=== PATIENT | female | born 1940 | race Caucasian/White ===

== ENCOUNTER → 2017-10-13 14:59 | Outpatient (CLI) | payer MEDICARE, SELFPAY ==
[2017-10-13 17:48] LABS: AST(SGOT) 53 U/L (15-37); Alanine Aminotransfer ALT/SGPT 82 U/L (13-56); Albumin, Serum 3.7 g/dL (3.2-5.0); Alkaline Phosphatase 59 U/L (45-117); Bilirubin, Direct 0.09 mg/dL (0.00-0.30); Globulin 3.7 g/dL (2.2-4.2); Protein, Total 7.4 g/dL (6.4-8.2)
== END ==
PROVIDERS: Family Provider Family Medicine; PCP Family Medicine; Visit Provider Internal Medicine Rheumatology
DX: R74.8 Abnormal levels of other serum enzymes (principal)
CPT/HCPCS: 36415; 80076

== ENCOUNTER → 2018-01-21 14:35 | Outpatient (CLI) | payer MEDICARE, SELFPAY ==
--- NOTE | 2018-01-21 14:37 | BI_ITS ---
MAMMOGRAPHY - BILATERAL SCREENING REASON FOR EXAM: Female, 77 years old. Routine annual screening examination. PERTINENT HISTORY: Non-contributory. TECHNIQUE: Digital bilateral breast kathrin (3D mammographic acquisition) in the CC and MLO projections. 2-D mediolateral oblique (MLO) and craniocaudad (CC) views of both breasts were obtained. CAD: Full Field Digital Mammography with Computer Added Detection was performed. COMPARISON: Comparison is made with prior study dated May 14, 2016 as well as May 23, 2016 and October 23, 2016. FINDINGS: Breast Composition: There are scattered areas of fibroglandular density. There are no dominant masses or suspicious calcifications. Stable appearance of the 2 mm well-defined nodular density in the upper outer aspect of the right breast. Stable appearance of the bilateral axillary lymph nodes. No other significant abnormalities are identified. There has been no significant change since the prior study. BI/SCREENING MAMM (CAD), BILAT IMPRESSION: Stable bilateral screening mammogram. Yearly follow-up mammogram recommended. (A) ASSESSMENT CATEGORY: BIRADS Category 2: Benign. A letter regarding these results will be sent to the patient by the facility within 30 days. Approximately 10% of breast cancers are not detected by mammography. A normal mammogram should not delay biopsy of a clinically suspicious abnormality. [id number] Electronically Signed: Gianfranco Chávez MD at 15:54 EDT Tel [phone], Service support ,
== END ==
PROVIDERS: Family Provider Family Medicine; PCP Family Medicine; Visit Provider Family Medicine
DX: Z12.31 Encounter for screening mammogram for malignant neoplasm of breast (principal)
CPT/HCPCS: 77063; 77067

== ENCOUNTER 2018-04-24 12:00 | Outpatient (RCR) | payer MEDICARE, SELFPAY ==
--- NOTE | 2018-04-01 11:39 | HP.PTEVAL_ITS ---
Patient's Visit Information CLARISA SANCHEZ is a 77 year old F referred to Physical Therapy by Anastasia Garcia D.C. with a diagnosis of SPONDYLOLTHESIS,INTERVERTBRAL DISC DEGENERATION, SEGMENTAL DYSFUNCTIONPELVIS. Date of Evaluation: 04/01/18 Physical Therapist: Hema Warner, PT, - Visit Plan Frequency: 2x /Week Duration: 4 Weeks Plan: heel lift ,DLS ,POSTURAL EX'S , LE STRENGTHENING,MODALITIES PRN - Subjective Subjective: This 77 y/o female presents to physical therapy low back pain. Patient has had lumbar pain several years . Patient had THR left side Miya pain became worse may have altered gait. But,patient did have alot pain prior to surgey in lumbar.Patient had MRI 2016 showed foraminal stenosis,DDD ,disc involvement. Patient left lumbar L-S/SI greater to right. Symptoms worse standing,walking,lifting,elevation from chair. Symptoms better rest laying supine. patient arthritis DR at [facility]. Seen [facility] recommended PT . Coughing/sneezing -. Bowel/bladder -. Pain affects QOL and daily function. Sleepung good at night. Denies parathesia/tingling. VOCATION: retired. SOCIAL : - Pain Bilateral Back Pain Intensity (Out of 10): 2 Pain Intensity Range: 7 - Objective POSTURE: mild foward posture. SYMMTRIES: pelvis assymitrcal,leg length assymtry right shorter 1. NEURO: intact reflexes 1/3 L3-4,L4-5L5-S1,denies parathesia/tingling. GAIT: ambulates with mild foward posture antalgic gait. MMT: quads/hams 4-/5,hip flexion 4-/5,abd 3+/5 ,ankle 4/5. LUMBAR ROM: flexion min loss decrease curve reversal,side glides decrease segmental motion, extensionmod loss. FLEXABLITY: hams min/mod tight - Special Tests L/S Slump test left side: Negative L/S Slump test right side: Negative L/S Left Straight Leg Raise: Negative L/S Right Straight Leg Raise: Negative Lumbar Standing: Flexion - Mechanical Response: No effect Lumbar Standing: Flexion - Symptoms During Testing: Increases Lumbar Standing: Flexion - Symptoms After Testing: No worse Lumbar Standing: Extension - Mechanical Response: No effect Lumbar Standing: Extension - Symptoms During Testing: Increases Lumbar Standing: Extension - Symptoms After Testing: Worse - Goals Goal 1:: Patient to be Independant with HEP Goal Time Frame: 4-6 Weeks Goal 2:: Patient to improve quality of gait with less antalgic pattern Goal Time Frame: 4-6 Weeks Goal 3:: Patient to decrease back pain by 50% vor greater to improve function with ADL'S Goal Time Frame: 4-6 Weeks Goal 4:: Patient to increase strength BLE 4/5 quads/hams hip 4/5 to improve function with bwalking and standing . Goal Time Frame: 4-6 Weeks Goal 5:: Patient to improve ADL'S and housework tasks standing walking greater than 15 min . - Rehabilitation Potential Physical Therapy Diagnosis: This patient has low back pain weakness impaits gait and ablity to stand and walk along with. leg length descrepency right short with h/o of left THR ermasu benifit from skilled PT Rehabilitation Potential: Good - Anticipated Interventions Patient/Client Instruction: Educate patient on: Condition For the Purpose of:: To decrease pain, To increase ROM, To improve muscle performance and motor function, To improve ability to perform ADL's, To increase tolerance to activity/condition/position, To improve ability of physical actions for home/community/work/leisure, To decrease soft tissue restriction, To increase flexibility/ROM, To reduce risk of recurrence, To improve ability to perform tasks related to life management Therapeutic Exercise to Include: Strength training, Body mechanics, Postural training, Flexibilty training, Dynamic Lumbar Stabilization For the Purpose of:: To decrease pain, To increase ROM, To improve muscle performance and motor function, To increase tolerance to activity/condition/ position, To improve ability of physical actions for home/community/work/leisure , To decrease soft tissue restriction, To increase flexibility/ROM, To improve ability to perform tasks related to life management TENS: Yes IF ES: Yes Cryotherapy (ice pack, ice massage): Yes Thermo therapy (hot pack): Yes Ultrasound (thermal/non thermal): Yes For the Purpose of:: To decrease pain, To increase ROM, To improve muscle performance and motor function, To increase tolerance to activity/condition/ position, To improve ability of physical actions for home/community/work/leisure , To decrease soft tissue restriction, To increase flexibility/ROM, To improve ability to perform tasks related to life management Thank you for the opportunity to evaluate your patient. For Medicare and Medicare HMO plans, please review the plan of care and approve it. It will need to be FAXED BACK to us at [phone] for Medicare purposes. Please let me know if there are questions or concerns regarding this plan of care. Physician Signature: Date:
--- NOTE | 2018-04-24 12:38 | HP.PTDCSUM ---
HP - PT D/C Summary It has been my pleasure to treat CLARISA ASNCHEZ under orders from Anastasia Garcia D.C., for the diagnosis of SPONDYLOLTHESIS,INTERVERTBRAL DISC DEGENERATION,SEGMENTAL DYSFUNCTIONPELVIS for a total of 8 visit(s). Discharge Date: 04/24/18 Please see the following information for a summary of their discharge status. - Subjective Subjective: Patient reports alot better with walking and ADL''S but conts to ache left side ..lateral hip. Patient doesn't ayse - Pain Bilateral Back Pain Intensity (Out of 10): 1 - Overall Improvement % Improvement: 60 - Objective Objective/Function: POSTURE: mild foward posture. GAIT: mild foward posture no device. NEURO: intact. MMT: quad/hams 4/5,hip flexion 4-/5,ankle 4/5. LUMBAR ROM: flexion min loss,extension mod loss,side glides min loss - Goals Goal 1:: Patient to be Independant with HEP Goal Progress: Goal Met Goal 2:: Patient to improve quality of gait with less antalgic pattern Goal Progress: Goal Met Goal 3:: Patient to decrease back pain by 50% vor greater to improve function with ADL'S Goal Progress: Goal Met Goal 4:: Patient to increase strength BLE 4/5 quads/hams hip 4/5 to improve function with bwalking and standing . Goal Progress: Goal Met Goal 5:: Patient to improve ADL'S and housework tasks standing walking greater than 15 min . Goal Progress: Goal Met - Plan Plan: D/C HEP - D/C Information Discharge Comments: HEP If there are questions or concerns regarding this patient's physical therapy, please feel free to call me at [phone]. Thank you for the referral of this patient. Sincerely, Hema Warner, PT,
== END 2018-04-24 19:00 | disposition home or self-care (01) ==
LOC: PT 12:00
PROVIDERS: Family Provider Family Medicine; PCP Family Medicine; Visit Provider Chiropractor
DX: M43.10 Spondylolisthesis, site unspecified (principal); M51.36 Other intervertebral disc degeneration, lumbar region; M99.05 Segmental and somatic dysfunction of pelvic region
CPT/HCPCS: 97110; 97162; 97530

== ENCOUNTER → 2018-07-28 16:23 | Outpatient (CLI) | payer MEDICARE, SELFPAY ==
[2018-03-26 14:29] VITALS: BMI 25.4
[2018-07-28 18:33] LABS: AST(SGOT) 34 U/L (15-37); Alanine Aminotransfer ALT/SGPT 45 U/L (13-56); Albumin, Serum 4.2 g/dL (3.2-5.0); Alkaline Phosphatase 65 U/L (45-117); Bilirubin, Direct 0.18 mg/dL (0.00-0.30); Cholesterol 228 mg/dL (200); Globulin 3.1 g/dL (2.2-4.2); High Density Lipoprotein 86 mg/dL; Protein, Total 7.3 g/dL (6.4-8.2); Triglycerides 188 mg/dL; Very Low Density Lipoprotein 38 mg/dL (5-40)
== END ==
PROVIDERS: Family Provider Family Medicine; PCP Family Medicine; Visit Provider Family Medicine
DX: E78.5 Hyperlipidemia, unspecified (principal)
CPT/HCPCS: 36415; 80061; 80076

== ENCOUNTER 2018-09-14 08:44 | Day surgery (SDC) | payer MEDICARE, SELFPAY ==
[2018-09-14] VITALS (7 sets, daily range): BP systolic 129–157; BP diastolic 65–75; PULSE 73–81; RESP 14–18; TEMP 36.6–37; O2SAT 98–100; BMI 26.9
[2018-09-14] MEDS: MethylPREDNISolone Acetate 80 MG/ML Vial (09:34)
[2018-09-14] MEDS: Bupivacaine 0.25% 30 ML Vial (09:35)
--- NOTE | 2018-09-14 09:45 | RAD_ITS ---
PROCEDURE: Caudal block. DATE OF EXAMINATION: September 14, 2018. INDICATION: Female, 78 years old. Chronic low back pain. FLUOROSCOPY TIME (if supplied): (0:09) minutes/seconds. 2 lateral coned down views of the sacrum were obtained. Intraoperative imaging provided for caudal block. The spinal needle is seen overlying the posterior midportion of the sacrum. RAD/Fluoro Guided Needle Placement IMPRESSION: Intraoperative imaging provided for caudal block. Electronically Signed: Gianfranco Chávez, at 12:37 EST , Service support ,
--- NOTE | 2018-09-14 09:49 | OP.PCM_ITS ---
Problem List (1) Radiculopathy of lumbosacral region Status: Chronic (2) DDD (degenerative disc disease), lumbar Status: Chronic Report of Operation Date of Procedure: 09/14/18 Pre-Operative Diagnosis: Lumbosacral radiculopathy, lumbosacral degenerative disc disease, lumbosacral spinal stenosis Post-Operative Diagnosis: Lumbosacral radiculopathy, lumbosacral degenerative disc disease, lumbosacral spinal stenosis Surgery/Procedure Performed:: Diagnostic/therapeutic caudal epidural steroid injection Description of Surgical Findings:: PROCEDURE: Diagnostic/therapeutic caudal epidural steroid injection PREOPERATIVE DIAGNOSIS: Lumbosacral radiculopathy, lumbosacral degenerative disc disease, lumbosacral spinal stenosis POSTOPERATIVE DIAGNOSIS: Lumbosacral radiculopathy, lumbosacral degenerative disc disease, lumbosacral spinal stenosis ANESTHESIA: MAC COMPLICATIONS: None BLOOD LOSS: Minimal PROCEDURE IN DETAIL: History and physical today was reviewed. Risks and benefits of the procedure were explained. The patient understood, agreed to our procedure, and informed consent was obtained. IV inserted per routine protocol. The patient was taken to the operating room, placed in a prone position with a pillow positioned underneath the abdomen. The lower back and tailbone area was prepped and draped in a sterile fashion using iodine ?3 under fluoroscopy guidance on the lateral view the caudal space was identified the skin and subcutaneous tissue and size approximately 3 cc of 1% lidocaine using a 25-gauge regular needle under direct visualization fluoroscopy using the lateral approach using a 22-gauge 3-1/2 inch spinal needle the needle was advanced via the skin through the sacral hiatus, tip of the needle passed through the sacrococcygeal ligament advanced approximately S4 area after negative aspiration for blood or CSF a total of 3 cc of contrast were injected to confirm correct placement of the needle as well as cephalad spread the spread was followed to approximately L5 area after confirmation on AP as well as lateral view and repeated negative aspiration, a total of 15 cc of preservative- free 0.125% Marcaine with 80 mg of Depo-Medrol was injected easily. The needles were then removed intact. The patient experienced no signs or symptoms intrathecal, intravascular injection. The patient experienced no paraesthesia. The procedure was completed without any apparent difficult, any complication. The patient appeared to tolerate well. ASSESSMENT AND PLAN: This is a 78-year-old female with lumbosacral radiculopathy, lumbosacral degenerative disc disease, lumbosacral spinal stenosis status post diagnostic/therapeutic caudal epidural steroid injection. The patient will continue her current medications. The patient will follow in approximately 2 weeks for reevaluation.
== END 2018-09-14 10:25 | disposition home or self-care (01) ==
LOC: SDC 08:45 → AC 08:47
PROVIDERS: Family Provider Family Medicine; PCP Family Medicine; Referring Provider Anesthesiology Pain Medicine; Visit Provider Anesthesiology Pain Medicine
PROC: 3E0S3BZ Introduction of Anesthetic Agent into Epidural Space, Percutaneous Approach (ICD-10-PCS; CPT 62282; principal; 2018-09-14 09:45)
DX: M51.16 Intervertebral disc disorders with radiculopathy, lumbar region (principal); M47.27 Other spondylosis with radiculopathy, lumbosacral region; M16.0 Bilateral primary osteoarthritis of hip; M70.60 Trochanteric bursitis, unspecified hip; M10.9 Gout, unspecified; Z87.891 Personal history of nicotine dependence; Z79.891 Long term (current) use of opiate analgesic; Z79.899 Other long term (current) drug therapy
CPT/HCPCS: 62323; 64520; 64490; 77002; J7120; J3490

== ENCOUNTER 2018-10-26 06:23 | Day surgery (SDC) | payer MEDICARE, SELFPAY ==
[2018-09-14 08:59] VITALS: BMI 26.9
[2018-10-26 06:50] VITALS: BP 130/67; PULSE 85; RESP 18; TEMP 36.4; O2SAT 100; BMI 26.4
[2018-10-26] MEDS: Bupivacaine 0.25% 30 ML Vial (07:34)
--- NOTE | 2018-10-26 07:35 | RAD_ITS ---
PROCEDURE: Left L3-S1 facet joint block. DATE OF EXAMINATION: October 26, 2018. INDICATION: Female, 78 years old. Chronic low back pain. FLUOROSCOPY TIME (if supplied): (0:18) minutes/seconds. 4 intraoperative images were obtained. Intraoperative imaging provided for left L3-S1 facet joint. RAD/L/S Spine Min 4 Views IMPRESSION: Intraoperative imaging provided for left L3-S1 facet joint block. Electronically Signed: Gianfranco Chávez, at 15:55 EDT , Service support ,
[2018-10-26] MEDS: MethylPREDNISolone Acetate 80 MG/ML Vial (07:43)
[2018-10-26 07:49] VITALS: BP 112/64; BP 130/67; PULSE 80; RESP 16; TEMP 36.3; O2SAT 100
--- NOTE | 2018-10-26 07:52 | PCM.OPRPT ---
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: Chronic (2) DDD (degenerative disc disease), lumbar Status: Chronic Report of Operation Date of Procedure: 10/26/18 Pre-Operative Diagnosis: Lumbosacral spondylosis, lumbosacral degenerative disc disease, lumbar facet arthropathy Post-Operative Diagnosis: Lumbosacral spondylosis, lumbosacral degenerative disc disease, lumbar facet arthropathy Surgery/Procedure Performed:: Left-sided lumbar facet steroid injection L3, L4, L5, S1 Description of Surgical Findings:: PROCEDURE: Left-sided lumbar facet steroid injection L3, L4, L5, S1 PREOPERATIVE DIAGNOSIS: Lumbosacral spondylosis, lumbosacral degenerative disc disease, and lumbar facet arthropathy POSTOPERATIVE DIAGNOSIS: Lumbosacral spondylosis, lumbosacral degenerative disc disease, and lumbar facet arthropathy ANESTHESIA: MAC COMPLICATIONS: None BLOOD LOSS: Minimal PROCEDURE IN DETAIL: History and physical today was reviewed. Risks and benefits of the procedure were explained. The patient understood, agreed to our procedure, and informed consent was obtained. IV inserted per routine protocol. The patient was taken to the operating room, placed in a prone position with a pillow positioned underneath the abdomen. The left side of his lower back was prepped and draped in a sterile fashion using iodine x3. Under fluoroscopy guidance, on AP view, L3 through S1 vertebral bodies were visualized. Skin and subcutaneous tissues were anesthetized with approximately 5 mL of 1% lidocaine using a 25-gauge regular needle. Under direct visualization with fluoroscopy at approximately 25-degree angle, starting on the left L3, ending on the left S1, passing through the L4-L5 using a 22-gauge 3 1/2-inch spinal needle, the needle was advanced via the skin. The tip of the needle was maneuvered and directed towards the superior and medial gutter of the transverse process at the vicinity of the medial branch. Once the tip of the needle was in contact with the bone, the needle pulled approximately 2 mm off the bone. After negative aspiration of blood with CSF and confirmation of AP as well as oblique view, a total of 8 mL of preservative-free 0.25% Marcaine with 80 mg of Depo-Medrol was injection in divided doses between those 4 levels. The needles were then removed intact. The patient experienced no signs or symptoms intrathecal, intravascular injection. The patient experienced no paraesthesia. The procedure was completed without any apparent difficult, any complication. The patient appeared to tolerate well. ASSESSMENT AND PLAN: This is a 78-year-old female with lumbosacral spondylosis, lumbosacral degenerative disc disease, and lumbar facet arthropathy, status post left-sided lumbar facet steroid injection L3 through S1. The patient will continue her current medications. The patient will follow in approximately 2 weeks for reevaluation.
[2018-10-26 07:54] VITALS: BP 126/64; BP 130/67; PULSE 73; RESP 16; O2SAT 99
--- NOTE | 2018-10-26 07:56 | OP.PCM_ITS ---
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: Chronic (2) DDD (degenerative disc disease), lumbar Status: Chronic Report of Operation Date of Procedure: 10/26/18 Pre-Operative Diagnosis: Lumbosacral spondylosis, lumbosacral degenerative disc disease, lumbar facet arthropathy Post-Operative Diagnosis: Lumbosacral spondylosis, lumbosacral degenerative disc disease, lumbar facet arthropathy Surgery/Procedure Performed:: Left-sided lumbar facet steroid injection L3, L4, L5, S1 Description of Surgical Findings:: PROCEDURE: Left-sided lumbar facet steroid injection L3, L4, L5, S1 PREOPERATIVE DIAGNOSIS: Lumbosacral spondylosis, lumbosacral degenerative disc disease, and lumbar facet arthropathy POSTOPERATIVE DIAGNOSIS: Lumbosacral spondylosis, lumbosacral degenerative disc disease, and lumbar facet arthropathy ANESTHESIA: MAC COMPLICATIONS: None BLOOD LOSS: Minimal PROCEDURE IN DETAIL: History and physical today was reviewed. Risks and benefits of the procedure were explained. The patient understood, agreed to our procedure, and informed consent was obtained. IV inserted per routine protocol. The patient was taken to the operating room, placed in a prone position with a pillow positioned underneath the abdomen. The left side of his lower back was prepped and draped in a sterile fashion using iodine x3. Under fluoroscopy guidance, on AP view, L3 through S1 vertebral bodies were visualized. Skin and subcutaneous tissues were anesthetized with approximately 5 mL of 1% lidoca ine using a 25-gauge regular needle. Under direct visualization with fluoroscopy at approximately 25-degree angle, starting on the left L3, ending on the left S1, passing through the L4-L5 using a 22-gauge 3 1/2-inch spinal needle, the needle was advanced via the skin. The tip of the needle was maneuvered and directed towards the superior and medial gutter of the transverse process at the vicinity of the medial branch. Once the tip of the needle was in contact with the bone, the needle pulled approximately 2 mm off the bone. After negative aspiration of blood with CSF and confirmation of AP as well as oblique view, a total of 8 mL of preservative-free 0.25% Marcaine with 80 mg of Depo- Medrol was injection in divided doses between those 4 levels. The needles were then removed intact. The patient experienced no signs or symptoms intrathecal, intravascular injection. The patient experienced no paraesthesia. The procedure was completed without any apparent difficult, any complication. The patient appeared to tolerate well. ASSESSMENT AND PLAN: This is a 78-year-old female with lumbosacral spondylosis, lumbosacral degenerative disc disease, and lumbar facet arthropathy, status post left-sided lumbar facet steroid injection L3 through S1. The patient will continue her current medications. The patient will follow in approximately 2 weeks for reevaluation.
[2018-10-26 07:59] VITALS: BP 130/67; BP 136/70; PULSE 72; RESP 16; O2SAT 99
[2018-10-26 08:05] VITALS: BP 130/67; BP 148/73; PULSE 71; RESP 16; TEMP 36.4; O2SAT 100
[2018-10-26 08:15] VITALS: BP 130/67
== END 2018-10-26 08:27 | disposition home or self-care (01) ==
LOC: SDC 06:24 → AC 06:24
PROVIDERS: Family Provider Family Medicine; PCP Family Medicine; Referring Provider Anesthesiology Pain Medicine; Visit Provider Anesthesiology Pain Medicine
PROC: 3E0T3BZ Introduction of Anesthetic Agent into Peripheral Nerves and Plexi, Percutaneous Approach (ICD-10-PCS; CPT 64493; principal; 2018-10-26 07:25)
DX: M47.817 Spondylosis without myelopathy or radiculopathy, lumbosacral region (principal); M51.36 Other intervertebral disc degeneration, lumbar region; M51.37 Other intervertebral disc degeneration, lumbosacral region; M19.90 Unspecified osteoarthritis, unspecified site; M10.9 Gout, unspecified; Z87.891 Personal history of nicotine dependence; Z79.891 Long term (current) use of opiate analgesic
CPT/HCPCS: 64493; 64494; 64495; 64483; 72110; J7120

== ENCOUNTER → 2019-01-25 | Outpatient (CLI) | payer MEDICARE, SELFPAY ==
[2019-01-25 15:24] LABS: Absolute Lymphocyte Count 1.63 X10^3/ul (0.83-4.51); Absolute Neutrophil Count 4.3 X10^3/uL (2.0-7.7); Basophil# 0.02 X10^3/uL; Basophil% 0.3 % (0-1); Eosinophil# 0.12 X10^3/uL; Eosinophils% 1.8 % (0-5); Hematocrit 39.4 % (37-47); Hemoglobin 13.6 g/dl (12.0-15.0); Lymphocyte # 1.63 X10^3/ul (4.0); Lymphocyte % 23.9 % (19-41); Mean Corp Hgb Conc 34.5 g/gl (32-36); Mean Corpuscular Hgb 34.4 pg (27.0-32.0); Mean Corpuscular Volume 99.7 fL (81-99); Mean Platelet Vol. 9.5 fl (6.2-12.0); Monocyte# 0.72 X10^3/uL; Monocyte% 10.6 % (0-10); Neutrophil # 4.31 X10^3/uL (2.7-7.7); Neutrophil % 63.3 % (47-70); Platelet Count 265 K/mm3 (150-450); RBC Distribution Width CV 12.7 % (11.6-14.6); RBC Distribution Width SD 45.1 fl (35.1-43.9); Red Blood Count 3.95 M/mm3 (4.2-5.4); White Blood Count 6.8 K/mm3 (4.4-11.0)
[2019-01-25 15:41] LABS: AST(SGOT) 29 U/L (15-37); Alanine Aminotransfer ALT/SGPT 48 U/L (13-56); Albumin, Serum 3.5 g/dL (3.2-5.0); Alkaline Phosphatase 59 U/L (45-117); Anion Gap 7 (5-15); BUN 16 mg/dL (7-18); BUN/Creat Ratio 18.5 RATIO (10-20); Calcium,Total 8.9 mg/dL (8.5-10.1); Chloride 106 mmol/L (98-107); Creatinine, Serum 0.87 mg/dL (0.55-1.02); EST Glomerular Filtration Rate 68 mL/min (>60); Est Glom Filt Rate - Afr Amer 82 mL/min (>60); Globulin 3.6 g/dL (2.2-4.2); Glucose 84 mg/dL (74-106); Protein, Total 7.1 g/dL (6.4-8.2); Sodium Level 141 mmol/L (136-145); Thyroid Stim Hormone (TSH) 1.03 uIU/mL (0.358-3.74)
[2019-01-25 15:46] LABS: POSITIVE COUNT NO; POSITIVE DIFFERENTIAL NO; POSITIVE MORPHOLOGY NO
== END | disposition home or self-care (01) ==
LOC: MFPLAB 14:10
PROVIDERS: Family Provider Family Medicine; PCP Family Medicine; Visit Provider Family Medicine
DX: R53.83 Other fatigue (principal); R53.81 Other malaise
CPT/HCPCS: 36415; 80053; 84443; 85025

== ENCOUNTER 2019-03-01 09:43 | Day surgery (SDC) | payer MEDICARE, SELFPAY ==
[2019-03-01 10:04] VITALS: BP 163/76; PULSE 82; RESP 16; TEMP 36.6; O2SAT 100; BMI 25.7
--- NOTE | 2019-03-01 10:52 | RAD_ITS ---
STUDY: BILATERAL LUMBAR FACET BLOCK L4-S1 REASON FOR EXAM: Female, 78 years old. Back pain RADIATION DOSAGE (If Supplied By Facility): CTDIvol = ( ) mGy, DLP = ( ) mGycm. Individualized dose optimization techniques were used for this CT.? FLUOROSCOPY TIME (if supplied): (0:19) minutes/seconds TECHNIQUE: Intraoperative fluoroscopy COMPARISON: None. FINDINGS: Intraoperative fluoroscopy provided for bilateral facet block in the lumbar spine from L4 to S1. Please refer to the procedure report regarding details of the procedure. RAD/L/S Spine Min 4 Views IMPRESSION: As above Electronically Signed: Florentin Morrison MD at 14:45 EDT Tel [phone], Service support ,
[2019-03-01] MEDS: Bupivacaine 0.25% 30 ML Vial (10:53)
[2019-03-01] MEDS: MethylPREDNISolone Acetate 80 MG/ML Vial (10:53)
[2019-03-01 11:05] VITALS: BP 152/91; BP 163/76; PULSE 74; RESP 16; TEMP 36.1; O2SAT 100
[2019-03-01 11:09] VITALS: BP 135/75; BP 163/76; PULSE 69; RESP 16; O2SAT 100
[2019-03-01 11:14] VITALS: BP 112/97; BP 163/76; PULSE 69; RESP 16; O2SAT 99
[2019-03-01 11:17] VITALS: BP 152/78; BP 163/76; PULSE 73; RESP 16; TEMP 36.1; O2SAT 99
[2019-03-01 11:35] VITALS: BP 163/76
--- NOTE | 2019-03-01 17:42 | OP.PCM_ITS ---
Problem List (1) DDD (degenerative disc disease), lumbar Status: Chronic (2) Spondylosis of lumbosacral region without myelopathy or radiculopathy Status: Chronic Report of Operation Date of Procedure: 03/01/19 Description of Surgical Findings:: PROCEDURE: Bilateral lumbar facet steroid injection L4, L5, S1 PREOPERATIVE DIAGNOSIS: Lumbosacral spondylosis, lumbar sacral degenerative disc disease, and lumbar facet arthropathy POSTOPERATIVE DIAGNOSIS: Lumbosacral spondylosis, lumbosacral degenerative disc disease, and lumbar facet arthropathy ANESTHESIA: MAC COMPLICATIONS: None BLOOD LOSS: Minimal PROCEDURE IN DETAIL: History and physical today was reviewed. Risks and benefits of the procedure were explained. The patient understood, agreed to our procedure, and informed consent was obtained. IV inserted per routine protocol. The patient was taken to the operating room, placed in a prone position with a pillow positioned underneath the abdomen. The lower back was prepped and draped in a sterile fashion using iodine x3. Under fluoroscopy guidance, on AP view, L4 through S1 vertebral bodies were visualized. Skin and subcutaneous tissues were anesthetized with approximately 5 mL of 1% lidocaine using a 25-gauge regular needle. Under direct visualization with fluoroscopy at approximately 25-degree angle, starting on the left L4 ending on the right L4 passing through the L5-S1 bilaterally using a 22-gauge 3 1/2-inch spinal needle, the needle was advanced via the skin. The tip of the needle was maneuvered and directed towards the superior and medial gutter of the transverse process at the vicinity of the medial branch. Once the tip of the needle was in contact with the bone, the needle pulled approximately 2 mm off the bone. After negative aspiration of blood with CSF and confirmation of AP as well as oblique view, a total of 12 mL of preservative-free 0.25% Marcaine with 80 mg of Depo- Medrol was injection in divided doses between those 6 levels. The needles were then removed intact. The patient experienced no signs or symptoms intrathecal, intravascular injection. The patient experienced no paraesthesia. The procedure was completed without any apparent difficult, any complication. The patient appeared to tolerate well. ASSESSMENT AND PLAN: This is a 78-year-old female with lumbosacral spondylosis, lumbosacral degenerative disc disease and lumbar facet arthropathy, status post bilateral lumbar facet steroid injection L4 through S1. The patient will continue her current medications. The patient will follow in approximately 2 weeks for possible reevaluation.
== END 2019-03-01 11:45 | disposition home or self-care (01) ==
LOC: SDC 09:44 → AC 09:45
PROVIDERS: Family Provider Family Medicine; PCP Family Medicine; Referring Provider Anesthesiology Pain Medicine; Visit Provider Anesthesiology Pain Medicine
PROC: 3E0T3BZ Introduction of Anesthetic Agent into Peripheral Nerves and Plexi, Percutaneous Approach (ICD-10-PCS; CPT 64493; principal; 2019-03-01 10:55)
DX: M51.36 Other intervertebral disc degeneration, lumbar region (principal); M47.817 Spondylosis without myelopathy or radiculopathy, lumbosacral region; M51.37 Other intervertebral disc degeneration, lumbosacral region; M46.96 Unspecified inflammatory spondylopathy, lumbar region; M10.9 Gout, unspecified; M16.0 Bilateral primary osteoarthritis of hip; M70.60 Trochanteric bursitis, unspecified hip; M79.10 Myalgia, unspecified site; Z87.891 Personal history of nicotine dependence; Z79.891 Long term (current) use of opiate analgesic; Z79.899 Other long term (current) drug therapy
CPT/HCPCS: 64493; 64494; 64483; 72110; J7120

== ENCOUNTER → 2019-07-20 17:32 | Outpatient (CLI) | payer MEDICARE, SELFPAY ==
[2019-07-20 17:40] LABS: Absolute Lymphocyte Count 1.66 X10^3/uL (0.83-4.51); Absolute Neutrophil Count 5.9 X10^3/uL (2.0-7.7); Basophil# 0.04 X10^3/uL; Basophil% 0.4 % (0-1); Eosinophil# 0.16 X10^3/uL; Eosinophils% 1.8 % (0-5); Hematocrit 35.8 % (37-47); Hemoglobin 11.9 g/dL (12.0-15.0); Lymphocyte # 1.66 X10^3/ul (4.0); Lymphocyte % 18.6 % (19-41); Mean Corp Hgb Conc 33.2 g/dL (32-36); Mean Corpuscular Hgb 33.8 pg (27.0-32.0); Mean Corpuscular Volume 101.7 fL (81-99); Mean Platelet Vol. 9.1 fl (6.2-12.0); Monocyte# 1.11 X10^3/uL; Monocyte% 12.4 % (0-10); NRBC Flagged by Analyzer 0 % (0-5); Neutrophil # 5.93 X10^3/uL (2.7-7.7); Neutrophil % 66.4 % (47-70); Platelet Count 468 K/mm3 (150-450); RBC Distribution Width CV 12.3 % (11.6-14.6); RBC Distribution Width SD 44.7 fl (35.1-43.9); Red Blood Count 3.52 M/mm3 (4.2-5.4); White Blood Count 8.9 K/mm3 (4.4-11.0)
[2019-07-20 17:53] LABS: Erythrocyte Sedimentation Rate 39 mm/hr (0-30)
== END ==
PROVIDERS: Family Provider Family Medicine; PCP Family Medicine; Referring Provider Family Medicine; Visit Provider Family Medicine
DX: T81.40XA Infection following a procedure, unspecified, initial encounter (principal)
CPT/HCPCS: 36415; 85025; 85652

== ENCOUNTER 2019-09-16 13:30 | Outpatient (RCR) | payer MEDICARE, SELFPAY ==
--- NOTE | 2019-08-18 15:58 | HP.PTEVAL ---
Patient's Visit Information CLARISA SANCHEZ is a 79 year old F referred to Physical Therapy by Christian Brown MD with a diagnosis of Right TKR. Date of Evaluation: 08/18/19 Physical Therapist: Jazmin Bourgeois DPT - Visit Plan Frequency: 2x /Week Duration: 4 Weeks Plan: Focus on LE strength and functional mobility- BALANCE - Subjective Findings: Patient reports right TKR on Jun 30, 2019- 3 weeks in [facility]-[place] with a walkout basement. has been doing the laundry. Left TKR was in 2011. Is using the cane and when she doesn't feels stable she is using the walker. She had home therapy for a few weeks- had a fall last week but did not hurt herself. Worst:110 Best: 0/10 Agg: doing her exercises. Eases: rest and ice. Pain is located on the knee cap and aches down the tristan. Sleep: not disturbed. Has help at home from her . For about 2 months prior to surgery she drove but very short distances. But plans to get back to fully I including driving. She likes to garden but hasn't been able to due to pain- Silver Sneakers at the [facility], chair yoga. She does have some balance deficit. PMHx: none Meds: see list pt will bring next visit. - Objective Posture: Fh, RS, increased kyphosis- can correct but does not maintain. Gait: shuffling steps- given VC's pt takes 2 strides with good length then returns to a shuffling pattern. HR/TR: able. SLS: WS but unable to SLS. Balance: poor- unable to tandem stance. Stairs: asc/desc 8 non recip with 2 HR. ROM: 0-115 degrees. Strength: Ankle: 5/5, Knee: 4/5, Hip: 4/5. Flex: HS: moderate, Gastroc: moderate. Sit to Stand: requires UE A - Goals Goal 1:: Patient will be I with HEP and progression Goal Time Frame: 4-6 Weeks Goal 2:: Patient will ambulate >300 feet with a normalized gait pattern with LRD Goal Time Frame: 4-6 Weeks Goal 3:: Patient will asc/desc 8 recip with 1 Hr and good technique. - Rehabilitation Potential Physical Therapy Diagnosis: Patient presents with hypomobility s/p right TKR- she has decreased ROM, strength, flex and muscular endurance leading to abnormal gait and dereased ability to perform ADL's. Rehabilitation Potential: Good - Anticipated Interventions Patient/Client Instruction: Educate patient on: Benefits of Fitness Program Therapeutic Exercise to Include: Strength training, Endurance training, Balance training, Body mechanics, Postural training, Flexibilty training, Gait and locomotor training, Neuromotor development, Passive ROM, Active ROM, Dynamic Lumbar Stabilization For the Purpose of:: To improve muscle performance and motor function Other electric stimulation: Yes Cryotherapy (ice pack, ice massage): Yes Thermo therapy (hot pack): No Thank you for the opportunity to evaluate your patient. For Medicare and Medicare HMO plans, please review the plan of care and approve it. It will need to be FAXED BACK to us at [phone] for Medicare purposes. For Medicare only, by signing this I certify the plan of care. Please let me know if there are questions or concerns regarding this plan of care. Physician Signature: Date:
--- NOTE | 2019-09-16 14:09 | HP.PTDCSUM ---
HP - PT D/C Summary It has been my pleasure to treat CLARISA SANCHEZ under orders from Christian Brown MD, for the diagnosis of Right TKR for a total of 7 visit(s). Discharge Date: Please see the following information for a summary of their discharge status. - Subjective Subjective: Patient reports that the knee is doing great- she has been held back by dizziness the last few weeks- went to the see the ENT- which was negative- and she has not had it for awhile. No pain in the knee. She would like to be able to get down to the laundry- she is cautious and her has been doing it. Is able to do the stairs here without difficulty. - Overall Improvement % Improvement: 50 - Objective Objective/Function: Posture: FH, RS, increased kyphosis- can correct but does not maintain. Gait: bigger step length- continues to demonstrate decreased alexei HR/TR: able. SLS: WS but unable to SLS. Balance: fair- unable to tandem stance without UE A. Stairs: asc/desc 8 recip with 2 HR. ROM: 0-115 degrees. Strength: Ankle: 5/5, Knee: 4+/5, Hip: 4/5. Flex: HS: moderate, Gastroc: moderate. Sit to Stand: requires UE A - Goals Goal 1:: Patient will be I with HEP and progression Goal Progress: Goal Met Goal 2:: Patient will ambulate >300 feet with a normalized gait pattern with LRD Goal Progress: Progressing Goal 3:: Patient will asc/desc 8 recip with 1 Hr and good technique. Goal Progress: Progressing - Plan Plan: Discharge to I HEP - D/C Information If there are questions or concerns regarding this patient's physical therapy, please feel free to call me at [phone]. Thank you for the referral of this patient. Sincerely, DINESH RosasT
== END 2019-09-16 18:24 | disposition home or self-care (01) ==
LOC: PT 13:30
PROVIDERS: PCP Family Medicine; Referring Provider Specialist; Visit Provider Specialist
DX: Z96.651 Presence of right artificial knee joint (principal)
CPT/HCPCS: 97110; 97162; 97164

== ENCOUNTER → 2020-02-17 15:09 | Outpatient (CLI) | payer MEDICARE, SELFPAY ==
[2020-02-17 18:24] LABS: Absolute Lymphocyte Count 1.36 X10^3/uL (0.83-4.51); Absolute Neutrophil Count 3.3 X10^3/uL (2.0-7.7); Basophil# 0.05 X10^3/uL; Basophil% 0.9 % (0-1); Eosinophil# 0.11 X10^3/uL; Hematocrit 38.8 % (37-47); Hemoglobin 13.3 g/dL (12.0-15.0); Lymphocyte # 1.36 X10^3/ul (4.0); Lymphocyte % 25.1 % (19-41); Mean Corp Hgb Conc 34.3 g/dL (32-36); Mean Corpuscular Hgb 33.7 pg (27.0-32.0); Mean Corpuscular Volume 98.2 fL (81-99); Mean Platelet Vol. 9.7 fl (6.2-12.0); Monocyte# 0.59 X10^3/uL; Monocyte% 10.9 % (0-10); NRBC Flagged by Analyzer 0 % (0-5); Neutrophil # 3.29 X10^3/uL (2.7-7.7); Neutrophil % 60.7 % (47-70); Platelet Count 302 K/mm3 (150-450); RBC Distribution Width CV 13.5 % (11.6-14.6); Red Blood Count 3.95 M/mm3 (4.2-5.4); White Blood Count 5.4 K/mm3 (4.4-11.0)
[2020-02-17 18:39] LABS: AST(SGOT) 22 U/L (15-37); Alanine Aminotransfer ALT/SGPT 26 U/L (13-56); Albumin, Serum 3.9 g/dL (3.2-5.0); Alkaline Phosphatase 68 U/L (45-117); Bilirubin, Direct 0.16 mg/dL (0.00-0.30); Creatinine, Serum 0.66 mg/dL (0.55-1.02); EST Glomerular Filtration Rate 92 mL/min (>60); Est Glom Filt Rate - Afr Amer 112 mL/min (>60); Globulin 3.5 g/dL (2.2-4.2); Protein, Total 7.4 g/dL (6.4-8.2); Uric Acid 3.6 mg/dL (2.6-6.0)
== END ==
PROVIDERS: PCP Family Medicine; Referring Provider Family Medicine; Visit Provider Internal Medicine Rheumatology
DX: M1A.00X0 Idiopathic chronic gout, unspecified site, without tophus (tophi) (principal); Z79.899 Other long term (current) drug therapy
CPT/HCPCS: 36415; 80076; 82565; 84550; 85025

== ENCOUNTER 2020-04-01 00:03 | Emergency (ER) | payer MEDICARE, SELFPAY ==
[2020-04-01 00:04] VITALS: BP 154/73; PULSE 79; RESP 18; TEMP 37; O2SAT 98; BMI 26.3
--- NOTE | 2020-04-01 00:15 | ED.DCSUM_ITS ---
History of Present Illness Chief Complaint: Fall Informant: Patient Onset: Today Current Severity: Mild Maximum Severity: Moderate Narrative: Patient presents with fall and left elbow injury. She states she lost her levi nce while she was putting her pajamas on and fell onto her left side. She complaining of pain to her left elbow. She is right-hand dominant. She denies striking her head or loss of consciousness. She is not on any anticoagulants. - Past Medical History (1) High cholesterol Status: Chronic (2) DDD (degenerative disc disease), lumbar Status: Chronic (3) Radiculopathy of lumbosacral region Status: Chronic Past Medical History - Allergies and Home Meds Allergies/Adverse Reactions: Allergies meperidine HCl [From Demerol] Allergy (Verified 04/01/20 00:08) HALLUCINATIONS Sulfa (Sulfonamide Antibiotics) Allergy (Verified 04/01/20 00:08) Hives adhesive tape Adverse Reaction (Verified 04/01/20 00:08) Rash hydrocodone bitartrate [From [place]] Adverse Reaction (Verified 04/01/20 00:08) Vomiting propoxyphene HCl [From Darvon] Adverse Reaction (Verified 04/01/20 00:08) Vomiting Primary Care Physician: Gunner Armstrong DO [STAFF PHYSICIAN] - As soon as possible Prior records reviewed: Yes Smoking Status: Former smoker Review of Systems General: Denies: Chills, Fever Eyes: Denies: Visual changes - bilaterally ENT: Denies: Bilateral ear pain Cardiovascular: Denies: Chest pain Respiratory: Denies: Dyspnea, Cough Gastrointestinal: Denies: Abdominal pain, Nausea, Vomiting Musculoskeletal: Reports: Extremity Pain Skin: Reports: Abrasions Neurological: Denies: Headache, Parasthesia Hematologic: Denies: Easy bruising Allergy: Denies: Uticaria Physical Exam Vital Signs/Narrative: Vital Signs Temp Pulse Resp BP Pulse Ox 04/01/20 00:04 98.6 F 79 18 154/73 H 98 Inital Vital Signs reviewed: Yes General: Well nourished, Well developed Head: Normocephalic ENT: Moist mucous membranes Neck: Supple Cardiovascular: Regular rate, Regular rhythm Respiratory: No distress, CTA bilaterally Abdomen: Soft, Nontender Extremities: - - Mild tenderness location diffusely around the left elbow. Slight decreased range of motion secondary to pain. Abrasions noted to the extensor surface of the elbow as well as to the forearm. Strong distal pulses noted. Patient is able to wiggle her fingers and has good sensation distally. Skin: - - Abrasions as noted above Neurological: Alert, Oriented x3 Psychological: Normal affect Diagnostic/Tx/Re-eval Left elbow x-rays per my review reveal a mildly displaced supracondylar fracture. - Medical Decision Making Patient has declined pain medications on multiple occasions. X-rays reviewed with her I did advise her that this type of fracture is at higher risk for vascular or nerve injury. At this time patient has strong distal pulses and can wiggle fingers. She has moderate range of motion of the elbow. Patient was splinted in flexion with a posterior plus sugar tong splint. Following splint application she has good cap refill distally and can wiggle fingers. She is known to Dr. Armstrong and will call him Friday morning for help appointment. I advised her she needs to be seen as soon as possible and may require surgery for this fracture. She is declining any prescriptions for pain medication at home. Procedures - Upper Extremity Splints Upper Extremity Splint: Orthoglass, - - Long-arm plus sugar tong Splint Fabrication: Fabricated Location: Left ED Disposition - Plan for ED Patient: Disposition: Home or Assisted Living Diagnosis: Left elbow fracture Instructions: ED FRACTURE Elbow Referrals: Gunner Armstrong DO [STAFF PHYSICIAN] - As soon as possible
--- NOTE | 2020-04-01 00:45 | RAD_ITS ---
HISTORY: PATIENT FELL ONTO TILE FLOOR AND LANDED ON LEFT ARM. PATIENT LIMITED MOTION IN LEFT ARM. Comparison:None. Findings: 4 images of left elbow. A transverse fracture is present within the supracondylar region. The distal fracture fragments including the elbow articular surfaces are subluxed medially by about 1-1/2 cm. An elbow effusion is present. Elbow arthritis is present. The radius and olecranon appear to be without acute fractures. RAD/Elbow min 3 Views IMPRESSION: Supracondylar fracture with right lateral subluxation of the distal fracture fragment by 1.5 cm. at 0125 Reported and signed by: Hosea Rodarte MD Electronically Signed: Hosea Rodarte MD at 1:24 EDT Tel , Service support ,
[2020-04-01 02:05] VITALS: BP 145/72; PULSE 70; RESP 16; O2SAT 97
== END 2020-04-01 02:00 | disposition home or self-care (01) ==
LOC: ED 01:27
PROVIDERS: Emergency Provider Emergency Medicine; PCP Family Medicine
DX: S42.402A Unspecified fracture of lower end of left humerus, initial encounter for closed fracture (principal); W19.XXXA Unspecified fall, initial encounter; Z87.891 Personal history of nicotine dependence
CPT/HCPCS: 29105; 73080; 99284

== ENCOUNTER 2020-07-03 11:00 | Outpatient (RCR) | payer MEDICARE, SELFPAY ==
--- NOTE | 2020-05-04 11:28 | HP.PTEVAL ---
Patient's Visit Information CLARISA SANCHEZ is a 79 year old F referred to Physical Therapy by Dr. Hiram Lopes MD with a diagnosis of Closed displace fracture of distal end of humerus. Date of Evaluation: 05/04/20 Physical Therapist: Jazmin Bourgeois DPT - Visit Plan Frequency: 2x /Week Duration: 4 Weeks Plan: Per Aggressive Elbow ROM- NWB Left UE - Subjective Patient reports that she was reaching for something on the hook and fell Apr 01- ER department which took x-rays which showed a fracture in the left elbow. Then saw Dr. Armstrong and they sent her to see Hiram Lopes who performed surgery pt is unsure of the date and placed two plates in the elbow. Outpatient surgery and then she went home- she lives with her who was able to help her as needed. Went back on April 25 and they took the cast off and sent her home with no restrictions. She is now using a FWW. Sleep: disturbed- hard to get comfortable. Best: 0/10 Worst: 5/10 when she is getting into bed. The pain is located in the lateral aspect of the elbow- and her shoulder is really bothering her due to the cast. No radiating pain into the hand. No N/T in the fingers. 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 She does have some ROM issues but its getting better- she has more problems getting in full flexed and fully extended. Right hand dominate. When she is finished with PT for her elbow they want her to come back for her balance. PMHx/Meds: see scanned in chart. - Objective Posture: FH, RS, increased kyphosis- guarding of the left UE- no sling. Gait: shuffling with FWW- slow alexei. Palpation: tender along bicpital groove. Observation: incision healing well no s/s of infection. 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 Elbow: extn: 30 degrees from neutral prior to manual stretghing 20 degrees from neutral post manual. Flexion: 100 degrees, Shoulder: flexion: 130 degrees with compensation, Abd: 120 degrees, IR: to greater troch, ER: 30 degrees. Strength: not tested due to restrictions on WB- will assess as allowed by . - Goals Goal 1:: Patient will be I with HEP and progression Goal Time Frame: 4-6 Weeks Goal 2:: Patient will demo full AROM of the left elbow Goal Time Frame: 4-6 Weeks Goal 3:: Patient will maintain proper posture t/o tx session to demo increased scap s/s. Goal Time Frame: 2-4 Weeks - Rehabilitation Potential Physical Therapy Diagnosis: Patient presents with hypomobility- she has decreased ROM,strength and muscular endurance s/p fall with surgical repair. Rehabilitation Potential: Fair - Anticipated Interventions Patient/Client Instruction: Educate patient on: Benefits of Fitness Program Therapeutic Exercise to Include: Strength training, Endurance training, Body mechanics, Postural training, Flexibilty training, Passive ROM, Active ROM, Dynamic Lumbar Stabilization, Scapular Strength/Stabilization For the Purpose of:: To improve muscle performance and motor function Cryotherapy (ice pack, ice massage): Yes Thermo therapy (hot pack): Yes Ultrasound (thermal/non thermal): No Thank you for the opportunity to evaluate your patient. For Medicare and Medicare HMO plans, please review the plan of care and approve it. It will need to be FAXED BACK to us at [phone] for Medicare purposes. For Medicare only, by signing this I certify the plan of care. Please let me know if there are questions or concerns regarding this plan of care. Physician Signature: Date:
--- NOTE | 2020-06-01 14:40 | HP.PTREVAL_ITS ---
Dr. Hiram Lopes MD, It has been my pleasure to treat CLARISA SANCHEZ over the last 9 visits for Closed displace fracture of distal end of humerus. Please see the progress note below for an update on the physical therapy plan of care! Subjective: Patient reports that she saw on Friday and he was very happy with her progress. He told her that he was impressed with her ROM and not everyone gets that much back. She feels that she is 75% back to normal activities- she wants to be able to use it to stabilize things more. Objective/Function: Posture: FH, RS, increased kyphosis- no guarding of the left UE- no sling. Gait: shuffling with straight cane in the right UE- slow alexei. Palpation: not tender to touch Observation: incision healing well no s/s of infection. 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 Elbow: extn: 15 degrees from neutral prior to manual stretghing 10 degrees from neutral post manual. Flexion: 130 degrees, Shoulder: flexion: 160 degrees with compensation, Abd: 150 degrees, IR: to greater troch, ER: 30 degrees. Strength: shoulder Isometrics: 4+/5 Elbow:4+/5 in available range. Plan Plan: New Script 06/01/20: Continue AAROM/PROM of the elbow- addition of strength and WB as tolerated Goals Goal 1:: Patient will be I with HEP and progression Goal Time Frame: 4-6 Weeks Goal 2:: Patient will demo full AROM of the left elbow Goal Time Frame: 4-6 Weeks Goal 3:: Patient will maintain proper posture t/o tx session to demo increased scap s/s. Goal Time Frame: 2-4 Weeks Anticipated Interventions Patient/Client Instruction: Educate patient on: Benefits of Fitness Program Therapeutic Exercise to Include: Strength training, Endurance training, Body mechanics, Postural training, Flexibilty training, Passive ROM, Active ROM, Dynamic Lumbar Stabilization, Scapular Strength/Stabilization For the Purpose of:: To improve muscle performance and motor function Cryotherapy (ice pack, ice massage): Yes Thermo therapy (hot pack): Yes Ultrasound (thermal/non thermal): No Please do not hesitate to contact me at [phone] by phone or if you have questions or concerns regarding this new plan of care! Sincerely, Jazmin Bourgeois, DINESHT
--- NOTE | 2020-07-03 11:37 | HP.PTDCSUM ---
It has been my pleasure to treat CLARISA SANCHEZ referred by Dr. Hiram Lopes MD, with the diagnosis of Closed displace fracture of distal end of humerus for a total of 16 visit(s). Discharge Date: Please see the following information for a summary of their discharge status. Subjective: Patient reports that she feels that is doing great- she is still sore in the elbow with flexion/extension. She wants to be able to push/pull more with that arm but its not her domiante hand. Worst: 08/23 achy. Sleep: not disturbed. She is back to all normal ADL's except driving- her wants to drive. % Improvement: 75 Objective/Function: Posture: FH, RS, increased kyphosis- no guarding of the left UE- no sling. Gait: shuffling with straight cane in the right UE- slow alexei. Palpation: not tender to touch Observation: incision healing well no s/s of infection. 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 Elbow: extn: 10 degrees from neutral Flexion: 140 degrees, Shoulder: WNL in all planes. Strength: shoulder Isometrics: 4+/5 Elbow:4+/5 in available range. Goal 1:: Patient will be I with HEP and progression Goal Progress: Goal Met Goal 2:: Patient will demo full AROM of the left elbow Goal Progress: Progressing Goal 3:: Patient will maintain proper posture t/o tx session to demo increased scap s/s. Goal Progress: Progressing Plan: Discharge to home exercise program If there are questions or concerns regarding this patient's physical therapy, please feel free to call me at [phone]. Thank you for the referral of this patient. Sincerely, Jazmin Bourgeois DPT
== END 2020-07-03 12:37 | disposition home or self-care (01) ==
LOC: PT 11:00
PROVIDERS: PCP Family Medicine; Referring Provider Orthopaedic Surgery; Visit Provider Orthopaedic Surgery
DX: S42.492D Other displaced fracture of lower end of left humerus, subsequent encounter for fracture with routine healing (principal)
CPT/HCPCS: 97110; 97140; 97162; 97164

== ENCOUNTER 2020-08-28 12:00 | Outpatient (RCR) | payer MEDICARE, SELFPAY ==
--- NOTE | 2020-07-24 14:46 | HP.PTEVAL_ITS ---
Patient's Visit Information CLARISA SANCHEZ is a 79 year old F referred to Physical Therapy by Dr. Loren Dee MD with a diagnosis of Gait instability. Date of Evaluation: 07/24/20 Physical Therapist: Hiram Mccann DPT, OCS, CSCS - Visit Plan Frequency: 2 Duration: 4-6 Plan: Neurocom balance test then 2x/week x 4 weeks for balance, weight shifts especially FW, adn strengthening of LE/posture if desired by patient to HEP. Gait training for larger steps. Pt to use wh walker at home and have it with her next session. - Subjective Fell and broke arm last fall. Has a number of falls and that is why she is here. Has seen neurologist and told she does nto have Parkinsons. Also seen ear doctor who did not have answers. Needs to see eye doctor. Has many falls. Uses cane to get around away from home. Uses wh walker at home whcih she uses sometimes. Last fallw as a week ago and she just tumbles over. Walker is difficult to manage away from home. No pain except L elbow from fracture last fall. No numbness in arms or legs. No recent dizzyness or spinning. She notices that she takes short steps maybe due to fear. Sleeping is alot. No regular exercises. Spends day sitting and reading and watching Tv. Livs with and he does the heavy work. She dressses self and takes care of basics on her own. - Objective Walks with cane with short steps adn avoids eight shift into PT. Trasnfers with UE I from chair. Wh walker gu not give her automatic long steps but is safer, not faster. Walking without AD is slow and hesitant. Trasnfer with UE assist I. Steps reciprocal with two rails. LE aROM WFL and plenty of flexibility. Strength 3+/5 throughout LE. Sensation LE WNL to gross light touch. Coordination to reciprocal toe tap moderate deficits. - Balance Scores Functional Gait Assessment Score: 21 % Disability: 30.0000 - Goals Goal 1:: FGa to improve balance Goal Time Frame: 4-6 Weeks Goal 2:: Neurocom to define balance problems Goal Time Frame: 4-6 Weeks Goal 3:: I appropr to minimize future probems Goal Time Frame: 4-6 Weeks Goal 4:: Walk into and out of PT with normal step length and confidence Goal Time Frame: 4-6 Weeks - Rehabilitation Potential Physical Therapy Diagnosis: Gait instability, short choppy steps, poor confidence Rehabilitation Potential: Fair - Anticipated Interventions Patient/Client Instruction: Educate patient on: Condition, Plan of Care For the Purpose of:: To improve safety with gait Therapeutic Exercise to Include: Strength training, Balance training, Gait and locomotor training For the Purpose of:: To increase tolerance to activity/condition/position, To improve balance, To improve safety with gait Thank you for the opportunity to evaluate your patient. For Medicare and Medicare HMO plans, please review the plan of care and approve it. It will need to be FAXED BACK to us at [phone] for Medicare purposes. For Medicare only, by signing this I certify the plan of care. Please let me know if there are questions or concerns regarding this plan of care. Physician Signature: Date:____
--- NOTE | 2020-07-31 13:32 | HP.PTCOM ---
PT Communication Note 07/31/[address] Loren Dee MD , Thank you for the referral of Kelli to [facility] for Balance Assessment. I have enclosed o copy of the results for your review. In summation, her main deficit was poor forward weight shift ability excursion and control. With this result in mind, I plan to see her 2x/week for 4 weeks to work on forward weight shift balance exercise, strengthening and progression to home program. If you have questions about her plan of care, please feel free to call me. Sincerely, DINESH WrightT, OCS, CSCS Contact Information
--- NOTE | 2020-08-28 12:48 | HP.PT.NRP ---
CLARISA SANCHEZ was seen in my office for initial evaluation on 07/24/20. The following Plan of Care was established for this patient: Initial Frequency: 2 Initial Duration: 4-6 Patient/Client Instruction: Educate patient on: Condition, Plan of Care For the Purpose of:: To improve safety with gait Therapeutic Exercise to Include: Strength training, Balance training, Gait and locomotor training For the Purpose of:: To increase tolerance to activity/condition/position, To improve balance, To improve safety with gait This patient was last seen in our office . Pertinent comments regarding their Physical therapy will appear below: At this point I will be discontinuing this patient from physical therapy. I would be happy to see this patient again in the future if found appropriate by the physician. Thank you! Hiram Mccann, DPT, OCS, CSCS
== END 2020-08-28 19:00 | disposition home or self-care (01) ==
LOC: PT 12:00
PROVIDERS: PCP Family Medicine; Referring Provider Family Medicine; Visit Provider Family Medicine
DX: R26.81 Unsteadiness on feet (principal)
CPT/HCPCS: 97110; 97162; 97164; 97750

== ENCOUNTER 2020-09-11 08:48 | Outpatient (RCR) | payer MEDICARE, SELFPAY | END 2020-09-11 23:59 | LOC: IMMUN 08:48 | PROVIDERS: PCP Family Medicine; Visit Provider Family Medicine | DX: Z23 Encounter for immunization (principal) | CPT/HCPCS: 0011A; 0012A ==

== ENCOUNTER 2021-06-02 01:03 | Inpatient (IN) | payer MEDICARE, SELFPAY ==
[2021-06-02] VITALS (8 sets, daily range): BP systolic 128–156; BP diastolic 65–76; PULSE 67–85; RESP 14–18; TEMP 36.2–36.8; O2SAT 95–100; BMI 25.8
--- NOTE | 2021-06-02 01:35 | RAD_ITS ---
EXAM: XR Pelvis, 1 or 2 Views CLINICAL INDICATION: 80 years old, Female; fall TECHNIQUE: Frontal view of the pelvis. This report was created using [employer] report generation technology. COMPARISON: None. FINDINGS: Bones/joints: Left total hip arthroplasty. Components appear well seated. No displaced fracture. No destructive or sclerotic lesions. Note that overlapping bowel shadows may however obscure fine detail. Sacroiliac joints are unremarkable. No widening of the pubic symphysis. Soft tissues: Unremarkable. No soft tissue swelling or gas. Vasculature: Atherosclerotic disease. RAD/Pelvis 1 or 2 Views IMPRESSION: No acute findings in the pelvis. Electronically Signed: Gurpreet Prieto MD at 2:49 EST Tel , Service support ,
--- NOTE | 2021-06-02 01:35 | CT_ITS ---
EXAM: CT Head Without Intravenous Contrast CLINICAL INDICATION: 80 years old, Female; head injury TECHNIQUE: Multiple axial images were obtained of the head without intravenous contrast. This CT exam was performed using one or more of the following dose reduction techniques: automated exposure control, adjustment of the mA and/or kV according to patient size, and/or use of iterative reconstruction technique. This report was created using [employer] report generation technology. COMPARISON: None. FINDINGS: Brain and extra-axial spaces: Small vessel ischemic/degenerative changes. Cerebral and cerebellar atrophy. No intra- or extra-axial hemorrhage. No intracranial mass or mass effect. No hydrocephalus. Basal cisterns are patent. Bones/joints: Unremarkable. No discrete lytic or blastic abnormalities. Vasculature: Atherosclerotic disease. Sinuses: Unremarkable as visualized. Clear. Mastoid air cells: Unremarkable. Clear. Orbits: Visualized globes, extraocular muscles, optic nerves and retrobulbar fat appear unremarkable. CT/Brain/Head without Contrast IMPRESSION: 1. Small vessel ischemic/degenerative changes. 2. Cerebral and cerebellar atrophy. Electronically Signed: Gurpreet Prieto MD at 2:19 EST Tel , Service support ,
[2021-06-02 01:52] LABS: Absolute Lymphocyte Count 1.41 X10^3/uL (0.83-4.51); Absolute Neutrophil Count 2.7 X10^3/uL (2.0-7.7); Basophil# 0.04 X10^3/uL; Basophil% 0.8 % (0-1); Eosinophil# 0.21 X10^3/uL; Eosinophils% 4.3 % (0-5); Hematocrit 35.3 % (37-47); Hemoglobin 12.2 g/dL (12.0-15.0); Lymphocyte # 1.41 X10^3/ul (0.83-4.51); Lymphocyte % 28.7 % (19-41); Mean Corp Hgb Conc 34.6 g/dL (32-36); Mean Corpuscular Hgb 33.5 pg (27.0-32.0); Mean Platelet Vol. 9.1 fl (6.2-12.0); Monocyte# 0.57 X10^3/uL; Monocyte% 11.6 % (0-10); NRBC Flagged by Analyzer 0 % (0-5); Neutrophil # 2.68 X10^3/uL (2.7-7.7); Neutrophil % 54.4 % (47-70); Platelet Count 279 K/mm3 (150-450); RBC Distribution Width CV 12.4 % (11.6-14.6); RBC Distribution Width SD 44.3 fl (35.1-43.9); Red Blood Count 3.64 M/mm3 (4.2-5.4); White Blood Count 4.9 K/mm3 (4.4-11.0)
--- NOTE | 2021-06-02 01:59 | EDS_ITS ---
HPI History of Present Illness Chief Complaint: Fall Narrative Narrative: Patient is a 80-year-old female who lives at home with her who has short-term memory issues. Reportedly she has been falling often and had another fall tonight. Patient states that she does not remember the fall but does admit to injuring her left knee. She denies any chest pain shortness of breath headache change in vision nausea or vomiting. She also denies laying on the ground for prolonged period of time. However with the recurrent falls EMS was called and brought the patient in for evaluation [facility] Medical History (Updated 06/02/21 @ 03:[address] Carlton Busch, DO) Anterolisthesis Carpal tunnel syndrome DDD (degenerative disc disease), lumbar Environmental allergies Heart murmur High cholesterol High triglycerides Osteoarthritis Home Medications allopurinol 200 mg PO DAILY 12/15/15 [History Last Taken Unknown] fluticasone propionate [Flonase Allergy Relief] 9.9 ml NS PRN PRN 12/15/15 [History Last Taken Unknown] magnesium 500 mg PO DAILY 12/15/15 [History Last Taken Unknown] multivitamin with folic acid [Thera] 1 tab PO DAILY 12/15/15 [History Last Taken Unknown] Cetirizine Hcl [Zyrtec] 10 mg PO DAILY 01/01/16 [History Last Taken Unknown] biotin 1,000 mcg PO DAILY 09/09/18 [History Last Taken Unknown] cholecalciferol (vitamin D3) [Vitamin D] 1,000 unit PO DAILY 09/09/18 [History Last Taken Unknown] ibuprofen 200 mg PO PRN PRN 09/09/18 [History Last Taken Unknown] mirabegron [Myrbetriq] 50 mg PO DAILY 09/09/18 [History Last Taken Unknown] turmeric root extract 500 mg PO DAILY 09/09/18 [History Last Taken Unknown] duloxetine 30 mg PO DAILY 04/01/20 [History Last Taken Unknown] Allergy/AdvReac Type Severity Reaction Status Date / Time meperidine HCl [From Demerol] Allergy HALLUCINATI Verified 04/01/20 00:08 ONS Sulfa (Sulfonamide Allergy Hives Verified 04/01/20 00:08 Antibiotics) adhesive tape AdvReac Rash Verified 04/01/20 00:08 hydrocodone bitartrate AdvReac Vomiting Verified 04/01/20 00:08 [From [place]] propoxyphene HCl AdvReac Vomiting Verified 04/01/20 00:08 [From [place]] Family History (Updated 06/02/21 @ 03:[address] Sallie Wills MD) Father Diabetes Parkinsons disease Mother CVA (cerebral vascular accident) Parkinsons disease Sister Cancer Hx ovarian CA. Other Bleeding disorder Surgical History (Updated 06/02/21 @ 03:[address] 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 Sallie Wills MD) household members: family Smoking Status: Former smoker quit date: 10/02/15 alcohol intake: current alcohol intake frequency: a few times a month substance use type: does not use what type of physical activity do you participate in: swimming and aerobics frequency: 3-4 times per week ROS ROS ED Constitutional Constitutional ED: Denies chills or fever(s) Eyes Eyes: Denies change in vision ENT ENT ED: Denies sore throat Cardiovascular Cardiovascular: Denies chest pain, palpitations or racing heartbeat Respiratory/Chest Respiratory/Chest: Denies cough or dyspnea Gastrointestinal Gastrointestinal: Denies abdominal pain, diarrhea, nausea or vomiting Genitourinary Genitourinary ED: Denies dysuria Musculoskeletal Musculoskeletal: Reports other Details: Positive left knee pain ; Denies back pain, myalgias or neck pain Integumentary Reports Abrasions; Denies rash Neurologic Neurologic: Denies headache(s) EXAM Physical Exam Const Vital Signs: 06/02/21 01:04 06/02/21 02:35 Temperature 97.4 F L Temperature Source Temporal Pulse Rate 77 Respiratory Rate 16 Respiratory Effort Normal Respiratory Depth Normal Respiratory Pattern Normal Blood Pressure 156/76 H Blood Pressure Mean 102 Pulse Ox 100 Oxygen Delivery Method Room Air Room Air Positive well nourished and well developed General Appearance ED: well developed HEENT Reports moist mucous membranes Eyes PERRL and EOMs intact bilaterally Neck supple Neck Narrative: No bony deformity or step-off of the cervical spine no midline pain with palpation Chest Wall palpation of chest normal Resp normal respiratory effort and clear to auscultation bilaterally Resp Narrative: No bony deformity or crepitance Cardio regular rate and regular rhythm GI normal to inspection, nondistended, normoactive bowel sounds, non-tender, non- distended and no masses Auscultation: normoactive bowel sounds Palpation: soft Back/Spine Back/Spine Narrative: No bony deformity or step-off of the thoracic or lumbar spine no midline pain on palpation Extremity Extremity Narrative: Patient is a superficial abrasion to the left knee consistent with report of fall without bony deformity or joint effusion. Pelvis is stable there is no shortening or external rotation of either lower extremity. Patient is able to move all extremities without pain Neuro oriented x3 and CN's II-XII intact bilaterally Sensorium / Orientation: alert Motor Exam: strength 5/5 throughout Psych mental status grossly normal Skin Skin Narrative: Superficial abrasion to the left anterior knee as documented above MDM MDM MDM Narrative Medical decision making narrative: Patient presented to the ER awake and alert to person place and time. However EMS stated they had been called out to her house multiple times tonight secondary to falls and patient reports no recollection of the falls. Therefore at this time I elected to perform a basic work-up. Head CT revealed no acute traumatic findings as well as x-rays of her pelvis or left knee. Urine did show changes consistent with infection which could account for the recurrent falls and change in mental status. The urine was sent for culture and she was started on Rocephin. Patient does not have p hysical exam or laboratory changes to suggest urosepsis or acute kidney injury. However when she was stood next to the bed she was unstable and it took 2 people to keep her from falling. Therefore at this time I do not feel it is safe for her to be discharged. Patient will be admitted to the hospital secondary to the UTI and states that she will be agreeable to rehab placement if necessary. Lab Data Attestation: I reviewed the patient's lab results. Labs: Laboratory Results - last 24 hr 06/02/21 06/02/21 06/02/21 01:45 01:45 02:04 WBC 4.9 RBC 3.64 L Hgb 12.2 Hct 35.3 L MCV 97.0 MCH 33.5 H MCHC 34.6 RDW Std Deviation 44.3 H RDW Coeff of Rajesh 12.4 Plt Count 279 MPV 9.1 Immature Gran % (Auto) 0.200 Neut % (Auto) 54.4 Lymph % (Auto) 28.7 Sharp % (Auto) 11.6 H Eos % (Auto) 4.3 Baso % (Auto) 0.8 Absolute Neuts (auto) 2.7 Absolute Lymphs (auto) 1.41 Nucleated RBC % 0 Sodium 139 Potassium 4.0 Chloride 106 Carbon Dioxide 24.0 Anion Gap 9 BUN 15 Creatinine 0.60 Estim Creat Clear Calc 34.99 Est GFR (MDRD) Af Amer 124 Est GFR (MDRD) Non-Af 102 BUN/Creatinine Ratio 25.0 H Glucose 133 H Calcium 8.7 Magnesium 2.3 Urine Color Yellow Urine Clarity Turbid Urine pH 6.0 Ur Specific [place] 1.015 Urine Protein 30 H Urine Glucose (UA) Normal Urine Ketones 5 H Urine Occult Blood 150 H Urine Nitrite Negative Urine Bilirubin Negative Urine Urobilinogen Normal Ur Leukocyte Esterase 500 H Urine RBC 25-50 SEEN Urine WBC >100 SEEN Ur Squamous Epith Cells 0 SEEN Ur Transition Epith Cell 0-5 SEEN Ur Renal Epithelial Cell 10-25 SEEN Amorphous Sediment 1+ Urine Bacteria 3+ Urine Mucus 0 SEEN Radiography Diagnostic Testing: Clinical Impression(s) from Imaging Studies Brain CT 06/02/21 01:35 IMPRESSION: 1. Small vessel ischemic/degenerative changes. 2. Cerebral and cerebellar atrophy. Electronically Signed: Gurpreet Prieto MD at 2:19 EST Tel , Service support , Pelvis X-Ray 06/02/21 01:35 IMPRESSION: No acute findings in the pelvis. Electronically Signed: Gurpreet Prieto MD at 2:49 EST Tel , Service support , Knee X-Ray 06/02/21 02:20 IMPRESSION: No acute findings in the left knee. Electronically Signed: Gurpreet Prieto MD at 2:50 EST Tel , Service support , Discharge Plan Triage Chief Complaint: Fall ED Provider: Carlton Busch Dx/Rx/DC Orders Clinical Impression: Urinary tract infection, Failure to thrive in adult, Acute encephalopathy Prescriptions: No Action allopurinol 300 MG tablet 200 mg PO DAILY RF: 0 magnesium 250 MG tablet 500 mg PO DAILY RF: 0 fluticasone propionate [Flonase Allergy Relief] 9.9 ML [place].Susp 9.9 ml NS PRN PRN (Reason: Allergies) RF: 0 multivitamin with folic acid [Thera] 1 TABLET tablet 1 tab PO DAILY RF: 0 Cetirizine Hcl [Zyrtec] 10 MG tablet 10 mg PO DAILY RF: 0 biotin 800 MCG tablet 1,000 mcg PO DAILY RF: 0 ibuprofen 200 MG tablet 200 mg PO PRN PRN (Reason: Pain) RF: 0 cholecalciferol (vitamin D3) [Vitamin D3] 1,000 UNIT tablet 1,000 unit PO DAILY RF: 0 turmeric root extract 500 MG capsule 500 mg PO DAILY RF: 0 mirabegron [Myrbetriq] 50 MG Tab.Er.24h 50 mg PO DAILY RF: 0 duloxetine 30 MG capsule 30 mg PO DAILY RF: 0 Primary Care Provider: Loren Dee Referrals: Loren Dee MD [Primary Care Provider] - Disposition Disposition: Acute Care Hospital [facility]
[2021-06-02 02:06] LABS: Anion Gap 9 (5-15); BUN 15 mg/dL (7-18); Calcium,Total 8.7 mg/dL (8.5-10.1); Chloride 106 mmol/L (98-107); EST Glomerular Filtration Rate 102 mL/min (>60); Est Glom Filt Rate - Afr Amer 124 mL/min (>60); Estimated Creatinine Clearance 34.99 ml/min; Glucose 133 mg/dL (74-106); Magnesium 2.3 mg/dL (1.6-2.6); Sodium Level 139 mmol/L (136-145)
[2021-06-02 02:08] LABS: Mucous, Urine 0 SEEN /hpf (<or=2+); Squamous Epithelial Cells - UA 0 SEEN /hpf (5-10)
[2021-06-02 02:10] LABS: Color, Urine Yellow (Yellow); Glucose, Dipstick Normal (Normal); Ketone-Dipstick 5 mg/dl (Negative); Leukocyte Esterase-Dipstick 500 /ul (Negative); Nitrite-Dipstick Negative (Negative); Occult Blood-Urine 150 /ul (Negative); Protein-Dipstick 30 mg/dl (Negative); Specific Gravity, Urine 1.015 (1.002-1.030); Urine Bilirubin Dipstick Negative (Negative); Urine Clarity Turbid (Clear); Urine Urobilinogen Normal (Normal)
--- NOTE | 2021-06-02 02:20 | RAD_ITS ---
EXAM: XR Left Knee, 3 Views CLINICAL INDICATION: 80 years old, Female; pain TECHNIQUE: Three views of the left knee. This report was created using [employer] report generation technology. COMPARISON: None. FINDINGS: Bones/joints: Left total knee arthroplasty. Components appear well seated. No acute fracture. No subluxation. Normal alignment. No sclerotic or destructive changes observed. Soft tissues: Unremarkable. No soft tissue swelling or gas. No radiopaque foreign body. Vasculature: Atherosclerotic disease. RAD/Knee 3 Views IMPRESSION: No acute findings in the left knee. Electronically Signed: Gurpreet Prieto MD at 2:50 EST Tel , Service support ,
[2021-06-02 02:30] LABS: Bacteria 3+ /hpf (None Seen); White Blood Cells >100 SEEN /hpf (0-5)
[2021-06-02 02:31] LABS: Amorphous Sediment 1+; Red Blood Cells-Urine 25-50 SEEN /hpf (0-5); Renal Epithelial Cells 10-25 SEEN /hpf (0-5)
[2021-06-02 02:32] LABS: Transitional Epithelial - Ur 0-5 SEEN /hpf (0-5)
[2021-06-02] MEDS: Ceftriaxone 1 GM/50 ML BAG IV ×2 (02:57→21:35)
--- NOTE | 2021-06-02 03:30 | HP.PCM.HOS_ITS ---
HPI - General General Date of Admission: 06/02/21 Date of Service: 06/02/21 Chief Complaint: Falls, Increased confusion. HPI Narrative The patient is a 80 y/o F w/ PMHx: Anxiety and Depression, Allergic Rhinitis, Gout, OA, HLD, Cognitive impairment who presents to the [facility] ED on 06/02/21 with history of more frequent falls than her baseline over the last 24-48 hrs with discomfort to the left knee and pelvis with worsening debility and difficulty caring for her at home secondary to more increased fall frequency prompting ED evaluation. She does report 1 to 2-day history recently of dysuria with mild nausea with no emesis. She does report being constipated recently as well. Work-up in the ED included T 97.4, heart rate 77, BP 156/76, respiratory rate 16, 100% on room air, CBC with WC 4.9, hemoglobin 12.2, platelet 279 without mar ked shift, BMP unremarkable aside glucose 133, magnesium 2.3, urinalysis turbid appearing with specific gravity 1.015, protein 30, ketone 5, occult blood 150, negative nitrite, leukocyte esterase 500, urine RBC 25-50, urine WBCs greater than 100, 3+ urine bacteria, urine culture pending per ED, CT of the brain with small vessel ischemic/degenerative changes as well as cerebral and cerebellar atrophy otherwise no acute intracranial findings, plain film of the pelvis no acute findings, plain film of the left knee with no acute findings. [facility] Medical History (Updated 06/02/21 @ 03:[address] Carlton Busch, DO) Anterolisthesis Carpal tunnel syndrome DDD (degenerative disc disease), lumbar Environmental allergies Heart murmur High cholesterol High triglycerides Osteoarthritis Home Medications allopurinol 200 mg PO DAILY 12/15/15 [History Last Taken Unknown] fluticasone propionate [Flonase Allergy Relief] 9.9 ml NS PRN PRN 12/15/15 [History Last Taken Unknown] magnesium 500 mg PO DAILY 12/15/15 [History Last Taken Unknown] multivitamin with folic acid [Thera] 1 tab PO DAILY 12/15/15 [History Last Taken Unknown] Cetirizine Hcl [Zyrtec] 10 mg PO DAILY 01/01/16 [History Last Taken Unknown] biotin 1,000 mcg PO DAILY 09/09/18 [History Last Taken Unknown] cholecalciferol (vitamin D3) [Vitamin D] 1,000 unit PO DAILY 09/09/18 [History Last Taken Unknown] ibuprofen 200 mg PO PRN PRN 09/09/18 [History Last Taken Unknown] mirabegron [Myrbetriq] 50 mg PO DAILY 09/09/18 [History Last Taken Unknown] turmeric root extract 500 mg PO DAILY 09/09/18 [History Last Taken Unknown] duloxetine 30 mg PO DAILY 04/01/20 [History Last Taken Unknown] Allergy/AdvReac Type Severity Reaction Status Date / Time meperidine HCl [From Demerol] Allergy HALLUCINATI Verified 04/01/20 00:08 ONS Sulfa (Sulfonamide Allergy Hives Verified 04/01/20 00:08 Antibiotics) adhesive tape AdvReac Rash Verified 04/01/20 00:08 hydrocodone bitartrate AdvReac Vomiting Verified 04/01/20 00:08 [From [place]] propoxyphene HCl AdvReac Vomiting Verified 04/01/20 00:08 [From [place]] Family History (Updated 06/02/21 @ 03:[address] Sallie Wills MD) Father Diabetes Parkinsons disease Mother CVA (cerebral vascular accident) Parkinsons disease Sister Cancer Hx ovarian CA. Other Bleeding disorder Surgical History (Updated 06/02/21 @ 03:[address] 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 Sallie Wills MD) household members: family Smoking Status: Former smoker quit date: 10/02/15 alcohol intake: current alcohol intake frequency: a few times a month substance use type: does not use what type of physical activity do you participate in: swimming and aerobics frequency: 3-4 times per week ROS ROS Narrative Admission Review of Systems: CONSTITUTIONAL: No weight loss, fever, chills, + weakness or fatigue. HEENT: Eyes: No visual loss, blurred vision, double vision or yellow sclerae. Ears, Nose, Throat: No hearing loss, sneezing, congestion, runny nose or sore throat. SKIN: + recent fall with abrasions. CARDIOVASCULAR: No chest pain, chest pressure or chest discomfort, palpitations, edema, orthopnea, syncopal events. RESPIRATORY: No shortness of breath, cough or sputum, wheezing, hemoptysis. GASTROINTESTINAL: + Nausea, constipation. No anorexia, vomiting, diarrhea, abdominal pain, melena, BRBPR. GENITOURINARY: + dysuria, frequency, No urgency or retention. NEUROLOGICAL: + Increasing frequency of falls, no headache, dizziness, syncope, paralysis, ataxia, numbness or tingling in the extremities, focal weakness, change in bowel or bladder control, seizure. MUSCULOSKELETAL: + muscle, back pain, joint pain or stiffness. HEMATOLOGIC: No anemia, bleeding or bruising. LYMPHATICS: No enlarged nodes. No history of splenectomy. PSYCHIATRIC: + history of depression or anxiety. ENDOCRINOLOGIC: No reports of sweating, cold or heat intolerance. No polyuria or polydipsia. ALLERGIES: + history of asthma, hives, eczema or rhinitis. Vital Signs Vital Signs Vital Signs: 06/02/21 01:04 06/02/21 02:35 Temperature 97.4 F L Temperature Source Temporal Pulse Rate 77 Respiratory Rate 16 Respiratory Effort Normal Respiratory Depth Normal Respiratory Pattern Normal Blood Pressure 156/76 H Blood Pressure Mean 102 Pulse Ox 100 Oxygen Delivery Method Room Air Room Air Weight Weight: 136 lb 10.986 oz Body Mass Index (BMI) 25.8 Physical Exam Narrative Physical Examination: General: Awake, alert, oriented to self, some recent events but does not even recall her fall recent history, remains cooperative, seated upright in the ED bed, no acute distress. Skin: Normal color, normal turgor, no icterus, no cyanosis except occasional staged ecchymoses and abrasion to the L knee. HEENT: AT/NC, EOMI, PERRLA, MMM, no carotid bruits or JVD noted. Lungs: Mildly diminished, greater bases, appropriate effort, no rales, ronchi or wheezing. Heart: Regular rate and rhythm; no gallop, rub audible. Abdomen: Soft, mild generalized discomfort, mildly distended, hypoactive BS, no HSM. Extremities: No cyanosis, no clubbing, reported discomfort with patient to primarily the left knee, no apparent obvious injury, peripheral pulses intact. Neurological: Patient awake, alert, oriented as noted, cognitive function decreased baseline with underlying cognitive decline, suspect not baseline intact, pupils equally reactive to light and accommodation, cranial nerves II- XII grossly normal, moving all 4 extremities although limited given recent fall and discomfort, strength accordingly moderately to severely globally decreased. Psychiatric: Affect appears fatigued, no acute evidence of depressive or anxiety feelings. Results Lab / Micro Data Result Diagrams: 06/02/21 01:45 06/02/21 01:45 Labs: Laboratory Results - last 24 hr 06/02/21 01:45: WBC 4.9, RBC 3.64 L, Hgb 12.2, Hct 35.3 L, MCV 97.0, MCH 33.5 H, MCHC 34.6, RDW Std Deviation 44.3 H, RDW Coeff of Rajesh 12.4, Plt Count 279, MPV 9.1, Immature Gran % (Auto) 0.200, Neut % (Auto) 54.4, Lymph % (Auto) 28.7, [place] % (Auto) 11.6 H, Eos % (Auto) 4.3, Baso % (Auto) 0.8, Absolute Neuts (auto) 2.7, Absolute Lymphs (auto) 1.41, Nucleated RBC % 0 06/02/21 01:45: Sodium 139, Potassium 4.0, Chloride 106, Carbon Dioxide 24.0, Anion Gap 9, BUN 15, Creatinine 0.60, Estim Creat Clear Calc 34.99, Est GFR (MDRD) Af Amer 124, Est GFR (MDRD) Non-Af 102, BUN/Creatinine Ratio 25.0 H, Glucose 133 H, Calcium 8.7, Magnesium 2.3 06/02/21 02:04: Urine Color Yellow, Urine Clarity Turbid, Urine pH 6.0, Ur Specific [place] 1.015, Urine Protein 30 H, Urine Glucose (UA) Normal, Urine Ketones 5 H, Urine Occult Blood 150 H, Urine Nitrite Negative, Urine Bilirubin Negative, Urine Urobilinogen Normal, Ur Leukocyte Esterase 500 H, Urine RBC 25- 50 SEEN, Urine WBC >100 SEEN, Ur Squamous Epith Cells 0 SEEN, Ur Transition Epith Cell 0-5 SEEN, Ur Renal Epithelial Cell 10-25 SEEN, Amorphous Sediment 1+, Urine Bacteria 3+, Urine Mucus 0 SEEN Radiology Impression Brain CT 06/02/21 01:35 IMPRESSION: 1. Small vessel ischemic/degenerative changes. 2. Cerebral and cerebellar atrophy. Electronically Signed: Gurpreet Prieto MD at 2:19 EST Tel , Service support , Pelvis X-Ray 06/02/21 01:35 IMPRESSION: No acute findings in the pelvis. Electronically Signed: Gurpreet Prieto MD at 2:49 EST Tel , Service support , Knee X-Ray 06/02/21 02:20 IMPRESSION: No acute findings in the left knee. Electronically Signed: Gurpreet Prieto MD at 2:50 EST Tel , Service support , Assessment & Plan Assessment/Plan (1) UTI (urinary tract infection): QUALIFIERS: Hematuria presence: without hematuria Urinary tract infection type: acute cystitis Qualified Code(s): N30.00 - Acute cystitis without hematuria (2) Falls: QUALIFIERS: Encounter type: initial encounter Qualified Code(s): W19.XXXA - Unspecified fall, initial encounter (3) Failure to thrive in adult: (4) Acute encephalopathy: PLAN: The patient is a 80 y/o F w/ PMHx: Anxiety and Depression, Allergic Rhinitis, Gout, OA, HLD, Cognitive impairment who presents to the [facility] ED on 06/02/21 with history of more frequent falls than her baseline over the last 24- 48 hrs with discomfort to the left knee and pelvis with worsening debility and difficulty caring for her at home secondary to more increased fall frequency prompting ED evaluation. 1. Acute Encephalopathy (On Chronic given memory impairment) secondary to Acute Complicated Urinary Tract Infection: Will admit to medical surgical floor, UA upon ED evaluation remarkable, will initiate judicious IVFs, monitor I/Os, continue IV Rocephin w/ transition as able pending sensitivities and speciation. As noted PT, OT, case management consultation for discharge planning and given history of frequent falls prior as well as cognitive impairment may need to consider assisted versus skilled placement. 2. Failure to thrive, adult: Complicated by patient's underlying cognitive impairment, more significant frequent falls likely associated with #1, will maintain on fall precautions, therapies consulted as well as case management for discharge planning and patient may benefit from consideration of assisted living versus skilled. 3. Elevated BP without hypertensive diagnosis: Upon presentation to the ED, BP above goal, possibly pain related given acute presentation with recent fall, will continue to monitor and if appropriate add oral regimen, as needed IV hydralazine in interim. 4. Hyperglycemia: Likely stress response, admission glucose 133, if continued elevation may consider hemoglobin A1c to be thorough. 5. Chronic cognitive impairment: Per family report patient has chronic short-term memory issues with history of previous falls however on day of presentation more significant, complicates presentation, maintain on fall precautions, therapies consulted as noted as well as case management for discharge planning. 6. Anxiety and depression: We will continue patient home duloxetine regimen. 7. Allergic rhinitis: We will continue patient home fluticasone and Zyrtec regimen. 8. DVT prophylaxis: SCDs, Lovenox. 9. CODE status: Patient WILFRID is her spouse and her backup's are her 2 sons but they live out of town and living will is currently in place. Discussed CODE status at length including difference between FULL code, DNR-CCA and DNR-CC status. Following discussions about the differences in these status, requested Full Code status. Advanced Care Planning Face to Face Time: 16 minutes. Charges/Coding Visit Charges Inpatient E&M: 58840 Init Hosp L3 Procedures Hospitalists Procedures: 66766 Advncd Care Plan 30 Min
--- NOTE | 2021-06-02 04:19 | ED.RN ---
Attempted to updated . Called number that is listed, answering machine picked up, unable to leave message d/t privacy laws.
[2021-06-02] MEDS: 0.9% Normal Saline 1,000 ML 100 ML IV (05:56)
[2021-06-02] MEDS: 0.9% Saline Lock 10 ML Syringe IV ×2 (05:56→21:36)
[2021-06-02 08:18] LABS: Absolute Neutrophil Count 2.4 X10^3/uL (2.0-7.7); Basophil# 0.04 X10^3/uL; Basophil% 0.7 % (0-1); Eosinophil# 0.25 X10^3/uL; Eosinophils% 4.4 % (0-5); Hematocrit 34.4 % (37-47); Hemoglobin 12.1 g/dL (12.0-15.0); Lymphocyte % 37.3 % (19-41); Mean Corp Hgb Conc 35.2 g/dL (32-36); Mean Corpuscular Volume 96.6 fL (81-99); Mean Platelet Vol. 9.2 fl (6.2-12.0); Monocyte# 0.82 X10^3/uL; Monocyte% 14.6 % (0-10); NRBC Flagged by Analyzer 0 % (0-5); Neutrophil # 2.41 X10^3/uL (2.7-7.7); Neutrophil % 42.8 % (47-70); Platelet Count 265 K/mm3 (150-450); RBC Distribution Width CV 12.5 % (11.6-14.6); RBC Distribution Width SD 43.9 fl (35.1-43.9); Red Blood Count 3.56 M/mm3 (4.2-5.4); White Blood Count 5.6 K/mm3 (4.4-11.0)
[2021-06-02 08:46] LABS: ALB/GLOB Ratio 0.9 RATIO (0.9-2.4); AST(SGOT) 23 U/L (15-37); Alanine Aminotransfer ALT/SGPT 26 U/L (13-56); Albumin, Serum 3.3 g/dL (3.2-5.0); Alkaline Phosphatase 67 U/L (45-117); Anion Gap 5 (5-15); BUN 11 mg/dL (7-18); BUN/Creat Ratio 21.4 RATIO (10-20); Calcium,Total 8.5 mg/dL (8.5-10.1); Chloride 109 mmol/L (98-107); Creatinine, Serum 0.51 mg/dL (0.55-1.02); EST Glomerular Filtration Rate 123 mL/min (>60); Est Glom Filt Rate - Afr Amer 149 mL/min (>60); Estimated Creatinine Clearance 34.99 ml/min; Globulin 3.5 g/dL (2.2-4.2); Glucose 101 mg/dL (74-106); Potassium 3.6 mmol/L (3.5-5.1); Protein, Total 6.8 g/dL (6.4-8.2); Sodium Level 140 mmol/L (136-145)
[2021-06-02] MEDS: Mirabegron 50 MG TAB.ER.24H PO (09:23)
[2021-06-02] MEDS: Loratadine 10 MG Tablet PO (09:23)
[2021-06-02] MEDS: Allopurinol 100 MG Tablet 200 MG PO (09:23)
[2021-06-02] MEDS: DULoxetine Hcl 30 MG Capsule PO (09:23)
[2021-06-02] MEDS: Enoxaparin 40 MG/0.4 ML Syringe SC (09:23)
--- NOTE | 2021-06-02 14:15 | CM.ED ---
SW Note Referral Source: FLACO MCGRAW Referral Reason: Discharge planning Sw met with patient. Patient reports that she just spoke to her as I have no memory of what occurred the previous night. Patient said that her is not well and that her brother in law 2 weeks ago. Patient talked about losing so many friends this year. Patient talked about the stress of seeing a friend with Alzheimers. SW provided emotional support. Patient said that they had a family meeting to discuss the current situation with her and self with their sons. Patient said that her was unable to help last night due to his medical state and thus he called EMS. Patient reports that she and her reside in a ranch house with walkout basement. She reports laundry in the basement and her administrative services assistant does the laundry. Patient reports 3 steps into the house from the front and 1 from the garage. Patient reports she has a walker in shower, shower chair, BSC, raised toilet seatsx2, cane, walker, rollator, grab bars and rails, hand held shower. No medic alert and no home oxygen. Patient said that she was previously at [facility] and felt she was well cared for. Patient confirmed she has been falling alot. Patient said that previously she had gone to her MD [facility] and was ordered PT and the PT worked for [facility]. SW asked patient about her discharge plans. Patient said that she liked [facility] but it did not have alot of walking area. Patient said that she would like to stay in town. Patient said that her choices would be [facility] or [facility]. SW asked what she envisioned her discharge plan and then asked if she is thinking SNF and then AL or AL with assistance and patient said I don't know. Patient was provided with SNF list in [facility] with Highlighted insurance providers and list. Patient then asked about information about [facility] and [facility]. SW provided information on [facility] and [facility] from their web site and the assigned social problems specialist's phone number. Plan: Discharge Plan to be determined. Patient reports interest in [facility] and [facility]. Given resources on [facility] and [facility]. Lita WARREN
--- NOTE | 2021-06-02 15:10 | PCM.HOSP.N ---
Hospitalist Note Patient was seen and examined today briefly, she was admitted early this morning for metabolic encephalopathy and urinary tract infection. Patient is alert at the time of my examination, she does answer simple questions appropriately. PT and OT will see the patient today, I will keep her on her present antibiotics. Patient may need short-term inpatient rehab services at a retirement facility on discharge from the hospital.
[2021-06-03 02:00] VITALS: O2SAT 98
[2021-06-03 02:14] VITALS: BP 154/80; PULSE 83; RESP 16; TEMP 36.6; O2SAT 98
[2021-06-03 09:17] VITALS: BP 142/76; PULSE 73; RESP 16; TEMP 36.2; O2SAT 95
[2021-06-03] MEDS: Acetaminophen 325 MG Tablet 650 MG PO (12:03)
[2021-06-03] MEDS: DULoxetine Hcl 30 MG Capsule PO (12:04)
[2021-06-03] MEDS: Enoxaparin 40 MG/0.4 ML Syringe SC (12:04)
[2021-06-03] MEDS: Loratadine 10 MG Tablet PO (12:04)
[2021-06-03] MEDS: Allopurinol 100 MG Tablet 200 MG PO (12:05)
[2021-06-03 16:27] VITALS: BP 153/79; PULSE 79; RESP 18; TEMP 36; O2SAT 99
--- NOTE | 2021-06-03 18:37 | PN.HOSP_ITS ---
Subjective Subjective Patient was seen and examined today, her urine culture grew out mixed gram- positive organisms, I have decided today to take her off IV Rocephin and place her on oral Keflex. Patient answers most questions that I posed to her appropriately, she had to think to get the month and year correct. Objective Data Objective Data Vital Signs: Vital Signs Temp Pulse Resp BP Pulse Ox 96.8 F L 79 18 153/79 H 99 06/03/21 16:27 06/03/21 16:27 06/03/21 16:27 06/03/21 16:27 06/03/21 16:27 Oxygen Delivery Method Room Air Weight: 61.3 kg Body Mass Index (BMI) 25.8 Intake & Output: Intake and Output for Last 24 Hours 06/01/21 06/02/21 06/03/21 23:59 23:59 23:59 Intake Total 1578.33 / 1578.33 Output Total 1500 / 1500 1600 / 1600 Balance 78.33 / 78.33 -1600 / -1600 Lab / Micro Data Result Diagrams: 06/02/21 07:52 06/02/21 07:52 Micro: Microbiology 06/02/21 02:04 Urine, Clean Catch Urine Culture - Final Mixed Gram Positive Organisms 06/02/21 03:05 Nasal Secretion SARS-CoV-2 Antigen (Rapid) - Final Physical Exam Const alert, oriented x3 and no apparent distress Constitutional Narrative: Patient exhibits mild cognitive impairment General Appearance: cooperative, well kempt and well developed Orientation / Consciousness: awake, oriented to person, oriented to place and oriented to time HEENT normocephalic and moist oral mucous membranes Eyes PERRL, EOMs intact bilaterally and conjunctivae normal Neck nuchal rigidity, supple, no JVD, thyroid normal and no carotid bruits General: trachea midline Resp normal respiratory effort and clear to auscultation bilaterally Auscultation: Negative for rales, rhonchi or wheezes Cardio regular rate, regular rhythm, no murmurs, no rub and no gallops GI normal to inspection, nondistended, normoactive bowel sounds, soft to palpation, non-tender and non-distended Extremity normal to inspection and no clubbing, cyanosis or edema Skin no rashes or lesions noted General Skin Exam: no breakdown Neuro oriented x3, CN's II-XII intact bilaterally, no focal motor deficits and no sensory deficits noted Sensorium / Orientation: awake and alert Speech: speech normal Psych thought process normal and affect normal Psych Narrative: Patient exhibits mild cognitive impairment Assessment & Plan Assessment/Plan (1) UTI (urinary tract infection): QUALIFIERS: Urinary tract infection type: acute cystitis Hematuria presence: without hematuria Qualified Code(s): N30.00 - Acute cystitis without hematuria PLAN: 1. Mild metabolic encephalopathy on a backdrop of chronic cognitive impairment secondary to acute cystitis-patient will be changed to Keflex, PT and OT will continue to see the patient, she will need at least temporary placement in a senior care facility per family request. #2 acute cystitis-organism unknown #3 chronic cognitive impairment-this appears to be mild #4 chronic anxiety/depression #5 acute debility-PT and OT are working with the patient Charges/Coding Visit Charges Inpatient E&M: 87797 Subs Hosp L2
[2021-06-03] MEDS: Cephalexin 500 MG Capsule PO (20:14)
[2021-06-03 20:17] VITALS: BP 133/62; PULSE 83; RESP 20; TEMP 36.4; O2SAT 97
[2021-06-04 03:06] VITALS: BP 139/58; PULSE 72; RESP 18; TEMP 36.6; O2SAT 94
[2021-06-04 07:15] VITALS: O2SAT 97
[2021-06-04 08:04] VITALS: BP 135/72; PULSE 68; RESP 16; TEMP 36.5; O2SAT 96
[2021-06-04] MEDS: DULoxetine Hcl 30 MG Capsule PO (09:02)
[2021-06-04] MEDS: Allopurinol 100 MG Tablet 200 MG PO (09:03)
[2021-06-04] MEDS: Mirabegron 50 MG TAB.ER.24H PO (09:03)
[2021-06-04] MEDS: Loratadine 10 MG Tablet PO (09:03)
[2021-06-04] MEDS: Cephalexin 500 MG Capsule PO ×2 (09:03→21:35)
[2021-06-04] MEDS: Enoxaparin 40 MG/0.4 ML Syringe SC (09:03)
--- NOTE | 2021-06-04 10:36 | CASEMGMT ---
Addendum entered by Halley Ray 06/04/21 12:01: Pt did let therapy know she is agreeable to a referral sent to [facility]. SW called Xiomara at [facility] and faxed referral. SW will continue to follow. SELAM Alcazar Original Note: SW spoke w/pt in the room in regard to discharge plan. SW reviewed options with her, pt asked about going home w/home health, said to SW, you've been to my house, right? SW explained that no, this SW has not been to her house. SW explained that we could arrange home health however pt is needing the assist of 2 people at present. Pt states she would want aides at home but states she knows insurance would not pay for it. SW confirmed this, that home health would provide therapy, but not ongoing aide services. Pt states she knows too that it's very time limited. SW spoke w/pt about going somewhere for rehab. Pt states that she just got here and has only been here a couple of days, states she is not going to make a decision until she is forced to do so. SW explained to pt that pt will likely be medically ready before she is moving how she used to move. After SW explained this multiple times, pt does state understanding however still is not ready to make a decision. SW asked about her , how he is managing. She states he is not doing well either. SW asked about family, and asked about family meeting that she had mentioned to other SW. She confirmed this and states that her sons think they both need to go to a home. She does say her helps her make decisions and he will be in later. SW explained will come back and speak with the both of them once pt's is here. SW will continue to follow, will follow up w/ later today if he does not come in for a visit. SELAM Alcazar
[2021-06-04 11:26] VITALS: O2SAT 98
[2021-06-04 14:02] VITALS: BP 109/65; PULSE 90; RESP 16; TEMP 36.2; O2SAT 98
--- NOTE | 2021-06-04 14:15 | PCM.PN.HOSP ---
Subjective Subjective Patient denies burning micturition or urgency or retention of urine. She has increased frequency although does not remember well. She was admitted with frequent fall, encephalopathy, confusion. Her last UTI was about 2 to 3 years ago. Objective Data Objective Data Vital Signs: Vital Signs Temp Pulse Resp BP Pulse Ox 97.1 F L 90 16 109/65 98 06/04/21 14:02 06/04/21 14:02 06/04/21 14:02 06/04/21 14:02 06/04/21 14:02 Oxygen Delivery Method Room Air Weight: 133 lb 9.602 oz Body Mass Index (BMI) 25.8 Intake & Output: Intake and Output for Last 24 Hours 06/02/21 06/03/21 06/04/21 23:59 23:59 23:59 Intake Total 1578.33 / 1578.33 650 / 900 500 / 500 Output Total 1500 / 1500 1600 / 1900 300 / 300 Balance 78.33 / 78.33 -950 / -1000 200 / 200 Lab / Micro Data Result Diagrams: 06/02/21 07:52 06/02/21 07:52 Micro: Microbiology 06/02/21 02:04 Urine, Clean Catch Urine Culture - Final Mixed Gram Positive Organisms 06/02/21 03:05 Nasal Secretion SARS-CoV-2 Antigen (Rapid) - Final Physical Exam Narrative Denies burning micturition General: Alert, Oriented x3, Cooperative HEENT: Atraumatic, PERRLA, EOMI, Normocephalic Oral: No Gingival or Mucosal Lesions/ Ulcerations Neck: Supple, No JVD, Negative Carotid Bruits Lungs: Air entry diminished in bilateral lung bases. No crepitation/rhonchi Cardiovascular: Regular rate, Regular Rhythm, Normal S1, Normal S2, No murmurs Abdomen: Bowel Sounds Present, Soft, Non Tender, Non-Distended : No renal angle tenderness. No suprapubic tenderness. Extremities: No edema, Capillary Refill Less than 3 Seconds Skin: Mild bruise on knee because of fall. Musculoskeletal: Bilateral TKR. No Tenderness to Palpation of Joints or Extremities Neurological: Cranial nerves II-XII grossly intact, DTR 2+/4 and Symmetrical, Psych/Mental Status: Flat affect. Assessment & Plan Assessment/Plan (1) UTI (urinary tract infection): QUALIFIERS: Urinary tract infection type: acute cystitis Hematuria presence: without hematuria Qualified Code(s): N30.00 - Acute cystitis without hematuria PLAN: 1. Mild metabolic encephalopathy with history of mild chronic cognitive impairment: UA is positive for WBC more than 100 cells, LE positive but nitrite negative. Her history of low interactive symptoms is confusing?she told me she did not had burning micturition but same as mentioned in H&P. Urine culture is showing mixed contamination. With positive UA, it is prudent to continue 5 days of total antibiotic. #2 acute cystitis-organism unknown #3 chronic cognitive impairment-this appears to be mild #4 chronic anxiety/depression #5 acute debility-PT and OT are working with the patient. Patient wants to go home. As per manager case required 2 people assist. The case management to call whether he can take care of her. Charges/Coding Visit Charges Inpatient E&M: 86331 Subs Hosp L2
--- NOTE | 2021-06-04 14:22 | CASEMGMT ---
Addendum entered by Halley Ray 06/04/21 15:56: SW did also complete the form for precert and faxed it along with clinical information to insurance in the event that the insurance does come back and state the hospital needs to submit the precert. AISHA Alcazar Addendum entered by Halley Ray 06/04/21 15:00: SW checked in with [facility] in regard to the precert, as per Katie she was able to submit for precert, she will let SW know if pt's insurance says the hospital needs to submit it instead--with this insurance they have asked for the hospital to submit for precert rather than the [place] [facility]. SW will submit for precert if the [place] [facility] is told they cannot do it. SELAM Alcazar Original Note: SW spoke w/Xiomara at [facility], she states they can take pt and will start precert. SW spoke w/pt, let her know [facility] can take her and they are starting precert. Pt in agreement with going to [facility] at discharge. SW will continue to follow. SELAM Alcazar
[2021-06-04 20:03] VITALS: BP 112/60; PULSE 77; RESP 18; TEMP 36.7; O2SAT 95
[2021-06-05] MEDS: Ondansetron 4 MG/2 ML Vial IV ×2 (02:32→10:34)
[2021-06-05] MEDS: 0.9% Saline Lock 10 ML Syringe IV ×5 (02:32→16:21)
[2021-06-05 02:37] VITALS: BP 156/110; PULSE 94; RESP 18; TEMP 36.5; O2SAT 95
--- NOTE | 2021-06-05 07:34 | PCS.PANDOC ---
PANDEMIC DOCUMENTATION INITIATED: Date: 02/26/2021 Time: 190
[2021-06-05] MEDS: proCHLORPERazine 10 MG/2 ML Vial 5 MG IV (08:24)
[2021-06-05 08:39] VITALS: BP 144/80; PULSE 72; RESP 16; TEMP 36.4; O2SAT 95
--- NOTE | 2021-06-05 09:37 | CASEMGMT ---
Addendum entered by Halley Ray 06/05/21 10:22: SW called [facility], in regard to where the precert process is for pt. As per [facility], pt's clinical information is yet to be reviewed; they are not able to tell SW how long it will take for pt's case to be reviewed. SW will continue to follow. SELAM Alcazar Addendum entered by Halley Ray 06/05/21 09:48: SW called [facility] again, spoke dafne/Xiomara, she states insurance informed [facility] they will contact the hospital in regard to precert. SW will call insurance shortly. SELAM Alcazar Original Note: HAILEY called Xiomara Coles in admissions on the phone, SW to try back again shortly. SELAM Alcazar
--- NOTE | 2021-06-05 10:12 | NURSING ---
patient nauseated and expelling emesis several times this morning. At this time patient is refusing medication due to nausea and vomiting. Will wait to attempt to administer medications once patient is no longer nauseated or expelling emesis.
[2021-06-05] MEDS: Enoxaparin 40 MG/0.4 ML Syringe SC (10:27)
--- NOTE | 2021-06-05 10:51 | RAD_ITS ---
STUDY: X-RAY - ABDOMEN/PELVIS REASON FOR EXAM: Female, 80 years old. PERSISTENT VOMITING/Nausea -- including pelvis TECHNIQUE: 3 frontal images of the abdomen were obtained including a left lateral decubitus. COMPARISON: None. FINDINGS: Normal visualized lung bases. There is an unremarkable bowel gas pattern. There is no demonstrated free abdominal air. Normal soft tissue structures. There are diffuse degenerative changes of the visualized lumbar spine. There is a left hip arthroplasty in place. RAD/Abd Inc Decub and/or Erect IMPRESSION: Nonspecific bowel gas pattern. Electronically Signed: Fay Schaefer MD at 14:29 EST Tel , Service support ,
[2021-06-05 11:51] LABS: Absolute Lymphocyte Count 1.11 X10^3/uL (0.83-4.51); Absolute Neutrophil Count 13.7 X10^3/uL (2.0-7.7); Basophil# 0.03 X10^3/uL; Basophil% 0.2 % (0-1); Eosinophil# 0.01 X10^3/uL; Eosinophils% 0.1 % (0-5); Hematocrit 40.7 % (37-47); Hemoglobin 14.3 g/dL (12.0-15.0); Lymphocyte # 1.11 X10^3/ul (0.83-4.51); Mean Corp Hgb Conc 35.1 g/dL (32-36); Mean Corpuscular Hgb 33.7 pg (27.0-32.0); Mean Platelet Vol. 9.6 fl (6.2-12.0); Monocyte# 0.91 X10^3/uL; Monocyte% 5.8 % (0-10); NRBC Flagged by Analyzer 0 % (0-5); Neutrophil # 13.69 X10^3/uL (2.7-7.7); Neutrophil % 86.5 % (47-70); Platelet Count 353 K/mm3 (150-450); RBC Distribution Width CV 12.2 % (11.6-14.6); RBC Distribution Width SD 42.2 fl (35.1-43.9); Red Blood Count 4.24 M/mm3 (4.2-5.4); White Blood Count 15.8 K/mm3 (4.4-11.0)
[2021-06-05 12:48] LABS: Anion Gap 14 (5-15); BUN 16 mg/dL (7-18); BUN/Creat Ratio 22.5 RATIO (10-20); Calcium,Total 9.7 mg/dL (8.5-10.1); Chloride 100 mmol/L (98-107); Creatinine, Serum 0.71 mg/dL (0.55-1.02); EST Glomerular Filtration Rate 84 mL/min (>60); Est Glom Filt Rate - Afr Amer 102 mL/min (>60); Estimated Creatinine Clearance 34.99 ml/min; Glucose 131 mg/dL (74-106); Magnesium 2.1 mg/dL (1.6-2.6); Potassium 3.7 mmol/L (3.5-5.1); Sodium Level 135 mmol/L (136-145)
--- NOTE | 2021-06-05 14:07 | PCM.PN.HOSP ---
Subjective Subjective Discussed with nursing staff. Patient had frequent emesis and constant nausea. On Zofran and Compazine. Patient in mild upper abdominal discomfort/ache as she described. No fever. Objective Data Objective Data Vital Signs: Vital Signs Temp Pulse Resp BP Pulse Ox 97.6 F L 72 16 144/80 H 95 06/05/21 08:39 06/05/21 08:39 06/05/21 08:39 06/05/21 08:39 06/05/21 08:39 Oxygen Delivery Method Room Air Weight: 134 lb 7.712 oz Body Mass Index (BMI) 25.8 Intake & Output: Intake and Output for Last 24 Hours 06/03/21 06/04/21 06/05/21 23:59 23:59 23:59 Intake Total 650 / 900 800 / 800 Output Total 1600 / 1900 300 / 300 800 / 800 Balance -950 / -1000 500 / 500 -800 / -800 Lab / Micro Data Result Diagrams: 06/05/21 11:38 06/05/21 11:38 Labs: Laboratory Results - last 24 hr 06/05/21 11:38: WBC 15.8 H, RBC 4.24, Hgb 14.3, Hct 40.7, MCV 96.0, MCH 33.7 H, MCHC 35.1, RDW Std Deviation 42.2, RDW Coeff of Rajesh 12.2, Plt Count 353, MPV 9.6, Immature Gran % (Auto) 0.400, Neut % (Auto) 86.5 H, Lymph % (Auto) 7.0 L, [place] % (Auto) 5.8, Eos % (Auto) 0.1, Baso % (Auto) 0.2, Absolute Neuts (auto) 13.7 H, Absolute Lymphs (auto) 1.11, Nucleated RBC % 0 06/05/21 11:38: Sodium 135 L, Potassium 3.7, Chloride 100, Carbon Dioxide 21.0, Anion Gap 14, BUN 16, Creatinine 0.71, Estim Creat Clear Calc 34.99, Est GFR (MDRD) Af Amer 102, Est GFR (MDRD) Non-Af 84, BUN/Creatinine Ratio 22.5 H, Glucose 131 H, Calcium 9.7, Magnesium 2.1 Micro: Microbiology 06/02/21 02:04 Urine, Clean Catch Urine Culture - Final Mixed Gram Positive Organisms 06/02/21 03:05 Nasal Secretion SARS-CoV-2 Antigen (Rapid) - Final Physical Exam Narrative Denies burning micturition General: Alert, Oriented x3, Cooperative HEENT: Atraumatic, PERRLA, EOMI, Normocephalic Oral: No Gingival or Mucosal Lesions/ Ulcerations Neck: Supple, No JVD, Negative Carotid Bruits Lungs: Air entry diminished in bilateral lung bases. No crepitation/rhonchi Cardiovascular: Regular rate, Regular Rhythm, Normal S1, Normal S2, No murmurs Abdomen: Bowel Sounds Present, Soft, Non Tender, Non-Distended : No renal angle tenderness. No suprapubic tenderness. Extremities: No edema, Capillary Refill Less than 3 Seconds Skin: Mild bruise on knee because of fall. Musculoskeletal: Bilateral TKR. No Tenderness to Palpation of Joints or Extremities Neurological: Cranial nerves II-XII grossly intact, DTR 2+/4 and Symmetrical, Psych/Mental Status: Flat affect. Assessment & Plan Assessment/Plan (1) UTI (urinary tract infection): QUALIFIERS: Urinary tract infection type: acute cystitis Hematuria presence: without hematuria Qualified Code(s): N30.00 - Acute cystitis without hematuria PLAN: 1. Mild metabolic encephalopathy with history of mild chronic cognitive impairment: UA is positive for WBC more than 100 cells, LE positive but nitrite negative. Patient denies burning micturition. Urine culture is showing mixed contamination. 06/05: Patient has bilateral upper quadrant abdominal pain, predominantly RUQ. Describes mild discomfort to constant aching with persistent nausea and vomiting. Abdominal x-ray shows bowel gas pattern nondiagnostic although official report pending. Right upper quadrant sonogram ordered to rule out acute cholecystitis. Patient has leukocytosis 15,000 with left shift. Antibiotic changed to IV ceftriaxone. #2 acute cystitis-ruled out with mixed gram-positive organism 80,000-100,000. #3 chronic cognitive impairment-this appears to be mild #4 chronic anxiety/depression #5 acute debility-PT and OT are working with the patient. Patient wants to go home. As per mental health case manager required 2 people assist. The case management to call whether he can take care of her.
--- NOTE | 2021-06-05 14:14 | US_ITS ---
We are attempting to reach an attending provider to discuss findings. An addendum with communication details will be sent when the communication is complete. HISTORY: RUQ pain, possible acute cholecystitis TECHNIQUE: Rowe scale and color doppler imaging was performed of the right upper quadrant structures. COMPARISON: None FINDINGS: LIVER: Normal in echogenicity. No focal lesion identified. Right lobe measures 14.4 cm length. Main portal vein patent with normal directional flow. PANCREAS: Unremarkable as visualized. GALLBLADDER AND BILIARY TREE: Distended gallbladder contains multiple small shadowing stones, some located within gallbladder neck. Gallbladder measures 9 cm in length. Gallbladder wall thickness upper limits normal, 2.9 mm. There is trace pericholecystic fluid. Sonographic Bernardo's sign is positive. No intrahepatic or extrahepatic biliary ductal dilation. Common bile duct measures 3 mm. KIDNEYS: The right kidney measures 9.1 cm in length. No hydronephrosis. No focal parenchymal lesion or shadowing stones. AORTA AND IVC: Not imaged. US/Abdomen Limited IMPRESSION: Constellation of findings suggesting acute cholecystitis. Correlate clinically and recommend surgical consultation. at 0443 Reported and signed by: Chuy Riley MD Electronically Signed: Chuy Riley MD at 4:42 EST Tel , Service support ,
--- NOTE | 2021-06-05 15:54 | NURSING ---
PT STATES ABD FEELING BETTER BUT STILL REFUSING TO TAKE AM MEDS BECAUSE SHE DOESN'T WANT TO GET NAUSEATED AGAIN.
[2021-06-05 16:08] VITALS: BP 178/83; PULSE 87; RESP 18; TEMP 36.7; O2SAT 99
--- NOTE | 2021-06-05 16:11 | NURSING ---
will be moved to [facility]
[2021-06-05 16:21] VITALS: BP 178/83; PULSE 87
[2021-06-05] MEDS: hydrALAZINE 20 MG/ML Vial 10 MG IV (16:21)
--- NOTE | 2021-06-05 16:26 | NURSING ---
MINIMAL VOID THIS SHIFT - DROPS, BLADDER SCAN FOR 281ML - DR URIOSTEGUI AWARE - ORDER TO STRAIGHT CATH
[2021-06-05] MEDS: Acetaminophen 325 MG Tablet 650 MG PO ×2 (16:44→21:47)
[2021-06-05 16:50] VITALS: BP 140/63
--- NOTE | 2021-06-05 17:12 | NURSING ---
CALLED PT'S , AMELIA WITH PT UPDATE & TO MAKE HIM AWARE PT WILL BE MOVING TO ROOM 102 DUE TO UNIT BEING CLOSED. REPORT CALLED TO FLACO CORDERO ON PCU.
[2021-06-05 22:03] VITALS: BP 120/53; PULSE 98; RESP 18; TEMP 36.7; O2SAT 94
[2021-06-06] VITALS (9 sets, daily range): BP systolic 105–155; BP diastolic 56–86; PULSE 84–105; RESP 16–18; TEMP 36.4–36.9; O2SAT 92–100; BMI 24.5
--- NOTE | 2021-06-06 | GALL_PTH ---
PATIENT: CLARISA SANCHEZ I LOC: [facility] U#:[id number] AGE/SX: 80/F ROOM: [facility] RE06/02/[address]: Dr. Sallie Wills MD : [id number] BED: 1 DIS: 06/07/2021 SPEC #: [id number] RECD: 06/06/21 13:22 STATUS: ANNEL BLISS #: [id number] CHAR: 06/06/21 00:[address]: Gunner Landis DEPT: SURGICAL PATHOLOGY RECD BY: Cherelle Maciel ENTERED: 06/08/21 09:05 SP TYPE: EVELINE SANCHEZ DR: MD Dr. Sallie Beugm MD Tissues: Gallbladder, NOS Procedures: Surgery Specimen Level III HEADER OPERATION: Laparoscopic, cholecystectomy with IOC PRE-OP DIAGNOSIS: Acute cholecystitis TISSUE SUBMITTED: Gallbladder MICROSCOPIC DIAGNOSIS Gallbladder, cholecystectomy: Acute and chronic ulcerated cholecystitis and cholelithiasis. 06/11/21 MICROSCOPIC DESCRIPTION Slides are reviewed. GROSS DESCRIPTION Received is one container labeled with the patient's name and designated gallbladder. The specimen consists of a gallbladder measuring 8.0 cm in length and up to 4.0 cm in diameter. The external surface is pink-flanagan, smooth and glistening for the most part. Focally it is granular, hemorrhagic and contains cautery artifact. The gallbladder contains small amount of green yellow mucoid bile and multiple mulberry yellow stones measuring in aggregate 5.0 x 5.0 x .05 cm and 0.2 to 0.5 cm in greatest dimension. The mucosa is bile-stained and without any mass lesions. The gallbladder wall measures up to 0.3 cm in thickness. Produce Laborer sections from the gallbladder and the cystic duct are submitted in one cassette. / DARIO:spike 06/08/21 TC:2 CPT: 15557
--- NOTE | 2021-06-06 04:48 | NURSING ---
received call from radiologist reporting findings of acute cholecystitis from [facility] US done 06/[address] De León made aware.
--- NOTE | 2021-06-06 04:59 | PCM.PN.BLA ---
Progress Note Nursing reports ultrasonographic findings of acute cholecystitis. Rounding attending MDs notes reviewed. Patient is on ceftriaxone. Will start patient on Zosyn. General surgery consult.
[2021-06-06] MEDS: 0.9% Saline Lock 10 ML Syringe IV (05:38)
--- NOTE | 2021-06-06 10:12 | CON.PCM.SX_ITS ---
Assessment & Plan Assessment/Plan (1) Acute cholecystitis: PLAN: This is a 80-year-old female with approximately 24-hour history of right upper quadrant pain and nausea. Additionally, she has a leukocytosis with labs and sonographic imaging showed a consultation concerning for cholecystitis. Her exam is also suggestive for this diagnosis. Given the improvement in her other presenting symptoms, and her presentation with this right upper quadrant pain, I do recommend proceeding with a laparoscopic cholecystectomy and possible cholangiogram. Procedure was described in detail including postoperative expectations. The patient is accepting of this recommendation would like to proceed as described. However, she wishes to contact her to provide him an update before proceeding. HPI Consult Data Date of Consult: 06/06/21 HPI Narrative HPI Narrative: CLARISA SANCHEZ, is a 80 F who presented [facility] earlier this week with complaints of falls and weakness. She has been to the care of the hospitalist service for work-up of these issues when yesterday, 06/05/2021 she developed localized right upper quadrant pain and nausea. A acute abdominal series was obtained immediately which was nonspecific so this was followed by a abdominal ultrasound which showed constellation of findings concerning for cholecystitis with a distended gallbladder, mild gallbladder wall thickness, and some trace pericholecystic fluid. The common bile duct was notably normal. Simultaneously, patient had a leukocytosis develop per CBC. Patient denies any previous experience of this type of pain, but states the pain persist today right under her ribs. She does add that she has not had an appetite for approximately 48 hours and has not eaten for this period of time. Patient states that she feels much more coherent/stronger than when she presented to the hospital. Patient's only other complaint is for some constipation and she states she is normally regular with her bowel habits once daily but has not had a bowel movement in approximately 48 hours. [facility] Medical History (Updated 06/06/21 @ 10:[address] Gunner Landis MD) Anterolisthesis Carpal tunnel syndrome DDD (degenerative disc disease), lumbar Environmental allergies Former smoker Heart murmur High cholesterol High triglycerides Irregular heart beat Osteoarthritis Home Medications Cetirizine Hcl [Zyrtec] 10 mg PO DAILY 01/01/16 [History Last Taken Unknown] cholecalciferol (vitamin D3) [Vitamin D] 1,000 unit PO DAILY 09/09/18 [History Last Taken Unknown] turmeric root extract 500 mg PO DAILY 09/09/18 [History Last Taken Unknown] allopurinol 200 mg PO DAILY 06/02/21 [History Last Taken Unknown] biotin 1,000 mcg PO DAILY 06/02/21 [History Last Taken Unknown] duloxetine 30 mg PO DAILY 06/02/21 [History Last Taken Unknown] fluticasone propionate [Flonase] 1 spray INTRANASAL DAILY PRN PRN 06/02/21 [History Last Taken Unknown] [id number]-kmf-swzx-FA-lutein [Multivitamin Women 50 Plus] 1 tab PO DAILY 06/02/21 [History Last Taken Unknown] Allergy/AdvReac Type Severity Reaction Status Date / Time meperidine HCl [From Demerol] Allergy HALLUCINATI Verified 04/01/20 00:08 ONS Sulfa (Sulfonamide Allergy Hives Verified 04/01/20 00:08 Antibiotics) adhesive tape AdvReac Rash Verified 04/01/20 00:08 hydrocodone bitartrate AdvReac Vomiting Verified 04/01/20 00:08 [From [place]] propoxyphene HCl AdvReac Vomiting Verified 04/01/20 00:08 [From Darvon] Family History (Updated 06/02/21 @ 03:[address] Sallie Wills MD) Father Diabetes Parkinsons disease Mother CVA (cerebral vascular accident) Parkinsons disease Sister Cancer Hx ovarian CA. Other Bleeding disorder Surgical History (Updated 06/02/21 @ 03:[address] 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 Sallie Wills MD) household members: family Smoking Status: Former smoker quit date: 10/02/15 alcohol intake: current alcohol intake frequency: a few times a month substance use type: does not use what type of physical activity do you participate in: swimming and aerobics frequency: 3-4 times per week Physical Exam Const alert, oriented x3 and no apparent distress General Appearance: cooperative Orientation / Consciousness: oriented to person, oriented to place and oriented to time Resp normal respiratory effort GI GI Narrative: Patient abdomen is mildly distended. She has scar in the lower midline from prior . She is tender in the epigastrium and in the right upper quadrant with palpation. There is a negative Bernardo's sign. Lab / Micro Data Result Diagrams: 06/05/21 11:38 06/05/21 11:38 Labs: Laboratory Results - last 24 hr 06/05/21 11:38: WBC 15.8 H, RBC 4.24, Hgb 14.3, Hct 40.7, MCV 96.0, MCH 33.7 H, MCHC 35.1, RDW Std Deviation 42.2, RDW Coeff of Rajesh 12.2, Plt Count 353, MPV 9.6, Immature Gran % (Auto) 0.400, Neut % (Auto) 86.5 H, Lymph % (Auto) 7.0 L, [place] % (Auto) 5.8, Eos % (Auto) 0.1, Baso % (Auto) 0.2, Absolute Neuts (auto) 13.7 H, Absolute Lymphs (auto) 1.11, Nucleated RBC % 0 06/05/21 11:38: Sodium 135 L, Potassium 3.7, Chloride 100, Carbon Dioxide 21.0, Anion Gap 14, BUN 16, Creatinine 0.71, Estim Creat Clear Calc 34.99, Est GFR (MDRD) Af Amer 102, Est GFR (MDRD) Non-Af 84, BUN/Creatinine Ratio 22.5 H, Glucose 131 H, Calcium 9.7, Magnesium 2.1 Radiology Impression Abdomen X-Ray 06/05/21 10:51 IMPRESSION: Nonspecific bowel gas pattern. Electronically Signed: Fay Schaefer MD at 14:29 EST Tel , Service support , Abdomen Ultrasound 06/05/21 14:14 IMPRESSION: Constellation of findings suggesting acute cholecystitis. Correlate clinically and recommend surgical consultation. at 6283 Reported and signed by: Chuy Riley MD Electronically Signed: Chuy Riley MD at 4:42 EST Tel , Service support , ADDENDUM: 06/06/21 0454 IMPRESSION: Constellation of findings suggesting acute cholecystitis. Correlate clinically and recommend surgical consultation. at 0443 Reported and signed by: Chuy Riley MD N.B. : The above Results were Read Back by Chuy Riley MD to Cheli Mae/ charge nurse, RN, and understanding confirmed on 06/06/2021 04:47:13 (ET). Electronically Signed: Chuy Riley MD at 4:42 EST Tel , Service support , Charges/Coding Visit Charges Inpatient E&M: 49826 Init Hosp L2
--- NOTE | 2021-06-06 10:16 | CASEMGMT ---
Patient is going to surgery today for a lap choley. HAILEY called Naa Woodard and was told that Xiomara is out of the office today and tomorrow. HAILEY asked if anyone was covering for Xiomara and she did not know. She will have Tabby call HAILEY when she is out of her meeting. Marce Lloyd MANAGER PLAY BRIANA
[2021-06-06 10:17] LABS: Absolute Lymphocyte Count 1.68 X10^3/uL (0.83-4.51); Absolute Neutrophil Count 8.1 X10^3/uL (2.0-7.7); Basophil# 0.06 X10^3/uL; Basophil% 0.5 % (0-1); Eosinophils% 0.9 % (0-5); Hematocrit 39.8 % (37-47); Hemoglobin 13.7 g/dL (12.0-15.0); Lymphocyte # 1.68 X10^3/ul (0.83-4.51); Lymphocyte % 14.5 % (19-41); Mean Corp Hgb Conc 34.4 g/dL (32-36); Mean Corpuscular Hgb 33.3 pg (27.0-32.0); Mean Corpuscular Volume 96.8 fL (81-99); Mean Platelet Vol. 9.4 fl (6.2-12.0); Monocyte# 1.54 X10^3/uL; Monocyte% 13.3 % (0-10); NRBC Flagged by Analyzer 0 % (0-5); Neutrophil # 8.13 X10^3/uL (2.7-7.7); Neutrophil % 70.4 % (47-70); POSITIVE DIFFERENTIAL YES; Platelet Count 334 K/mm3 (150-450); RBC Distribution Width CV 12.5 % (11.6-14.6); RBC Distribution Width SD 44.2 fl (35.1-43.9); Red Blood Count 4.11 M/mm3 (4.2-5.4); White Blood Count 11.6 K/mm3 (4.4-11.0)
[2021-06-06 10:18] LABS: Differential Indicated SCAN CRITERIA MET
--- NOTE | 2021-06-06 10:24 | RAD_ITS ---
STUDY: INTRAOPERATIVE CHOLANGIOGRAM REASON FOR EXAM: Female, 80 years old. Nausea and vomiting, cholecystectomy RADIATION DOSAGE (If Supplied By Facility): CTDIvol = ( ) mGy, DLP = ( ) mGycm. Individualized dose optimization techniques were used for this CT.? FLUOROSCOPY TIME (if supplied): ( 20.8 ) seconds TECHNIQUE: Procedure performed by Dr. Landis. 2 separate cine loops performed, one with 55 images, one with 56 COMPARISON: None. FINDINGS: The cystic duct remnant was cannulized, and contrast injected into the biliary tree in a retrograde manner. There is normal filling of the intra and extrahepatic ducts. No biliary dilatation or filling defect noted to suspect retained stone. There is free flow contrast into the duodenum. No extravasation of contrast is noted. RAD/Cholangiogram/ O R,Initial IMPRESSION: Normal intraoperative cholangiogram Electronically Signed: Daron Clarke MD at 13:10 EST , Service support ,
--- NOTE | 2021-06-06 10:25 | CASEMGMT ---
SW called , he was aware pt agreeable to [facility] at discharge. SW let him know that we are still waiting for precert, and if we get precert and she is medically ready, pt may be able to go to [place] in the next couple of days. Pt's states understanding and is in agreement. SW called [employer], that manages prior authorizations, after speaking with three people, was told that they have 48 hours to respond and that will be this afternoon. Case number is [id number]. SW Will continue to follow. SELAM Alcazar
--- NOTE | 2021-06-06 10:33 | PN.HOSP_ITS ---
Subjective Subjective Discussed with the night hospitalist in the morning today. Right upper quadrant sonogram suggestive of acute cholecystitis with multiple gallstones, GB wall 2.9 mm with a small pericholecystic fluid. Yesterday, she had right upper quadrant predominantly abdominal pain, nausea and vomiting and leukocytosis with left shift consistent with acute glossitis. Patient was started on IV Zosyn last night and surgery consult was called. Patient is taken to the OR for lap michelle with Intra-Op cholangiogram. Objective Data Objective Data Vital Signs: Vital Signs Temp Pulse Resp BP Pulse Ox 98.2 F 92 18 113/56 L 95 06/06/21 04:00 06/06/21 04:00 06/06/21 04:00 06/06/21 04:00 06/06/21 04:00 Oxygen Delivery Method Room Air Weight: 129 lb 6.581 oz Body Mass Index (BMI) 25.8 Intake & Output: Intake and Output for Last 24 Hours 06/04/21 06/05/21 06/06/21 23:59 23:59 23:59 Intake Total 800 / 800 170 / 170 50 / 50 Output Total 300 / 300 1425 / 1425 450 / 450 Balance 500 / 500 -1255 / -1255 -400 / -400 Lab / Micro Data Result Diagrams: 06/06/21 10:03 06/06/21 10:03 Labs: Laboratory Results - last 24 hr 06/05/21 11:38: WBC 15.8 H, RBC 4.24, Hgb 14.3, Hct 40.7, MCV 96.0, MCH 33.7 H, MCHC 35.1, RDW Std Deviation 42.2, RDW Coeff of Rajesh 12.2, Plt Count 353, MPV 9.6, Immature Gran % (Auto) 0.400, Neut % (Auto) 86.5 H, Lymph % (Auto) 7.0 L, [place] % (Auto) 5.8, Eos % (Auto) 0.1, Baso % (Auto) 0.2, Absolute Neuts (auto) 13.7 H, Absolute Lymphs (auto) 1.11, Nucleated RBC % 0 06/05/21 11:38: Sodium 135 L, Potassium 3.7, Chloride 100, Carbon Dioxide 21.0, Anion Gap 14, BUN 16, Creatinine 0.71, Estim Creat Clear Calc 34.99, Est GFR (MDRD) Af Amer 102, Est GFR (MDRD) Non-Af 84, BUN/Creatinine Ratio 22.5 H, Glucose 131 H, Calcium 9.7, Magnesium 2.1 06/06/21 10:03: WBC 11.6 H, RBC 4.11 L, Hgb 13.7, Hct 39.8, MCV 96.8, MCH 33.3 H , MCHC 34.4, RDW Std Deviation 44.2 H, RDW Coeff of Rajesh 12.5, Plt Count 334, MPV 9.4, Immature Gran % (Auto) 0.400, Neut % (Auto) 70.4 H, Lymph % (Auto) 14.5 L, [place] % (Auto) 13.3 H, Eos % (Auto) 0.9, Baso % (Auto) 0.5, Absolute Neuts (auto) 8.1 H, Absolute Lymphs (auto) 1.68, Nucleated RBC % 0 Micro: Microbiology 06/02/21 02:04 Urine, Clean Catch Urine Culture - Final Mixed Gram Positive Organisms 06/02/21 03:05 Nasal Secretion SARS-CoV-2 Antigen (Rapid) - Final Radiography Diagnostic Testing: Radiology Impression Abdomen X-Ray 06/05/21 10:51 IMPRESSION: Nonspecific bowel gas pattern. Electronically Signed: Fay Schaefer MD at 14:29 EST Tel , Service support , Abdomen Ultrasound 06/05/21 14:14 IMPRESSION: Constellation of findings suggesting acute cholecystitis. Correlate clinically and recommend surgical consultation. at 8230 Reported and signed by: Chuy Riley MD Electronically Signed: Chuy Riley MD at 4:42 EST Tel , Service support , ADDENDUM: 06/06/21 0454 IMPRESSION: Constellation of findings suggesting acute cholecystitis. Correlate clinically and recommend surgical consultation. at 0443 Reported and signed by: Chuy Riley MD N.B. : The above Results were Read Back by Chuy Riley MD to Cheli Mae/ charge nurse, RN, and understanding confirmed on 06/06/2021 04:47:13 (ET). Electronically Signed: Chuy Riley MD at 4:42 EST Tel , Service support , Physical Exam Narrative Seen and examined in PACU after surgery. General: Mild lethargy but awake, oriented x3, Cooperative HEENT: Atraumatic, PERRLA, EOMI, Normocephalic Oral: No Gingival or Mucosal Lesions/ Ulcerations Neck: Supple, No JVD, Negative Carotid Bruits Lungs: Air entry diminished in bilateral lung bases. No crepitation/rhonchi Cardiovascular: Regular rate, Regular Rhythm, Normal S1, Normal S2, No murmurs Abdomen: Laparoscopic cholecystectomy. Port dressing dry. Bowel sounds sluggish. Mild tenderness : No Dan catheter. No renal angle tenderness. No suprapubic tenderness. Extremities: No edema, Capillary Refill Less than 3 Seconds Skin: Mild bruise, healing on knee because of fall. Musculoskeletal: Bilateral TKR. No Tenderness to Palpation of Joints or Extremities Neurological: Cranial nerves II-XII grossly intact, DTR 2+/4 and Symmetrical, Psych/Mental Status: Flat affect. Assessment & Plan Assessment/Plan (1) UTI (urinary tract infection): QUALIFIERS: Hematuria presence: without hematuria Urinary tract infection type: acute cystitis Qualified Code(s): N30.00 - Acute cystitis without hematuria PLAN: 1. Mild metabolic encephalopathy with history of mild chronic cognitive impairment: UA is positive for WBC more than 100 cells, LE positive but nitrite negative. Patient denies burning micturition. Urine culture is showing mixed contamination. 06/05: Patient has bilateral upper quadrant abdominal pain, predominantly RUQ. Describes mild discomfort to constant aching with persistent nausea and vomiting. Abdominal x-ray shows bowel gas pattern nondiagnostic although official report pending. Right upper quadrant sonogram ordered to rule out acute cholecystitis. Patient has leukocytosis 15,000 with left shift. Antibiotic changed to IV ceftriaxone. 06/06: Right upper quadrant sonogram positive for acute cholecystitis due to cholelithiasis. Subsequently last night, general surgery, Dr. Landis was consulted. Patient taken for OR today with laparoscopic cholecystectomy with Intra-Op cholangiogram. Operative note reviewed and cholangiogram showed short cystic duct filling into CBD with unobstructed antegrade flow of contrast into duodenum and no retrograde flow to common hepatic duct into right and left hepatic duct. Patient is medically stable and can be transferred to the medical floor. Monitor bladder scan and straight cath as needed. Patient on IV Zosyn, may be changed to ceftriaxone tomorrow a.m. #2 acute cystitis-ruled out with mixed gram-positive organism 80,000-100,000. #3 chronic cognitive impairment-this appears to be mild #4 chronic anxiety/depression #5 acute debility-PT and OT are working with the patient. Patient wants to go home. As per correctional case records supervisor required 2 people assist. The case management to call whether he can take care of her. Discharge plan patient has pending pre-CERT discharge to [facility] ready for tomorrow depending upon her medical stability. Charges/Coding Visit Charges Inpatient E&M: 54204 Subs Hosp L2
--- NOTE | 2021-06-06 10:36 | EKG12_ITS ---
Test Reason : PRE-OP Blood Pressure : / mmHG Vent. Rate : 096 BPM Atrial Rate : 096 BPM P-R Int : 178 ms QRS Dur : 076 ms QT Int : 350 ms P-R-T Axes : 056 002 -72 degrees QTc Int : 442 ms Sinus rhythm with Premature atrial complexes Inferior infarct , age undetermined ST & T wave abnormality, consider lateral ischemia Abnormal ECG Confirmed by MAINOR VILLARREAL, SANDEEP ([id number]), commercial production editor CORA FAN ([id number]) on 06/13/2021 9:31:31 AM Referred By: JOHN Confirmed By:SANDEEP HAYWARD MD
[2021-06-06] MEDS: 0.9% Normal Saline 1,000 ML 15 ML IV (10:47)
[2021-06-06 10:48] LABS: Platelet Estimate ADEQUATE (ADEQ); Red Cell Morphology NORM C+C NORMAL (NORM C&C)
[2021-06-06 10:51] LABS: ALB/GLOB Ratio 0.8 RATIO (0.9-2.4); AST(SGOT) 31 U/L (15-37); Alanine Aminotransfer ALT/SGPT 34 U/L (13-56); Albumin, Serum 3.4 g/dL (3.2-5.0); Alkaline Phosphatase 68 U/L (45-117); Anion Gap 11 (5-15); BUN 14 mg/dL (7-18); BUN/Creat Ratio 16.9 RATIO (10-20); Calcium,Total 9.3 mg/dL (8.5-10.1); Chloride 101 mmol/L (98-107); Creatinine, Serum 0.83 mg/dL (0.55-1.02); EST Glomerular Filtration Rate 71 mL/min (>60); Est Glom Filt Rate - Afr Amer 86 mL/min (>60); Estimated Creatinine Clearance 42.15 ml/min; Globulin 4.1 g/dL (2.2-4.2); Glucose 111 mg/dL (74-106); Potassium 3.5 mmol/L (3.5-5.1); Protein, Total 7.5 g/dL (6.4-8.2); Sodium Level 138 mmol/L (136-145)
--- NOTE | 2021-06-06 11:12 | CASEMGMT ---
HAILEY received a return call from Lashawn at [facility]. HAILEY let her know about patient not being ready today, but possibly tomorrow. Lashawn said it is fine if patient comes tomorrow as long as insurance has approved. HAILEY Rowley checked with insurance this am and patient's case is still under review. Plan: [facility] pending pre-cert and patient being medically ready. Marce Lloyd INDUSTRIAL CUSTODIAN BRIANA
--- NOTE | 2021-06-06 11:43 | TREXTCAR_ITS ---
Diet 06/06/21 10:13 Diet: Nothing Per Oral Type of Dietary Supplement:: Magic Cup Dessert Is pt able to select menu?: Yes Diet Comments: magic cup BID w/ lunch and dinner Routine Orders/Code Status Suppository Type: Dulcolax 10mg Suppository Frequency: Daily PRN Routine Lab Work: CBC, BMP and - (WEEKLY) Code Status: Full Code Wound(s) left knee: Wound Type: Abrasion Therapies Weight Bearing: Weight bearing as tolerated Extremity Affected:: Bilateral Lower Physical Therapy: Eval and Treat Occupational Therapy: Eval and Treat Speech Therapy: Eval and Treat Problem/Diagnosis (1) UTI (urinary tract infection): Status: Acute Allergies/Procedures Done in Hospital Allergies meperidine HCl [From Demerol] Allergy (Verified 04/01/20 00:08) HALLUCINATIONS Sulfa (Sulfonamide Antibiotics) Allergy (Verified 04/01/20 00:08) Hives adhesive tape Adverse Reaction (Verified 04/01/20 00:08) Rash hydrocodone bitartrate [From Stacy] Adverse Reaction (Verified 04/01/20 00:08) Vomiting propoxyphene HCl [From Darvon] Adverse Reaction (Verified 04/01/20 00:08) Vomiting Type of Care/Length of Stay Estimated LOS: Convalescent Care Less Than 30 days Type of Care Needed: Skilled Rehab Potential: Good Prognosis: Good Additional Orders/Day of Discharge Day of Discharge: 06/06/21 Dietary and Speech Recommendations Dietitian Recommendations/Changes: Continue regular diet. Will d/c ensure compact with medpass, pt is refusing. Will try magic cup BID w/ lunch and dinner for tolerance. Discharge Plan Admission Admit Date/Time: 06/02/21 03:39 Primary Reason for Your Visit: ACUTE Cholecystitis Attending Provider: Chucho Sinha Primary Care Provider: Loren Dee Consulting Providers: Gunner Landis Discharge Orders/Prescriptions Prescriptions: Continued Cetirizine Hcl [Zyrtec] 10 MG tablet 10 mg PO DAILY RF: 0 cholecalciferol (vitamin D3) [Vitamin D3] 1,000 UNIT tablet 1,000 unit PO DAILY RF: 0 allopurinol 100 mg tablet 200 mg PO DAILY RF: 0 fluticasone propionate 50 mcg/actuation [place],Suspension 1 spray INTRANASAL DAILY PRN PRN (Reason: Nasal Congestion) RF: 0 duloxetine 30 mg capsule,delayed release(DR/EC) 30 mg PO DAILY RF: 0 Multivitamin Women 50 Plus 8 mg iron-400 mcg-300 mcg Tablet 1 tab PO DAILY RF: 0 biotin 1,000 mcg Tablet,Chewable 1,000 mcg PO DAILY RF: 0 Discontinued turmeric root extract 500 MG capsule 500 mg PO DAILY RF: 0 Referrals / Follow Up: Loren Dee MD [Primary Care Provider] - Disposition Disposition (needs filled in before D/C Order can be placed): [facility]
[2021-06-06] MEDS: Lidocaine 1% /Epi 1:100 (20ml) 20 ML Vial (12:49)
--- NOTE | 2021-06-06 12:59 | PCM.OPRPT ---
Problems Associated Problem List Diagnoses (1) Acute cholecystitis: Report of Operation Date of Procedure: 06/06/21 Pre-Operative Diagnosis: Acute cholecystitis Post-Operative Diagnosis: Same Surgery/Procedure Performed:: Laparoscopic cholecystectomy with intraoperative cholangiogram Surgeon: Gunner Landis client relation specialist: Yanet Cowan client relation specialist: Jie Arceo Type of Anesthesia: General Anesthesiologist: Jason Estrella Specimen's removed: Gallbladder Drains: None Estimated Blood Loss (mL): 100 Description of Procedure: After proper identification in the preoperative holding area the patient was brought to the operating room where they were positioned supine on the operating room table. Preoperative DVT prophylaxis had been administered on the floor and antibiotics were administered in the preoperative area. General endotracheal anesthesia was then induced and an orogastric tube was placed to decompress the stomach. Patient's abdomen was prepped and draped in usual sterile fashion. A formal timeout was conducted to confirm both patient and the procedure. Procedure was begun with a supraumbilical incision which was extended deeply down to the level of the fascia. The fascia was elevated and incised, as well as the peritoneum. A finger sweep was performed to ensure there were no underlying adhesions and a 12 mm balloon trocar was inserted. Pneumoperitoneum was established at 15 mmHg. 3 additional trocars were placed in the epigastrium (12 mm) and in the right upper quadrant (2 x 5 mm). Inspection of the peritoneum revealed no inadvertent injury to the viscera below. The gallbladder was visualized with severe inflammation and significant adhesions of the small bowel to the anterior surface of the body of the gallbladder. The gallbladder fundus was then grasped and elevated cephalad as these adhesions were carefully teased away to avoid inadvertent serosal injury to the bowel. During this traction an inadvertent rent was made in the gallbladder wall resulting in local bile spillage which was immediately suctioned free of the peritoneum. A grasper was placed over this hole and cephalad traction was reinstated. Then, using careful dissection the peritoneum was opened and the structures of the hepatocystic triangle were delineated. Unfortunately during this dissection, we realized there was some oozing into the field from a inadvertent tear in the liver from where it had been connected to the falciform ligament resulting from our cephalad traction. Electrocautery was applied to this area until we had hemostasis of the exposed liver edge. Once the cystic duct and cystic artery were visualized, the cystic duct was singly clipped distally and partially transected with a cystic ductotomy. A cholangiocatheter was fed into the proximal segment of the cystic duct and clipped into place. A cholangiogram was then obtained showing a very short cystic duct flowing into the common bile duct with unobstructed antegrade flow of contrast into the duodenum. There was also retrograde flow through the common hepatic duct into the right and left hepatic ducts. The cholangiocatheter was removed and the cystic duct was then triply clipped and sharply divided. The same process was used for the cystic artery. The gallbladder was then removed from the gallbladder fossa with the use of electrocautery. Selective electrocautery was used to obtain hemostasis in the gallbladder fossa. The gallbladder was placed in an Endo Catch bag and removed from the peritoneum. Morison's pouch was irrigated and the effluent was suctioned free of the peritoneum. Hemostasis was again confirmed. Pneumoperitoneum was evacuated and the fascia of the 12 mm port sites was closed with 0 Vicryl in a [id number] fashion. A total of 30 mL of anesthetic (1% lidocaine with epinephrine) was injected at the port sites for postoperative pain control. The skin of each port site was then closed in subcuticular fashion using 4-0 Monocryl. Steri-Strips and bandages were applied as dressings. Patient tolerated the procedure well without any apparent complications. On emergence from their anesthetic, the patient was taken to PACU for ongoing recovery. Complications Minor tear in the liver capsule with traction resulting in small amount of hemorrhage was immediately controlled Admit VTE Documentation VTE Present on Admission: Yes VTE Mechan Device Prophylaxis: SCD's VTE Pharm Prophylaxis ordered?: Yes Procedures Digestive [id number]: 19980 Laparo cholecystectomy/graph
--- NOTE | 2021-06-06 15:21 | CASEMGMT ---
Addendum entered by Marce Lloyd 06/06/21 15:32: The insurance authorization number is [id number]. Authorization is good from 06-06-21 to 06-15-21. HAILEY then received a phone call from Husam at [facility]. HAILEY gave her the authorization number and let her know patient will not be coming today, but tomorrow. She will notify staff. Marce WARREN Original Note: HAILEY called [facility] and patient's case is still not completed. HAILEY asked if HAILEY could do the pre-authorization over the phone with a nurse reviewer. HAILEY was then connected with Caridad one of the nurse reviewers. She reviewed patient's case while HAILEY waited on hold. Authorization number is: Patient is ready for discharge today. HAILEY called [place] [employer] and spoke with Tracey from the business office. HAILEY let her know SW is on phone now working on authorization. HAILEY let Tracey know that patient will likely be coming today. Tracey asked that HAILEY call and give the authorization number to Blair in the office. HAILEY let her know SW will do this. Plan:d/c to [facility] under skilled level of care on a convalescent stay. [facility] will transport patient. Marce WARREN
[2021-06-06] MEDS: Mirabegron 50 MG TAB.ER.24H PO (17:35)
[2021-06-06] MEDS: Ketorolac 30 MG/ML Syringe 15 MG IV ×2 (17:36→23:54)
[2021-06-06] MEDS: Loratadine 10 MG Tablet PO (17:36)
[2021-06-06] MEDS: DULoxetine Hcl 30 MG Capsule PO (17:36)
[2021-06-06] MEDS: Allopurinol 100 MG Tablet 200 MG PO (17:36)
[2021-06-07 00:30] VITALS: BP 113/61; PULSE 78; RESP 16; TEMP 36.8; O2SAT 94
[2021-06-07 02:18] VITALS: BMI 24.5
[2021-06-07 04:00] VITALS: BP 100/61; PULSE 76; RESP 16; TEMP 36.9; O2SAT 95
[2021-06-07] MEDS: Ketorolac 30 MG/ML Syringe 15 MG IV ×2 (05:56→12:55)
[2021-06-07 06:09] LABS: Absolute Lymphocyte Count 0.87 X10^3/uL (0.83-4.51); Absolute Neutrophil Count 8.6 X10^3/uL (2.0-7.7); Basophil# 0.01 X10^3/uL; Basophil% 0.1 % (0-1); Hemoglobin 10.9 g/dL (12.0-15.0); Lymphocyte # 0.87 X10^3/ul (0.83-4.51); Lymphocyte % 8.4 % (19-41); Mean Corp Hgb Conc 34.1 g/dL (32-36); Mean Corpuscular Hgb 34.2 pg (27.0-32.0); Mean Corpuscular Volume 100.3 fL (81-99); Mean Platelet Vol. 9.6 fl (6.2-12.0); Monocyte# 0.88 X10^3/uL; Monocyte% 8.5 % (0-10); NRBC Flagged by Analyzer 0 % (0-5); Neutrophil # 8.59 X10^3/uL (2.7-7.7); Neutrophil % 82.6 % (47-70); Platelet Count 277 K/mm3 (150-450); RBC Distribution Width CV 12.6 % (11.6-14.6); RBC Distribution Width SD 45.7 fl (35.1-43.9); Red Blood Count 3.19 M/mm3 (4.2-5.4); White Blood Count 10.4 K/mm3 (4.4-11.0)
[2021-06-07 06:18] VITALS: BMI 24.5
[2021-06-07 06:36] LABS: Anion Gap 9 (5-15); BUN 21 mg/dL (7-18); BUN/Creat Ratio 35.2 RATIO (10-20); Calcium,Total 8.4 mg/dL (8.5-10.1); Chloride 104 mmol/L (98-107); EST Glomerular Filtration Rate 103 mL/min (>60); Est Glom Filt Rate - Afr Amer 125 mL/min (>60); Estimated Creatinine Clearance 34.99 ml/min; Glucose 105 mg/dL (74-106); Potassium 3.6 mmol/L (3.5-5.1); Sodium Level 136 mmol/L (136-145)
--- NOTE | 2021-06-07 06:52 | PCM.PN.HOSP ---
Subjective Subjective Patient overnight with no acute events postoperatively. She is passing flatus, tolerating diet this morning and notes that pain is controlled with expected tenderness with palpation of the region or with coughing. Patient remains amenable to senior care facility transition. Awaiting general surgery evaluation and clearance for discharge to skilled facility. Patient denies fevers, chills, nausea, emesis, worsening abdominal pain, chest pain or dyspnea. Objective Data Objective Data Vital Signs: Vital Signs Temp Pulse Resp BP Pulse Ox 98.4 F 76 16 100/61 95 06/07/21 04:00 06/07/21 04:00 06/07/21 04:00 06/07/21 04:00 06/07/21 04:00 Oxygen Flow Rate (L/min) 2 Oxygen Delivery Method Room Air Weight: 134 lb 0.657 oz Body Mass Index (BMI) 25.8 Intake & Output: Intake and Output for Last 24 Hours 06/05/21 06/06/21 06/07/21 23:59 23:59 23:59 Intake Total 170 / 170 100 / 150 130 / 130 Output Total 1425 / 1425 450 / 500 80 / 80 Balance -1255 / -1255 -350 / -350 50 / 50 Lab / Micro Data Result Diagrams: 06/07/21 04:38 06/07/21 04:38 Labs: Laboratory Results - last 24 hr 06/06/21 10:03: WBC 11.6 H, RBC 4.11 L, Hgb 13.7, Hct 39.8, MCV 96.8, MCH 33.3 H, MCHC 34.4, RDW Std Deviation 44.2 H, RDW Coeff of Rajesh 12.5, Plt Count 334, MPV 9.4, Immature Gran % (Auto) 0.400, Neut % (Auto) 70.4 H, Lymph % (Auto) 14.5 L, [place] % (Auto) 13.3 H, Eos % (Auto) 0.9, Baso % (Auto) 0.5, Absolute Neuts (auto) 8.1 H, Absolute Lymphs (auto) 1.68, Nucleated RBC % 0, Diff Path Review May , Platelet Estimate ADEQUATE, RBC Morphology NORM C+C 06/06/21 10:03: Sodium 138, Potassium 3.5, Chloride 101, Carbon Dioxide 26.0, Anion Gap 11, BUN 14, Creatinine 0.83, Estim Creat Clear Calc 42.15, Est GFR (MDRD) Af Amer 86, Est GFR (MDRD) Non-Af 71, BUN/Creatinine Ratio 16.9, Glucose 111 H, Calcium 9.3, Total Bilirubin 0.80, AST 31, ALT 34, Alkaline Phosphatase 68, Total Protein 7.5, Albumin 3.4, Globulin 4.1, Albumin/Globulin Ratio 0.8 L 06/07/21 04:38: WBC 10.4, RBC 3.19 L, Hgb 10.9 L, Hct 32.0 L, MCV 100.3 H, MCH 34.2 H, MCHC 34.1, RDW Std Deviation 45.7 H, RDW Coeff of Rajesh 12.6, Plt Count 277, MPV 9.6, Immature Gran % (Auto) 0.400, Neut % (Auto) 82.6 H, Lymph % (Auto) 8.4 L, [place] % (Auto) 8.5, Eos % (Auto) 0.0, Baso % (Auto) 0.1, Absolute Neuts (auto) 8.6 H, Absolute Lymphs (auto) 0.87, Nucleated RBC % 0 06/07/21 04:38: Sodium 136, Potassium 3.6, Chloride 104, Carbon Dioxide 23.0, Anion Gap 9, BUN 21 H, Creatinine 0.60, Estim Creat Clear Calc 34.99, Est GFR (MDRD) Af Amer 125, Est GFR (MDRD) Non-Af 103, BUN/Creatinine Ratio 35.2 H, Glucose 105, Calcium 8.4 L Micro: Microbiology 06/02/21 02:04 Urine, Clean Catch Urine Culture - Final Mixed Gram Positive Organisms 06/02/21 03:05 Nasal Secretion SARS-CoV-2 Antigen (Rapid) - Final Radiography Diagnostic Testing: Radiology Impression Cholangiogram 06/06/21 10:24 IMPRESSION: Normal intraoperative cholangiogram Electronically Signed: Daron Clarke MD at 13:10 EST , Service support , Physical Exam Narrative Physical Examination: General: Awake, alert, oriented x 3 and cooperative, seated upright in PCU bed, no acute distress. Skin: Normal color, normal turgor, no icterus, no cyanosis except for abdominal incision status post laparoscopic cholecystectomy, dressings in place with no drainage. HEENT: AT/NC, EOMI, PERRLA, MMM. Lungs: Mildly diminished, greater bases, appropriate effort, no rales, ronchi or wheezing. Heart: Regular rate and rhythm; no gallop, rub audible. Abdomen: Soft, expected tenderness to palpation especially near abdominal incisions, dressings in place with no drainage, mildly distended, mildly hypoactive bowel sounds. Extremities: No cyanosis, clubbing, or edema. Neurological: Patient awake, alert, oriented as noted, cognitive function intact; pupils equally reactive to light and accommodation, cranial nerves II-XII grossly normal, moving all 4 extremities, no focal deficits, strength improving, moderately globally decreased. Psychiatric: Affect appears mildly fatigued otherwise normal, no acute evidence of depressive or anxiety feelings. Assessment & Plan Assessment/Plan (1) Acute cholecystitis: (2) UTI (urinary tract infection): QUALIFIERS: Hematuria presence: without hematuria Urinary tract infection type: acute cystitis Qualified Code(s): N30.00 - Acute cystitis without hematuria PLAN: The patient is a 80 y/o F w/ PMHx: Anxiety and Depression, Allergic Rhinitis, Gout, OA, HLD, Cognitive impairment who presents to the [facility] ED on 06/02/21 with history of more frequent falls than her baseline over the last 24-48 hrs with discomfort to the left knee and pelvis with worsening debility and difficulty caring for her at home secondary to more increased fall frequency prompting ED evaluation. 1. Acute Encephalopathy (On Chronic given memory impairment) secondary to initial concern Acute UTI; however, RULED OUT and Acute Cholecystitis: Initially mid to medical surgical floor, initial concern for urinary tract infection with placement on IV Rocephin however urine culture not remarkable and during hospitalization patient developed right upper quadrant pain with eventual diagnosis of acute cholecystitis with right upper quadrant ultrasound demonstrating multiple gallstones with thickening 2.9 mm and small pericholecystic fluid, initiated on IV Zosyn therapy with general surgery consulted, status post 06/06/2021 laparoscopic cholecystectomy with intraoperative cholangiogram. IV Zosyn will be discontinued today especially given likely discharge and operative intervention performed. PT/OT/case management consultation with plan senior care facility placement once cleared per general surgery, likely today given tolerating diet, pain controlled. 2. Failure to thrive, adult: Complicated by patient's underlying cognitive impairment, more significant frequent falls likely associated with #1, will maintain on fall precautions, therapies consulted as well as case management with as noted plan discharge to senior care facility once cleared per general surgery. 3. Elevated BP without hypertensive diagnosis: Upon presentation to the ED, BP above goal, likely pain related, improved especially since OR, as needed IV hydralazine. 4. Chronic cognitive impairment: Per family report patient has chronic short-term memory issues with history of previous falls however on day of presentation more significant, complicates presentation, maintain on fall precautions, therapies consulted as noted as well as case management for discharge planning. 5. Anxiety and depression: We will continue patient home duloxetine regimen. 6. Allergic rhinitis: We will continue patient home fluticasone and Zyrtec regimen. 7. DVT prophylaxis: SCDs, Lovenox. 8. CODE status: Patient WILFRID is her spouse and her backup's are her 2 sons but they live out of town and living will is currently in place. Full Code status. Charges/Coding Visit Charges Inpatient E&M: 28047 Subs Hosp L2
[2021-06-07 08:00] VITALS: BP 135/74; PULSE 86; RESP 18; TEMP 36.4; O2SAT 94
--- NOTE | 2021-06-07 09:16 | PN.SURG_ITS ---
Subjective Subjective Patient seen and examined during AM rounds. She was found sitting upright in her bed enjoying the last of her breakfast. She states that her pain is minimal aside from coughing. At this point she experiences pain localized to her incision sites. Objective Data Objective Data Vital Signs: Vital Signs Temp Pulse Resp BP Pulse Ox 98.4 F 76 16 100/61 95 06/07/21 04:00 06/07/21 04:00 06/07/21 04:00 06/07/21 04:00 06/07/21 04:00 Oxygen Flow Rate (L/min) 2 Oxygen Delivery Method Room Air Weight: 134 lb 0.657 oz Body Mass Index (BMI) 25.8 Intake & Output: Intake and Output for Last 24 Hours 06/05/21 06/06/21 06/07/21 23:59 23:59 23:59 Intake Total 170 / 170 100 / 150 1130 / 1130 Output Total 1425 / 1425 450 / 500 80 / 80 Balance -1255 / -1255 -350 / -350 1050 / 1050 Lab / Micro Data Result Diagrams: 06/07/21 04:38 06/07/21 04:38 Labs: Laboratory Results - last 24 hr 06/06/21 10:03: WBC 11.6 H, RBC 4.11 L, Hgb 13.7, Hct 39.8, MCV 96.8, MCH 33.3 H , MCHC 34.4, RDW Std Deviation 44.2 H, RDW Coeff of Rajesh 12.5, Plt Count 334, MPV 9.4, Immature Gran % (Auto) 0.400, Neut % (Auto) 70.4 H, Lymph % (Auto) 14.5 L, [place] % (Auto) 13.3 H, Eos % (Auto) 0.9, Baso % (Auto) 0.5, Absolute Neuts (auto) 8.1 H, Absolute Lymphs (auto) 1.68, Nucleated RBC % 0, Diff Path Review November, Platelet Estimate ADEQUATE, RBC Morphology NORM C+C 06/06/21 10:03: Sodium 138, Potassium 3.5, Chloride 101, Carbon Dioxide 26.0, Anion Gap 11, BUN 14, Creatinine 0.83, Estim Creat Clear Calc 42.15, Est GFR ( MDRD) Af Amer 86, Est GFR (MDRD) Non-Af 71, BUN/Creatinine Ratio 16.9, Glucose 111 H, Calcium 9.3, Total Bilirubin 0.80, AST 31, ALT 34, Alkaline Phosphatase 68, Total Protein 7.5, Albumin 3.4, Globulin 4.1, Albumin/Globulin Ratio 0.8 L 06/07/21 04:38: WBC 10.4, RBC 3.19 L, Hgb 10.9 L, Hct 32.0 L, MCV 100.3 H, MCH 34.2 H, MCHC 34.1, RDW Std Deviation 45.7 H, RDW Coeff of Rajesh 12.6, Plt Count 277, MPV 9.6, Immature Gran % (Auto) 0.400, Neut % (Auto) 82.6 H, Lymph % (Auto) 8.4 L, [place] % (Auto) 8.5, Eos % (Auto) 0.0, Baso % (Auto) 0.1, Absolute Neuts (auto) 8.6 H, Absolute Lymphs (auto) 0.87, Nucleated RBC % 0 06/07/21 04:38: Sodium 136, Potassium 3.6, Chloride 104, Carbon Dioxide 23.0, Anion Gap 9, BUN 21 H, Creatinine 0.60, Estim Creat Clear Calc 34.99, Est GFR (MDRD) Af Amer 125, Est GFR (MDRD) Non-Af 103, BUN/Creatinine Ratio 35.2 H, Glucose 105, Calcium 8.4 L Micro: Microbiology 06/02/21 02:04 Urine, Clean Catch Urine Culture - Final Mixed Gram Positive Organisms 06/02/21 03:05 Nasal Secretion SARS-CoV-2 Antigen (Rapid) - Final Radiography Diagnostic Testing: Radiology Impression Cholangiogram 06/06/21 10:24 IMPRESSION: Normal intraoperative cholangiogram Electronically Signed: Daron Clarke MD at 13:10 EST , Service support , Physical Exam Const no apparent distress Resp normal respiratory effort GI GI Narrative: Mildly distended, incision sites remain covered with operative dressings with little to no drainage. Appropriately tender to palpation about incisions. Assessment & Plan Assessment/Plan (1) Acute cholecystitis: PLAN: Postoperative day 1 from laparoscopic cholecystectomy. Patient a ppears to be recovering well. Tolerating regular diet without issue. She suggests that she may be leaving the hospital today for a senior living facility. Given, some local bile contamination during her surgery, I had asked the discontinue antibiotics for 24 hours post operatively. However, this would not have to be via an intravenous route. Therefore, from a surgical standpoint patient is fit for discharge from our facility. Upon discharge I would recommend the following: ?Removal of operative bandages (leaving Steri-Strips intact) tomorrow ?No dietary restrictions ?Lifting restriction of no more than 15 pounds for the next 2 weeks ?Follow-up with me in outpatient general surgery in 7 to 10 days for wound check and review of pathology Thank you for the opportunity participate in Mrs. Aceves's care. Charges/Coding Visit Charges Inpatient E&M: 54738 Subs Hosp L2
[2021-06-07] MEDS: Allopurinol 100 MG Tablet 200 MG PO (10:12)
[2021-06-07] MEDS: Mirabegron 50 MG TAB.ER.24H PO (10:12)
[2021-06-07] MEDS: DULoxetine Hcl 30 MG Capsule PO (10:12)
[2021-06-07] MEDS: Loratadine 10 MG Tablet PO (10:12)
[2021-06-07] MEDS: Enoxaparin 40 MG/0.4 ML Syringe SC (10:13)
[2021-06-07 10:18] VITALS: BMI 24.5
--- NOTE | 2021-06-07 12:21 | DS.PCM_ITS ---
Providers Date of Admission: 06/02/21 Primary Care Physician: Dr. Loren Dee MD Consultations 06/06/21 04:56 Consult: General Surgery Routine Consulting Provider: Gunner Landis Reason for Consult: Acute cholecystitis EMERGENT Consult: No MD Notified: Yes Date Notified: 06/06/21 Time Notified: 04:58 Method of Notification: Text Reason For Visit: ENCEPHALOPATHY, UTI, FALLS, FTT ADULT Diagnosis Discharge Diagnosis (1) Acute cholecystitis: Status: Acute Code(s): K81.0 - Acute cholecystitis (2) UTI (urinary tract infection): Status: Acute Code(s): N39.0 - Urinary tract infection, site not specified Qualifiers: Urinary tract infection type: acute cystitis Hematuria presence: without hematuria Qualified Code(s): N30.00 - Acute cystitis without hematuria Plan: Discharge Diagnoses: 1. Acute Encephalopathy (On Chronic given memory impairment) secondary to initial concern Acute UTI; however, RULED OUT and likely secondary to Acute Cholecystitis 2. Failure to thrive, adult 3. Elevated BP without hypertensive diagnosis, pain related 4. Chronic cognitive impairment 5. Anxiety and depression 6. Allergic rhinitis Medications at Discharge Home Medications Cetirizine Hcl [Zyrtec] 10 mg PO DAILY 01/01/16 cholecalciferol (vitamin D3) [Vitamin D3] 1,000 unit PO DAILY 09/09/18 Multivitamin Women 50 Plus 1 tab PO DAILY 06/02/21 allopurinol 200 mg PO DAILY 06/02/21 biotin 1,000 mcg PO DAILY 06/02/21 duloxetine 30 mg PO DAILY 06/02/21 fluticasone propionate 1 spray INTRANASAL DAILY PRN PRN 06/02/21 Hospital Course Operations cholecystecomy Procedures EKG Summary of Care Provided Minutes Spent on Discharge: 35 Hospital Course: The patient is a 80 y/o F w/ PMHx: Anxiety and Depression, Allergic Rhinitis, Gout, OA, HLD, Cognitive impairment who presented to the [facility] ED on 06/02/21 with history of more frequent falls than her baseline over the last 24-48 hrs with discomfort to the left knee and pelvis with worsening debility and difficulty caring for her at home secondary to more increased fall frequency prompting ED evaluation. Initially admitted to the medical surgical floor, initial concern for urinary tract infection with placement on IV Rocephin however urine culture not remarkable and during hospitalization patient developed right upper quadrant pain with eventual diagnosis of acute cholecystitis with right upper quadrant ultrasound demonstrating multiple gallstones with thickening 2.9 mm and small pericholecystic fluid, initiated on IV Zosyn therapy with general surgery consulted, status post 06/06/2021 laparoscopic cholecystectomy with intraoperative cholangiogram. PT/OT/case management consultation with SNF placement recommendation. Given patient improvement, pain controlled without any narcotic therapy, tolerating diet patient discharged to SNF per Surgery clearance with follow-up with PCP in 1 weeks and Surgery in 7-10 days with dressing changes directions as well as lifting parameters. Weight / BMI Weight Weight: 134 lb 0.657 oz Body Mass Index (BMI) 25.8 ABG / Lab / Microbiology Data Result Diagrams: 06/07/21 04:38 06/07/21 04:38 Laboratory: Laboratory Results - last 24 hr 06/06/21 10:03: Diff Path Review November06/07/21 04:38: WBC 10.4, RBC 3.19 L, Hgb 10.9 L, Hct 32.0 L, MCV 100.3 H, MCH 34.2 H, MCHC 34.1, RDW Std Deviation 45.7 H, RDW Coeff of Rajesh 12.6, Plt Count 277, MPV 9.6, Immature Gran % (Auto) 0.400, Neut % (Auto) 82.6 H, Lymph % (Auto) 8.4 L, [place] % (Auto) 8.5, Eos % (Auto) 0.0, Baso % (Auto) 0.1, Absolute Neuts (auto) 8.6 H, Absolute Lymphs (auto) 0.87, Nucleated RBC % 0 06/07/21 04:38: Sodium 136, Potassium 3.6, Chloride 104, Carbon Dioxide 23.0, Anion Gap 9, BUN 21 H, Creatinine 0.60, Estim Creat Clear Calc 34.99, Est GFR (MDRD) Af Amer 125, Est GFR (MDRD) Non-Af 103, BUN/Creatinine Ratio 35.2 H, Glucose 105, Calcium 8.4 L Microbiology: Microbiology 06/02/21 02:04 Urine, Clean Catch Urine Culture - Final Mixed Gram Positive Organisms 06/02/21 03:05 Nasal Secretion SARS-CoV-2 Antigen (Rapid) - Final Radiography Diagnostic Testing: Radiology Impression Cholangiogram 06/06/21 10:24 IMPRESSION: Normal intraoperative cholangiogram Electronically Signed: Daron Clarke MD at 13:10 EST , Service support , Meaningful Use Info Meaningful Use Diagnoses (Choose all that apply): None applicable Discharge Plan Admission Admit Date/Time: 06/02/21 03:39 Primary Reason for Your Visit: ACUTE Cholecystitis Attending Provider: Sallie Wills Primary Care Provider: Loren Dee Consulting Providers: Gunner Landis Instructions Patient Instructions: ED Cholecystitis, Presumed Discharge Orders/Prescriptions Prescriptions: Continued Cetirizine Hcl [Zyrtec] 10 MG tablet 10 mg PO DAILY RF: 0 cholecalciferol (vitamin D3) [Vitamin D3] 1,000 UNIT tablet 1,000 unit PO DAILY RF: 0 allopurinol 100 mg tablet 200 mg PO DAILY RF: 0 fluticasone propionate 50 mcg/actuation [place],Suspension 1 spray INTRANASAL DAILY PRN PRN (Reason: Nasal Congestion) RF: 0 duloxetine 30 mg capsule,delayed release(DR/EC) 30 mg PO DAILY RF: 0 Multivitamin Women 50 Plus 8 mg iron-400 mcg-300 mcg Tablet 1 tab PO DAILY RF: 0 biotin 1,000 mcg Tablet,Chewable 1,000 mcg PO DAILY RF: 0 Discontinued turmeric root extract 500 MG capsule 500 mg PO DAILY RF: 0 Referrals / Follow Up: Loren Dee MD [Primary Care Provider] - (Follow-up in 1 weeks to review recent admission and upon SNF discharge also.) Gunner Landis MD [STAFF PHYSICIAN] - (Follow-up 7 to 10 days for wound check and review of pathology.) Disposition Disposition (needs filled in before D/C Order can be placed): Care Home Facility Charges/Coding Visit Charges Inpatient E&M: 36690 Disch Hosp
[2021-06-07 14:00] VITALS: BP 125/70; PULSE 78; RESP 18; TEMP 36.6; O2SAT 96
[2021-06-07 14:18] VITALS: BMI 24.5
[2021-06-08 14:55] LABS: Pathologist Review Reviewed
--- NOTE | 2021-06-11 09:37 | CASEMGMT ---
HAILEY received a message from Loyda at [facility] asking about the precert. HAILEY called back, let her know that the precert information had been given rai Weiner by HAILEY Zheng last week. Loyda states she thinks she has the information on her desk, HAILEY gave her the precert number so ensure she has it. No further needs. SELAM Alcazar
== END 2021-06-07 15:15 | disposition skilled nursing facility (03) | DRG 417 ==
LOC: ED 03:39 → MS2 04:15 → PCU 06-05 17:37
PROVIDERS: Internal Medicine; Surgery; Admitting Provider Family Medicine; Emergency Provider Emergency Medicine; PCP Family Medicine; Visit Provider Family Medicine
PROC: 0FT44ZZ Resection of Gallbladder, Percutaneous Endoscopic Approach (ICD-10-PCS; CPT 47610; principal; 2021-06-06 15:30)
DX: K81.0 Acute cholecystitis (principal); G93.41 Metabolic encephalopathy; S36.114A Minor laceration of liver, initial encounter; E78.00 Pure hypercholesterolemia, unspecified; R62.7 Adult failure to thrive; K66.0 Peritoneal adhesions (postprocedural) (postinfection); F41.9 Anxiety disorder, unspecified; F32.A Depression, unspecified; R29.6 Repeated falls; J30.9 Allergic rhinitis, unspecified; R41.89 Other symptoms and signs involving cognitive functions and awareness; Z96.652 Presence of left artificial knee joint; Z96.642 Presence of left artificial hip joint; Z87.891 Personal history of nicotine dependence; Z88.2 Allergy status to sulfonamides; Z85.43 Personal history of malignant neoplasm of ovary; Z82.3 Family history of stroke; Z83.3 Family history of diabetes mellitus
CPT/HCPCS: 36415; 70450; 72170; 73562; 74019; 74300; 76000; 76705; 80048; 80053; 81001; 83735; 85025; 87086; 87088; 87426; 88304; 93005; 97110; 97116; 97162; 97166; 97530; 97535; 99251; 99285; J7030; A4216; G0463; J0696; J2405

== ENCOUNTER → 2021-09-21 14:55 | Outpatient (CLI) | payer MEDICARE, SELFPAY ==
[2021-09-21 17:50] LABS: Vitamin B12 1536 pg/mL (211-911); Vitamin D,25 Hydroxy 28.1 ng/mL
[2021-09-21 18:02] LABS: Thyroid Stim Hormone (TSH) 1.03 uIU/mL (0.358-3.74)
== END ==
PROVIDERS: PCP Family Medicine
DX: R41.3 Other amnesia (principal); E55.9 Vitamin D deficiency, unspecified
CPT/HCPCS: 36415; 82306; 82607; 84443

== ENCOUNTER → 2022-07-18 | Outpatient (CLI) | payer MEDICARE, SELFPAY ==
[2022-07-18 17:20] LABS: Hematocrit 38.2 % (37-47); Hemoglobin 13.2 g/dL (12.0-15.0); Mean Corp Hgb Conc 34.6 g/dL (32-36); Mean Corpuscular Hgb 33.3 pg (27.0-32.0); Mean Corpuscular Volume 96.5 fL (81-99); Mean Platelet Vol. 9.5 fl (6.2-12.0); Platelet Count 331 K/mm3 (150-450); RBC Distribution Width CV 13.2 % (11.6-14.6); RBC Distribution Width SD 46.5 fl (35.1-43.9); Red Blood Count 3.96 M/mm3 (4.2-5.4); White Blood Count 7.4 K/mm3 (4.4-11.0)
[2022-07-18 17:54] LABS: ALB/GLOB Ratio 1.1 RATIO (0.9-2.4); AST(SGOT) 18 U/L (15-37); Alanine Aminotransfer ALT/SGPT 23 U/L (13-56); Albumin, Serum 3.7 g/dL (3.2-5.0); Alkaline Phosphatase 55 U/L (45-117); Anion Gap 4 (5-15); BUN 14 mg/dL (7-18); BUN/Creat Ratio 20.6 RATIO (10-20); Calcium,Total 9.2 mg/dL (8.5-10.1); Chloride 105 mmol/L (98-107); Creatinine, Serum 0.68 mg/dL (0.55-1.02); EST Glomerular Filtration Rate 89 mL/min (>60); Est Glom Filt Rate - Afr Amer 108 mL/min (>60); Globulin 3.4 g/dL (2.2-4.2); Glucose 102 mg/dL (74-106); Potassium 3.8 mmol/L (3.5-5.1); Protein, Total 7.1 g/dL (6.4-8.2); Sodium Level 137 mmol/L (136-145); Thyroid Stim Hormone (TSH) 2.26 uIU/mL (0.358-3.74)
[2022-07-18 18:02] LABS: Vitamin B12 1110 pg/mL (211-911)
== END | disposition home or self-care (01) ==
LOC: LAB 15:46
PROVIDERS: PCP Family Medicine
DX: F03.A3 Unspecified dementia, mild, with mood disturbance (principal); E55.9 Vitamin D deficiency, unspecified; R53.81 Other malaise
CPT/HCPCS: 36415; 80053; 82607; 84443; 85027

== ENCOUNTER → 2022-12-24 | Outpatient (REF) | payer MEDICARE, SELFPAY ==
[2022-12-24 08:32] LABS: Absolute Lymphocyte Count 2.15 X10^3/uL (0.83-4.51); Absolute Neutrophil Count 4.2 X10^3/uL (2.0-7.7); Basophil# 0.06 X10^3/uL; Basophil% 0.8 % (0-1); Eosinophils% 2.6 % (0-5); Hematocrit 36.8 % (37-47); Hemoglobin 12.8 g/dL (12.0-15.0); Lymphocyte # 2.15 X10^3/ul (0.83-4.51); Lymphocyte % 28.4 % (19-41); Mean Corp Hgb Conc 34.8 g/dL (32-36); Mean Corpuscular Hgb 33.1 pg (27.0-32.0); Mean Corpuscular Volume 95.1 fL (81-99); Monocyte# 0.94 X10^3/uL; Monocyte% 12.4 % (0-10); NRBC Flagged by Analyzer 0 % (0-5); Neutrophil # 4.19 X10^3/uL (2.7-7.7); Neutrophil % 55.5 % (47-70); Platelet Count 330 K/mm3 (150-450); RBC Distribution Width CV 12.7 % (11.6-14.6); RBC Distribution Width SD 43.8 fl (35.1-43.9); Red Blood Count 3.87 M/mm3 (4.2-5.4); White Blood Count 7.6 K/mm3 (4.4-11.0)
[2022-12-24 08:57] LABS: Vitamin D,25 Hydroxy 80.2 ng/mL
[2022-12-24 09:06] LABS: ALB/GLOB Ratio 1.1 RATIO (0.9-2.4); AST(SGOT) 19 U/L (15-37); Alanine Aminotransfer ALT/SGPT 20 U/L (13-56); Albumin, Serum 3.6 g/dL (3.2-5.0); Alkaline Phosphatase 73 U/L (45-117); Anion Gap 6 (5-15); BUN 11 mg/dL (7-18); BUN/Creat Ratio 16.5 RATIO (10-20); Calcium,Total 9.2 mg/dL (8.5-10.1); Chloride 109 mmol/L (98-107); Creatinine, Serum 0.66 mg/dL (0.55-1.02); EST Glomerular Filtration Rate 91 mL/min (>60); Est Glom Filt Rate - Afr Amer 110 mL/min (>60); Globulin 3.4 g/dL (2.2-4.2); Glucose 87 mg/dL (74-106); Sodium Level 140 mmol/L (136-145); Thyroid Stim Hormone (TSH) 2.13 uIU/mL (0.358-3.74)
== END ==
LOC: OLS.WHLTSB 05:00
PROVIDERS: PCP Family Medicine; Visit Provider Internal Medicine
DX: R53.83 Other fatigue (principal); E55.9 Vitamin D deficiency, unspecified; F32.A Depression, unspecified; M19.90 Unspecified osteoarthritis, unspecified site
CPT/HCPCS: 36415; 80053; 82306; 84443; 85025

== ENCOUNTER → 2023-01-07 | Outpatient (REF) | payer MEDICARE, SELFPAY ==
[2023-01-07 09:44] LABS: Absolute Lymphocyte Count 1.69 X10^3/uL (0.83-4.51); Absolute Neutrophil Count 3.7 X10^3/uL (2.0-7.7); Basophil# 0.04 X10^3/uL; Basophil% 0.6 % (0-1); Eosinophil# 0.24 X10^3/uL; Eosinophils% 3.6 % (0-5); Hemoglobin 11.4 g/dL (12.0-15.0); Lymphocyte # 1.69 X10^3/ul (0.83-4.51); Lymphocyte % 25.2 % (19-41); Mean Corp Hgb Conc 34.5 g/dL (32-36); Mean Corpuscular Hgb 34.2 pg (27.0-32.0); Mean Corpuscular Volume 99.1 fL (81-99); Monocyte# 0.97 X10^3/uL; Monocyte% 14.5 % (0-10); NRBC Flagged by Analyzer 0 % (0-5); Neutrophil # 3.74 X10^3/uL (2.7-7.7); Neutrophil % 55.8 % (47-70); Platelet Count 261 K/mm3 (150-450); RBC Distribution Width SD 45.5 fl (35.1-43.9); Red Blood Count 3.33 M/mm3 (4.2-5.4); White Blood Count 6.7 K/mm3 (4.4-11.0)
[2023-01-07 10:00] LABS: Anion Gap 5 (5-15); BUN 15 mg/dL (7-18); BUN/Creat Ratio 22.9 RATIO (10-20); Calcium,Total 8.9 mg/dL (8.5-10.1); Chloride 109 mmol/L (98-107); Creatinine, Serum 0.66 mg/dL (0.55-1.02); EST Glomerular Filtration Rate 92 mL/min (>60); Est Glom Filt Rate - Afr Amer 112 mL/min (>60); Glucose 87 mg/dL (74-106); Potassium 3.7 mmol/L (3.5-5.1); Sodium Level 141 mmol/L (136-145)
== END ==
LOC: OLS.WHLTSB 05:00
PROVIDERS: PCP Family Medicine; Visit Provider Internal Medicine
DX: R53.83 Other fatigue (principal); E55.9 Vitamin D deficiency, unspecified; J30.9 Allergic rhinitis, unspecified; K59.00 Constipation, unspecified
CPT/HCPCS: 36415; 80048; 85025

== ENCOUNTER → 2023-01-21 | Outpatient (REF) | payer MEDICARE, SELFPAY ==
[2023-01-21 07:21] LABS: Anion Gap 5 (5-15); BUN 12 mg/dL (7-18); BUN/Creat Ratio 18.4 RATIO (10-20); Calcium,Total 8.8 mg/dL (8.5-10.1); Chloride 106 mmol/L (98-107); Creatinine, Serum 0.65 mg/dL (0.55-1.02); EST Glomerular Filtration Rate 93 mL/min (>60); Est Glom Filt Rate - Afr Amer 112 mL/min (>60); Glucose 89 mg/dL (74-106); Potassium 3.5 mmol/L (3.5-5.1); Sodium Level 139 mmol/L (136-145)
[2023-01-21 08:10] LABS: Absolute Neutrophil Count 3.1 X10^3/uL (2.0-7.7); Basophil# 0.06 X10^3/uL; Eosinophil# 0.24 X10^3/uL; Hematocrit 33.7 % (37-47); Hemoglobin 11.4 g/dL (12.0-15.0); Lymphocyte % 26.6 % (19-41); Mean Corp Hgb Conc 33.8 g/dL (32-36); Mean Corpuscular Hgb 32.3 pg (27.0-32.0); Mean Corpuscular Volume 95.5 fL (81-99); Mean Platelet Vol. 9.7 fl (6.2-12.0); Monocyte# 0.99 X10^3/uL; Monocyte% 16.5 % (0-10); NRBC Flagged by Analyzer 0 % (0-5); Neutrophil % 51.6 % (47-70); Platelet Count 311 K/mm3 (150-450); RBC Distribution Width CV 12.8 % (11.6-14.6); RBC Distribution Width SD 43.8 fl (35.1-43.9); Red Blood Count 3.53 M/mm3 (4.2-5.4)
== END ==
LOC: OLS.WHLTSB 05:00
PROVIDERS: PCP Family Medicine; Visit Provider Internal Medicine
DX: R53.83 Other fatigue (principal); E55.9 Vitamin D deficiency, unspecified; J30.9 Allergic rhinitis, unspecified
CPT/HCPCS: 36415; 80048; 85025

== ENCOUNTER → 2023-02-18 | Outpatient (REF) | payer MEDICARE, SELFPAY ==
[2023-02-18 10:26] LABS: Absolute Lymphocyte Count 1.56 X10^3/uL (0.83-4.51); Basophil# 0.04 X10^3/uL; Basophil% 0.7 % (0-1); Eosinophils% 5.2 % (0-5); Hematocrit 34.1 % (37-47); Hemoglobin 11.5 g/dL (12.0-15.0); Lymphocyte # 1.56 X10^3/ul (0.83-4.51); Lymphocyte % 26.8 % (19-41); Mean Corp Hgb Conc 33.7 g/dL (32-36); Mean Platelet Vol. 9.8 fl (6.2-12.0); Monocyte# 0.93 X10^3/uL; NRBC Flagged by Analyzer 0 % (0-5); Neutrophil # 2.97 X10^3/uL (2.7-7.7); Platelet Count 285 K/mm3 (150-450); RBC Distribution Width CV 13.2 % (11.6-14.6); RBC Distribution Width SD 46.1 fl (35.1-43.9); Red Blood Count 3.48 M/mm3 (4.2-5.4); White Blood Count 5.8 K/mm3 (4.4-11.0)
[2023-02-18 10:46] LABS: Anion Gap 6 (5-15); BUN 15 mg/dL (7-18); BUN/Creat Ratio 24.2 RATIO (10-20); Calcium,Total 8.8 mg/dL (8.5-10.1); Chloride 107 mmol/L (98-107); Creatinine, Serum 0.62 mg/dL (0.55-1.02); EST Glomerular Filtration Rate 99 mL/min (>60); Est Glom Filt Rate - Afr Amer 119 mL/min (>60); Glucose 85 mg/dL (74-106); Potassium 3.5 mmol/L (3.5-5.1); Sodium Level 139 mmol/L (136-145)
== END ==
LOC: OLS.WHLTSB 05:00
PROVIDERS: PCP Family Medicine; Visit Provider Internal Medicine
DX: R53.83 Other fatigue (principal); E55.9 Vitamin D deficiency, unspecified
CPT/HCPCS: 36415; 80048; 85025

== ENCOUNTER → 2023-03-25 | Outpatient (REF) | payer MEDICARE, SELFPAY ==
[2023-03-25 09:15] LABS: AST(SGOT) 26 U/L (15-37); Alanine Aminotransfer ALT/SGPT 31 U/L (13-56); Albumin, Serum 3.1 g/dL (3.2-5.0); Alkaline Phosphatase 76 U/L (45-117); Bilirubin, Direct < 0.05 mg/dL (0.00-0.30); Globulin 3.2 g/dL (2.2-4.2); Protein, Total 6.3 g/dL (6.4-8.2)
== END ==
LOC: OLS.WHLTSB 05:00
PROVIDERS: PCP Family Medicine; Visit Provider Internal Medicine
DX: R53.83 Other fatigue (principal)
CPT/HCPCS: 36415; 80076

== ENCOUNTER → 2023-05-06 | Outpatient (REF) | payer MEDICARE, SELFPAY ==
[2023-05-06 08:59] LABS: Vitamin D,25 Hydroxy 38.5 ng/mL
== END ==
LOC: OLS.WHLTSB 05:00
PROVIDERS: PCP Family Medicine; Visit Provider Internal Medicine
DX: E55.9 Vitamin D deficiency, unspecified (principal)
CPT/HCPCS: 36415; 82306

== ENCOUNTER 2023-05-19 19:52 | Emergency (ER) | payer MEDICARE, SELFPAY ==
[2023-05-19 19:54] VITALS: BP 130/67; PULSE 85; RESP 18; TEMP 35.9; O2SAT 100
[2023-05-19 21:08] VITALS: BMI 24.0
--- NOTE | 2023-05-19 21:24 | EDS_ITS ---
HPI <Dr. Hiram Martinez DO - Last Filed: 05/19/23 23:32> HPI - Fall History of Present Illness Chief Complaint: Fall Informant: patient Occured/Mechanism Occurred: Today Mechanism/Context: Yes same level fall and Yes trip Pain/Injury Pain Location: head Quality of Pain: Aching Worsened by: Palpation Relieved by: Nothing Associated Symptoms Associated Symptoms: Negative for Parasthesias, Weakness, Loss of function, Inability to ambulate, Loss of consciousness or Amnesia Narrative Narrative: Patient presents after a fall that occurred today. Patient states she was w alking backwards and tripped. Patient states she fell and hit her head. Patient denies any loss of consciousness. Patient states her pain is worse with palpation. Patient describes it as aching. Patient is unsure of her last tetanus. Patient states she did have bleeding from both sides of her head when she fell. Patient states this stopped after a few minutes of pressure. Tetanus Immunization: Unknown [facility] <Dr. Hiram Martinez DO - Last Filed: 05/19/23 23:32> [facility] Medical History Acute encephalopathy Anterolisthesis Carpal tunnel syndrome DDD (degenerative disc disease), lumbar Environmental allergies Failure to thrive in adult Falls Former smoker Heart murmur High cholesterol High triglycerides Irregular heart beat Osteoarthritis Home Medications Cetirizine Hcl [Zyrtec] 10 mg PO DAILY ALLERGIES 01/01/16 [History Last Taken Unknown] allopurinol 100 mg tablet 200 mg PO DAILY gout 06/02/21 [History Last Taken Unknown] biotin 1,000 mcg chewable tablet 1,000 mcg PO DAILY supplement 06/02/21 [History Last Taken Unknown] fluticasone propionate 50 mcg/actuation nasal spray,suspension 1 spray intranasal DAILY PRN PRN Nasal Congestion 06/02/21 [History Last Taken Unknown] [id number]-[id number] 8 mg-folic 400 mcg-K 50 mcg-lutein 300 mcg tablet (Multivitamin Women 50 Plus) 1 tab PO DAILY supplement 06/02/21 [History Last Taken Unknown] donepezil 5 mg tablet 5 mg PO DAILY 05/19/23 [History Last Taken Unknown] sertraline 100 mg tablet 100 mg PO Q24H 05/19/23 [History Last Taken Unknown] Allergy/AdvReac Type Severity Reaction Status Date / Time meperidine HCl [From Demerol] Allergy HALLUCINATI Verified 05/19/23 21:04 ONS Sulfa (Sulfonamide Allergy Hives Verified 05/19/23 21:04 Antibiotics) adhesive tape AdvReac Rash Verified 05/19/23 21:04 hydrocodone bitartrate AdvReac Vomiting Verified 05/19/23 21:04 [From Lavinia] propoxyphene HCl AdvReac Vomiting Verified 05/19/23 21:04 [From Darvon] Family History (Updated 06/02/21 @ 03:[address] Sallie Wills MD) Father Diabetes Parkinsons disease Mother CVA (cerebral vascular accident) Parkinsons disease Sister Cancer Hx ovarian CA. 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 Hiram Martinez, - Last Filed: 05/19/23 23:32> ROS ED Constitutional Constitutional ED: Denies chills or fever(s) Eyes Eyes: Denies blurry vision or change in vision ENT ENT ED: Denies rhinorrhea or sore throat Cardiovascular Cardiovascular: Denies chest pain or palpitations Respiratory/Chest Respiratory/Chest: Denies cough or dyspnea Gastrointestinal Gastrointestinal: Denies nausea or vomiting Genitourinary Genitourinary ED: Denies dysuria or hematuria Musculoskeletal Musculoskeletal: Reports neck pain; Denies back pain Integumentary Denies abscess or rash Neurologic Neurologic: Reports headache(s); Denies weakness Allergic/Immunologic Allergic/Immunologic ED: Denies mouth swelling or urticaria EXAM <Dr. Hiram Martinez DO - Last Filed: 05/19/23 23:32> Physical Exam Const Vital Signs: 05/19/23 19:54 Temperature 96.7 F L Temperature Source Temporal Pulse Rate 85 Respiratory Rate 18 Blood Pressure 130/67 H Blood Pressure Mean 88 Pulse Ox 100 Positive well nourished and well developed General Appearance ED: well developed and NAD HEENT HEENT Narrative: There is a 1.2 cm full-thickness curvilinear laceration over the right posterior parietal area of the scalp. There is a 2 cm full-thickness curvilinear laceration over the left posterior parietal area of the scalp. There is no bony crepitance or step-off. There is no obvious deformity noted. There is no active bleeding noted. There are no foreign bodies noted. Neck supple Resp normal respiratory effort and clear to auscultation bilaterally Cardio regular rate and regular rhythm GI non-tender and non-distended Palpation: soft Neuro oriented x3, CN's II-XII intact bilaterally, moves all extremities, no focal motor deficits and no sensory deficits noted Miguelina Coma Scale: document GCS findings Spontaneous Obeys Commands Oriented 15 Sensorium / Orientation: alert Motor Exam: strength 5/5 throughout Psych mental status grossly normal and thought process normal <Dr. Leif Jackson, DO - Last Filed: 05/20/23 00:51> Physical Exam Const Vital Signs: 05/19/23 19:54 Temperature 96.7 F L Temperature Source Temporal Pulse Rate 85 Respiratory Rate 18 Blood Pressure 130/67 H Blood Pressure Mean 88 Pulse Ox 100 Neuro Miguelina Coma Scale: document GCS findings 15 MDM <Dr. Hiram Martinez, DO - Last Filed: 05/19/23 23:32> [facility] Narrative Medical decision making narrative: Differential diagnosis includes intracranial bleeding, closed head injury, and scalp laceration. CT scan of the brain will be obtained to assess for intracranial bleeding. Radiography Diagnostic Testing: Clinical Impression(s) from Imaging Studies Brain CT 05/19/23 21:56 IMPRESSION: No CT evidence of acute intracranial hemorrhage or injury. Advanced senescent changes compatible with age, not significantly changed from June 02, 2021 Electronically Signed: Vito Wagner MD at 0:44 EST , CT scan of the brain was obtained. There is no acute intracranial abnormality. There are chronic changes noted. This was interpreted by the radiologist and was also independently reviewed by myself. Treatment and Re-Evaluation Narrative: The wounds were cleaned and irrigated with copious amounts normal saline. The wounds were anesthetized 1% lidocaine with epinephrine. The right posterior scalp laceration was closed with 3 robbi the left posterior parietal scalp laceration was closed with 4 robbi. Patient tolerated the procedure well. Patient was instructed to keep the wounds clean and dry. Patient was instructed to follow-up with her primary care physician in 5 days for wound recheck and staple removal. Patient understood and was agreeable with the plan. All questions were answered. <Dr. Leif Jackson, DO - Last Filed: 05/20/23 00:51> [facility] MDM Narrative Medical decision making narrative: Differential diagnosis includes intracranial bleeding, closed head injury, and scalp laceration. CT scan of the brain will be obtained to assess for intracranial bleeding. 0050: Le: Signed out to me pending final read of CT scan. Results were negative. Patient updated. Patient be discharged with outpatient follow-up for staple removal. Radiography Diagnostic Testing: Clinical Impression(s) from Imaging Studies Brain CT 05/19/23 21:56 IMPRESSION: No CT evidence of acute intracranial hemorrhage or injury. Advanced senescent changes compatible with age, not significantly changed from June 02, 2021 Electronically Signed: Vito Wagner MD at 0:44 EST , Procedures <Dr. Hiram Martinez, DO - Last Filed: 05/19/23 23:32> Lacerations Left parietal scalp: Length: 0.79 in Depth: Sub Q Shape: Linear Prep: Sterile Conditions and Chlorhexadine Laceration repair: Irrigated, Lidocaine with epi, Local and Wound explored Irrigated (ml): 100 Number of Sutures/Robbi: 4 Suture Information: - (Robbi) Right parietal scalp: Length: 0.47 in Depth: Sub Q Shape: Linear Prep: Sterile Conditions and Chlorhexadine Laceration repair: Irrigated, Lidocaine with epi, Local and Wound explored Irrigated (ml): 100 Number of Sutures/[place]: 3 Suture Information: - ([place]) Discharge Plan Triage Chief Complaint: Fall ED Provider: Hiram Martinez Dx/Rx/DC Orders Clinical Impression: Head injury, Fall, Laceration of scalp Instructions: ED Head Injury (Adult), ED Laceration Scalp Stitches or [place] Prescriptions: No Action Cetirizine Hcl [Zyrtec] 10 MG tablet 10 mg PO DAILY Patient Comments: ALLERGIES allopurinol 100 mg tablet 200 mg PO DAILY fluticasone propionate 50 mcg/actuation [place],Suspension 1 spray INTRANASAL DAILY PRN PRN (Reason: Nasal Congestion) Multivitamin Women 50 Plus 8 mg iron-400 mcg-300 mcg Tablet 1 tab PO DAILY biotin 1,000 mcg Tablet,Chewable 1,000 mcg PO DAILY sertraline 100 mg tablet 100 mg PO Q24H Patient Comments: TAKE 1 TABLET BY MOUTH DAILY donepezil 5 mg tablet 5 mg PO DAILY Primary Care Provider: Ovidio Ibanez Referrals: Loren Dee MD [Med Staff - Television Production Assistant] - 5 Days for suture removal Ovidio Ibanez MD [Primary Care Provider] - 5 Days for suture removal Disposition Disposition: Nursing Home Facility Discharge Location: [facility]
[2023-05-19] MEDS: Diphth,Pertuss(Acell),Tet Vac 0.5 ML Vial IM (21:37)
--- NOTE | 2023-05-19 21:56 | CT_ITS ---
INDICATION: Trauma EXAMINATION: CT BRAIN - CT Head or Brain W/O Contrast Injection TECHNIQUE: Multiple axial images were obtained of the head without intravenous contrast. A radiation dose optimization technique was used for this scan. IV Contrast dosage and agent: None. COMPARISON: June 02, 2021 FINDINGS: BRAIN PARENCHYMA: No intra- or extra-axial hemorrhage. Mild senescent basal ganglial mineralization. No evidence of acute infarct. No intracranial mass or mass effect. Moderate periventricular and subcortical white matter hypodense chronic small vessel white matter ischemic change. There is preservation of the parra/white matter interface. Posterior fossa structures are unremarkable. Carotid and vertebral atherosclerosis. CSF SPACES: Severe global cerebral volume loss compatible with age. No hydrocephalus. Basal cisterns are patent. CALVARIUM, SKULL BASE, PARANASAL SINUSES AND MASTOID AIR CELLS: No acute osseous finding. Minimal ethmoid sinus mucoperiosteal thickening. Right sathish bullosa. Mastoid air cells are clear. ORBITS: Both globes, extraocular muscles, optic nerves and retrobulbar fat appear unremarkable. ASPECTS Score for Acute Strokes: 10 CT/Brain/Head without Contrast IMPRESSION: No CT evidence of acute intracranial hemorrhage or injury. Advanced senescent changes compatible with age, not significantly changed from June 02, 2021 Electronically Signed: Vito Wagner MD at 0:44 EST ,
== END 2023-05-20 02:03 | disposition skilled nursing facility (03) ==
PROVIDERS: Emergency Provider Emergency Medicine; PCP Internal Medicine; Visit Provider Emergency Medicine
DX: S01.01XA Laceration without foreign body of scalp, initial encounter (principal); M51.36 Other intervertebral disc degeneration, lumbar region; Z79.899 Other long term (current) drug therapy; Z23 Encounter for immunization; W18.30XA Fall on same level, unspecified, initial encounter; Z87.891 Personal history of nicotine dependence
CPT/HCPCS: 12001; 70450; 90471; 90715; 99284

== ENCOUNTER → 2023-05-27 | Outpatient (REF) | payer MEDICARE, SELFPAY ==
[2023-05-27 09:56] LABS: Absolute Neutrophil Count 2.8 X10^3/uL (2.0-7.7); Basophil# 0.07 X10^3/uL; Basophil% 1.2 % (0-1); Eosinophil# 0.42 X10^3/uL; Eosinophils% 7.2 % (0-5); Hemoglobin 11.9 g/dL (12.0-15.0); Lymphocyte % 27.4 % (19-41); Mean Corp Hgb Conc 33.1 g/dL (32-36); Mean Corpuscular Volume 93.8 fL (81-99); Mean Platelet Vol. 9.8 fl (6.2-12.0); Monocyte# 0.96 X10^3/uL; Monocyte% 16.4 % (0-10); NRBC Flagged by Analyzer 0 % (0-5); Neutrophil # 2.79 X10^3/uL (2.7-7.7); Neutrophil % 47.6 % (47-70); Platelet Count 295 K/mm3 (150-450); RBC Distribution Width CV 13.8 % (11.6-14.6); RBC Distribution Width SD 46.5 fl (35.1-43.9); Red Blood Count 3.84 M/mm3 (4.2-5.4); White Blood Count 5.9 K/mm3 (4.4-11.0)
[2023-05-27 10:08] LABS: Anion Gap 6 (5-15); BUN 9 mg/dL (7-18); BUN/Creat Ratio 14.4 RATIO (10-20); Calcium,Total 8.9 mg/dL (8.5-10.1); Chloride 105 mmol/L (98-107); Creatinine, Serum 0.62 mg/dL (0.55-1.02); EST Glomerular Filtration Rate 98 mL/min (>60); Est Glom Filt Rate - Afr Amer 118 mL/min (>60); Glucose 91 mg/dL (74-106); Potassium 3.8 mmol/L (3.5-5.1); Sodium Level 139 mmol/L (136-145)
== END ==
LOC: OLS.WHLTSB 05:00
PROVIDERS: PCP Internal Medicine; Visit Provider Internal Medicine
DX: R53.83 Other fatigue (principal); E55.9 Vitamin D deficiency, unspecified
CPT/HCPCS: 36415; 80048; 85025

== ENCOUNTER → 2023-06-24 | Outpatient (REF) | payer MEDICARE, SELFPAY ==
[2023-06-24 09:45] LABS: AST(SGOT) 34 U/L (15-37); Alanine Aminotransfer ALT/SGPT 33 U/L (13-56); Albumin, Serum 3.1 g/dL (3.2-5.0); Alkaline Phosphatase 72 U/L (45-117); Bilirubin, Direct 0.07 mg/dL (0.00-0.30); Globulin 3.3 g/dL (2.2-4.2); Protein, Total 6.4 g/dL (6.4-8.2)
== END ==
LOC: OLS.WHLTSB 05:00
PROVIDERS: PCP Internal Medicine; Visit Provider Internal Medicine
DX: R53.83 Other fatigue (principal)
CPT/HCPCS: 36415; 80076

== ENCOUNTER → 2023-08-26 | Outpatient (REF) | payer MEDICARE, SELFPAY ==
--- OUTSIDE RECORDS SUMMARY | 2023-08-26 05:25 | XMS RPT_ITS | CCD ---
Author Name Unknown Address [address] [place] [address] Organization [facility] Care Team Providers Care Hospice Aide Name Role Phone MIHAI ABDALLA Unavailable Unavailable JOLLIFF, LOREN Unavailable Unavailable Jolliff, Loren S Primary Care Provider Jolliff, Loren S Primary Care Provider [phone] Jolliff, Loren S Primary Care Provider Jolliff, Loren S Primary Care Provider [phone] Jolliff, Loren S Primary Care Provider JOLLIFF, LOREN Primary Care Unavailable COLTONMERS, RICARDA Attending Unavailable ROBERT GAYTAN Attending Unavailable JOLLIFF, LOREN Primary Care Unavailable SIMMERS, RICARDA Referring Unavailable JOLLIFF, LOREN Primary Care Unavailable NORM SANDOVAL Attending Unavailable BAVIS, ROBERT Attending Unavailable JOLLIFF, LOREN Primary Care Unavailable ROBERT GAYTAN Referring Unavailable BAVROBERT QUINONES Referring Unavailable BAVROBERT QUINONES Attending Unavailable JOLLIFF, LOREN Primary Care Unavailable BAVSTACIE, ROBERT Attending Unavailable JOLLIFF, LOREN Primary Care Unavailable SIMMERS, RICARDA Attending Unavailable Allergies Allergy Classification Reported Allergen(s) Allergy Type Date of Onset Reaction(s) Facility (5 sources) Cranberry preparation Drug Allergy 0 [place] (20 sources) Meperidine Drug Allergy 0 [place] (5 sources) Sulfonamides (Antibiotic) Propensity to adverse reactions to drug 0 [place] (16 sources) Cranberry Propensity to adverse reactions 0 [facility] (16 sources) Sulfonamides (Antibiotic) Drug Intolerance 0 [facility] (9 sources) HYDROcodone Drug Allergy 1 [facility] (9 sources) meloxicam Drug Allergy 3 [facility] (9 sources) Propoxyphene Drug Allergy 1 [facility] Medications Current Medications Medication Drug Class(es) Dates Sig (Normalized) Sig (Original) acetaminophen 500 mg oral tablet (4 sources) Start: 04-06-2020 End: 04-20-2020 take 2 tablets by mouth three times daily as needed for pain acetaminophen (TYLENOL) 500 MG tablet Take 2 tablets by mouth 3 times daily as needed for Pain 84 tablet 0 04/06/2020 Active Completed/Discontinued Medications Medication Drug Class(es) Dates Sig (Normalized) Sig (Original) famotidine 20 mg oral tablet (1 source) Histamine-2 Receptor Antagonist Start: 04-06-2020 End: 04-06-2020 famotidine (PEPCID) tablet 20 mg Magnesium (8 sources) End: 12-16-2022 magnesium 500 MG tablet Take by mouth. 0 12/16/2022 Discontinued Problems Active Problems Problem Classification Problem Date Documented Date Episodic/Chronic Delirium, dementia, and amnestic and other cognitive disorders (20 sources) Dementia; Translations: [Mild dementia with mood disturbance, unspecified dementia type (HCC)] Onset: 07-18-2022 Chronic Disorders of lipid metabolism (16 sources) Hypercholesterolemia; Translations: [Pure hypercholesterolemia, unspecified] Onset: 10-10-2022 10-10-2022 Chronic Genitourinary symptoms and ill-defined conditions (19 sources) Urge incontinence of urine; Translations: [Urge incontinence] Onset: 09-17-2021 09-17-2021 Chronic Gout and other crystal arthropathies (16 sources) Chronic gouty arthritis; Translations: [Idiopathic chronic gout, unspecified site, without tophus (tophi)] Onset: 10-10-2022 10-10-2022 Chronic Menopausal disorders (16 sources) Menopausal and postmenopausal disorders; Translations: [Unspecified menopausal and perimenopausal disorder] Onset: 10-10-2022 10-10-2022 Chronic Mood disorders (2 sources) Depressive disorder; Translations: [Depression, unspecified depression type] Chronic Nutritional deficiencies (19 sources) Vitamin D deficiency; Translations: [Vitamin D deficiency, unspecified] Onset: 09-17-2021 09-17-2021 Chronic Osteoarthritis (16 sources) Localized, primary osteoarthritis of the hand; Translations: [Primary osteoarthritis, unspecified hand] Onset: 10-10-2022 10-10-2022 Chronic Other connective tissue disease (3 sources) Paraparesis; Translations: [Other symptoms and signs involving the musculoskeletal system] Episodic Other connective tissue disease (2 sources) Repeated falls; Translations: [Repeated falls] Onset: 04-26-2022 Episodic Other hereditary and degenerative nervous system conditions (18 sources) Mild cognitive impairment, so stated; Translations: [Mild cognitive impairment, so stated] Onset: 10-08-2021 10-08-2021 Chronic Other nervous system disorders (16 sources) Carpal tunnel syndrome of right wrist; Translations: [Carpal tunnel syndrome, right upper limb] Onset: 10-10-2022 10-10-2022 Chronic Other nervous system disorders (3 sources) Numbness of lower limb ; Translations: [Anesthesia of skin] Episodic Other nervous system disorders (6 sources) Ataxic gait; Translations: [Ataxic gait] Onset: 05-13-2023 02-28-2023 Episodic Other nervous system disorders (1 source) Ataxic gait; Translations: [Ataxic gait] Onset: 05-13-2023 Episodic Spondylosis; intervertebral disc disorders; other back problems (20 sources) Lumbar spondylosis; Translations: [Spondylosis without myelopathy or radiculopathy, lumbar region] Onset: 10-10-2022 10-10-2022 Chronic Unclassified (1 source) Dementia in other diseases classified elsewhere, mild, without behavioral disturbance, psychotic disturbance, mood disturbance, and anxiety (HCC); Translations: [Dementia in other diseases classified elsewhere, mild, without behavioral disturbance, psychotic disturbance, mood disturbance, and anxiety (HCC)] Onset: 12-16-2022 Unclassified (1 source) Unspecified dementia, mild, with mood disturbance (HCC); Translations: [Unspecified dementia, mild, with mood disturbance (HCC)] Onset: 10-10-2022 Unclassified (1 source) Unspecified dementia, mild, with mood disturbance; Translations: [Unspecified dementia, mild, with mood disturbance] Onset: 07-18-2022 Past or Other Problems Problem Classification Problem Date Documented Date Episodic/Chronic Administrative/social admission (2 sources) Other reduced mobility; Translations: [Other reduced mobility] Onset: 07-18-2022 Episodic Biliary tract disease (16 sources) Acute cholecystitis; Translations: [Acute cholecystitis] Onset: 10-10-2022 10-10-2022 Episodic Fracture of upper limb (18 sources) Closed fracture of lower end of humerus; Translations: [Unspecified fracture of lower end of unspecified humerus, initial encounter for closed fracture] Onset: 10-10-2022 10-10-2022 Episodic Malaise and fatigue (5 sources) Asthenia; Translations: [Other malaise] Onset: 12-16-2022 Episodic Mood disorders (16 sources) Mood disorders Onset: 10-10-2022 Resolved: 10-10-2022 10-10-2022 Other acquired deformities (16 sources) Acquired spondylolisthesis; Translations: [Spondylolisthesis, site unspecified] Onset: 10-10-2022 10-10-2022 Episodic Other bone disease and musculoskeletal deformities (16 sources) Segmental and somatic dysfunction; Translations: [Segmental and somatic dysfunction of abdomen and other regions] Onset: 10-10-2022 10-10-2022 Episodic Other circulatory disease (18 sources) Orthostatic hypotension; Translations: [Orthostatic hypotension] Onset: 10-08-2021 10-08-2021 Episodic Other connective tissue disease (20 sources) Recurrent falls ; Translations: [Repeated falls] Onset: 09-17-2021 09-17-2021 Episodic Other connective tissue disease (2 sources) Other symptoms and signs involving the musculoskeletal system; Translations: [Other symptoms and signs involving the musculoskeletal system] Onset: 12-16-2022 Episodic Other nervous system disorders (2 sources) Anesthesia of skin; Translations: [Anesthesia of skin] Onset: 12-16-2022 Episodic Spondylosis; intervertebral disc disorders; other back problems (16 sources) Cervical radiculopathy; Translations: [Radiculopathy, cervical region] Onset: 10-10-2022 10-10-2022 Episodic Unclassified (1 source) Dementia in other diseases classified elsewhere, mild, without behavioral disturbance, psychotic disturbance, mood disturbance, and anxiety (HCC); Translations: [Dementia in other diseases classified elsewhere, mild, without behavioral disturbance, psychotic disturbance, mood disturbance, and anxiety (HCC)] Onset: 12-16-2022 Unclassified (1 source) Unspecified dementia, mild, with mood disturbance (HCC); Translations: [Unspecified dementia, mild, with mood disturbance (HCC)] Onset: 10-10-2022 Unclassified (1 source) Unspecified dementia, mild, with mood disturbance; Translations: [Unspecified dementia, mild, with mood disturbance] Onset: 07-18-2022 Results Test Name Value Interpretation Reference Range Facil ity Vital Signs Date Time Vital Sign Value Performing Clinician Faci lity 05-13-2023 11:29-0400 Body height 152.4 cm Norm Annita GEARCASE ASSEMBLER - PROCUREMENT SERVICES MANAGER Work Phone: [facility] [employer] 05-13-2023 11:29-0400 Body mass index (BMI) [Ratio] 24.57 kg/m2 Norm Annita [employer]ARCASE ASSEMBLER - PROCUREMENT SERVICES MANAGER Work Phone: [facility] [employer] 05-13-2023 11:29-0400 Body weight 57.06 kg Norm Annita [employer]ARCASE ASSEMBLER - PROCUREMENT SERVICES MANAGER Work Phone: [facility] [employer] 05-13-2023 11:29-0400 Diastolic blood pressure 78 mm[Hg] Norm Annita GEARCASE ASSEMBLER - PROCUREMENT SERVICES MANAGER Work Phone: [facility] [employer] 05-13-2023 11:29-0400 Heart rate 81 /min Norm Annita GEARCASE ASSEMBLER - PROCUREMENT SERVICES MANAGER Work Phone: [facility] [employer] 05-13-2023 11:29-0400 Systolic blood pressure 126 mm[Hg] Norm Annita GEARCASE ASSEMBLER - PROCUREMENT SERVICES MANAGER Work Phone: [facility] [employer] 02-28-2023 13:14-0400 Diastolic blood pressure 61 mm[Hg] Robert Gaytan MD Work Phone: [facility] [employer] 02-28-2023 13:14-0400 Heart rate 83 /min Robert Gaytan MD Work Phone: [facility] [employer] 02-28-2023 13:14-0400 Systolic blood pressure 107 mm[Hg] Robert Gaytan MD Work Phone: [facility] [employer] 12-16-2022 13:51-0400 Body height 152.4 cm Robert Gaytan MD Work Phone: [facility] [employer] 12-16-2022 13:51-0400 Body mass index (BMI) [Ratio] 23.44 kg/m2 Robert Gaytan MD Work Phone: [facility] [employer] 12-16-2022 13:51-0400 Body weight 54.43 kg Robert Gaytan MD Work Phone: [facility] [employer] 12-16-2022 13:51-0400 Diastolic blood pressure 76 mm[Hg] Robert Gaytan MD Work Phone: [facility] [employer] 12-16-2022 13:51-0400 Heart rate 67 /min Robert Gaytan MD Work Phone: [facility] [employer] 12-16-2022 13:51-0400 Systolic blood pressure 130 mm[Hg] Robert Gaytan MD Work Phone: [facility] [employer] 10-10-2022 09:10-0400 Body mass index (BMI) [Ratio] 24.3 kg/m2 Ricarda Workman MD Work Phone: [facility] [employer] 10-10-2022 09:10-0400 Body temperature 96.49 [degF] Ricarda Workman MD Work Phone: [facility] [employer] 10-10-2022 09:10-0400 Body weight 56.43 kg Ricarda Workman MD Work Phone: [facility] [employer] 10-10-2022 09:10-0400 Diastolic blood pressure 83 mm[Hg] Ricarda Workman MD Work Phone: [facility] [employer] 10-10-2022 09:10-0400 Systolic blood pressure 129 mm[Hg] Ricarda Workman MD Work Phone: [facility] [employer] 04-06-2020 11:15-0400 BP Diastolic 71 mm[Hg] [facility] [place] [facility] [place] 04-06-2020 11:15-0400 BP Systolic 124 mm[Hg] [facility] [place] [facility] [place] 04-06-2020 11:15-0400 Pulse (Heart Rate) 80 /min Hiram Lopes [facility], [place] 04-06-2020 11:15-0400 Pulse Oximetry 99 % Hiram Lopes [facility] , [place] 04-06-2020 11:15-0400 Respiratory Rate 18 /min [facility] [place] 04-06-2020 11:00-0400 Body Temperature 97.59 [degF] [facility] [place] 04-06-2020 06:59-0400 BMI (Body Mass Index) 23.44 kg/m2 Hiram Burris [facility] [place], [place] 04-06-2020 06:59-0400 Body weight 54.43 kg Hiram Lopes [facility] , [place] 04-06-2020 06:59-0400 Height 152.4 cm Hiram [facility] , [place] Encounters Encounter Date Encounter Type Care Provider Facility Start: 06-02-2023 Telephone encounter Norm Garcia APRN - PROCUREMENT SERVICES MANAGER Work Phone: [facility] Procedures Date Procedure Procedure Detail Performing Clinician Start: 04-02-2023 Mri brain brain stem w/o contrast material Robert Gaytan MD Work Phone: Start: 04-06-2020 Blood count hemoglobin Jose De Jesus Kasandra Pollard Work Phone: Start: 04-05-2020 Ct upper extremity w /o contrast material Hiram Lopes Work Phone: Plan of Treatment Date Care Activity Detail Author Start: 09-11-2023 End: 09-11-2023 Patient encounter procedure 09/11/2023 11:00 AM EST Office Visit [facility] [address] [place] [id number] Norm Sandoval APRN - PROCUREMENT SERVICES MANAGER [address] [place] [address] [facility] Start: 04-21-2023 End: 04-21-2023 Patient encounter procedure 04/21/2023 11:30 AM EDT Office Visit [facility] [address] [place] [id number] Norm Sandoval APRN - CNP [address] [facility] [address] [place] [address] [facility] Start: 04-12-2023 Depresssion Monitoring Depresssion Monitoring [facility] Start: 04-02-2023 End: 04-02-2023 Patient encounter procedure 04/02/2023 6:30 AM EDT Appointment [facility] [address] [place] [address] Robert Gaytan MD [address] [facility] [address] [place] [address] [facility] Start: 03-14-2023 COVID-19 Vaccine ( season) COVID-19 Vaccine ( season) [facility] Start: 03-14-2023 Influenza vaccination [facility] Start: 02-28-2023 End: 02-29-2024 MR Brain WO contrast MR brain wo contrast Imaging Routine 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, unspecified whether behavioral, psychotic, or mood disturbance or anxiety (HCC) Ataxic gait Expected: 02/28/2023, Expires: 02/29/2024 [facility] Work Phone: Immunizations Immunization Date Immunization Notes Care Provider Fa [facility] 06-13-2021 influenza, seasonal, injectable Ricarda Workman MD Work Phone: [facility] 06-13-2021 influenza virus vacc ine, unspecified formulation Ricarda Workman MD Work Phone: [facility] 04-17-2020 influenza, injectabl e, quadrivalent, contains preservative Ricarda Workman MD Work Phone: [facility] 05-14-2019 influenza, injectabl e, quadrivalent, contains preservative Ricarda Workman MD Work Phone: [facility] 05-07-2018 influenza, injectabl e, quadrivalent, contains preservative Ricarda Workman MD Work Phone: [facility] 05-01-2017 influenza, seasonal, injectable Ricarda Simmers MD Work Phone: [facility] 05-10-2016 influenza, injectabl e, quadrivalent, contains preservative Ricarda Workman MD Work Phone: [facility] 05-31-2015 influenza, seasonal, injectable Ricarda Workman MD Work Phone: [facility] 09-02-2014 pneumococcal conjuga te vaccine, 13 valent Ricarda Workman MD Work Phone: [facility] 05-17-2014 influenza, seasonal, injectable Ricarda Workman MD Work Phone: [facility] 05-06-2013 influenza, seasonal, injectable Ricarda Workman MD Work Phone: [facility] 04-24-2012 influenza, seasonal, injectable Ricarda Workman MD Work Phone: [facility] 08-21-2009 novel influenza-H1N1 -09, preservative-free, injectable Ricarda Workman MD Work Phone: [facility] 09-02-2007 pneumococcal polysac charide vaccine, 23 valent Ricarda Workman MD Work Phone: [facility] [employer] 09-03-2006 zoster vaccine, live Ricarda Workman MD Work Phone: [facility] [employer] Payers Date Payer Category Payer Medicare [id number] 2015 Unknown [id number] Social History Date Type Detail Facility Start: 04-04-2020 End: 04-06-2020 Tobacco smoking status NHIS Former smoker [facility] [place] Start: 04-04-2020 End: 04-06-2020 Tobacco use and exposure Never [facility] [employer] [facility] Start: 1940 Sex Assigned At Not on file M [place] Start: 08-18-2021 End: 04-02-2023 Exposure to SARS-CoV-2 (event) Not sure [place] History of tobacco use Current smoker MARIE GARRIDO Work Phone: Start: 12-16-2022 End: 02-28-2023 Alcohol intake Lifetime non-drinker (finding) [facility] Start: 10-10-2022 End: 12-16-2022 History of Social function [facility] Start: 10-10-2022 End: 12-16-2022 Tobacco use panel [facility] Adolescent depressio n screening assessment 10 [facility] Clinical Notes 10-10-2022 to 06-02-2023 Telephone Encounter - Loren Hughes - 06/02/2023 3:05 PM ESTTelephone Encounter - Loren Hughes - 06/02/2023 3:05 PM ESTTelephone Encounter - Rebecca Tamayo MA - 06/02/2023 2:52 PM EST Note Date & Type Note Facility 06-02-2023 Telephone encounter Note Message released to patient as written. Patient's further questions if applicable: Were all questions from office addressed or relayed to the patient from encounter: Yes [facility] 06-02-2023 Miscellaneous Notes Message released to patient as written. Patient's further questions if applicable: Were all questions from office addressed or relayed to the patient from encounter: Yes Lm for Loren to call the office back, please relay providers message. Look at my Assessment and Plan from her 05/12 visit----- Continue Donepezil 5mg daily Will order physical therapy She was given printed report of EMG and MRI brain We did discuss results of testing Name of caller: Loren Contact phone number: [phone] Relationship to Patient: [facility] Provider: Norm WILKERSON Practice: Neuro Chief Complaint/Reason for Call: [phone] fax results, Loren states has sent requests for the MRI results since 04/15/23. Please advise Best time of day caller can be reached: Any Patient advised that office/PCP has 24-48 business hours to return their call: Yes documented in this encounter [facility] [employer] 06-02-2023 Telephone encounter Note Lm for Loren to call the office back, please relay providers message. [facility] 06-02-2023 Telephone encounter Note Look at my Assessment and Plan from her 05/12 visit----- Continue Donepezil 5mg daily Will order physical therapy She was given printed report of EMG and MRI brain We did discuss results of testing [facility] [employer] 06-02-2023 Telephone encounter Note Name of caller: Loren Contact phone number: [phone] Relationship to Patient: [facility] Provider: Norm WILKERSON Practice: Neuro Chief Complaint/Reason for Call: [phone] fax Loren kraft states has sent requests for the MRI results since 04/15/23. Please advise Best time of day caller can be reached: Any Patient advised that office/PCP has 24-48 business hours to return their call: Yes [facility] [employer] 05-13-2023 History of Present illness Narrative Visit type: Established Patient Reason for Visit: Follow-up Assessment and Plan 1. 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, unspecified whether behavioral, psychotic, or mood disturbance or anxiety (HCC) 2. Ataxic gait - External referral to Physical Therapy 3. Frequent falls - External referral to Physical Therapy Subjective HPI: EMG-likely normal MRI brain-Atrophy and chronic ischemic change. No acute process She says she wants an explanation for her testing Per pt-memory is the same as always Not too many issues Does not forget people or places She has little interaction in the facility And no stimulation Her med list shows she is taking Aricept 5mg daily Currently in no therapy She believes she has had 2 falls since moving to assisted living She says that if she was not in assisted living she would do a lot more She was living with her until December 2022 REVIEW OF SYSTEMS: Review of Systems Constitutional: Negative. HENT: Negative. Eyes: Negative. Respiratory: Negative. Cardiovascular: Negative. Gastrointestinal: Negative. Endocrine: Negative. Genitourinary: Negative. Musculoskeletal: Positive for gait problem. Skin: Negative. Allergic/Immunologic: Negative. Neurological: Positive for numbness. Hematological: Negative. Psychiatric/Behavioral: Negative. Allergies Allergen Reactions Cranberry Extract Hydrocodone Other reaction(s): Vomiting Meloxicam Other reaction(s): Unknown Meperidine Propoxyphene Other reaction(s): Unknown, Vomiting Sulfa Antibiotics Outpatient Medications Prior to Visit Medication Sig Dispense Refill allopurinol (Zyloprim) 100 MG tablet Take 200 mg by mouth daily. biotin 1000 MCG tablet Take by mouth. cetirizine (ZyrTEC) 10 MG tablet Take 10 mg by mouth daily. donepezil (Aricept) 5 MG tablet Take 1 tablet (5 mg) by mouth Nightly. 90 tablet 3 multivitamin with minerals (Cerovite) 18-400 mg-mcg tablet tablet Take by mouth. polyethylene glycol, PEG, 3350 (Glycolax) 17 GM/SCOOP powder Take 17 g by mouth Daily as needed (constipation). sennosides (Senokot) 8.6 MG tablet Take 1 tablet by mouth daily. sertraline (Zoloft) 100 MG tablet Take 1 tablet (100 mg) by mouth daily. Do not start before October 24, 2022. 30 tablet 5 Turmeric 500 MG tablet Take by mouth. cholecalciferol (Vitamin D-3) 25 MCG (1000 UT) tablet Take 1,000 Units by mouth daily. fluticasone (Flonase) 50 MCG/ACT nasal spray Administer into affected nostril(s). ibuprofen 200 MG tablet Take 200 mg by mouth every 6 hours as needed. No facility-administered medications prior to visit. 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 Carpal tunnel syndrome of right wrist 10/10/2022 Cervical radiculopathy 10/10/2022 Chronic gouty arthritis 10/10/2022 Closed fracture of distal end of humerus 10/10/2022 Hypercholesterolemia 10/10/2022 Localized, primary osteoarthritis of hand 10/10/2022 Lumbar spondylosis 10/10/2022 Menopausal and postmenopausal disorder 10/10/2022 Orthostatic hypotension 10/08/2021 Segmental and somatic dysfunction 10/10/2022 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athy 10/10/2022 Unspecified dementia, mild, with mood disturbance (HCC) 07/18/2022 Vitamin D deficiency 09/17/2021 Social History Tobacco Use Smoking status: Former Smokeless tobacco: Never Substance Use Topics Alcohol use: Never Past Surgical History: Procedure Laterality Date ARTHROSCOPY (HISTORICAL) Left 03/1987 knee BLD CARPEL TUNNEL RELEASE (HISTORICAL) Right hand SECTION (HISTORICAL) 01/1969 SECTION (HISTORICAL) 01/1971 CHOLECYSTECTOMY FNC41 (HISTORICAL) 05/05/2021 HUMERUS SURGERY Left 04/2020 KNEE ARTHROPLASTY Right TOE SURGERY Right 04/2005 big TONSILLECTOMY AND ADENOIDECTOMY (HISTORICAL) 1947 TOTAL HIP ARTHROPLASTY Left 01/01/2016 TOTAL KNEE ARTHROPLASTY Left 09/04/2011 No family history on file. Objective Vitals: BP 126/78 (BP Location: Right arm, Patient Position: Sitting, BP Cuff Size: Adult) Pulse 81 Ht 5' (1.524 m) Wt 125 lb 12.8 oz (57.1 kg) BMI 24.57 kg/m General Appearance: Patient is in no apparent distress. Head is normocephalic, atraumatic Cardiovascular: Regular rate and rhythm. No heart murmurs. No carotid bruit Neurologic: Mentation: Alert and oriented x 3 to person, place and time. Speech and Language: Speech and language normal Concentration and Attention: Concentration normal Memory: Memory normal Fund of Knowledge: Fund of knowledge normal Cranial Nerves: II, III, IV, V, , VII, VIII, IX, X, XI, XII examined and were intact. Motor: Strength: Strength 5 out of 5 with normal tone Alternating Movements: Normal Cogwheel Rigidity: None Tone: Tone is normal Tremor / Involuntary Movements: None Sensory: Normal sensation upper and lower extremities Coordination: Normal coordination upper and lower extremities Gait and Station: Could not be safely tested Data Reviewed and Summarized DIAGNOSTIC TESTING CBC: Lab Results Component Value Date HGB 12.4 04/06/2020 CMP: Lab Results Component Value Date PROT 7.2 12/16/2022 BMP: No results found for: NA , K , CL , CO2 , BUN , CREATININE , CALCIUM , LABGLOM , GLUCOSE , GLU PT/INR: No results found for: PROTIME , INR PTT: No results found for: APTT , PTT [APTT} FLP: No results found for: CHLPL , TRIG , HDL , LDLCALC , LDLDIRECT TSH: Lab Results Component Value Date TSH 2.11 12/16/2022 VITAMIN B12: VITAMIN B12 Date Value Ref Range Status 12/16/2022 577 200 - 1,100 pg/mL Final No results found for: PHENYTOIN , PHENOBARB , VALPROATE , CBMZ No components found for: TOPIRA @RESULTINGLABINFO@ No results found for: LEVETIRACETA , FERRITIN , CRP , NICOLE , ANCA IMMUNOGLOBULIN A Date Value Ref Range Status 12/16/2022 163 70 - 320 mg/dL Final IMMUNOGLOBULIN G Date Value Ref Range Status 12/16/2022 558 (L) 600 - 1,540 mg/dL Final IMMUNOGLOBULIN M Date Value Ref Range Status 12/16/2022 438 (H) 50 - 300 mg/dL Final No results found for: [id number] , HEPCAB No results found for: CRP , ANATITER , ANCA FERRITIN: No results found for: FERRITIN ---- MR brain wo contrast Narrative: Patient Name: KELLI SANCHEZ : 1940 Exam Date/Time: 04/02/2023 07:11 Procedure: MR BRAIN WO CONTRAST Ordering Provider: GAYTAN JAMES Reason For Exam: Dizziness, persistent/recurrent, cardiac or vascular cause suspected MRI BRAIN WITHOUT CONTRAST: INDICATION: Dementia, ataxia. COMPARISON: None MR imaging of the brain was performed with sagittal T1 weighted, axial T2 weighted and FLAIR scans, and axial diffusion scans. The ventricles and sulci are enlarged, consistent with atrophy. There is no evidence of mass lesion or cerebral edema. There is no suggestion of intracranial hemorrhage on the gradient echo T2 sequence. There is no hydrocephalus, midline shift, or herniation. No epidural or subdural collections are present. On the FLAIR sequence a mild degree of increased signal is seen to affected germinal matrix adjacent to the lateral ventricles. Focal areas of increased T2 signal are noted within the subcortical and periventricular white matter, consistent with chronic ischemia. Diffusion weighted images are negative. The sellar and parasellar anatomy demonstrates no gross abnormality. The brain stem is unremarkable. Within the posterior fossa of the anatomy of the cerebellar pontine cistern is unremarkable as are the internal auditory canals and labyrinthine structures. Flow void is seen within the vessels of the to[place]a de[place]' of [place]. The globes and orbital contents are grossly normal. There is mild mucosal thickening of the ethmoid air cells. Impression: Atrophy and chronic ischemic change. No acute process. 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 KEV Palomares CNP I spent 30 minutes caring for this patient today, reviewing labs, records, seeing the patient, documenting in the record and arranging for studies. Electronically signed by @RENO@ on @TDNR@ at @NOWNR@ documented in this encounter [facility] 05-12-2023 Telephone encounter Note Patient is scheduled for a sooner appointment, his son is needing to check with [employer] to make sure they can bring her and call us back. [facility] 05-12-2023 Miscellaneous Notes Patient is scheduled for a sooner appointment, his son is needing to check with [employer] to make sure they can bring her and call us back. Can we see if something sooner is available? Name of Caller: josey Contact Reason for Appointment: pt's appt was moved further out to go over MRI results and the pt's son is asking for the results sooner or for their appt to be moved back sooner Office Name: Neuro Medication Refills need, if any: NA Medication Name: NA documented in this encounter [facility] 05-12-2023 Telephone encounter Note Can we see if something sooner is available? [facility] [employer] Work Phone: 05-12-2023 Telephone encounter Note Name of Caller: josey Contact Reason for Appointment: pt's appt was moved further out to go over MRI results and the pt's son is asking for the results sooner or for their appt to be moved back sooner Office Name: Neuro Medication Refills need, if any: NA Medication Name: NA [facility] 04-11-2023 Telephone encounter Note Please advise. [facility] 04-11-2023 Miscellaneous Notes Please advise. Name of caller: Kelli Contact phone number: [phone] Relationship to Patient: patient Provider: Dr Gaytan Practice: [facility] [place] [facility] [place] Chief Complaint/Reason for Call: Pt states she would like to speak to the office regarding the results of her recent MR brain wo contrast. Please advise. Best time of day caller can be reached: any Patient advised that office/PCP has 24-48 business hours to return their call: No documented in this encounter [facility] 04-11-2023 Telephone encounter Note Name of caller: Kelli Contact phone number: [phone] Relationship to Patient: patient Provider: Dr Gaytan Practice: [facility] [place] [facility] [place] Chief Complaint/Reason for Call: Pt states she would like to speak to the office regarding the results of her recent MR brain wo contrast. Please advise. Best time of day caller can be reached: any Patient advised that office/PCP has 24-48 business hours to return their call: No [facility] 03-05-2023 Telephone encounter Note OK [facility] 03-05-2023 Miscellaneous Notes OK Forwarding to provider for review and advice. Name of caller: Loren Contact phone number: [phone] Relationship to Patient: residential Provider: Dr. Gaytan Practice: [facility] [place] [facility] [place] Chief Complaint/Reason for Call: Loren states that they received an order for a bed assist rail from the office, but they do not allow those at [facility]. Please advise. Best time of day caller can be reached: any Patient advised that office/PCP has 24-48 business hours to return their call: N/A documented in this encounter [facility] 03-05-2023 Telephone encounter Note Forwarding to provider for review and advice. [facility] 03-05-2023 Telephone encounter Note Name of caller: Loren Contact phone number: [phone] Relationship to Patient: residential Provider: Dr. Gaytan Practice: [facility] [place] [facility] [place] Chief Complaint/Reason for Call: Loren states that they received an order for a bed assist rail from the office, but they do not allow those at [facility]. Please advise. Best time of day caller can be reached: any Patient advised that office/PCP has 24-48 business hours to return their call: N/A [facility] 02-28-2023 History of Present illness Narrative Images from the original note were not included. [facility] [address] [place] [address] [facility] [address] Dept: [phone] Dept Loc: [phone] Robert Gaytan MD Thank you for your kind request for a neurological consultation on this patient. CHIEF COMPLAINT: Chief Complaint Patient presents with Follow-up Extremity Weakness HISTORY OF PRESENT ILLNESS: The patient is a 82 y.o. person who presents with trouble walking and memory loss. She reports that she is getting physical therapy. She reports that she is not taking donepezil. She does not know why. 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), Carpal tunnel syndrome of right wrist (10/10/2022), Cervical radiculopathy (10/10/2022), Chronic gouty arthritis (10/10/2022), Closed fracture of distal end of humerus (10/10/2022), Hypercholesterolemia (10/10/2022), Localized, primary osteoarthritis of hand (10/10/2022), Lumbar spondylosis (10/10/2022), Menopausal and postmenopausal disorder (10/10/2022), Orthostatic hypotension (10/08/2021), Segmental and somatic dysfunction (10/10/2022), 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athy (10/10/2022), Unspecified dementia, mild, with mood disturbance (HCC) (07/18/2022), and Vitamin D deficiency (09/17/2021). Past Surgical History: has a past surgical history that includes Tonsillectomy and adenoidectomy (1948); section (01/1969); section (01/1971); arthroscopy (historical) (Left, 03/1987); bld carpel tunnel release (historical) (Right); Toe Surgery (Right, 04/2005); Total knee arthroplasty (Left, 09/04/2011); Total hip arthroplasty (Left, 01/01/2016); Knee Arthroplasty (Right); Humerus surgery (Left, 04/2020); and cholecystectomy fnc41 (historical) (05/05/2021). Medications: Current Outpatient Medications: allopurinol (Zyloprim) 100 MG tablet, Take 200 mg by mouth daily., Disp: , Rfl: biotin 1000 MCG tablet, Take by mouth., Disp: , Rfl: cholecalciferol (Vitamin D-3) 25 MCG (1000 UT) tablet, Take 1,000 Units by mouth daily., Disp: , Rfl: ibuprofen 200 MG tablet, Take 200 mg by mouth every 6 hours as needed., Disp: , Rfl: multivitamin with minerals (Cerovite) 18-400 mg-mcg tablet tablet, Take by mouth., Disp: , Rfl: polyethylene glycol, PEG, 3350 (Glycolax) 17 GM/SCOOP powder, Take 17 g by mouth Daily as needed (constipation)., Disp: , Rfl: sertraline (Zoloft) 100 MG tablet, Take 1 tablet (100 mg) by mouth daily. Do not start before October 24, 2022., Disp: 30 tablet, Rfl: 5 Turmeric 500 MG tablet, Take by mouth., Disp: , Rfl: cetirizine (ZyrTEC) 10 MG tablet, Take 10 mg by mouth daily., Disp: , Rfl: donepezil (Aricept) 5 MG tablet, Take 1 tablet (5 mg) by mouth Nightly. (Patient not taking: Reported on 02/28/2023), Disp: 90 tablet, Rfl: 3 fluticasone (Flonase) 50 MCG/ACT nasal spray, Administer into affected nostril(s)., Disp: , Rfl: Allergies: Cranberry extract, Hydrocodone, Meloxicam, Meperidine, Propoxyphene, and Sulfa antibiotics Social History: Social History Socioeconomic History Marital status: Spouse name: Not on file Number of children: Not on file Years of education: Not on file Highest education level: Not on file Occupational History Not on file Tobacco Use Smoking status: Former Smokeless tobacco: Never Substance and Sexual Activity Alcohol use: Never Drug use: Never Sexual activity: Not on file Other Topics Concern Not on file Social History Narrative Not on file Social Determinants of Health Financial Resource Strain: Not on file Food Insecurity: Not on file Transportation Needs: Not on file Physical Activity: Not on file Stress: Not on file Social Connections: Not on file Intimate Partner Violence: Not on file Housing Stability: Not on file Family History: No family history on file. REVIEW OF SYSTEMS: Review of Systems Constitutional: Positive for fatigue. Negative for appetite change, chills, diaphoresis, fever and unexpected weight change. HENT: Negative for dental problem and mouth sores. Eyes: Negative for discharge and itching. Respiratory: Negative for chest tightness and shortness of breath. Cardiovascular: Negative for chest pain, palpitations and leg swelling. Gastrointestinal: Negative for abdominal pain, nausea, rectal pain and vomiting. Endocrine: Negative for polydipsia, polyphagia and polyuria. Genitourinary: Negative for decreased urine volume, flank pain and genital sores. Musculoskeletal: Positive for back pain. Negative for arthralgias and neck pain. Skin: Negative for color change. Allergic/Immunologic: Negative for food allergies and immunocompromised state. Neurological: Positive for dizziness. Negative for syncope, weakness, light-headedness and headaches. Hematological: Negative for adenopathy. Does not bruise/bleed easily. Psychiatric/Behavioral: Negative for agitation, behavioral problems, confusion, decreased concentration, sleep disturbance and suicidal ideas. Answers submitted by the patient for this visit: Neurological Problem Questionnaire (Submitted on 12/09/2022) Chief Complaint: Neurologic complaint altered mental status: No clumsiness: Yes focal sensory loss: No focal weakness: Yes loss of balance: Yes memory loss: No near-syncope: No slurred speech: No visual change: No Chronicity: chronic Onset: more than 1 year ago Onset quality: insidiously Progression since onset: gradually worsening Focality: left-sided, right-sided auditory change: Yes aura: No bladder incontinence: Yes bowel incontinence: No vertigo: No Treatments tried: bed rest, medication, sleep Improvement on treatment: mild PHYSICAL EXAM: Vitals: BP 107/61 (BP Location: Left arm) Pulse 83 General Appearance: Patient is in no apparent distress. Head is normocephalic, atraumatic Cardiovascular: Regular rate and rhythm. No heart murmurs. No carotid bruit Neurologic: Mentation: Alert and oriented x 3 to person, place and time. Speech and Language: Speech and language normal Concentration and Attention: Same as prior exam. Memory: Memory same as prior exam. Fund of Knowledge: Fund of knowledge normal Cranial Nerves: II, III, IV, V, , VII, VIII, IX, X, XI, XII tested and were intact including fundoscopic exam (optic discs) and visual field to confrontation. Motor: Strength: Strength 5 out of 5 with normal tone in the proximal arms. Her fingers and wrist are 5/5 today. She is 4/5 in the legs. Alternating Movements: Normal Cogwheel Rigidity: None Tone: Tone is normal Tremor / Involuntary Movements: None Deep Tendon Reflexes: nearly 0 out of 4 symmetrical in all four limbs. Coordination: Normal coordination upper and lower extremities Gait and Station: She requires max assist to stand and is very unsteady when she walks. DATA No results found for: PHENYTOIN, PHENOBARB, VALPROATE, CBMZ Lab Results Component Value Date HGB 12.4 04/06/2020 TSH 2.11 12/16/2022 @LASTAPPOINTMENTTHISPROV@ OUTSIDE IMAGING SCAN Ordered by an unspecified provider. No results found for: LEVETIRACETA, FERRITIN, CRP, NICOLE, ANCANo components found for: TOPIRA IMMUNOGLOBULIN A Date Value Ref Range Status 12/16/2022 163 70 - 320 mg/dL Final IMMUNOGLOBULIN G Date Value Ref Range Status 12/16/2022 558 (L) 600 - 1,540 mg/dL Final IMMUNOGLOBULIN M Date Value Ref Range Status 12/16/2022 438 (H) 50 - 300 mg/dL Final VITAMIN B12 Date Value Ref Range Status 12/16/2022 577 200 - 1,100 pg/mL Final No results found for: [id number], HEPCAB Name: Kelli Sanchez Date of : 1940 Attending physician: Robert Gaytan MD A report of nerve conduction studies and electromyography of both lower extremities Date of service: December 30, 2022 Findings: Sensory nerve conduction studies disclosed absent responses in the superficial peroneal nerves bilaterally. Response latencies and amplitudes were normal in the sural nerves bilaterally. Motor nerve conduction studies disclosed normal distal latencies, response amplitudes and conduction velocities in the peroneal/fibular and tibial nerves bilaterally. Tibial nerve H-reflexes were absent bilaterally. Needle EMG examination disclosed normal spontaneous activity in the vastus medialis and lateralis, tibialis anterior, lateral gastrocnemius, short head of the biceps femoris, semitendinosis, extensor hallucis longus, extensor digitorum brevis and abductor hallucis bilaterally. Assessment of motor unit potential recruitment was hampered by unsustained muscle contraction, as if the patient fatigued rapidly; this was particularly true of distal muscles. In the left abductor hallucis, so few motor unit potentials were activated that neither recruitment nor morphology could be evaluated. In the right abductor hallucis, there was sufficient muscle activation to determine that recruitment was slightly decreased with occasional enlarged motor unit potentials. Muscular contraction was unsustained in the extensor digitorum brevis bilaterally; on the right there appeared to be enlarged motor unit potentials, while no abnormal potentials were seen on the left. There was insufficient activation of motor unit potentials for assessment of recruitment in the right lateral gastrocnemius, but no abnormal motor unit potentials were seen. In the right vastus lateralis, there appeared to be occasional enlarged motor unit potentials without impairment of recruitment. Motor unit potential recruitment and morphology were normal in the vastus medialis, tibialis anterior, short head of the biceps femoris, semitendinosis and extensor hallucis longus bilaterally, as well as the left vastus lateralis and the left lateral gastrocnemius. Interpretation: Nerve conduction studies of both lower limbs were likely normal. Superficial peroneal sensory responses could not be obtained on either side, but the corresponding sural nerve responses were well within normal limits. There was no other evidence of peripheral polyneuropathy. Needle EMG examination was hampered by abbreviated muscle activation that made assessment of recruitment patterns impossible in many cases, especially distally. There did appear to be some evidence of mild chronic denervation in multiple right lower limb muscles, but the three involved muscles had different peripheral nerve innervation, and each was the sole parts representative of right motor nerve roots L4, L5 or S1. Thus these could represent remnants of multiple chronic motor radiculopathies, but corroboration was lacking from similarly innervated muscles. Once again, these results were obtained under conditions of suboptimal muscular activation. There was no evidence of ongoing denervation in any muscle. Clinical correlation is advised. 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 It was decided to take her off of the donepezil. I do not know why. I will follow for now. Since she has had progression and the EMG/NCS was normal for her age, it is medically necessary to get an MRI brain I spent 20 minutes caring for this patient today, reviewing labs and records, seeing the patient, documenting in the record and arranging for studies. documented in this encounter [facility] 02-28-2023 Miscellaneous Notes Addended by: ROBERT GAYTAN on: 02/28/2023 04:01 PM Modules accepted: Orders documented in this encounter [facility] 02-28-2023 Note Addended by: ROBERT GAYTAN on: 02/28/2023 04:01 PM Modules accepted: Orders [facility] [employer] 02-28-2023 Note Addended by: ROBERT GAYTAN on: 02/28/2023 04:01 PM Modules accepted: Orders [facility] [employer] 01-24-2023 Telephone encounter Note Lm for patient to call the office back, please relay providers message. [facility] [employer] 01-24-2023 Miscellaneous Notes Lm for patient to call the office back, please relay providers message. Lm for patient to call the office back, please relay providers message. Lm for patient to call the office back, please relay providers message. Dr. Pereira reported that the test was limited but that it appeared to be normal. Remind her that she is following up in Feb Name of caller: Kelli Contact phone number: [phone] Relationship to Patient: patient Provider: Dr. Gaytan Practice: [facility] [place] [facility] [place] Chief Complaint/Reason for Call: Pt states that she would like to receive a cb as soon as possible to go over her Nerve Conduction and EMG test that was completed on 12/30. Please advise. Best time of day caller can be reached: Any Patient advised that office/PCP has 24-48 business hours to return their call: No documented in this encounter [facility] 01-22-2023 Telephone encounter Note Lm for patient to call the office back, please relay providers message. [facility] 01-22-2023 Miscellaneous Notes Lm for patient to call the office back, please relay providers message. Lm for patient to call the office back, please relay providers message. Dr. Pereira reported that the test was limited but that it appeared to be normal. Remind her that she is following up in Feb Name of caller: Kelli Contact phone number: [phone] Relationship to Patient: patient Provider: Dr. Gaytan Practice: [facility] [place] [facility] [place] Chief Complaint/Reason for Call: Pt states that she would like to receive a cb as soon as possible to go over her Nerve Conduction and EMG test that was completed on 12/30. Please advise. Best time of day caller can be reached: Any Patient advised that office/PCP has 24-48 business hours to return their call: No documented in this encounter [facility] 01-21-2023 Telephone encounter Note Lm for patient to call the office back, please relay providers message. [facility] 01-21-[address] Pereira reported that the test was limited but that it appeared to be normal. Remind her that she is following up in Feb [employer] 01-20-2023 Telephone encounter Note Name of caller: Kelli Contact phone number: [phone] Relationship to Patient: patient Provider: Dr. Gaytan Practice: [facility] [place] [facility] [place] Chief Complaint/Reason for Call: Pt states that she would like to receive a cb as soon as possible to go over her Nerve Conduction and EMG test that was completed on 12/30. Please advise. Best time of day caller can be reached: Any Patient advised that office/PCP has 24-48 business hours to return their call: No [employer] 12-30-2022 Note Name: Kelli Sanchez Date of : 1940 Attending physician: Robert Gaytan MD A report of nerve conduction studies and electromyography of both lower extremities Date of service: December 30, 2022 Findings: Sensory nerve conduction studies disclosed absent responses in the superficial peroneal nerves bilaterally. Response latencies and amplitudes were normal in the sural nerves bilaterally. Motor nerve conduction studies disclosed normal distal latencies, response amplitudes and conduction velocities in the peroneal/fibular and tibial nerves bilaterally. Tibial nerve H-reflexes were absent bilaterally. Needle EMG examination disclosed normal spontaneous activity in the vastus medialis and lateralis, tibialis anterior, lateral gastrocnemius, short head of the biceps femoris, semitendinosis, extensor hallucis longus, extensor digitorum brevis and abductor hallucis bilaterally. Assessment of motor unit potential recruitment was hampered by unsustained muscle contraction, as if the patient fatigued rapidly; this was particularly true of distal muscles. In the left abductor hallucis, so few motor unit potentials were activated that neither recruitment nor morphology could be evaluated. In the right abductor hallucis, there was sufficient muscle activation to determine that recruitment was slightly decreased with occasional enlarged motor unit potentials. Muscular contraction was unsustained in the extensor digitorum brevis bilaterally; on the right there appeared to be enlarged motor unit potentials, while no abnormal potentials were seen on the left. There was insufficient activation of motor unit potentials for assessment of recruitment in the right lateral gastrocnemius, but no abnormal motor unit potentials were seen. In the right vastus lateralis, there appeared to be occasional enlarged motor unit potentials without impairment of recruitment. Motor unit potential recruitment and morphology were normal in the vastus medialis, tibialis anterior, short head of the biceps femoris, semitendinosis and extensor hallucis longus bilaterally, as well as the left vastus lateralis and the left lateral gastrocnemius. Interpretation: Nerve conduction studies of both lower limbs were likely normal. Superficial peroneal sensory responses could not be obtained on either side, but the corresponding sural nerve responses were well within normal limits. There was no other evidence of peripheral polyneuropathy. Needle EMG examination was hampered by abbreviated muscle activation that made assessment of recruitment patterns impossible in many cases, especially distally. There did appear to be some evidence of mild chronic denervation in multiple right lower limb muscles, but the three involved muscles had different peripheral nerve innervation, and each was the sole parts representative of right motor nerve roots L4, L5 or S1. Thus these could represent remnants of multiple chronic motor radiculopathies, but corroboration was lacking from similarly innervated muscles. Once again, these results were obtained under conditions of suboptimal muscular activation. There was no evidence of ongoing denervation in any muscle. Clinical correlation is advised. Mike Calderon MD Test numbers [id number] and [id number] Location: Testing was conducted at [facility] as an outpatient. [facility] 12-30-2022 Procedure note Name: Kelli Sanchez Date of : 1940 Attending physician: Robert Gaytan MD A report of nerve conduction studies and electromyography of both lower extremities Date of service: December 30, 2022 Findings: Sensory nerve conduction studies disclosed absent responses in the superficial peroneal nerves bilaterally. Response latencies and amplitudes were normal in the sural nerves bilaterally. Motor nerve conduction studies disclosed normal distal latencies, response amplitudes and conduction velocities in the peroneal/fibular and tibial nerves bilaterally. Tibial nerve H-reflexes were absent bilaterally. Needle EMG examination disclosed normal spontaneous activity in the vastus medialis and lateralis, tibialis anterior, lateral gastrocnemius, short head of the biceps femoris, semitendinosis, extensor hallucis longus, extensor digitorum brevis and abductor hallucis bilaterally. Assessment of motor unit potential recruitment was hampered by unsustained muscle contraction, as if the patient fatigued rapidly; this was particularly true of distal muscles. In the left abductor hallucis, so few motor unit potentials were activated that neither recruitment nor morphology could be evaluated. In the right abductor hallucis, there was sufficient muscle activation to determine that recruitment was slightly decreased with occasional enlarged motor unit potentials. Muscular contraction was unsustained in the extensor digitorum brevis bilaterally; on the right there appeared to be enlarged motor unit potentials, while no abnormal potentials were seen on the left. There was insufficient activation of motor unit potentials for assessment of recruitment in the right lateral gastrocnemius, but no abnormal motor unit potentials were seen. In the right vastus lateralis, there appeared to be occasional enlarged motor unit potentials without impairment of recruitment. Motor unit potential recruitment and morphology were normal in the vastus medialis, tibialis anterior, short head of the biceps femoris, semitendinosis and extensor hallucis longus bilaterally, as well as the left vastus lateralis and the left lateral gastrocnemius. Interpretation: Nerve conduction studies of both lower limbs were likely normal. Superficial peroneal sensory responses could not be obtained on either side, but the corresponding sural nerve responses were well within normal limits. There was no other evidence of peripheral polyneuropathy. Needle EMG examination was hampered by abbreviated muscle activation that made assessment of recruitment patterns impossible in many cases, especially distally. There did appear to be some evidence of mild chronic denervation in multiple right lower limb muscles, but the three involved muscles had different peripheral nerve innervation, and each was the sole parts representative of right motor nerve roots L4, L5 or S1. Thus these could represent remnants of multiple chronic motor radiculopathies, but corroboration was lacking from similarly innervated muscles. Once again, these results were obtained under conditions of suboptimal muscular activation. There was no evidence of ongoing denervation in any muscle. Clinical correlation is advised. Mike Calderon MD Test numbers [id number] and [id number] Location: Testing was conducted at [facility] as an outpatient. [facility] [employer] Phone: 12-30-2022 Procedure note Name: Kelli Sanchez Date of : 1940 Attending physician: Robert Gaytan MD A report of nerve conduction studies and electromyography of both lower extremities Date of service: December 30, 2022 Findings: Sensory nerve conduction studies disclosed absent responses in the superficial peroneal nerves bilaterally. Response latencies and amplitudes were normal in the sural nerves bilaterally. Motor nerve conduction studies disclosed normal distal latencies, response amplitudes and conduction velocities in the peroneal/fibular and tibial nerves bilaterally. Tibial nerve H-reflexes were absent bilaterally. Needle EMG examination disclosed normal spontaneous activity in the vastus medialis and lateralis, tibialis anterior, lateral gastrocnemius, short head of the biceps femoris, semitendinosis, extensor hallucis longus, extensor digitorum brevis and abductor hallucis bilaterally. Assessment of motor unit potential recruitment was hampered by unsustained muscle contraction, as if the patient fatigued rapidly; this was particularly true of distal muscles. In the left abductor hallucis, so few motor unit potentials were activated that neither recruitment nor morphology could be evaluated. In the right abductor hallucis, there was sufficient muscle activation to determine that recruitment was slightly decreased with occasional enlarged motor unit potentials. Muscular contraction was unsustained in the extensor digitorum brevis bilaterally; on the right there appeared to be enlarged motor unit potentials, while no abnormal potentials were seen on the left. There was insufficient activation of motor unit potentials for assessment of recruitment in the right lateral gastrocnemius, but no abnormal motor unit potentials were seen. In the right vastus lateralis, there appeared to be occasional enlarged motor unit potentials without impairment of recruitment. Motor unit potential recruitment and morphology were normal in the vastus medialis, tibialis anterior, short head of the biceps femoris, semitendinosis and extensor hallucis longus bilaterally, as well as the left vastus lateralis and the left lateral gastrocnemius. Interpretation: Nerve conduction studies of both lower limbs were likely normal. Superficial peroneal sensory responses could not be obtained on either side, but the corresponding sural nerve responses were well within normal limits. There was no other evidence of peripheral polyneuropathy. Needle EMG examination was hampered by abbreviated muscle activation that made assessment of recruitment patterns impossible in many cases, especially distally. There did appear to be some evidence of mild chronic denervation in multiple right lower limb muscles, but the three involved muscles had different peripheral nerve innervation, and each was the sole parts representative of right motor nerve roots L4, L5 or S1. Thus these could represent remnants of multiple chronic motor radiculopathies, but corroboration was lacking from similarly innervated muscles. Once again, these results were obtained under conditions of suboptimal muscular activation. There was no evidence of ongoing denervation in any muscle. Clinical correlation is advised. Mike Calderon MD Test numbers [id number] and [id number] Location: Testing was conducted at [facility] as an outpatient. documented in this encounter [facility] 12-16-2022 History of Present illness Narrative Images from the original note were not included. [facility] [address] [place] [address] [facility] [address] Dept: [phone] Dept Loc: [phone] Robert Gaytan MD Thank you for your kind request for a neurological consultation on this patient. CHIEF COMPLAINT: Chief Complaint Patient presents with New Patient Extremity Weakness Fall HISTORY OF PRESENT ILLNESS: The patient is a 82 y.o. person who presents with trouble walking and memory loss. She has had frequent falls. She started having falls in late summer of 2020. She had a fall in May that caused an admission to [facility]. She has amnesia for minutes around the time of the fall (mostly retrograde). She reports that she had a CT head that was read as normal. She is being followed by geriatrics for memory loss. She has had multiple MOCA's in recent years showing scores 24-25. Onset Sudden? No Associated with head trauma? Maybe Associated with TIA or Stroke symptoms? No Associated with infection? No Associated with auto-immune disease? No Associated with drug or medication? No Associated with tumor or treatment of tumor? No Associated with diet change or gastric bypass? No Associated with depression, anxiety, psychosis, or other psychiatric disease? No Associated with seizures? 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), Carpal tunnel syndrome of right wrist (10/10/2022), Cervical radiculopathy (10/10/2022), Chronic gouty arthritis (10/10/2022), Closed fracture of distal end of humerus (10/10/2022), Hypercholesterolemia (10/10/2022), Localized, primary osteoarthritis of hand (10/10/2022), Lumbar spondylosis (10/10/2022), Menopausal and postmenopausal disorder (10/10/2022), Orthostatic hypotension (10/08/2021), Segmental and somatic dysfunction (10/10/2022), 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athy (10/10/2022), Unspecified dementia, mild, with mood disturbance (HCC) (07/18/2022), and Vitamin D deficiency (09/17/2021). Past Surgical History: has a past surgical history that includes Tonsillectomy and adenoidectomy (1947); section (01/1969); section (01/1971); arthroscopy (historical) (Left, 03/1987); bld carpel tunnel release (historical) (Right); Toe Surgery (Right, 04/2005); Total knee arthroplasty (Left, 09/04/2011); Total hip arthroplasty (Left, 01/01/2016); Knee Arthroplasty (Right); Humerus surgery (Left, 04/2020); and cholecystectomy fnc41 (historical) (05/05/2021). Medications: Current Outpatient Medications: allopurinol (Zyloprim) 100 MG tablet, Take 200 mg by mouth daily., Disp: , Rfl: biotin 1000 MCG tablet, Take by mouth., Disp: , Rfl: cetirizine (ZyrTEC) 10 MG tablet, Take 10 mg by mouth daily., Disp: , Rfl: cholecalciferol (Vitamin D-3) 25 MCG (1000 UT) tablet, Take 1,000 Units by mouth daily., Disp: , Rfl: fluticasone (Flonase) 50 MCG/ACT nasal spray, Administer into affected nostril(s)., Disp: , Rfl: ibuprofen 200 MG tablet, Take 200 mg by mouth every 6 hours as needed., Disp: , Rfl: magnesium 500 MG tablet, Take by mouth., Disp: , Rfl: multivitamin with minerals (Cerovite) 18-400 mg-mcg tablet tablet, Take by mouth., Disp: , Rfl: polyethylene glycol, PEG, 3350 (Glycolax) 17 GM/SCOOP powder, Take 17 g by mouth Daily as needed (constipation)., Disp: , Rfl: sertraline (Zoloft) 100 MG tablet, Take 1 tablet (100 mg) by mouth daily. Do not start before October 24, 2022., Disp: 30 tablet, Rfl: 5 Turmeric 500 MG tablet, Take by mouth., Disp: , Rfl: Allergies: Cranberry extract, Meperidine, and Sulfa antibiotics Social History: Social History Socioeconomic History Marital status: Spouse name: Not on file Number of children: Not on file Years of education: Not on file Highest education level: Not on file Occupational History Not on file Tobacco Use Smoking status: Former Smokeless tobacco: Never Substance and Sexual Activity Alcohol use: Never Drug use: Never Sexual activity: Not on file Other Topics Concern Not on file Social History Narrative Not on file Social Determinants of Health Financial Resource Strain: Not on file Food Insecurity: Not on file Transportation Needs: Not on file Physical Activity: Not on file Stress: Not on file Social Connections: Not on file Intimate Partner Violence: Not on file Housing Stability: Not on file Family History: No family history on file. REVIEW OF SYSTEMS: Review of Systems Constitutional: Positive for fatigue. Negative for appetite change, chills, diaphoresis, fever and unexpected weight change. HENT: Negative for dental problem and mouth sores. Eyes: Negative for discharge and itching. Respiratory: Negative for chest tightness and shortness of breath. Cardiovascular: Negative for chest pain, palpitations and leg swelling. Gastrointestinal: Negative for abdominal pain, nausea, rectal pain and vomiting. Endocrine: Negative for polydipsia, polyphagia and polyuria. Genitourinary: Negative for decreased urine volume, flank pain and genital sores. Musculoskeletal: Positive for back pain. Negative for arthralgias and neck pain. Skin: Negative for color change. Allergic/Immunologic: Negative for food allergies and immunocompromised state. Neurological: Positive for dizziness. Negative for syncope, weakness, light-headedness and headaches. Hematological: Negative for adenopathy. Does not bruise/bleed easily. Psychiatric/Behavioral: Negative for agitation, behavioral problems, confusion, decreased concentration, sleep disturbance and suicidal ideas. Answers submitted by the patient for this visit: Neurological Problem Questionnaire (Submitted on 12/09/2022) Chief Complaint: Neurologic complaint altered mental status: No clumsiness: Yes focal sensory loss: No focal weakness: Yes loss of balance: Yes memory loss: No near-syncope: No slurred speech: No visual change: No Chronicity: chronic Onset: more than 1 year ago Onset quality: insidiously Progression since onset: gradually worsening Focality: left-sided, right-sided auditory change: Yes aura: No bladder incontinence: Yes bowel incontinence: No vertigo: No Treatments tried: bed rest, medication, sleep Improvement on treatment: mild PHYSICAL EXAM: Vitals: BP 130/76 (BP Location: Right arm, Patient Position: Sitting, BP Cuff Size: Adult) Pulse 67 Ht 5' (1.524 m) Wt 120 lb (54.4 kg) BMI 23.44 kg/m General Appearance: Patient is in no apparent distress. Head is normocephalic, atraumatic Cardiovascular: Regular rate and rhythm. No heart murmurs. No carotid bruit Neurologic: Mentation: Alert and oriented x 3 [address] person, place and time. Speech and Language: Speech and language normal Concentration and Attention: Aced serial 7's Memory: Memory 5/5 immediate, 2/5 delayed Fund of Knowledge: Fund of knowledge normal Cranial Nerves: II, III, IV, V, , VII, VIII, IX, X, XI, XII tested and were intact including fundoscopic exam (optic discs) and visual field to confrontation. Motor: Strength: Strength 5 out of 5 with normal tone in the proximal arms. Her fingers and wrist are 4/5. Her hip flexors are 3/5 knee extensor 4-to 3+/5. Ankles are 3/5. Alternating Movements: Normal Cogwheel Rigidity: None Tone: Tone is normal Tremor / Involuntary Movements: None Deep Tendon Reflexes: nearly 0 out of 4 symmetrical in all four limbs. Sensory:Decreased pinprick Coordination: Normal coordination upper and lower extremities Gait and Station: She requires max assist to stand and is very unsteady when she walks. DATA No results found for: PHENYTOIN, PHENOBARB, VALPROATE, CBMZ Lab Results Component Value Date HGB 12.4 04/06/2020 @LASTAPPOINTMENTTHISPROV@ OUTSIDE IMAGING SCAN Ordered by an unspecified provider. No results found for: LEVETIRACETA, FERRITIN, CRP, NICOLE, ANCANo components found for: TOPIRA No results found for: STONE, IMMUNOGLOBUL, OLIGOBANDS No results found for: STONE, SEDRATE, CRP, NICOLE, ANCA, HOMOCYSTEINE, [id number], GLUCCSF No results found for: [id number], HEPCAB ASSESSMENT AND PLAN Problem List Items Addressed This Visit None Visit Diagnoses Weakness of both legs - Primary Numbness in both legs 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, unspecified whether behavioral, psychotic, or mood disturbance or anxiety ([facility]) EMG/NCS for neuropathy causing her imbalance and falls. Donepezil 5 mg po QPM. I spent 45 minutes caring for this patient today, reviewing labs and records, seeing the patient, documenting in the record and arranging for studies. documented in this encounter [facility] 10-10-2022 History of Present illness Narrative Senior Services/Geriatrics Social History Present at visit: patient, spouse- Mihai, son Harman Marital status: Children: 2 sons (none local) Living arrangement: with patient, own home >>03/21/22 same Household safety problems: falls about twice per month >>03/21/22 has frequent falls but less often >>10/10/22 leaning more when setting things down, ongoing falls issues Wandering potential: No >>03/21/22 no >>10/10/22 no issues Pets: No Guns in the home: No Elder abuse: No/denied concerns. 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 Activities: very little social activity, sleeps most of the day, only awake about 7 hours per day >>03/21/22 same, refuses to go places >>10/10/22 sleeps more, watches TV, doesn't like leaving home Exercise: none Finances: not reviewed Healthcare Power of Head Of [employer] Strategic Partnerships: Yes, Vanesa Rainey Financial Power of Head Of [employer] Strategic Partnerships: Yes, Vanesa Rainey Living Will: Yes Guardian:No Code Status: Full Code Primary Caregiver: spouse, Mihai Current care plan/supervision: spouse with patient most of the time but spouse can leave her alone >>03/21/22 same >>10/10/22 same Community resources: Yes: Home Health Aide 3x/week to help with shower, cleaning service every other week >>03/21/22 home service demonstrator comes to help with shower 2 days/week, cleaning service every other week >>10/10/22 same Caregiver stressors: spouse feeling increased stress, biggest stressor is patient's arguing >>03/21/22 spouse continues to have stress, biggest stressor is patient mood >>10/10/22 continues to have high stress, wants to move to assisted living but patient is reluctant Goals for care: evaluate memory, plan is to keep patient at home as long as possible As a Caregiver, What Matters Most to You: Planning for future needs Spouse has seen patient's memory decline for past 2 years. Patient has 3 alcoholic drinks per day. Patient gets fixated on things and will get very argumentative with spouse, which is causing him much stress. Patient may be interested in DNR-CCA according to spouse. >>03/21/22 patient more argumentative, 2 mistakes with overpaying bills, refusing to take mood medicine >>07-18-22 HAILEY met with patient to complete a PHQ9. She is reporting high levels of depression which is negatively affecting her life and relationships. Patient gave a list of items to discuss with doctor that she and family have discussed as priorities, including addressing hearing loss and moving into assisted living. HAILEY met with spouse as well and offered to make a [facility] referral for a service that will help patient and spouse with the Assisted Living process. Spouse was agreeable to referral. HAILEY also encouraged them to have patient go back to her store gift wrap associate to see if her hearing aides are working properly and get check up on hearing. SW made [facility] referral. Resources given today: [facility] [employer] information, Assisted Living checklist >>10/10/22 Family reporting decreasing reasoning skills and more short-term memory issues. Has ruined her last friend - cancelled plans too frequently. Family has toured assisted living since prior visit, but patient is reluctant to leave home at this time. SW reviewed importance of family determining personal caregiving line in the sand and making plans for reviewing additional supports to shift goals due to increased caregiver stress from remain in community to facility placement. SW reviewed typical disease decline concerns to monitor, including caregiver burnout and lack of community supports. Chute Loader educated that based on patient's current function, family is providing assisted living level of care in the home. Chute Loader normalized stress involved in managing complex care needs and encouraged family seek out respite options. Chute Loader normalized that patient could still do well in community with adequate informal/formal care supports, but also advised that if current caregiving plan is disrupted, the same level of care should be replicated. SW suggested increasing medication management. SW suggested use of docudose and family overseeing filling pill box and supervising pt taking meds. Functional Status (I: Independent, A: Assisted, D: Dependent) ADLs I A D Notes Bathing [] [x] [] Aide helps her to bathe, needs physical help >>03/21/22 same >>10/10/22 same, patient is on schedule (Mon, Fri). Personal care is consistent. Dressing [] [x] [] No issues >>03/21/22 may wear the same thing for a few days >>10/10/22 stable Toileting [x] [] [] Has some urinary accidents, wears Depends, manages on her own >>03/21/22 same >>10/10/22 stable Transfers [x] [] [] Spouse has to help her up some of the time >>03/21/22 no issues >>10/10/22 same Feeding [x] [] [] No issues >>03/21/22 messier eater >>10/10/22 same Ambulation [] [] [] Assistive devices: Grab Bars, Hearing Aids, Rollator, Straight Cane, Walker and Wheelchair IADLs I A D Telephone [] [x] [] Can call and answer the phone, patient sets up own appointments, writes appointments on calendar, doesn't need reminders >>03/21/22 same >>10/10/22 no longer initiating calls to family (maybe 1-2x a year), makes appointments/details on it are correct. puts in his calendar based on her information - seems ok. Can't recall details if asked. Transportation [] [] [x] Driving safety concerns: Not driving hasn't driven for a year, hit things when driving, Primary Care Physician told her not to drive >>03/21/22 not driving Shopping [] [] [x] Patient makes list, will put things on there that are on sale- will never eat them, spouse shops >>03/21/22 spouse shops, patient makes list >>10/10/22 adds to list, don't always need. (Goes through store flyers). Often throws away Meal prep [] [x] [] Patient will reheat things occasionally, spouse mostly handles meals by getting takeout or heating things up, patient refuses to go to restaurants >>03/21/22 same >>10/10/22 same, patient gets breakfast/lunch. 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 Medications [x] [] [] Patient sets up own pill box, spouse thinks she is setting up correctly, don't think she is missing doses, not monitoring >>03/21/22 patient still using pill box, chose to stop taking mood medication >>10/10/22 no monitoring, thinks is ok. Finances [] [x] [] Patient always has paid bills, getting confused with it lately, taking a long time to do bills, making double entries into checkbook >>03/21/22 double paying things, overpaying >>10/10/22 refused to pay high phone bill, didn't tell . Line was disconnected, has to correct. monitoring. Takes a long time. Many are on autopay. Services provided to pt this visit: Correspondence/Telephone Call Made: Yes, MOA to get lab results from [facility] IRAIDA Devlin 10/10/22 10:02 AM Review of Systems Constitutional: Positive for fatigue. Negative for appetite change, fever and unexpected weight change. HENT: Negative for dental problem, hearing loss and trouble swallowing. Eyes: Negative for visual disturbance. Respiratory: Negative for cough and shortness of breath. Cardiovascular: Negative for leg swelling. Gastrointestinal: Negative for constipation and diarrhea. Genitourinary: Negative for difficulty urinating and dysuria. Musculoskeletal: Positive for arthralgias, back pain and gait problem. Neurological: Positive for weakness. Negative for tremors and speech difficulty. Psychiatric/Behavioral: Positive for confusion and dysphoric mood. Negative for agitation, hallucinations and sleep disturbance. The patient is not nervous/anxious. Images from the original note were not included. [facility] [address] [address] Dept: [phone] Dept Loc: [phone] Visit type: [facility] Follow Up Visit Reason for Visit: Dementia and Depression Visit Date: 10/10/2022 Assessment and Plan 1. Mild dementia with mood disturbance, unspecified dementia type (HCC) - sertraline (Zoloft) 100 MG tablet; Take 1 tablet (100 mg) by mouth daily. Do not start before October 24, 2022., Starting Alisa 10/24/2022, Until Fri10/24/2023, Normal 2. Debility 3. Depression, unspecified depression type Depression: -will increase zoloft at this time. Will have her take 75 mg daily for 2 weeks using existing home supply (one and a half tablets of the 50 mg) and then start 100 mg daily -will see back in 3 months for depression follow up Dementia -MOCA score largely stable (declined by one point). Having slow progressive decline noted subjectively. -do recommend that another family member is present at any of her doctor's visits in order to catch all the information the doctors are providing. Debility -did complete home Physical Therapy -has neurology appointment scheduled for December to rule out parkinsonism or other neurologic conditions as a cause of her frequent falls -do feel that her visual impairment is increasing her fall risk. Recommended seeing her eye doctor -recommended following audiology's recommendations concerning the hearing aides. -Ms Sanchez is currently requiring an assisted living level of care. This is currently being provided by her and a paid aide for showers. If the isn't able to provide the care, then an assisted living level of care would need replication. Follow up in about 3 months (around 01/10/2023). Subjective HPI: Kelli Sanchez is a 82 y.o. female with past medical history of mild dementia, arthritis, OAB, hyperlipidemia, depression, gout who presents to the [facility] for a follow-up visit. The patient is known to me. Chart Review -seen in 04/04: having more consistent IADL impairment with finances and shopping. Dianosed with early mild dementia. Did not start aricept due to history of orthostatic hypotension. -depression was not controlled. Admitted to excessive worrying and can get irritated easily. Was not consistently taking her cymbalta due to concern for dizziness. Officially stopped the cymbalta in March. Started her on zoloft. -Seen again in June 2022 for mood. Also having frequent falls. There was some concern for parkinsonism so a neurology referral was placed. Also referred for home Physical Therapy and Occupational Therapy. Continued on the zoloft for her mood. Blood work was ordered for her fatigue but it was not obtained. Patient was encouraged to follow up with PCP for evaluation of her fatigue. History obtained from caregiver(s): Feliz and Son Harman -Mobility is worsening. -Ability to reason is declining. For example, on the car ride here, she couldn't figure out how to adjust the sun visor in the car in order to block out the sun. -Struggles with short term memory. For example, will watch a news segment four times. Doesn't remember seeing it before -terminal gauger memory is good -No safety issues -Does fall quite often. Using a walker. -There was a physical therapist who came about four times. Unfortunately, the patient did not keep up with the exercises once the therapist left. -Usually falls when she gets close enough to the furniture and she tries to lean to place an object as opposed to walking to it even closer. -Went to an audiology a few weeks ago. They recommended near hearing aides. Patient is declining to get them -She often will not wear the old hearing aides. -She sees an eye doctor annually. She is due for an appointment Mood: Not good. Depression is present. She blames her whenever something goes wrong. The zoloft did seem to help a bit but did not fully resolve the depression. Sleep: sleeps a lot. Sleeps 18 hours a day . Appetite: She says it is bad but she has lost some weight. She is actually eating though. She won't prepare foods anymore. cooks. She eats what is put in front of her. She also snacks. History obtained from patient: -Memory: about the same. It is not really great . Having boredom. -She likes to do word searches. -She lost three friends and a brother in law in the last year. This has impacted her mood. Mood: - not really great . Some apathy. -no side effects to the zoloft. -Appetite: better. has been cooking. -Sleep: good. -Hallucinations: No hallucinations. -She has noticed more vision issues. She is having more trouble with reading. -Doesn't think Physical Therapy helped her gait/balance. Says she has only fallen a few times since June. Reviewed progress notes completed by RADHIKA (MAK) and social work. Allergies Allergen Reactions Cranberry Extract Meperidine Sulfa Antibiotics Current Outpatient Medications Medication Sig Dispense Refill allopurinol (Zyloprim) 100 MG tablet Take 200 mg by mouth daily. biotin 1000 MCG tablet Take by mouth. cetirizine (ZyrTEC) 10 MG tablet Take 10 mg by mouth daily. cholecalciferol (Vitamin D-3) 25 MCG (1000 UT) tablet Take 1,000 Units by mouth daily. fluticasone (Flonase) 50 MCG/ACT nasal spray Administer into affected nostril(s). ibuprofen 200 MG tablet Take 200 mg by mouth every 6 hours as needed. magnesium 500 MG tablet Take by mouth. multivitamin with minerals (Cerovite) 18-400 mg-mcg tablet tablet Take by mouth. polyethylene glycol, PEG, 3350 (Glycolax) 17 GM/SCOOP powder Take 17 g by mouth Daily as needed (constipation). Turmeric 500 MG tablet Take by mouth. [START ON 10/24/2022] sertraline (Zoloft) 100 MG tablet Take 1 tablet (100 mg) by mouth daily. Do not start before October 24, 2022. 30 tablet 5 No current facility-administered medications for this visit. 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 Carpal tunnel syndrome of right wrist 10/10/2022 Cervical radiculopathy 10/10/2022 Chronic gouty arthritis 10/10/2022 Closed fracture of distal end of humerus 10/10/2022 Hypercholesterolemia 10/10/2022 Localized, primary osteoarthritis of hand 10/10/2022 Lumbar spondylosis 10/10/2022 Menopausal and postmenopausal disorder 10/10/2022 Orthostatic hypotension 10/08/2021 Segmental and somatic dysfunction 10/10/2022 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athy 10/10/2022 Unspecified dementia, mild, with mood disturbance 07/18/2022 Vitamin D deficiency 09/17/2021 Social History Tobacco Use Smoking status: Former Smokeless tobacco: Never Substance Use Topics Alcohol use: Not on file History reviewed. No pertinent surgical history. No family history on file. No family status information on file. Objective Vitals: 10/10/22 0910 BP: 129/83 BP Location: Left arm Patient Position: Sitting Temp: 35.8 C (96.5 F) Weight: 124 lb 6.4 oz (56.4 kg) Wt Readings from Last 3 Encounters: 10/10/22 124 lb 6.4 oz (56.4 kg) 07/18/22 124 lb (56.2 kg) 03/21/22 127 lb 6.4 oz (57.8 kg) Physical Exam Constitutional: General: She is not in acute distress. Appearance: She is not ill-appearing. HENT: Head: Normocephalic and atraumatic. Comments: Wearing her hearing aides today Cardiovascular: Rate and Rhythm: Normal rate and regular rhythm. Heart sounds: No murmur heard. No friction rub. No gallop. Pulmonary: Effort: Pulmonary effort is normal. Breath sounds: Normal breath sounds. No decreased breath sounds, wheezing, rhonchi or rales. Musculoskeletal: Right lower leg: No edema. Left lower leg: No edema. Neurological: Mental Status: She is alert. Comments: Does seem to have some rigidity in her upper extremities on passive ROM Psychiatric: Attention and Perception: Attention normal. Mood and Affect: Affect normal. Mood is depressed. Speech: Speech normal. Behavior: Behavior normal. Cognition and Memory: Cognition is impaired (mild). Memory is impaired (mild). Data Reviewed and Summarized Testing: The following tests were performed at today's visit and scanned in to thechart: MoCA score: , MIS score: 10/15 Clock drawing score: 4/7 PHQ-9 score: 10 AQUILES: 7 I independently reviewed the [place] Cognitive Assessment from 10/10/2022. Test scanned in to the chart. She had a CT head in 06/03 at [facility] which showed small vessel ischemic/degenerative changes and cerebral and cerebellar atrophy. I spent total time of 70 minutes face to face with the patient and/or family discussing the diagnosis and importance of compliance with the treatment plan as well as documenting on the day of the visit. In addition, that total time includes the following: -Reviewing previous notes, -Reviewing previous cognitive tests, -Obtaining and/or reviewing separately obtained history, -Ordering prescription medications, tests and procedures, -Communicating results to the patient/family/caregiver, -Counseling/educating the patient/family/caregiver, -Documenting clinical information in the patients electronic record, -Coordination of care for the patient, and -Performing a medically appropriate exam and/or evaluation documented in this encounter [facility] 10-10-2022 Instructions Ricarda Workman MD - 10/10/2022 8:45 AM EDT -Recommend getting hearing aides (as recommended by your store gift wrap associate) and wearing them -Recommend seeing an eye doctor and getting your vision checked. Having vision issues could be increasing your risk of falling. -Recommend seeing a neurologist to evaluate your falls and gait issues -we will increase your zoloft (sertraline) to help with mood. Recommend taking 75 mg daily for two weeks (you can take a pill and a half of the 50 mg tablets that you have at home). Then, start zoloft 100 mg daily thereafter. It may take up to 6 weeks to see the full improvement in your mood. -Ms Sanchez is currently requiring an assisted living level of care. This is currently being provided by her and a paid aide for showers. If the isn't able to provide the care, then an assisted living level of care would need replication. documented in this encounter [facility] [employer] documented in this encounter [facility] [employer] note* Diagnosis Weakness of both legs- Primary Muscle weakness (generalized) Numbness in both legs Disturbance of skin sensation 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, unspecified whether behavioral, psychotic, or mood disturbance or anxiety (HCC) Other fatigue documented in this encounter [facility] [employer] note* Diagnosis Numbness in both legs Disturbance of skin sensation Weakness of both legs Muscle weakness (generalized) documented in this encounter [facility]* Diagnosis 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, unspecified whether behavioral, psychotic, or mood disturbance or anxiety (HCC)- Primary Ataxic gait Abnormality of gait documented in this encounter [facility] [employer] note* Diagnosis 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, unspecified whether behavioral, psychotic, or mood disturbance or anxiety (HCC) Ataxic gait Abnormality of gait documented in this encounter [facility] [employer] note* Diagnosis 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, unspecified whether behavioral, psychotic, or mood disturbance or anxiety (HCC)- Primary Ataxic gait Abnormality of gait Frequent falls documented in this encounter [facility] [employer] Summary Purpose Family History No Family History Records FoundNo Family History Records FoundNo Family History Records Found Advance Directives Documents on File Type Date Recorded 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 ACP-Advance Directive 09/17/2021 Latest Code Status on File Code Status Date Activated Date Inactivated Comments Full Code 04/06/2020 6:59 AM 04/06/2020 2:14 PM Latest Code Status on File Code Status Date Activated Date Inactivated Comments Full Code 04/06/2020 6:59 AM Documents on File Type Date Recorded 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 [address] [place] [id number] Specialty Diagnoses / Procedures Referred By Contac t Referred To Contact Diagnoses Numbness in both legs Weakness of both legs Procedures Nerve conduction test with EMG Robert Gaytan MD [address] [facility] [address] [place] [address] Referral ID Status Reason Start Date Expiration Date V isits Requested Visits Authorized [id number] Incomplete 12/16/2022 06/14/2023 1 1 Specialty Diagnoses / Procedures Referred By Contac t Referred To Contact Radiology Diagnoses Numbness in both legs Weakness of both legs Procedures Nerve conduction test with EMG Robert Gaytan MD [address] [facility] [address] [place] [address] Referral ID Status Reason Start Date Expiration Date Visits Re quested Visits Authorized [id number] Closed 12/16/2022 06/14/2023 1 1 Specialty Diagnoses / Procedures Referred By Contac t Referred To Contact Radiology Diagnoses 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, unspecified whether behavioral, psychotic, or mood disturbance or anxiety (HCC) Ataxic gait Procedures MR brain wo contrast Robert Gaytan MD [address] [facility] [address] [place] [id number] Referral ID Status Reason Start Date Expiration Date V isits Requested Visits Authorized [id number] Authorized 02/28/2023 08/27/2023 1 1 Referral ID Status Reason Start Date Expiration Date Visits Re quested Visits Authorized [id number] Closed 02/28/2023 08/27/2023 1 1 Specialty Diagnoses / Procedures Referred By Contac t Referred To Contact Physical Therapy Diagnoses Ataxic gait Frequent falls Procedures [place] OFFICE/OUTPATIENT NEW HIGH MDM 60-74 MINUTES Norm Sandoval, KEV - [facility] [address] [address] Referral ID Status Reason Start Date Expiration Date Visits Requested Visits Authorized [id number] Pending Review Eval and Treat 3 11/09/2023 99 99 Assessments Diagnosis Other closed displaced fracture of distal end of left humerus, initial encounter Diagnosis Other closed displaced fracture of distal end of left humerus, initial encounter Discharge Instructions * Instructions* Sanjuanita Martins RN - 04/06/2020 General Orthopedic Recovery Instructions The following instructions have been prepared to help you during your recovery. These guidelines are for the post-surgery period. Diet: ? No restrictions ? Light diet today then advance to previous diet tomorrow ? Liquids for 12 hours then advance as tolerated to your previous diet Activity: ? Bedrest ? Light activity ? Resume normal activity on: ? May return to school on: ? May return to work on: ? Keep extremity elevated for hours Medications: ? Your doctor will prescribe the appropriate pain medication for you. Take these pills only as directed and only if you need them. If you are experiencing mild discomfort, you may take Tylenol or Ibuprofen. ? NEVER mix alcohol with prescription pain medications. ? Pain medication may make you drowsy. Do not take pain medication when doing any activity that requires coordination, such as driving. Bowel Management: ? Constipation sometimes occurs after surgery, especially when taking pain medication. Eating a well-balanced diet and maintaining a good fluid intake are often all that is necessary to return to youpre-surgical bowel regimen. ? It is important not to strain excessively when having a bowel movement for the first several weeks following your surgery. A stool softener such as Colace may be helpful. You can purchase stool softeners without a prescription at your local drug store. ? If a stool softener is not enough to relieve your constipation, you may try taking Milk of Magnesia. ? You may use over the counter medicine, such a Gas-X, if you experience gas pains after surgery. Wound Care and Hygiene: ? Wash hands before touching or changing dressings ? Do Not touch incision ? Change dressing daily starting post-op day and reapply dressing ? Do Not remove dressing until seen in office ? May shower or tub bath starting post-op day ? Use ice pack to operative area for 72 hours as needed Call Your Doctor for: ? Excessive bleeding/swelling of incision ? Fever with temperature above 100F ? Chills ? Severe, continuous pain that is not relieved with medication ? Any inability to urinate ? Drainage after the first 24 hours Anesthesia/Sedation Precautions: ? Do Not operate any vehicle (automobile, bicycle, motorcycle) or power tools for 24 hours ? Do Not drink alcoholic beverages for 24 hours ? As precaution to prevent post-operative nausea and vomiting, start your diet with liquids, then progress to light foods. If tolerated, resume normal diet. Additional Instructions: ? Start full motion tonight as tolerated ? May removed non-operative leg ONESIMO hose tonight. Continue to wear ONESIMO hose on operative leg until follow up in office ? Use crutches as needed for pain ? Wear post-op shoe until surgeon instructs otherwise Contact your surgeon's office at if you have any problems or questions. If unable to reach yoursurgeon report to Hospital Emergency room. documented in this encounter History of Present Illness * Sanjuanita Martins RN - 04/06/2020 11:00 AM EDT Reviewed home going instructions. No questions. Waiting on meds to bed. * Maren Stiles RN - 04/06/2020 10:21 AM EDT Followed up with patient in [facility] post op area; Pt not having any pain or discomfort in left arm; Very happy with block results documented in this encounter Additional Source Comments INFORMATION SOURCE (unrecogn ized section and content) DATE CREATED AUTHOR AUTHOR'S ORGANIZ ATION 04/10/2020 [employer] DATE CREATED AUTHOR AUTHOR'S ORGANIZ ATION 06/04/2023 [employer] [facility] Reason for Visit (unrecogniz ed section and content) Reason Comments Dementia Depression Reason Comments New Patient Extremity Weakness Fall Specialty Diagnoses / Procedures Referred By Lm solitario Referred To Contact Neurology Diagnoses Impaired functional mobility, balance, gait, and endurance Procedures [place] OFFICE/OUTPATIENT NEW HIGH MDM 60-74 MINUTES Ricarda Workman MD [address] [place] [address] [facility] [address] [facility] [address] [place] [address] Referral ID Status Reason Start Date Expiration Date Visits Requested Visits Authorized [id number] Pending Review Specialty Services Required 07/18/2022 01/14/2023 1 1 Specialty Diagnoses / Procedures Referred By Contac t Referred To Contact Radiology Diagnoses Numbness in both legs Weakness of both legs Procedures Nerve conduction test with EMG Robert Gaytan MD [address] [facility] [address] [place] [address] Referral ID Status Reason Start Date Expiration Date Visits Re quested Visits Authorized [id number] Closed 12/16/2022 06/14/2023 1 1 Reason Onset Date Comments Results 01/20/2023 Reason Comments Follow-up Extremity Weakness Reason Onset Date Comments Advice Only 03/05/2023 Specialty Diagnoses / Procedures Referred By Contac t Referred To Contact Radiology Diagnoses 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, unspecified whether behavioral, psychotic, or mood disturbance or anxiety (HCC) Ataxic gait Procedures MR brain wo contrast Robert Gaytan MD [address] [facility] [address] [place] [id number] Referral ID Status Reason Start Date Expiration Date Visits Re quested Visits Authorized [id number] Closed 02/28/2023 08/27/2023 1 1 Reason Comments Follow-up Reason Onset Date Comments call back 05/12/2023 Reason Onset Date Comments MRI results 06/02/2023 Reason Onset Date Comments Results 04/11/2023 Care Teams (unrecognized sec tion and content) Hospice Aide Relationship Specialty Start Date End Date Loren Dee [address] [place] [phone] PCP - General 06/22/19 Hospice Aide Relationship Specialty Start Date End Date Loren Dee [address] [place] [phone] PCP - General 06/22/19 Hospice Aide Relationship Specialty Start Date End Date Loren Dee [address] [place] [phone] PCP - General 06/22/19 Hospice Aide Relationship Specialty Start Date End Date Loren Dee [address] [place], [place] [address] PCP - General 06/22/19 Hospice Aide Relationship Specialty Start Date End Date Loren Dee [address] [place] [address] PCP - General 06/22/19 Hospice Aide Relationship Specialty Start Date End Date Loren Dee [address] [place] [address] PCP - General 06/22/19 Hospice Aide Relationship Specialty Start Date End Date Loren Dee [address] [place] [address] PCP - General 06/22/19 Hospice Aide Relationship Specialty Start Date End Date Loren Dee [address] [place] [address] PCP - General 06/22/19 Hospice Aide Relationship Specialty Start Date End Date Loren Dee [address] [place] [address] PCP - General 06/22/19 Hospice Aide Relationship Specialty Start Date End Date SylviaLoren taveras [address] [place] [address] PCP - General 06/22/19 FOR RECORDS PERTAINING TO PATIENTS WHO ARE OR HAVE BEEN ENROLLED IN A CHEMICAL DEPENDENCY/SUBSTANCEABUSE PROGRAM, SOME INFORMATION MAY BE OMITTED. This clinical summary was aggregated from multiple sources. Caution should be exercised in using it in the provision of clinical care. This summary normalizes information from multiple sources, and as a consequence, information in this document may materially change the coding, format and clinical context of patient data. In addition, data may be omitted in some cases. CLINICAL DECISIONS SHOULD BE BASED ON THE PRIMARY CLINICAL RECORDS. [email or web address] provides no warranty or guarantee of the accuracy or completeness of information in this document.
[2023-08-26 09:17] LABS: Absolute Lymphocyte Count 1.64 X10^3/uL (0.83-4.51); Absolute Neutrophil Count 2.5 X10^3/uL (2.0-7.7); Basophil# 0.05 X10^3/uL; Basophil% 0.9 % (0-1); Eosinophil# 0.27 X10^3/uL; Hematocrit 34.5 % (37-47); Hemoglobin 11.6 g/dL (12.0-15.0); Lymphocyte # 1.64 X10^3/ul (0.83-4.51); Lymphocyte % 30.4 % (19-41); Mean Corp Hgb Conc 33.6 g/dL (32-36); Mean Corpuscular Hgb 31.5 pg (27.0-32.0); Mean Corpuscular Volume 93.8 fL (81-99); Mean Platelet Vol. 9.9 fl (6.2-12.0); Monocyte# 0.97 X10^3/uL; NRBC Flagged by Analyzer 0 % (0-5); Neutrophil # 2.45 X10^3/uL (2.7-7.7); Neutrophil % 45.5 % (47-70); Platelet Count 273 K/mm3 (150-450); RBC Distribution Width CV 14.4 % (11.6-14.6); RBC Distribution Width SD 48.4 fl (35.1-43.9); Red Blood Count 3.68 M/mm3 (4.2-5.4); White Blood Count 5.4 K/mm3 (4.4-11.0)
[2023-08-26 09:43] LABS: Anion Gap 6 (5-15); BUN 14 mg/dL (7-18); BUN/Creat Ratio 22.6 RATIO (10-20); Calcium,Total 8.9 mg/dL (8.5-10.1); Chloride 110 mmol/L (98-107); Creatinine, Serum 0.62 mg/dL (0.55-1.02); EST Glomerular Filtration Rate 98 mL/min (>60); Est Glom Filt Rate - Afr Amer 119 mL/min (>60); Glucose 94 mg/dL (74-106); Potassium 3.9 mmol/L (3.5-5.1); Sodium Level 141 mmol/L (136-145)
== END ==
LOC: OLS.WHLTSB 05:00
PROVIDERS: PCP Internal Medicine; Visit Provider Internal Medicine
DX: R53.83 Other fatigue (principal); E55.9 Vitamin D deficiency, unspecified; F32.A Depression, unspecified
CPT/HCPCS: 36415; 80048; 85025

== ENCOUNTER → 2023-09-11 | Outpatient (REF) | payer MEDICARE, SELFPAY ==
--- OUTSIDE RECORDS SUMMARY | 2023-09-12 08:44 | XMS RPT_ITS | CCD ---
Author Name Unknown Address [address] [place] [address] Organization [facility] Care Team Providers Care Still Operator Helper Name Role Phone MIHAI ABDALLA Unavailable Unavailable JOLLIFF, OLREN Unavailable Unavailable Jolliff, Loren S Primary Care Provider Jolliff, Loren S Primary Care Provider Jolliff, Loren S Primary Care Provider [phone] Jolliff, Loren S Primary Care Provider Jolliff, Loren S Primary Care Provider JOLLIFF, [...] (5 sources) Cranberry preparation Drug Allergy 0 [place] (20 sources) Meperidine Drug Allergy 0 [place] (5 sources) Sulfonamides (Antibiotic) Propensity to adverse reactions to drug 0 [place] (16 sources) Cranberry Propensity to adverse reactions 0 [facility] (16 sources) Sulfonamides (Antibiotic) Drug Intolerance 0 [facility] (9 sources) HYDROcodone Drug Allergy 1 [facility] (9 sources) meloxicam Drug Allergy 3 [employer] (9 sources) Propoxyphene Drug Allergy 1 [employer] Medications Current Medications Medication Drug Class(es) Dates [...] 11:29-0400 Body height 152.4 cm Norm Annita CHICKEN HATCHERY HELPER - CHEMICAL PROCESSING SUPERVISOR Work Phone: [facility] 05-13-2023 11:29-0400 Body mass index (BMI) [Ratio] 24.57 kg/m2 Norm Annita CHICKEN HATCHERY HELPER - CHEMICAL PROCESSING SUPERVISOR Work Phone: [facility] 05-13-2023 11:29-0400 Body weight 57.06 kg Norm Annita CHICKEN HATCHERY HELPER - CHEMICAL PROCESSING SUPERVISOR Work Phone: [facility] 05-13-2023 11:29-0400 Diastolic blood pressure 78 mm[Hg] Norm Annita CHICKEN HATCHERY HELPER - CHEMICAL PROCESSING SUPERVISOR Work Phone: [facility] 05-13-2023 11:29-0400 Heart rate 81 /min Norm Annita CHICKEN HATCHERY HELPER - CHEMICAL PROCESSING SUPERVISOR Work Phone: [facility] 05-13-2023 11:29-0400 Systolic blood pressure 126 mm[Hg] Norm Annita CHICKEN HATCHERY HELPER - CHEMICAL PROCESSING SUPERVISOR Work Phone: [facility] 02-28-2023 13:14-0400 Diastolic blood pressure 61 mm[Hg] Robert Gaytan MD Work Phone: [facility] 02-28-2023 13:14-0400 Heart rate 83 /min Robert Gaytan MD Work Phone: [facility] 02-28-2023 13:14-0400 Systolic blood pressure 107 mm[Hg] Robert Gaytan MD Work Phone: [facility] 12-16-2022 13:51-0400 Body height 152.4 cm Robert Gaytan MD Work Phone: [facility] 12-16-2022 13:51-0400 Body mass index (BMI) [Ratio] 23.44 kg/m2 Robert Gaytan MD Work Phone: [facility] 12-16-2022 13:51-0400 Body weight 54.43 kg Robert Gaytan MD Work Phone: [facility] 12-16-2022 13:51-0400 Diastolic blood pressure 76 mm[Hg] Robert Gaytan MD Work Phone: [facility] 12-16-2022 13:51-0400 Heart rate 67 /min Robert Gaytan MD Work Phone: [facility] 12-16-2022 13:51-0400 Systolic blood pressure 130 mm[Hg] Robert Gaytan MD Work Phone: [facility] 10-10-2022 09:10-0400 Body mass index (BMI) [Ratio] 24.3 kg/m2 Ricarda Workman MD Work Phone: [facility] 10-10-2022 09:10-0400 Body temperature 96.49 [degF] Ricarda Workman MD Work Phone: [facility] 10-10-2022 09:10-0400 Body weight 56.43 kg Ricarda Workman MD Work Phone: [facility] 10-10-2022 09:10-0400 Diastolic blood pressure 83 mm[Hg] Ricarda Workman MD Work Phone: [facility] 10-10-2022 09:10-0400 Systolic blood pressure 129 mm[Hg] Ricarda Workman MD Work Phone: [facility] 04-06-2020 11:15-0400 BP Diastolic 71 mm[Hg] [facility] [place] 04-06-2020 11:15-0400 BP Systolic 124 mm[Hg] [facility] [place] 04-06-2020 11:15-0400 Pulse (Heart Rate) 80 /min Hiram Lopes [facility], [place] 04-06-2020 11:15-0400 Pulse Oximetry 99 % Hiram Lopes [facility] , [place] 04-06-2020 11:15-0400 Respiratory Rate 18 /min [facility] [place] [facility]-06-2020 11:00-0400 Body Temperature 97.59 [degF] [facility] [place] 04-06-2020 06:59-0400 BMI (Body Mass Index) 23.44 kg/m2 Hiram Burris [facility] [place] [place] 04-06-2020 06:59-0400 Body weight 54.43 kg Hiram Lopes [facility] , [place] 04-06-2020 06:59-0400 Height 152.4 cm Hiram [facility] , [place] Encounters Encounter Date Encounter Type Care Provider Facility Start: 06-02-2023 Telephone encounter Norm Garcia APRN - CHEMICAL PROCESSING SUPERVISOR Work Phone: [facility] Procedures Date Procedure Procedure Detail Performing [...] procedure 09/11/2023 11:00 AM EST Office Visit [facility] [address] [place] [id number] Norm Sandoval APRN - CHEMICAL PROCESSING SUPERVISOR [address] [place] [address] [facility] Start: 04-21-2023 End: 04-21-2023 Patient encounter procedure 04/21/2023 11:30 AM EDT Office Visit [facility] [address] [place] [id number] Norm Sandoval APRN - CNP [address] [facility] [address] [place] [address] [facility] Start: 04-12-2023 Depresssion Monitoring Depresssion Monitoring [facility] Start: 04-02-2023 End: 04-02-2023 Patient encounter procedure 04/02/2023 6:30 AM EDT Appointment [facility] [address] [place] [address] Robert Gaytan MD [address] [facility] [address] [place] [address] [facility] Start: 03-14-2023 COVID-19 Vaccine ( season) COVID-19 Vaccine ( season) [facility] Start: 03-14-2023 Influenza vaccination [facility] Start: 02-28-2023 End: 02-29-2024 MR Brain WO contrast MR brain wo contrast Imaging Routine 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, unspecified whether behavioral, psychotic, or mood disturbance or anxiety (HCC) Ataxic gait Expected: 02/28/2023, Expires: 02/29/2024 [facility] Work Phone: Immunizations Immunization Date Immunization Notes Care Provider Fa [facility] 06-13-2021 influenza, seasonal, injectable Ricarda Workman MD Work Phone: [facility] 06-13-2021 influenza virus vacc ine, unspecified formulation Ricarda Workman MD Work Phone: [facility] 04-17-2020 influenza, injectabl e, quadrivalent, contains preservative Ricarda Workman MD Work Phone: [facility] 05-14-2019 influenza, injectabl e, quadrivalent, contains preservative Ricarda Workman MD Work Phone: [facility] 05-07-2018 influenza, injectabl e, quadrivalent, contains preservative Ricarda Workman MD Work Phone: [facility] 05-01-2017 influenza, seasonal, injectable Ricarda Simmers MD Work Phone: [facility] 05-10-2016 influenza, injectabl e, quadrivalent, contains preservative Ricarda Workman MD Work Phone: [facility] 05-31-2015 influenza, seasonal, injectable Ricarda Workman MD Work Phone: [facility] 09-02-2014 pneumococcal conjuga te vaccine, 13 valent Ricarda Workman MD Work Phone: [facility] 05-17-2014 influenza, seasonal, injectable Ricarda Workman MD Work Phone: [facility] 05-06-2013 influenza, seasonal, injectable Ricarda Workman MD Work Phone: [facility] 04-24-2012 influenza, seasonal, injectable Ricarda Workman MD Work Phone: [facility] 08-21-2009 novel influenza-H1N1 -09, preservative-free, injectable Ricarda Workman MD Work Phone: [facility] 09-02-2007 pneumococcal polysac charide vaccine, 23 valent Ricarda Workman MD Work Phone: [facility] 09-03-2006 zoster vaccine, live Ricarda Workman MD Work Phone: [facility] Payers Date Payer Category Payer Medicare [id number] 2015 Unknown [id number] Social History Date Type Detail Facility Start: 04-04-2020 End: 04-06-2020 Tobacco smoking status NHIS Former smoker [facility] [place], [place] Start: 04-04-2020 End: 04-06-2020 Tobacco use and exposure [facility] [employer] [facility]: 1940 Sex Assigned At Not on file M [place], [place] Start: 08-18-2021 End: 04-02-2023 Exposure to SARS-CoV-2 (event) Not sure [place] History of tobacco use Current smoker MARIE GARRIDO Work Phone: Start: 12-16-2022 End: 02-28-2023 Alcohol intake Lifetime non-drinker (finding) [facility] Start: 10-10-2022 End: 12-16-2022 History of Social function [facility] Start: 10-10-2022 End: 12-16-2022 Tobacco use panel [facility] Adolescent depressio n screening assessment 10 [facility] Clinical Notes 10-10-2022 to 06-02-2023 Telephone Encounter [...] relayed to the patient from encounter: Yes [facility] 06-02-2023 Miscellaneous Notes Message released to patient [...] Name of caller: Loren Contact phone number: [phone] Relationship to Patient: [facility] Provider: Norm WILKERSON Practice: Neuro Chief Complaint/Reason for Call: [phone] fax results, Loren states has sent requests for the MRI results since 04/15/23. Please advise Best time of day caller can be reached: Any Patient advised that office/PCP has 24-48 business hours to return their call: Yes documented in this encounter [facility] 06-02-2023 Telephone encounter Note Lm for Loren to call the office back, please relay providers message. [facility] 06-02-2023 Telephone encounter Note Look at my Assessment and Plan from her 05/12 visit----- Continue Donepezil 5mg daily Will order physical therapy She was given printed report of EMG and MRI brain We did discuss results of testing [facility] 06-02-2023 Telephone encounter Note Name of caller: Loren Contact phone number: [phone] Relationship to Patient: [facility] Provider: Norm WILKERSON Practice: Neuro Chief Complaint/Reason for Call: [phone] fax Loren kraft states has sent requests for the MRI results since 04/15/23. Please advise Best time of day caller can be reached: Any Patient advised that office/PCP has 24-48 business hours to return their call: Yes [facility] 05-13-2023 History of Present illness Narrative Visit [...] 300 mg/dL Final No results found for: [id number] , HEPCAB No results found for: CRP [...] is seen within the vessels of the mi'kmaq of [place]. The globes and orbital contents [...] & Plan notes found for this encounter. KVE Palomares CNP I spent 30 minutes caring for this patient today, reviewing labs, records, seeing the patient, documenting in the record and arranging for studies. Electronically signed by @RENO@ on @TDNR@ at @NOWNR@ documented in this encounter [facility] 05-12-2023 Telephone encounter Note Patient is scheduled for a sooner appointment, his son is needing to check with [facility] to make sure they can bring her and call us back. [facility] 05-12-2023 Miscellaneous Notes Patient is scheduled for [...] Medication Name: NA documented in this encounter [facility] 05-12-2023 Telephone encounter Note Can we see if something sooner is available? [facility] Work Phone: 05-12-2023 Telephone encounter Note Name of Caller: josey Contact Reason for Appointment: pt's appt was moved further out to go over MRI results and the pt's son is asking for the results sooner or for their appt to be moved back sooner Office Name: Neuro Medication Refills need, if any: NA Medication Name: NA [facility] 04-11-2023 Telephone encounter Note Please advise. [facility] 04-11-2023 Miscellaneous Notes Please advise. Name of caller: Kelli Contact phone number: [phone] Relationship to Patient: patient Provider: Dr Gaytan Practice: [facility] [place] Chief Complaint/Reason for Call: Pt states she would like to speak to the office regarding the results of her recent MR brain wo contrast. Please advise. Best time of day caller can be reached: any Patient advised that office/PCP has 24-48 business hours to return their call: No documented in this encounter [facility] 04-11-2023 Telephone encounter Note Name of caller: Kelli Contact phone number: [phone] Relationship to Patient: patient Provider: Dr Gaytan Practice: [facility] [place] Chief Complaint/Reason for Call: Pt states she would like to speak to the office regarding the results of her recent MR brain wo contrast. Please advise. Best time of day caller can be reached: any Patient advised that office/PCP has 24-48 business hours to return their call: No [facility] 03-05-2023 Telephone encounter Note OK [facility] 03-05-2023 Miscellaneous Notes OK Forwarding to provider for review and advice. Name of caller: Loren Contact phone number: [phone] Relationship to Patient: long term Provider: Dr. Gaytan Practice: [facility] [place] Chief Complaint/Reason for Call: Loren states that they received an order for a bed assist rail from the office, but they do not allow those at [facility]. Please advise. Best time of day caller can be reached: any Patient advised that office/PCP has 24-48 business hours to return their call: N/A documented in this encounter [facility] 03-05-2023 Telephone encounter Note Forwarding to provider for review and advice. [facility] 03-05-2023 Telephone encounter Note Name of caller: Loren Contact phone number: [phone] Relationship to Patient: long term Provider: Dr. Gaytan Practice: [facility] [place] Chief Complaint/Reason for Call: Loren states that they received an order for a bed assist rail from the office, but they do not allow those at [facility]. Please advise. Best time of day caller can be reached: any Patient advised that office/PCP has 24-48 business hours to return their call: N/A [facility] 02-28-2023 History of Present illness Narrative Images from the original note were not included. [facility] [address] [place] [address] [facility] [address] Dept: [phone] Dept Loc: [phone] Robert Gaytan MD Thank you for your [...] 1,100 pg/mL Final No results found for: [id number], HEPCAB Name: Kelli Sanchez Date of : [...] nerve innervation, and each was the sole floor representative of right motor nerve roots L4, [...] arranging for studies. documented in this encounter [facility] 02-28-2023 Miscellaneous Notes Addended by: ROBERT GAYTAN on: 02/28/2023 04:01 PM Modules accepted: Orders documented in this encounter [facility] 02-28-2023 Note Addended by: ROBERT GAYTAN on: 02/28/2023 04:01 PM Modules accepted: Orders [facility] 02-28-2023 Note Addended by: ROBERT GAYTAN on: 02/28/2023 04:01 PM Modules accepted: Orders [facility] 01-24-2023 Telephone encounter Note Lm for patient to call the office back, please relay providers message. [facility] 01-24-2023 Miscellaneous Notes Lm for patient to [...] Name of caller: Kelli Contact phone number: [phone] Relationship to Patient: patient Provider: Dr. Gaytan Practice: [facility] [place] Chief Complaint/Reason for Call: Pt states that she would like to receive a cb as soon as possible to go over her Nerve Conduction and EMG test that was completed on 12/30. Please advise. Best time of day caller can be reached: Any Patient advised that office/PCP has 24-48 business hours to return their call: No documented in this encounter [facility] 01-22-2023 Telephone encounter Note Lm for patient to call the office back, please relay providers message. [facility] 01-22-2023 Miscellaneous Notes Lm for patient to call the office back, please relay providers message. Lm for patient to call the office back, please relay providers message. Dr. Pereira reported that the test was limited but that it appeared to be normal. Remind her that she is following up in Feb Name of caller: Kelli Contact phone number: [phone] Relationship to Patient: patient Provider: Dr. Gaytan Practice: [facility] [place] Chief Complaint/Reason for Call: Pt states that she would like to receive a cb as soon as possible to go over her Nerve Conduction and EMG test that was completed on 12/30. Please advise. Best time of day caller can be reached: Any Patient advised that office/PCP has 24-48 business hours to return their call: No documented in this encounter [facility] 01-21-2023 Telephone encounter Note Lm for patient to call the office back, please relay providers message. [facility] 01-21-[address] Pereira reported that the test was limited but that it appeared to be normal. Remind her that she is following up in Feb [facility] 01-20-2023 Telephone encounter Note Name of caller: Kelli Contact phone number: [phone] Relationship to Patient: patient Provider: Dr. Gaytan Practice: [facility] [place] Chief Complaint/Reason for Call: Pt states that she would like to receive a cb as soon as possible to go over her Nerve Conduction and EMG test that was completed on 12/30. Please advise. Best time of day caller can be reached: Any Patient advised that office/PCP has 24-48 business hours to return their call: No [facility] 12-30-2022 Note Name: Kelli Sanchez Date of [...] nerve innervation, and each was the sole floor representative of right motor nerve roots L4, [...] 23 [id number] Location: Testing was conducted at [facility] as an outpatient. [facility] 12-30-2022 Procedure note Name: Kelli Sanchez [...] nerve innervation, and each was the sole floor representative of right motor nerve roots L4, [...] 23 [id number] Location: Testing was conducted at [facility] as an outpatient. [facility] [place] Phone: 12-30-2022 Procedure note Name: Kelli Sanchez [...] nerve innervation, and each was the sole floor representative of right motor nerve roots L4, L5 or S1. Thus these could represent remnants of multiple chronic motor radiculopathies, but corroboration was lacking from similarly innervated muscles. Once again, these results were obtained under conditions of suboptimal muscular activation. There was no evidence of ongoing denervation in any muscle. Clinical correlation is advised. Mkie Calderon MD Test numbers 23 [id number] and 23 [id number] Location: Testing was conducted at [facility] as an outpatient. documented in this encounter [facility] 12-16-2022 History of Present illness Narrative Images from the original note were not included. [facility] [address] [place] [address] [facility] [address] Dept: [phone] Dept Loc: [phone] Robert Gaytan MD Thank you for your [...] in May that caused an admission to [facility]. 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 Donepezil 5 mg po QPM. I spent 45 minutes caring for this patient today, reviewing labs and records, seeing the patient, documenting in the record and arranging for studies. documented in this encounter [facility] 10-10-2022 History of Present illness Narrative Senior [...] none Finances: not reviewed Healthcare Power of Health Care Facilities Inspector: Yes, Vanesa Rainey Financial Power of Health Care Facilities Inspector: Yes, Vanesa Rainey Living Will: Yes Guardian:No Code Status: Full Code Primary Caregiver: spouse, Mihai Current care plan/supervision: spouse with patient most of the time but spouse can leave her alone >>03/21/22 same >>10/10/22 same Community resources: Yes: Home Health Aide 3x/week to help with shower, cleaning service every other week >>03/21/22 home office claims examiner comes to help with shower 2 days/week, [...] to have patient go back to her nonprofit financial controller to see if her hearing aides are [...] caregiver burnout and lack of community supports. Director Of Annual Giving educated that based on patient's current function, family is providing assisted living level of care in the home. Director Of Annual Giving normalized stress involved in managing complex care needs and encouraged family seek out respite options. Director Of Annual Giving normalized that patient could still do well [...] Yes, MOA to get lab results from [facility] IRAIDA Devlin 10/10/22 10:02 AM Review of [...] from the original note were not included. [facility] [address] [facility] [address] Dept: [phone] Dept Loc: [phone] Visit type: [facility] Follow Up Visit Reason for Visit: Dementia [...] hyperlipidemia, depression, gout who presents to the [facility] for a follow-up visit. The patient is [...] four times. Doesn't remember seeing it before -FCI memory is good -No safety issues -Does [...] had a CT head in 06/03 at [facility] which showed small vessel ischemic/degenerative changes and [...] exam and/or evaluation documented in this encounter [facility] 10-10-2022 Instructions Ricarda Workman MD - 10/10/2022 8:45 AM EDT -Recommend getting hearing aides (as recommended by your nonprofit financial controller) and wearing them -Recommend seeing an eye [...] would need replication. 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, unspecified whether behavioral, psychotic, or mood disturbance or anxiety (HCC) Other fatigue documented in this encounter [facility]* Diagnosis Numbness in both legs Disturbance of skin sensation Weakness of both legs Muscle weakness (generalized) documented in this encounter [facility]* Diagnosis 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, unspecified whether behavioral, psychotic, or mood disturbance or anxiety (HCC)- Primary Ataxic gait Abnormality of gait documented in this encounter [facility] Diagnosis 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, unspecified whether behavioral, psychotic, or mood disturbance or anxiety (HCC) Ataxic gait Abnormality of gait documented in this encounter [facility]* Diagnosis 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, unspecified whether behavioral, psychotic, or mood disturbance or anxiety (HCC)- Primary Ataxic gait Abnormality of gait Frequent falls documented in this encounter [facility] Summary Purpose Family History No Family History Records FoundNo Family History Records FoundNo Family History Records Found Advance Directives Documents on File Type Date Recorded Patient Water Resources Program Director Expl anation ACP-Advance Directive 09/17/2021 Latest Code Status on File Code Status Date Activated Date Inactivated Comments Full Code 04/06/2020 6:59 AM 04/06/2020 2:14 PM Latest Code Status on File Code Status Date Activated Date Inactivated Comments Full Code 04/06/2020 6:59 AM Documents on File Type Date Recorded Patient Water Resources Program Director Expl anation ACP-Advance Directive 09/17/2021 12:00 AM Reason for Referral Status Reason Specialty Diagnoses / Procedures Referre d By Contact Referred To Contact Closed Radiology Diagnoses Other closed displaced fracture of distal end of left humerus, initial encounter Procedures CT Upper Extremity Left WO Contrast Hiram Lopes MD [address] [facility] [address] [place] [id number] Specialty Diagnoses / Procedures Referred By Contac t Referred To Contact Diagnoses Numbness in both legs Weakness of both legs Procedures Nerve conduction test with EMG Robert Gaytan MD [address] [facility] [address] [place] [address] Referral ID Status Reason Start Date Expiration Date V isits Requested Visits Authorized [id number] Incomplete 12/16/2022 06/14/2023 1 1 Specialty Diagnoses / Procedures Referred By Contac t Referred To Contact Radiology Diagnoses Numbness in both legs Weakness of both legs Procedures Nerve conduction test with EMG Robert Gaytan MD [address] [facility] [address] [place] [address] Referral ID Status Reason Start Date Expiration Date Visits Re quested Visits Authorized [id number] Closed 12/16/2022 06/14/2023 1 1 Specialty Diagnoses / Procedures Referred By Contac t Referred To Contact Radiology Diagnoses 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, unspecified whether behavioral, psychotic, or mood disturbance or anxiety (HCC) Ataxic gait Procedures MR brain wo contrast Robert Gaytan MD [address] [facility] [address] [place] [address] Referral ID Status Reason Start Date Expiration Date V isits Requested Visits Authorized [id number] Authorized 02/28/2023 08/27/2023 1 1 Referral ID Status Reason Start Date Expiration Date Visits Re quested Visits Authorized [id number] Closed 02/28/2023 08/27/2023 1 1 Specialty Diagnoses / Procedures Referred By Contac t Referred To Contact Physical Therapy Diagnoses Ataxic gait Frequent falls Procedures [place] OFFICE/OUTPATIENT NEW HIGH MDM 60-74 MINUTES Norm Sandoval, [facility] [address] [address] Referral ID Status Reason Start Date Expiration Date Visits Requested Visits Authorized [id number] Pending Review Eval and Treat 3 11/09/2023 [...] DATE CREATED AUTHOR AUTHOR'S ORGANIZ ATION 04/10/2020 [employer] DATE CREATED AUTHOR AUTHOR'S ORGANIZ ATION 06/04/2023 [email or web address] [facility] Reason for Visit (unrecogniz ed section and content) Reason Comments Dementia Depression Reason Comments New Patient Extremity Weakness Fall Specialty Diagnoses / Procedures Referred By Lm solitario Referred To Contact Neurology Diagnoses Impaired functional mobility, balance, gait, and endurance Procedures [place] OFFICE/OUTPATIENT NEW HIGH MDM 60-74 MINUTES Ricarda Workman MD [address] [place] [address] [facility] [address] [facility] [address] [place] [address] Referral ID Status Reason Start Date Expiration Date Visits Requested Visits Authorized [id number] Pending Review Specialty Services Required 07/18/2022 01/14/2023 1 1 Specialty Diagnoses / Procedures Referred By Contac t Referred To Contact Radiology Diagnoses Numbness in both legs Weakness of both legs Procedures Nerve conduction test with EMG Robert Gaytan MD [address] [facility] [address] [place] [address] Referral ID Status Reason Start Date Expiration Date Visits Re quested Visits Authorized [id number] Closed 12/16/2022 06/14/2023 1 1 Reason Onset [...] brain wo contrast Robert Gaytan MD [address] [facility] [address] [place] [address] Referral ID Status Reason Start Date Expiration Date Visits Re quested Visits Authorized [id number] Closed 02/28/2023 08/27/2023 1 1 Reason Comments Follow-up Reason Onset Date Comments call back 05/12/2023 Reason Onset Date Comments MRI results 06/02/2023 Reason Onset Date Comments Results 04/11/2023 Care Teams (unrecognized sec tion and content) Still Operator Helper Relationship Specialty Start Date End Date Loren Dee [address] [place] [phone] PCP - General 06/22/19 Still Operator Helper Relationship Specialty Start Date End Date Loren Dee [address] [place] [phone] PCP - General 06/22/19 Still Operator Helper Relationship Specialty Start Date End Date Loren Dee [address] [place] [address] PCP - General 06/22/19 Still Operator Helper Relationship Specialty Start Date End Date Loren Dee [address] [place] [address] PCP - General 06/22/19 Still Operator Helper Relationship Specialty Start Date End Date Loren Dee [address] [place] [address] PCP - General 06/22/19 Still Operator Helper Relationship Specialty Start Date End Date Loren Dee [address] [place] [address] PCP - General 06/22/19 Still Operator Helper Relationship Specialty Start Date End Date Loren Dee [address] [place] [address] PCP - General 06/22/19 Still Operator Helper Relationship Specialty Start Date End Date Loren Dee [address] [place] [address] PCP - General 06/22/19 Still Operator Helper Relationship Specialty Start Date End Date Loren Dee [address] [place] [address] PCP - General 06/22/19 Still Operator Helper Relationship Specialty Start Date End Date SylviaLoren taveras [address] [place] [address] PCP - General 06/22/19 FOR RECORDS PERTAINING [...] BE BASED ON THE PRIMARY CLINICAL RECORDS. [facility]. provides no warranty or guarantee of the accuracy or completeness of information in this document.
[2023-09-12 09:00] LABS: Color, Urine Yellow (Yellow); Glucose, Dipstick Normal (Normal); Ketone-Dipstick 5 mg/dl (Negative); Leukocyte Esterase-Dipstick 100 /ul (Negative); Nitrite-Dipstick Negative (Negative); Occult Blood-Urine 10 /ul (Negative); Protein-Dipstick 15 mg/dl (Negative); Specific Gravity, Urine 1.015 (1.002-1.030); Urine Clarity Clear (Clear); Urine Urobilinogen 1 mg/dl (Normal)
[2023-09-12 09:21] LABS: Urine Bilirubin Dipstick 1 mg/dL (Negative)
== END ==
LOC: OLS.WHLTSB 15:00
PROVIDERS: PCP Internal Medicine; Visit Provider Internal Medicine
DX: N39.0 Urinary tract infection, site not specified (principal)
CPT/HCPCS: 81002; 87086; 87088

== ENCOUNTER → 2023-09-23 | Outpatient (REF) | payer MEDICARE, SELFPAY ==
--- OUTSIDE RECORDS SUMMARY | 2023-09-23 04:51 | XMS RPT_ITS | CCD ---
Author Name Unknown Address [address] [place] [address] Organization [facility] Care Team Providers Care Nurse Coordinator Name Role Phone MIHAI ABDALLA Unavailable Unavailable JOLLIFF, LOREN Unavailable Unavailable Jolliff, Loren S Primary Care Provider Jolliff, Loren S Primary Care Provider Jolliff, Loren S Primary Care Provider Jolliff, Loren S Primary Care Provider [phone] Jolliff, Loren S Primary Care Provider JOLLIFF, [...] (5 sources) Cranberry preparation Drug Allergy 0 [place], [place] (20 sources) Meperidine Drug Allergy 0 [place] (5 sources) Sulfonamides (Antibiotic) Propensity to adverse reactions to drug 0 [place] (16 sources) Cranberry Propensity to adverse reactions 0 [facility] (16 sources) Sulfonamides (Antibiotic) Drug Intolerance 0 [facility] (9 sources) HYDROcodone Drug Allergy 1 [facility] (9 sources) meloxicam Drug Allergy 3 [facility] (9 sources) Propoxyphene Drug Allergy 1 [facility] Medications Current Medications Medication Drug Class(es) Dates [...] 11:29-0400 Body height 152.4 cm Norm Annita FINISHING INSPECTOR - ETHYLBENZENE CONVERTER OPERATOR Work Phone: [facility] 05-13-2023 11:29-0400 Body mass index (BMI) [Ratio] 24.57 kg/m2 Norm Annita FINISHING INSPECTOR - ETHYLBENZENE CONVERTER OPERATOR Work Phone: [facility] 05-13-2023 11:29-0400 Body weight 57.06 kg Norm Annita FINISHING INSPECTOR - ETHYLBENZENE CONVERTER OPERATOR Work Phone: [facility] 05-13-2023 11:29-0400 Diastolic blood pressure 78 mm[Hg] Norm Annita FINISHING INSPECTOR - ETHYLBENZENE CONVERTER OPERATOR Work Phone: [facility] 05-13-2023 11:29-0400 Heart rate 81 /min Norm Annita FINISHING INSPECTOR - ETHYLBENZENE CONVERTER OPERATOR Work Phone: [facility] 05-13-2023 11:29-0400 Systolic blood pressure 126 mm[Hg] Norm Annita FINISHING INSPECTOR - ETHYLBENZENE CONVERTER OPERATOR Work Phone: [facility] 02-28-2023 13:14-0400 Diastolic blood pressure 61 mm[Hg] Robert Gaytan MD Work Phone: [facility] 02-28-2023 13:14-0400 Heart rate 83 /min Robert Gaytan MD Work Phone: [facility] 02-28-2023 13:14-0400 Systolic blood pressure 107 mm[Hg] Robert Gaytan MD Work Phone: [facility] 12-16-2022 13:51-0400 Body height 152.4 cm Robert Gaytan MD Work Phone: [facility] 12-16-2022 13:51-0400 Body mass index (BMI) [Ratio] 23.44 kg/m2 Robert Gaytan MD Work Phone: [facility] 12-16-2022 13:51-0400 Body weight 54.43 kg Robert Gaytan MD Work Phone: [facility] 12-16-2022 13:51-0400 Diastolic blood pressure 76 mm[Hg] Robert Gaytan MD Work Phone: [facility] 12-16-2022 13:51-0400 Heart rate 67 /min Robert Gaytan MD Work Phone: [facility] 12-16-2022 13:51-0400 Systolic blood pressure 130 mm[Hg] Robert Gaytan MD Work Phone: [facility] 10-10-2022 09:10-0400 Body mass index (BMI) [Ratio] 24.3 kg/m2 Ricarda Workman MD Work Phone: [facility] 10-10-2022 09:10-0400 Body temperature 96.49 [degF] Ricarda Workman MD Work Phone: [facility] 10-10-2022 09:10-0400 Body weight 56.43 kg Ricarda Workman MD Work Phone: [facility] 10-10-2022 09:10-0400 Diastolic blood pressure 83 mm[Hg] Ricarda Workman MD Work Phone: [facility] 10-10-2022 09:10-0400 Systolic blood pressure 129 mm[Hg] Ricarda Workman MD Work Phone: [facility] 04-06-2020 11:15-0400 BP Diastolic 71 mm[Hg] [facility] [place] 04-06-2020 11:15-0400 BP Systolic 124 mm[Hg] [facility] [place] 04-06-2020 11:15-0400 Pulse (Heart Rate) 80 /min Hiram Lopes [facility], [place] 04-06-2020 11:15-0400 Pulse Oximetry 99 % Hiram Lopes [facility] , [place] 04-06-2020 11:15-0400 Respiratory Rate 18 /min [facility] [place] 04-06-2020 11:00-0400 Body Temperature 97.59 [degF] [facility] [place] 04-06-2020 06:59-0400 BMI (Body Mass Index) 23.44 kg/m2 Hiram Burris [facility] [place], [place] 04-06-2020 06:59-0400 Body weight 54.43 kg Hiram Lopes [facility] , [place] 04-06-2020 06:59-0400 Height 152.4 cm Hiram [facility] , [place] Encounters Encounter Date Encounter Type Care Provider Facility Start: 06-02-2023 Telephone encounter Norm Garcia APRN - ETHYLBENZENE CONVERTER OPERATOR Work Phone: [facility] Procedures Date Procedure Procedure Detail Performing [...] procedure 09/11/2023 11:00 AM EST Office Visit [facility] [address] [place] [id number] Norm Sandoval APRN - ETHYLBENZENE CONVERTER OPERATOR [address] [place] [address] [facility] Start: 04-21-2023 End: 04-21-2023 Patient encounter procedure 04/21/2023 11:30 AM EDT Office Visit [facility] [address] [place] [id number] Norm Sandoval APRN - CNP [address] [facility] [facility] [address] [place] [address] [facility] Start: 04-12-2023 Depresssion Monitoring Depresssion Monitoring [facility] Start: 04-02-2023 End: 04-02-2023 Patient encounter procedure 04/02/2023 6:30 AM EDT Appointment [facility] MRI [address] [place] [address] Robert Gaytan MD [address] [facility] 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, unspecified whether behavioral, psychotic, or mood disturbance or anxiety (HCC) Ataxic gait Expected: 02/28/2023, Expires: 02/29/2024 [facility] Work Phone: Immunizations Immunization Date Immunization Notes Care Provider [facility] 06-13-2021 influenza, seasonal, injectable Ricarda Workman MD Work Phone: [facility] 06-13-2021 influenza virus vacc ine, unspecified formulation Ricarda Workman MD Work Phone: [facility] 04-17-2020 influenza, injectabl e, quadrivalent, contains preservative Ricarda Workman MD Work Phone: [facility] 05-14-2019 influenza, injectabl e, quadrivalent, contains preservative Ricarda Workman MD Work Phone: [facility] 05-07-2018 influenza, injectabl e, quadrivalent, contains preservative Ricarda Workman MD Work Phone: [facility] 05-01-2017 influenza, seasonal, injectable Ricarda Simmers MD Work Phone: [facility] 05-10-2016 influenza, injectabl e, quadrivalent, contains preservative Ricarda Workman MD Work Phone: [facility] 05-31-2015 influenza, seasonal, injectable Ricarda Workmna MD Work Phone: [facility] 09-02-2014 pneumococcal conjuga te vaccine, 13 valent Ricarda Workman MD Work Phone: [facility] 05-17-2014 influenza, seasonal, injectable Ricarda Workman MD Work Phone: [facility] 05-06-2013 influenza, seasonal, injectable Ricarda Workman MD Work Phone: [facility] 04-24-2012 influenza, seasonal, injectable Ricarda Workman MD Work Phone: [facility] 08-21-2009 novel influenza-H1N1 -09, preservative-free, injectable Ricarda Workman MD Work Phone: [facility] 09-02-2007 pneumococcal polysac charide vaccine, 23 valent Ricarda Workman MD Work Phone: [facility] 09-03-2006 zoster vaccine, live Ricarda Workman MD Work Phone: [facility] Payers Date Payer Category Payer Medicare [id number] 2015 Unknown [id number] Social History Date Type Detail Facility Start: 04-04-2020 End: 04-06-2020 Tobacco smoking status NHIS Former smoker [facility] [employer] [place] Start: 04-04-2020 End: 04-06-2020 Tobacco use and exposure [facility] [employer] [facility]: 1940 Sex Assigned At Not on file [place] Start: 08-18-2021 End: 04-02-2023 Exposure to SARS-CoV-2 (event) Not sure [place] History of tobacco use Current smoker [facility] Work Phone: Start: 12-16-2022 End: 02-28-2023 Alcohol intake Lifetime non-drinker (finding) [facility] Start: 10-10-2022 End: 12-16-2022 History of Social function [facility] Start: 10-10-2022 End: 12-16-2022 Tobacco use panel [facility] Adolescent depressio n screening assessment 10 [facility] Clinical Notes 10-10-2022 to 06-02-2023 Telephone [...] relayed to the patient from encounter: Yes [facility] 06-02-2023 Miscellaneous Notes Message released to [...] Name of caller: Loren Contact phone number: [phone] Relationship to Patient: [facility] Provider: Norm WILKERSON Practice: Neuro Chief Complaint/Reason for Call: [phone] fax results, Loren states has sent requests for the MRI results since 04/15/23. Please advise Best time of day caller can be reached: Any Patient advised that office/PCP has 24-48 business hours to return their call: Yes documented in this encounter [facility] 06-02-2023 Telephone encounter Note Lm for Loren to call the office back, please relay providers message. [facility] 06-02-2023 Telephone encounter Note Look at my Assessment and Plan from her 05/12 visit----- Continue Donepezil 5mg daily Will order physical therapy She was given printed report of EMG and MRI brain We did discuss results of testing [facility] 06-02-2023 Telephone encounter Note Name of caller: Loren Contact phone number: [phone] Relationship to Patient: [facility] Provider: Norm WILKERSON Practice: Neuro Chief Complaint/Reason for Call: [phone] fax Loren kraft states has sent requests for the MRI results since 04/15/23. Please advise Best time of day caller can be reached: Any Patient advised that office/PCP has 24-48 business hours to return their call: Yes [facility] 05-13-2023 History of Present illness Narrative Visit [...] 300 mg/dL Final No results found for: [id number] , HEPCAB No results found for: CRP [...] is seen within the vessels of the [place] of [place]. The globes and orbital contents [...] @TDNR@ at @NOWNR@ documented in this encounter [facility] 05-12-2023 Telephone encounter Note Patient is scheduled for a sooner appointment, his son is needing to check with [employer] to make sure they can bring her and call us back. [facility] 05-12-2023 Miscellaneous Notes Patient is scheduled [...] Medication Name: NA documented in this encounter [facility] 05-12-2023 Telephone encounter Note Can we see if something sooner is available? [facility] Work Phone: 05-12-2023 Telephone encounter Note Name of Caller: josey Contact Reason for Appointment: pt's appt was moved further out to go over MRI results and the pt's son is asking for the results sooner or for their appt to be moved back sooner Office Name: Neuro Medication Refills need, if any: NA Medication Name: NA [facility] 04-11-2023 Telephone encounter Note Please advise. [facility] 04-11-2023 Miscellaneous Notes Please advise. Name of caller: Kelli Contact phone number: [phone] Relationship to Patient: patient Provider: Dr Gaytan Practice: [facility] Neurology [place] Chief Complaint/Reason for Call: Pt states she would like to speak to the office regarding the results of her recent MR brain wo contrast. Please advise. Best time of day caller can be reached: any Patient advised that office/PCP has 24-48 business hours to return their call: No documented in this encounter [facility] 04-11-2023 Telephone encounter Note Name of caller: Kelli Contact phone number: [phone] Relationship to Patient: patient Provider: Dr Gaytan Practice: [facility] Neurology [place] Chief Complaint/Reason for Call: Pt states she would like to speak to the office regarding the results of her recent MR brain wo contrast. Please advise. Best time of day caller can be reached: any Patient advised that office/PCP has 24-48 business hours to return their call: No [facility] 03-05-2023 Telephone encounter Note OK [facility] 03-05-2023 Miscellaneous Notes OK Forwarding to provider for review and advice. Name of caller: Loren Contact phone number: [phone] Relationship to Patient: [facility] Provider: Dr. Gaytan Practice: [facility] Neurology [place] Chief Complaint/Reason for Call: Loren states that they received an order for a bed assist rail from the office, but they do not allow those at [facility]. Please advise. Best time of day caller can be reached: any Patient advised that office/PCP has 24-48 business hours to return their call: N/A documented in this encounter [facility] 03-05-2023 Telephone encounter Note Forwarding to provider for review and advice. [facility] 03-05-2023 Telephone encounter Note Name of caller: Loren Contact phone number: [phone] Relationship to Patient: [facility] Provider: Dr. Gaytan Practice: [facility] Neurology [place] Chief Complaint/Reason for Call: Loren states that they received an order for a bed assist rail from the office, but they do not allow those at [facility]. Please advise. Best time of day caller can be reached: any Patient advised that office/PCP has 24-48 business hours to return their call: N/A [facility] 02-28-2023 History of Present illness Narrative Images from the original note were not included. [facility] [address] [place] [address] [facility] [address] Dept: [phone] Dept Loc: [phone] Robert Gaytan MD Thank you for your [...] 1,100 pg/mL Final No results found for: [id number], HEPCAB Name: Kelli Sanchez Date of : [...] nerve innervation, and each was the sole medical representative of right motor nerve roots L4, [...] arranging for studies. documented in this encounter [facility] 02-28-2023 Miscellaneous Notes Addended by: ROBERT GAYTAN on: 02/28/2023 04:01 PM Modules accepted: Orders documented in this encounter [facility] 02-28-2023 Note Addended by: ROBERT GAYTAN on: 02/28/2023 04:01 PM Modules accepted: Orders [facility] 02-28-2023 Note Addended by: ROBERT GAYTAN on: 02/28/2023 04:01 PM Modules accepted: Orders [facility] 01-24-2023 Telephone encounter Note Lm for patient to call the office back, please relay providers message. [facility] 01-24-2023 Miscellaneous Notes Lm for patient to [...] Name of caller: Kelli Contact phone number: [phone] Relationship to Patient: patient Provider: Dr. Gaytan Practice: [facility] Neurology [place] Chief Complaint/Reason for Call: Pt states that she would like to receive a cb as soon as possible to go over her Nerve Conduction and EMG test that was completed on 12/30. Please advise. Best time of day caller can be reached: Any Patient advised that office/PCP has 24-48 business hours to return their call: No documented in this encounter [facility] 01-22-2023 Telephone encounter Note Lm for patient to call the office back, please relay providers message. [facility] 01-22-2023 Miscellaneous Notes Lm for patient to call the office back, please relay providers message. Lm for patient to call the office back, please relay providers message. Dr. Pereira reported that the test was limited but that it appeared to be normal. Remind her that she is following up in Feb Name of caller: Kelli Contact phone number: [phone] Relationship to Patient: patient Provider: Dr. Gaytan Practice: [facility] Neurology [place] Chief Complaint/Reason for Call: Pt states that she would like to receive a cb as soon as possible to go over her Nerve Conduction and EMG test that was completed on 12/30. Please advise. Best time of day caller can be reached: Any Patient advised that office/PCP has 24-48 business hours to return their call: No documented in this encounter [facility] 01-21-2023 Telephone encounter Note Lm for patient to call the office back, please relay providers message. [facility] 01-21-[address] Pereira reported that the test was limited but that it appeared to be normal. Remind her that she is following up in Feb [facility] 01-20-2023 Telephone encounter Note Name of caller: Kelli Contact phone number: [phone] Relationship to Patient: patient Provider: Dr. Gaytan Practice: [facility] Neurology [place] Chief Complaint/Reason for Call: Pt states that she would like to receive a cb as soon as possible to go over her Nerve Conduction and EMG test that was completed on 12/30. Please advise. Best time of day caller can be reached: Any Patient advised that office/PCP has 24-48 business hours to return their call: No [facility] 12-30-2022 Note Name: Kelli Sanchez Date of [...] nerve innervation, and each was the sole medical representative of right motor nerve roots L4, [...] 23 [id number] Location: Testing was conducted at [facility] as an outpatient. [facility] 12-30-2022 Procedure note Name: Kelli Sanchez Date [...] nerve innervation, and each was the sole medical representative of right motor nerve roots L4, [...] 23 [id number] Location: Testing was conducted at [facility] as an outpatient. [facility] [employer] Phone: 12-30-2022 Procedure note Name: Kelli Sanchez [...] nerve innervation, and each was the sole medical representative of right motor nerve roots L4, [...] 23 [id number] Location: Testing was conducted at [facility] as an outpatient. documented in this encounter [facility] 12-16-2022 History of Present illness Narrative Images from the original note were not included. [facility] [address] [place] [address] [facility] [address] Dept: [phone] Dept Loc: [phone] Robert Gaytan MD Thank you for your [...] in May that caused an admission to [facility]. 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 Donepezil 5 mg po QPM. I spent 45 minutes caring for this patient today, reviewing labs and records, seeing the patient, documenting in the record and arranging for studies. documented in this encounter [facility] 10-10-2022 History of Present illness Narrative [...] none Finances: not reviewed Healthcare Power of Tipple Mechanic: Yes, Vanesa Rainey Financial Power of Tipple Mechanic: Yes, Vanesa Rainey Living Will: Yes Guardian:No Code Status: Full Code Primary Caregiver: spouse, Mihai Current care plan/supervision: spouse with patient most of the time but spouse can leave her alone >>03/21/22 same >>10/10/22 same Community resources: Yes: Home Health Aide 3x/week to help with shower, cleaning service every other week >>03/21/22 home health care case manager comes to help with shower 2 days/week, [...] to have patient go back to her change advisor to see if her hearing aides are [...] caregiver burnout and lack of community supports. Domestic Violence Counselor educated that based on patient's current function, family is providing assisted living level of care in the home. Domestic Violence Counselor normalized stress involved in managing complex care needs and encouraged family seek out respite options. Domestic Violence Counselor normalized that patient could still do well [...] Yes, MOA to get lab results from [facility] IARIDA Devlin 10/10/22 10:02 AM Review of Systems [...] from the original note were not included. [facility] [address] [facility] [address] Dept: [phone] Dept Loc: [phone] Visit type: [facility] Follow Up Visit Reason for Visit: [...] hyperlipidemia, depression, gout who presents to the [facility] for a follow-up visit. The patient [...] four times. Doesn't remember seeing it before -senior care memory is good -No safety issues -Does [...] 10 AQUILES: 7 I independently reviewed the [place] Cognitive Assessment from 10/10/2022. Test scanned in to the chart. She had a CT head in 06/03 at [facility] which showed small vessel ischemic/degenerative changes [...] exam and/or evaluation documented in this encounter [facility] 10-10-2022 Instructions Ricarda Workman MD - 10/10/2022 8:45 AM EDT -Recommend getting hearing aides (as recommended by your change advisor) and wearing them -Recommend seeing an eye [...] would need replication. 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, unspecified whether behavioral, psychotic, or mood disturbance or anxiety (HCC) Other fatigue documented in this encounter [facility]* Diagnosis Numbness in both legs Disturbance of skin sensation Weakness of both legs Muscle weakness (generalized) documented in this encounter [facility]* Diagnosis 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, unspecified whether behavioral, psychotic, or mood disturbance or anxiety (HCC)- Primary Ataxic gait Abnormality of gait documented in this encounter [facility]* Diagnosis 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, unspecified whether behavioral, psychotic, or mood disturbance or anxiety (HCC) Ataxic gait Abnormality of gait documented in this encounter [facility]* Diagnosis 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, unspecified whether behavioral, psychotic, or mood disturbance or anxiety (HCC)- Primary Ataxic gait Abnormality of gait Frequent falls documented in this encounter [facility] Summary Purpose Family History No Family History Records FoundNo Family History Records FoundNo Family History Records Found Advance Directives Documents on File Type Date Recorded Patient Coater Operator Expl anation ACP-Advance Directive 09/17/2021 Latest Code Status on File Code Status Date Activated Date Inactivated Comments Full Code 04/06/2020 6:59 AM 04/06/2020 2:14 PM Latest Code Status on File Code Status Date Activated Date Inactivated Comments Full Code 04/06/2020 6:59 AM Documents on File Type Date Recorded Patient Coater Operator Expl anation ACP-Advance Directive 09/17/2021 12:00 AM Reason for Referral Status Reason Specialty Diagnoses / Procedures Referre d By Contact Referred To Contact Closed Radiology Diagnoses Other closed displaced fracture of distal end of left humerus, initial encounter Procedures CT Upper Extremity Left WO Contrast Hiram Lopes MD [address] [facility] [address] [place] [id number] Specialty Diagnoses / Procedures Referred By Contac t Referred To Contact Diagnoses Numbness in both legs Weakness of both legs Procedures Nerve conduction test with EMG Robert Gaytan MD [address] [facility] [address] [place] [address] Referral ID Status Reason Start Date Expiration Date V isits Requested Visits Authorized [id number] Incomplete 12/16/2022 06/14/2023 1 1 Specialty Diagnoses / Procedures Referred By Contac t Referred To Contact Radiology Diagnoses Numbness in both legs Weakness of both legs Procedures Nerve conduction test with EMG Robert Gaytan MD [address] [facility] [address] [place] [address] Referral ID Status Reason Start Date Expiration Date Visits Re quested Visits Authorized [id number] Closed 12/16/2022 06/14/2023 1 1 Specialty Diagnoses / Procedures Referred By Contac t Referred To Contact Radiology Diagnoses 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, unspecified whether behavioral, psychotic, or mood disturbance or anxiety (HCC) Ataxic gait Procedures MR brain wo contrast Robert Gaytan MD [address] [facility] [address] [place] [id number] Referral ID Status Reason Start Date Expiration Date V isits Requested Visits Authorized [id number] Authorized 02/28/2023 08/27/2023 1 1 Referral ID Status Reason Start Date Expiration Date Visits Re quested Visits Authorized [id number] Closed 02/28/2023 08/27/2023 1 1 Specialty Diagnoses / Procedures Referred By Contac t Referred To Contact Physical Therapy Diagnoses Ataxic gait Frequent falls Procedures UT OFFICE/OUTPATIENT NEW HIGH MDM 60-74 MINUTES Norm Sandoval, [facility] [address] [address] Referral ID Status Reason Start Date Expiration Date Visits Requested Visits Authorized [id number] Pending Review Eval and Treat 3 11/09/2023 [...] DATE CREATED AUTHOR AUTHOR'S ORGANIZ ATION 04/10/2020 [employer] DATE CREATED AUTHOR AUTHOR'S ORGANIZ ATION 06/04/2023 [employer] [facility] Reason for Visit (unrecogniz ed section and content) Reason Comments Dementia Depression Reason Comments New Patient Extremity Weakness Fall Specialty Diagnoses / Procedures Referred By Lm solitario Referred To Contact Neurology Diagnoses Impaired functional mobility, balance, gait, and endurance Procedures UT OFFICE/OUTPATIENT NEW HIGH MDM 60-74 MINUTES Ricarda Workman MD [address] [place] [address] [facility] [address] [facility] [address] [place] [address] Referral ID Status Reason Start Date Expiration Date Visits Requested Visits Authorized [id number] Pending Review Specialty Services Required 07/18/2022 01/14/2023 1 1 Specialty Diagnoses / Procedures Referred By Contac t Referred To Contact Radiology Diagnoses Numbness in both legs Weakness of both legs Procedures Nerve conduction test with EMG Robert Gaytan MD [address] [facility] [address] [place] [address] Referral ID Status Reason Start Date Expiration Date Visits Re quested Visits Authorized [id number] Closed 12/16/2022 06/14/2023 1 1 Reason Onset [...] brain wo contrast Robert Gaytan MD [address] [facility] [address] [place] [id number] Referral ID Status Reason Start Date Expiration Date Visits Re quested Visits Authorized [id number] Closed 02/28/2023 08/27/2023 1 1 Reason Comments Follow-up Reason Onset Date Comments call back 05/12/2023 Reason Onset Date Comments MRI results 06/02/2023 Reason Onset Date Comments Results 04/11/2023 Care Teams (unrecognized sec tion and content) Nurse Coordinator Relationship Specialty Start Date End Date Loren Dee [address] [place] [phone] PCP - General 06/22/19 Nurse Coordinator Relationship Specialty Start Date End Date Loren Dee [address] [place] [phone] PCP - General 06/22/19 Nurse Coordinator Relationship Specialty Start Date End Date Loren Dee [address] [place] [address] PCP - General 06/22/19 Nurse Coordinator Relationship Specialty Start Date End Date Loren Dee [address] [place] [address] PCP - General 06/22/19 Nurse Coordinator Relationship Specialty Start Date End Date Loren Dee [address] [place] [address] PCP - General 06/22/19 Nurse Coordinator Relationship Specialty Start Date End Date Loren Dee [address] [place] [address] PCP - General 06/22/19 Nurse Coordinator Relationship Specialty Start Date End Date Loren Dee [address] [place] [address] PCP - General 06/22/19 Nurse Coordinator Relationship Specialty Start Date End Date Loren Dee [address] [place] [address] PCP - General 06/22/19 Nurse Coordinator Relationship Specialty Start Date End Date Loren Dee [address] [place] [address] PCP - General 06/22/19 Nurse Coordinator Relationship Specialty Start Date End Date SylviaLoren taveras [address] [place] [address] PCP - General 06/22/19 FOR RECORDS PERTAINING [...] BE BASED ON THE PRIMARY CLINICAL RECORDS. [facility]. provides no warranty or guarantee of the accuracy or completeness of information in this document.
[2023-09-23 08:41] LABS: AST(SGOT) 31 U/L (15-37); Alanine Aminotransfer ALT/SGPT 32 U/L (13-56); Albumin, Serum 3.1 g/dL (3.2-5.0); Alkaline Phosphatase 77 U/L (45-117); Bilirubin, Direct 0.09 mg/dL (0.00-0.30); Globulin 3.3 g/dL (2.2-4.2); Protein, Total 6.4 g/dL (6.4-8.2)
== END ==
LOC: OLS.WHLTSB 05:00
PROVIDERS: PCP Internal Medicine; Visit Provider Internal Medicine
DX: R53.83 Other fatigue (principal); E55.9 Vitamin D deficiency, unspecified; K59.00 Constipation, unspecified; F32.A Depression, unspecified; M19.90 Unspecified osteoarthritis, unspecified site; M43.10 Spondylolisthesis, site unspecified
CPT/HCPCS: 36415; 80076

== ENCOUNTER → 2023-11-25 | Outpatient (REF) | payer MEDICARE, SELFPAY ==
[2023-11-25 08:30] LABS: Absolute Lymphocyte Count 1.84 X10^3/uL (0.83-4.51); Absolute Neutrophil Count 2.9 X10^3/uL (2.0-7.7); Basophil# 0.05 X10^3/uL; Basophil% 0.8 % (0-1); Eosinophil# 0.36 X10^3/uL; Hematocrit 36.5 % (37-47); Hemoglobin 12.3 g/dL (12.0-15.0); Lymphocyte # 1.84 X10^3/ul (0.83-4.51); Lymphocyte % 30.5 % (19-41); Mean Corp Hgb Conc 33.7 g/dL (32-36); Mean Corpuscular Hgb 31.5 pg (27.0-32.0); Mean Corpuscular Volume 93.6 fL (81-99); Mean Platelet Vol. 9.5 fl (6.2-12.0); Monocyte# 0.91 X10^3/uL; Monocyte% 15.1 % (0-10); NRBC Flagged by Analyzer 0 % (0-5); Neutrophil # 2.85 X10^3/uL (2.7-7.7); Neutrophil % 47.3 % (47-70); Platelet Count 268 K/mm3 (150-450); RBC Distribution Width CV 13.5 % (11.6-14.6); RBC Distribution Width SD 46.1 fl (35.1-43.9)
[2023-11-25 08:50] LABS: Anion Gap 2 (5-15); BUN 15 mg/dL (7-18); BUN/Creat Ratio 24.8 RATIO (10-20); Chloride 108 mmol/L (98-107); Creatinine, Serum 0.61 mg/dL (0.55-1.02); EST Glomerular Filtration Rate 101 mL/min (>60); Est Glom Filt Rate - Afr Amer 122 mL/min (>60); Glucose 96 mg/dL (74-106); Potassium 3.7 mmol/L (3.5-5.1); Sodium Level 139 mmol/L (136-145)
== END ==
LOC: OLS.WHLTSB 07:00
PROVIDERS: PCP Internal Medicine; Visit Provider Internal Medicine
DX: R53.83 Other fatigue (principal); E55.9 Vitamin D deficiency, unspecified
CPT/HCPCS: 36415; 80048; 85025

== ENCOUNTER → 2023-12-23 | Outpatient (REF) | payer MEDICARE, SELFPAY ==
[2023-12-23 10:28] LABS: AST(SGOT) 37 U/L (15-37); Alanine Aminotransfer ALT/SGPT 31 U/L (13-56); Albumin, Serum 3.1 g/dL (3.2-5.0); Alkaline Phosphatase 72 U/L (45-117); Bilirubin, Direct 0.08 mg/dL (0.00-0.30); Globulin 3.4 g/dL (2.2-4.2); Protein, Total 6.5 g/dL (6.4-8.2); Thyroid Stim Hormone (TSH) 3.16 uIU/mL (0.358-3.74)
[2023-12-23 12:05] LABS: Vitamin D,25 Hydroxy 30.5 ng/mL
== END ==
LOC: OLS.WHLTSB 05:00
PROVIDERS: PCP Internal Medicine; Visit Provider Internal Medicine
DX: R53.83 Other fatigue (principal); E55.9 Vitamin D deficiency, unspecified
CPT/HCPCS: 36415; 80076; 82306; 84443

== ENCOUNTER → 2024-02-24 05:00 | Outpatient (REF) | payer MEDICARE, SELFPAY ==
[2024-02-24 08:42] LABS: Absolute Neutrophil Count 2.7 X10^3/uL (2.0-7.7); Basophil# 0.04 X10^3/uL; Basophil% 0.7 % (0-1); Hematocrit 35.1 % (37-47); Hemoglobin 11.8 g/dL (12.0-15.0); Lymphocyte % 33.5 % (19-41); Mean Corp Hgb Conc 33.6 g/dL (32-36); Mean Corpuscular Hgb 31.6 pg (27.0-32.0); Mean Corpuscular Volume 94.1 fL (81-99); Mean Platelet Vol. 9.4 fl (6.2-12.0); Monocyte# 0.89 X10^3/uL; Monocyte% 14.9 % (0-10); NRBC Flagged by Analyzer 0 % (0-5); Neutrophil # 2.73 X10^3/uL (2.7-7.7); Neutrophil % 45.7 % (47-70); Platelet Count 251 K/mm3 (150-450); Red Blood Count 3.73 M/mm3 (4.2-5.4)
[2024-02-24 11:30] LABS: Anion Gap 8 (5-15); BUN 17 mg/dL (7-18); BUN/Creat Ratio 26.3 RATIO (10-20); Chloride 108 mmol/L (98-107); Creatinine, Serum 0.65 mg/dL (0.55-1.02); EST Glomerular Filtration Rate 94 mL/min (>60); Est Glom Filt Rate - Afr Amer 113 mL/min (>60); Glucose 100 mg/dL (74-106); Potassium 3.8 mmol/L (3.5-5.1); Sodium Level 141 mmol/L (136-145)
== END ==
LOC: OLS.WHLTSB 05:00
PROVIDERS: PCP Internal Medicine; Visit Provider Internal Medicine
DX: R53.83 Other fatigue (principal)
CPT/HCPCS: 36415; 80048; 85025

== ENCOUNTER → 2024-03-23 05:00 | Outpatient (REF) | payer MEDICARE, SELFPAY ==
[2024-03-23 09:01] LABS: AST(SGOT) 32 U/L (15-37); Alanine Aminotransfer ALT/SGPT 28 U/L (13-56); Albumin, Serum 3.1 g/dL (3.2-5.0); Alkaline Phosphatase 62 U/L (45-117); Bilirubin, Direct 0.12 mg/dL (0.00-0.30); Globulin 3.4 g/dL (2.2-4.2); Protein, Total 6.5 g/dL (6.4-8.2)
== END ==
LOC: OLS.WHLTSB 05:00
PROVIDERS: PCP Internal Medicine; Visit Provider Internal Medicine
DX: R53.83 Other fatigue (principal); E55.9 Vitamin D deficiency, unspecified
CPT/HCPCS: 36415; 80076

== ENCOUNTER → 2024-05-25 05:00 | Outpatient (REF) | payer MEDICARE, SELFPAY ==
[2024-05-25 08:15] LABS: Absolute Lymphocyte Count 2.39 X10^3/uL (0.83-4.51); Absolute Neutrophil Count 2.8 X10^3/uL (2.0-7.7); Basophil# 0.04 X10^3/uL; Basophil% 0.6 % (0-1); Eosinophil# 0.25 X10^3/uL; Eosinophils% 3.9 % (0-5); Hematocrit 34.6 % (37-47); Hemoglobin 11.6 g/dL (12.0-15.0); Lymphocyte # 2.39 X10^3/ul (0.83-4.51); Lymphocyte % 37.5 % (19-41); Mean Corp Hgb Conc 33.5 g/dL (32-36); Mean Corpuscular Volume 95.3 fL (81-99); Mean Platelet Vol. 9.6 fl (6.2-12.0); Monocyte% 14.1 % (0-10); NRBC Flagged by Analyzer 0 % (0-5); Neutrophil # 2.79 X10^3/uL (2.7-7.7); Neutrophil % 43.7 % (47-70); Platelet Count 235 K/mm3 (150-450); RBC Distribution Width CV 13.8 % (11.6-14.6); RBC Distribution Width SD 46.7 fl (35.1-43.9); Red Blood Count 3.63 M/mm3 (4.2-5.4); White Blood Count 6.4 K/mm3 (4.4-11.0)
[2024-05-25 08:37] LABS: AST(SGOT) 33 U/L (15-37); Alanine Aminotransfer ALT/SGPT 26 U/L (13-56); Albumin, Serum 3.2 g/dL (3.2-5.0); Alkaline Phosphatase 65 U/L (45-117); Anion Gap 7 (5-15); BUN 16 mg/dL (7-18); BUN/Creat Ratio 23.5 RATIO (10-20); Bilirubin, Direct 0.09 mg/dL (0.00-0.30); Calcium,Total 8.8 mg/dL (8.5-10.1); Chloride 108 mmol/L (98-107); Creatinine, Serum 0.68 mg/dL (0.55-1.02); EST Glomerular Filtration Rate 88 mL/min (>60); Est Glom Filt Rate - Afr Amer 106 mL/min (>60); Globulin 3.3 g/dL (2.2-4.2); Glucose 95 mg/dL (74-106); Potassium 3.4 mmol/L (3.5-5.1); Protein, Total 6.5 g/dL (6.4-8.2); Sodium Level 141 mmol/L (136-145)
== END ==
LOC: OLS.WHLTSB 05:00
PROVIDERS: PCP Internal Medicine; Visit Provider Internal Medicine
DX: R53.83 Other fatigue (principal); R62.7 Adult failure to thrive; Z96.659 Presence of unspecified artificial knee joint; N32.81 Overactive bladder; Z86.16 Personal history of COVID-19
CPT/HCPCS: 36415; 80048; 80076; 85025

== ENCOUNTER → 2024-06-25 14:20 | Outpatient (REF) | payer MEDICARE, SELFPAY ==
[2024-06-25 14:43] LABS: Color, Urine Yellow (Yellow); Glucose, Dipstick Normal (Normal); Ketone-Dipstick Negative (Negative); Leukocyte Esterase-Dipstick 500 /ul (Negative); Nitrite-Dipstick Positive (Negative); Occult Blood-Urine 50 /ul (Negative); Protein-Dipstick 100 mg/dl (Negative); Specific Gravity, Urine 1.025 (1.002-1.030); Urine Bilirubin Dipstick Negative (Negative); Urine Clarity Cloudy (Clear); Urine Urobilinogen Normal (Normal)
== END ==
LOC: OLS.WHLTSB 14:20
PROVIDERS: PCP Internal Medicine; Visit Provider Internal Medicine
DX: N32.81 Overactive bladder (principal)
CPT/HCPCS: 81002; 87086; 87088; 87186

== ENCOUNTER → 2024-08-24 05:00 | Outpatient (REF) | payer MEDICARE, SELFPAY ==
[2024-08-24 08:38] LABS: AST(SGOT) 35 U/L (15-37); Alanine Aminotransfer ALT/SGPT 35 U/L (13-56); Albumin, Serum 3.2 g/dL (3.2-5.0); Alkaline Phosphatase 64 U/L (45-117); Anion Gap 6 (5-15); BUN 12 mg/dL (7-18); BUN/Creat Ratio 19.2 RATIO (10-20); Bilirubin, Direct 0.09 mg/dL (0.00-0.30); Calcium,Total 9.1 mg/dL (8.5-10.1); Chloride 108 mmol/L (98-107); Creatinine, Serum 0.62 mg/dL (0.55-1.02); EST Glomerular Filtration Rate 97 mL/min (>60); Est Glom Filt Rate - Afr Amer 118 mL/min (>60); Globulin 3.6 g/dL (2.2-4.2); Glucose 88 mg/dL (74-106); Potassium 3.5 mmol/L (3.5-5.1); Protein, Total 6.8 g/dL (6.4-8.2); Sodium Level 141 mmol/L (136-145)
[2024-08-24 09:05] LABS: Absolute Lymphocyte Count 2.39 X10^3/uL (0.83-4.51); Absolute Neutrophil Count 3.2 X10^3/uL (2.0-7.7); Basophil# 0.04 X10^3/uL; Basophil% 0.6 % (0-1); Eosinophil# 0.22 X10^3/uL; Eosinophils% 3.3 % (0-5); Hematocrit 36.7 % (37-47); Lymphocyte # 2.39 X10^3/ul (0.83-4.51); Lymphocyte % 35.5 % (19-41); Mean Corp Hgb Conc 32.7 g/dL (32-36); Mean Corpuscular Volume 94.8 fL (81-99); Mean Platelet Vol. 9.9 fl (6.2-12.0); Monocyte# 0.87 X10^3/uL; Monocyte% 12.9 % (0-10); NRBC Flagged by Analyzer 0 % (0-5); Neutrophil % 47.4 % (47-70); Platelet Count 242 K/mm3 (150-450); RBC Distribution Width CV 13.8 % (11.6-14.6); RBC Distribution Width SD 46.6 fl (35.1-43.9); Red Blood Count 3.87 M/mm3 (4.2-5.4); White Blood Count 6.7 K/mm3 (4.4-11.0)
== END ==
LOC: OLS.WHLTSB 05:00
PROVIDERS: PCP Internal Medicine; Visit Provider Internal Medicine
DX: R62.7 Adult failure to thrive (principal); Z29.9 Encounter for prophylactic measures, unspecified; Z96.659 Presence of unspecified artificial knee joint; H69.92 Unspecified Eustachian tube disorder, left ear; Z86.16 Personal history of COVID-19; R53.83 Other fatigue
CPT/HCPCS: 36415; 80048; 80076; 85025

== ENCOUNTER → 2024-11-23 | Outpatient (REF) | payer MEDICARE, SELFPAY ==
[2024-11-23 07:54] LABS: Absolute Lymphocyte Count 2.16 X10^3/uL (0.83-4.51); Absolute Neutrophil Count 2.7 X10^3/uL (2.0-7.7); Basophil# 0.03 X10^3/uL; Basophil% 0.5 % (0-1); Eosinophil# 0.21 X10^3/uL; Eosinophils% 3.6 % (0-5); Hematocrit 33.9 % (37-47); Lymphocyte # 2.16 X10^3/ul (0.83-4.51); Lymphocyte % 36.5 % (19-41); Mean Corp Hgb Conc 35.4 g/dL (32-36); Mean Corpuscular Hgb 33.9 pg (27.0-32.0); Mean Corpuscular Volume 95.8 fL (81-99); Mean Platelet Vol. 9.9 fl (6.2-12.0); Monocyte# 0.79 X10^3/uL; Monocyte% 13.4 % (0-10); NRBC Flagged by Analyzer 0 % (0-5); Neutrophil # 2.71 X10^3/uL (2.7-7.7); Neutrophil % 45.8 % (47-70); Platelet Count 226 K/mm3 (150-450); RBC Distribution Width CV 13.7 % (11.6-14.6); RBC Distribution Width SD 46.7 fl (35.1-43.9); Red Blood Count 3.54 M/mm3 (4.2-5.4); White Blood Count 5.9 K/mm3 (4.4-11.0)
[2024-11-23 08:20] LABS: AST(SGOT) 31 U/L (<=31); Alanine Aminotransfer ALT/SGPT 20 U/L (<=34); Albumin, Serum 3.7 g/dL (3.4-4.8); Alkaline Phosphatase 58 U/L (35-104); Anion Gap 11 (5-15); BUN 13 mg/dL (4-19); BUN/Creat Ratio 19.2 RATIO (10-20); Bilirubin, Direct 0.09 mg/dL (0.00-0.30); Calcium,Total 9.1 mg/dL (7.6-11.0); Carbon Dioxide 23.1 mmol/L (21.0-32.0); Chloride 107 mmol/L (98-108); Creatinine, Serum 0.67 mg/dL (0.70-1.20); EST Glomerular Filtration Rate 87 (>60); Globulin 2.5 g/dL (2.2-4.2); Glucose 97 mg/dL (70-99); Potassium 3.5 mmol/L (3.3-5.1); Protein, Total 6.1 g/dL (5.9-8.4); Sodium Level 141 mmol/L (133-145); Total Bilirubin 0.21 mg/dL (0.00-1.30); Vitamin D,25 Hydroxy 24.9 ng/mL (30-100)
== END ==
LOC: OLS.WHLTSB 05:00
PROVIDERS: PCP Internal Medicine; Visit Provider Internal Medicine
DX: E55.9 Vitamin D deficiency, unspecified (principal); R53.83 Other fatigue; N32.81 Overactive bladder; Z86.16 Personal history of COVID-19
CPT/HCPCS: 36415; 80048; 80076; 82306; 84443; 85025

== ENCOUNTER → 2025-01-18 04:00 | Outpatient (REF) | payer MEDICARE, SELFPAY ==
[2025-01-18 07:09] LABS: Vitamin D,25 Hydroxy 78.5 ng/mL (30-100)
== END ==
LOC: OLS.WHLEAS 04:00
PROVIDERS: PCP Internal Medicine; Referring Provider Internal Medicine; Visit Provider Internal Medicine
DX: E55.9 Vitamin D deficiency, unspecified (principal)
CPT/HCPCS: 36415; 82306

== ENCOUNTER → 2025-02-22 05:00 | Outpatient (REF) | payer MEDICARE, SELFPAY ==
[2025-02-22 07:11] LABS: Hematocrit 35.0 % (37-47); Hemoglobin 12.1 g/dL (12.0-15.0); Immature Granulocytes Count 0.020 X10^3/uL (0.0-0.0); Mean Corp Hgb Conc 34.6 g/dL (32-36); Mean Corpuscular Volume 94.9 fL (81-99); Mean Platelet Vol. 10.1 fl (6.2-12.0); NRBC Flagged by Analyzer 0 % (0-5); Platelet Count 236 K/mm3 (150-450); RBC Distribution Width CV 13.8 % (11.6-14.6); RBC Distribution Width SD 46.9 fl (35.1-43.9); Red Blood Count 3.69 M/mm3 (4.2-5.4); White Blood Count 7.1 K/mm3 (4.4-11.0)
[2025-02-22 07:26] LABS: AST(SGOT) 40 U/L (<=31); Alanine Aminotransfer ALT/SGPT 21 U/L (<=34); Albumin, Serum 3.8 g/dL (3.4-4.8); Alkaline Phosphatase 60 U/L (35-104); Anion Gap 13 (5-15); BUN 12 mg/dL (4-19); BUN/Creat Ratio 19.8 RATIO (10-20); Calcium,Total 9.5 mg/dL (7.6-11.0); Carbon Dioxide 23.1 mmol/L (21.0-32.0); Chloride 103 mmol/L (98-108); Globulin 2.6 g/dL (2.2-4.2); Glucose 71 mg/dL (70-99); Potassium 3.7 mmol/L (3.3-5.1)
== END ==
LOC: OLS.WHLEAS 05:00
PROVIDERS: PCP Internal Medicine; Visit Provider Internal Medicine
DX: F03.90 Unspecified dementia, unspecified severity, without behavioral disturbance, psychotic disturbance, mood disturbance, and anxiety (principal); R62.7 Adult failure to thrive; E78.00 Pure hypercholesterolemia, unspecified; E55.9 Vitamin D deficiency, unspecified
CPT/HCPCS: 36415; 80053; 85025

== ENCOUNTER → 2025-03-21 05:00 | Outpatient (REF) | payer MEDICARE, SELFPAY ==
[2025-03-21 10:57] LABS: Vitamin D,25 Hydroxy 70.1 ng/mL (30-100)
== END ==
LOC: OLS.WHLEAS 05:00
PROVIDERS: PCP Internal Medicine; Visit Provider Internal Medicine
DX: E55.9 Vitamin D deficiency, unspecified (principal)
CPT/HCPCS: 36415; 82306

== ENCOUNTER → 2025-05-16 | Outpatient (REF) | payer MEDICARE, SELFPAY ==
--- OUTSIDE RECORDS SUMMARY | 2025-05-16 03:55 | XMS RPT_ITS | CCD ---
Author Organization [facility] Care Team Providers Care Utility Bill Collector Name Role Phone ANUSHA ABDALLA Unavailable Unavailable LOREN DEE Unavailable Loren Dee Primary Care Provider [phone] Loren Dee Primary Care Provider Loren Dee Primary Care Provider Loren Dee Primary Care Provider Loren Dee Primary Care Provider Dr. Loren Dee Primary Care Provider [place] FIELD MARKETING COORDINATOR, FIELD MARKETING COORDINATOR-C Mary Jane Attending Provider Unav Dr. Ovidio Avery Attending Provider Dr. Loren Dee Primary Care Provider [place] FIELD MARKETING COORDINATOR, FIELD MARKETING COORDINATOR-C Mary Jane Attending Provider Unav Dr. Loren Carter Primary Care Provider [place] FIELD MARKETING COORDINATOR, FIELD MARKETING COORDINATOR-C Mary Jane Attending Provider Unav Dr. Ovidio Avery Primary Care Provider Ariane FIELD MARKETING COORDINATOR, FIELD MARKETING COORDINATOR-C Mary Jane Attending Provider Dr. Ovidio Ibanez MD Primary Care Provider Ovidio Ibanez MD Attending Provider Dr. Ovidio Siegel MD Attending Provider Dr. Ovidio Ibanez MD Primary Care Provider Ovidio Ibanez MD Attending Provider Dav Thakkar NP-CMary Jane Attending Provider Eleazar VILLARREAL, Dr. Dowd Attending Provider Shamar VILLARREAL, Ovidio Referring Provider Unavaila jimmy Bush MD, Dr. Dowd Attending Provider Shamar VILLARREAL, Dr. Nolan Attending Provider [phone] Gala VILLARREAL, Mauricio Toure Unavailable Oleghe, Efewongbe Primary Care Unavailable [place] FIELD MARKETING COORDINATOR, Mary Jane Attending Unavailable Oleghe, Efewongbe Primary Care Unavailable [place] FIELD MARKETING COORDINATOR, Mary Jane Attending Unavailable Oleghe, Efewongbe Attending Unavailable Oleghe, Efewongbe Primary Care Unavailable Oleghe, Efewongbe Attending Unavailable Oleghe, Efewongbe Primary Care Unavailable Oleghe, Efewongbe Primary Care Unavailable Oleghe OLS, Efewongbe Attending Unavailabl e Oleghe, Efewongbe Primary Care Unavailable Oleghe OLS, Efewongbe Attending Unavailabl e Oleghe, Efewongbe Primary Care Unavailable Oleghe OLS, Efewongbe Attending Unavailabl e Oleghe, Efewongbe Primary Care Unavailable Oleghe OLS, Efewongbe Attending Unavailabl e Oleghe, Efewongbe Primary Care Unavailable Oleghe OLS, Efewongbe Attending Unavailabl e Oleghe OLS, Efewongbe Referring Unavailabl e Oleghe, Efewongbe Primary Care Unavailable Oleghe OLS, Efewongbe Attending Unavailabl e Oleghe, Efewongbe Primary Care Unavailable Oleghe OLS, Efewongbe Attending Unavailabl e Oleghe, Efewongbe Primary Care Unavailable Oleghe, Efewongbe Attending Unavailable Oleghe, Efewongbe Primary Care Unavailable [place] FIELD MARKETING COORDINATOR, Mary Jane Attending Unavailable Oleghe, Efewongbe Primary Care Unavailable [place] FIELD MARKETING COORDINATOR, Mary Jane Attending Unavailable Oleghe, Efewongbe Primary Care Unavailable [place] FIELD MARKETING COORDINATOR, Mary Jane Attending Unavailable Barrie Velazco Attending Unavailable Oleghe, Efewongbe Primary Care Unavailable Oleghe, Efewongbe Referring Unavailable Shamar VILLARREAL, Dr. Nolan Primary Care Physician Eleazar VILLARREAL, Dr. Dowd Attending Physician Shamar VILLARREAL, Ovidio Attending Physician Unavail able Shamar VILLARREAL, Dr. Nolan Attending Physician [phone] Mary Jane Acevedo Attending Physician KOSTAS DIAZ Attending Unavailable MAURICIO GRACE Referring [facility] Allergies Allergy Classification Reported Allergen(s) Allergy Type Date of Onset Reaction(s) Facility (7 sources) Cranberry preparation; Translations: [CRANBERRY] Drug Allergy 04-04-20 Unknown [place], [place] (20 sources) Meperidine; Translations: [MEPERIDINE] Drug Allergy 04-04-20 Unknown [place], [place] (5 sources) Sulfonamides (Antibiotic) Propensity to adverse reactions to drug 04-04-20 [place] (20 sources) Adhesive Tape; Translations: [adhesive tape] Propensity to adverse reactions 06-18-20 Rash [facility] (20 sources) HYDROcodone; Translations: [hydrocodone bitartrate] Drug Allergy 06-18-[address] [facility] (20 sources) Meperidine; Translations: [meperidine HCl] Drug Allergy 06-18-20 21 HALLUCINATIONS [facility] (20 sources) Propoxyphene; Translations: [propoxyphene HCl] Drug Allergy 06-18-[address] [facility] (20 sources) Sulfonamides (Antibiotic); Translations: [SULFA (SULFONAMIDE ANTIBIOTICS)] Allergy to substance 04-04-20 Hives [facility] (20 sources) Cranberry Propensity to adverse reactions 04-04-20 20 [facility] (20 sources) Sulfonamides (Antibiotic) Drug Intolerance 04-04-20 20 Unknown [facility] (11 sources) HYDROcodone Drug Allergy 06-18-20 21 [facility] (11 sources) meloxicam Drug Allergy 02-29-20 23 [facility] (11 sources) Propoxyphene Drug Allergy 06-18-20 21 [facility] (1 source) Sulfonamides (Antibiotic) Drug allergy (disorder) 06-22-20 24 [facility] Medications Current Medications Medication Drug Class(es) Dates Sig (Normalized) Sig (Original) acetaminophen 325 mg oral capsule (15 sources) Start: 06-22-2024 take 2 capsules by mouth every eight hours as needed Start: 04-06-2020 End: 07-18-2022 acetaminophen (TYLENOL) 500 mg tablet Take 1,000 mg by mouth. 04/06/2020 Active Start: 04-06-2020 acetaminophen (TYLENOL) tablet 1,000 mg allopurinol 100 mg oral tablet (20 sources) Xanthine Oxidase Inhibitor Start: 06-02-2021 take 2 tablets by mouth once daily Start: 06-02-2021 take 200 mg by mouth once arti y Allopurinol Active 200 MG PO DAILY June 02, 2021 1:00am ALPRAZolam 0.25 mg disintegrating oral tablet (1 source) Benzodiazepine Start: 04-06-2020 ALPRAZolam (NIRAVAM) dissolvable tablet 0.25 mg benoxinate hydrochloride 4 mg/ml / fluorescein sodium 3 mg/ml ophthalmic solution (1 source) Diagnostic Dye Start: 03-16-2025 End: 03-17-2025 fluorescein-vj xinate 0.3-0.4 % 1 drop (FLURESS) calcium chloride 0.0014 meq/ml / potassium chloride 0.004 meq/ml / sodium chloride 0.103 meq/ml / sodium lactate 0.028 meq/ml injectable solution (1 source) Start: 04-06-2020 lactated ringers infusion dextromethorphan hydrobromide 2 mg/ml / guaiFENesin 20 mg/ml oral solution (8 sources) Uncompetitive N-avkiaa-T-aspartate Receptor Antagonist, Sigma-1 Agonist Start: 06-22-2024 take 1 mL by mouth every four hours as needed diphenhydrAMINE hydrochloride 25 mg oral capsule (9 sources) Histamine-1 Receptor Antagonist Start: 06-22-2024 take 1 capsule by mouth at bedtime as needed Start: 04-06-2020 End: 04-06-2020 diphenhydrAMINE (BENADRYL) i njection 12.5 mg donepezil hydrochloride 10 m g oral tablet (20 sources) Start: 06-22-2024 take 1 tablet by danay th at bedtime Start: 12-16-2022 End: 06-22-2024 take 1 tablet by mouth once daily Donepezil 5 mg tablet Discontinued 5 mg PO DAILY May 19, 2023 1:00am June 22, 2024 12:16pm fluticasone propionate 0.05 mg/actuat metered dose nasal spray (20 sources) Corticosteroid Start: 12-15-2024 fluticasone (F LONASE) 50 mcg/actuation nasal spray 12/15/2024 Active Start: 06-02-2021 End: 06-22-2024 Start: 06-02-2021 Fluticasone Pr opionate Active 1 SPRAY INTRANASAL DAILY NEEDED June 02, 2021 1:00am fluticasone (Babak nase) 50 MCG/ACT nasal spray Administer into affected nostril(s). Active Fluticasone Prop ionate (FLONASE NA) by Nasal route 0 Suspended Fluticasone Prop ionate (FLONASE NA) by Nasal route 0 Active 1 ml hydrALAZINE hydrochloride 20 mg/ml injection (1 source) Arteriolar Vasodilator Start: 04-06-2020 hydrALAZINE (APRESOLINE) injection 5 mg ibuprofen 200 mg oral tablet (20 sources) Nonsteroidal Anti-inflammatory Drug take 1 tablet by mouth every six hours as needed ibuprofen 200 MG tablet Take 200 mg by mouth every 6 hours as needed. Active 4 ml labetalol hydrochloride 5 mg/ml cartridge (1 source) beta-Adrenergic Nilsa Start: 04-06-2020 labetalol (NORMODYNE;TRANDAT E) injection 5 mg 10 ml lidocaine hydrochloride 10 mg/ml injection (1 source) Antiarrhythmic, Amide Local Anesthetic Start: 04-06-2020 End: 04-06-2020 lidocaine PF 1 % injection 1 mL 1 ml LORazepam 2 mg/ml injection (1 source) Benzodiazepine Start: 04-06-2020 LORazepam (ATIVAN) injection 0.5 mg 2 ml midazolam 1 mg/ml injection (1 source) Benzodiazepine Start: 04-06-2020 midazolam (VERSED) injection 2 mg 24 hr mirabegron 50 mg extended release oral tablet (10 sources) beta3-Adrenergic Agonist Start: 06-22-2024 take 1 tablet by mouth once daily Start: 09-09-2018 mirabegron (MY RBETRIQ) 50 MG TB24 mirabegron MYRBETRIQ 50 MG [id number] ONCE DAILY MIRABEGRON [id number] Christian Brown MD 09-09-2018 [facility] [id number]) [phone] 09/09/2018 Suspended mirtazapine 7.5 mg oral tabl et (1 source) Start: 03-01-2025 Mirtazapine (R EMERON) 7.5 mg tablet 03/01/2025 Active Multiple Vitamin (MULTI-ALIZA MIN DAILY PO) (5 sources) Multiple Vitamin (MULTI-VITAMIN DAILY PO) Take by mouth 0 Suspended Multiple Vitamin (MULTI-VITAMIN DAILY PO) Take by mouth 0 Active Dxpxuuhu-Ucl-Nbau-Fa-Lutein (Multivitamin Women 50 Plus) 8 mg iron-400 mcg-300 mcg Tablet (1 source) Start: 06-02-2021 take 1 tablet by mouth once daily Qyhurgyu-Rbc-Xhtp-Fa-Lutein (Multivitamin Women 50 Plus) 8 mg iron-400 mcg-300 mcg Tablet Active 1 TABLET PO DAILY June 02, 2021 12:00am Yzirvuwj-Ygz-Enpb-Fa-Vit K-L ut (Multivitamin Women 50 Plus) 8 mg iron-400 mcg-300 mcg Tablet (18 sources) Start: 06-02-2021 Start: 06-02-2021 Smwnvdff-Kax-Y karel-Fa-Vit K-Lut (Multivitamin Women 50 Plus) 8 mg iron-400 mcg-300 mcg Tablet Active 1 {tbl} PO DAILY June 02, 2021 1:00am supplement Start: 06-02-2021 Ivdofhzl-Ipq-W karel-Fa-Vit K-Lut (Multivitamin Women 50 Plus) 8 mg iron-400 mcg-300 mcg Tablet Active 1 {tbl} PO DAILY June 02, 2021 1:00am Start: 06-02-2021 take 1 tablet by danay th once daily Sbzjlzwx-Cwp-Mnxt-Fa-Vit K-Lut (Multivitamin Women 50 Plus) 8 mg iron-400 mcg-300 mcg Tablet Active 1 TABLET PO DAILY June 02, 2021 12:00am Start: 06-02-2021 take 1 tablet by danay th once daily Unlsfanm-Fxo-Ppuy-Fa-Vit K-Lut (Multivitamin Women 50 Plus) 8 mg iron-400 mcg-300 mcg Tablet Active 1 TABLET PO DAILY June 02, 2021 1:00am Multivitamin preparation (1 source) multivitamin (MU LTIPLE VITAMIN ORAL) Take by mouth as directed. Active multivitamin with minerals ( Cerovite) 18-400 mg-mcg tablet tablet (20 sources) multivitamin wit h minerals (Cerovite) 18-400 mg-mcg tablet tablet Take by mouth. Active multivitamin wit h minerals (Cerovite) 18-400 mg-mcg tablet tablet Take by mouth. 0 Active 2 ml ondansetron 2 mg/ml injection (1 source) Serotonin-3 Receptor Antagonist Start: 04-06-2020 End: 04-06-2020 ondansetron (ZOFRAN) injection 4 mg oxyCODONE hydrochloride 5 mg oral tablet (1 source) Opioid Agonist Start: 04-06-2020 End: 04-11-2020 take 1 tablet by mouth every six hours as needed for pain, then take 1 tablet by mouth as needed for pain oxyCODONE (ROXICODONE) 5 MG immediate release tablet Indications: Other closed displaced fracture of distal end of left humerus, initial encounter Take 1 tablet by mouth every 6 hours as needed for Pain for up to 5 days. Intended supply: 5 days. Take lowest dose possible to manage pain 20 tablet 0 04/06/2020 04/11/2020 Active phenylephrine hydrochloride 25 mg/ml ophthalmic solution (2 sources) alpha-1 Adrenergic Agonist Start: 03-16-2025 End: 03-17-2025 PHENYLephrine 2.5 % 1 drop (AK-DILATE, CHARU-SYNEPHRINE) Start: 03-16-2025 End: 03-17-2025 1 drop, BOTH EYES, DIRECT ED, Starting on Fri03/16/25 at 1530, Until Fri03/17/25 at 0329, Administer for dilation PROTECT FROM LIGHT polyethylene glycol 3350 170 00 mg powder for oral solution (20 sources) Osmotic Laxative Start: 06-22-2024 polyethylene gly col 3350 17 gram packet Take 17 g by mouth. Active 1 ml promethazine hydrochloride 25 mg/ml injection (1 source) Phenothiazine Start: 04-06-2020 End: 04-06-2020 promethazine (PHENERGAN) injection 6.25 mg proparacaine hydrochloride 5 mg/ml ophthalmic solution (2 sources) Local Anesthetic Start: 03-16-2025 End: 03-17-2025 proparacaine 0.5 % 1 drop (ALCAINE) Start: 03-16-2025 End: 03-17-2025 1 drop, BOTH EYES, DIRECT ED, Starting on Fri03/16/25 at 1530, Until Fri03/17/25 at 0329, Administer for pneumo tonometry, tonopen tonometry, or pachymetry. In the event of a proparacaine shortage, administer tetracaine 0.5% ophthalmic drops 1 drop in both eyes as directed for pneumo tonometry, tonopen tonometry, or pachymetry sennosides, nursing home 8.6 mg oral tablet (4 sources) take 1 tablet by mouth once daily sennosides (Senokot) 8.6 MG tablet Take 1 tablet by mouth daily. Active sertraline 100 mg oral tablet (20 sources) Serotonin Reuptake Inhibitor Start: 02-11-2025 sertraline (ZOLOFT) 100 mg tablet 02/11/2025 Active Start: 06-22-2024 take 1 capsule by mo uth once daily Start: 05-19-2023 End: 06-22-2024 take 1 tablet by mouth every twenty-four hours Sertraline 100 mg tablet Discontinued 100 mg PO Q24H May 19, 2023 1:00am June 22, 2024 12:16pm Start: 10-24-2022 End: 10-24-2023 take 1 tablet by mouth once daily sertraline (Zoloft) 100 MG tablet Indications: Mild dementia with mood disturbance, unspecified dementia type (HCC) Take 1 tablet (100 mg) by mouth daily. Do not start before October 24, 2022. 30 tablet 5 10/24/2022 Active Start: 06-21-2022 End: 10-10-2022 take 1 tablet by mouth once daily sertraline (Zoloft) 50 MG tablet Take 1 tablet (50 mg) by mouth daily. 90 tablet 1 06/21/2022 10/10/2022 Discontinued 3 ml sodium chloride 9 mg/ml injection (2 sources) Start: 04-06-2020 sodium chlorid e flush 0.9 % injection 10 mL tropicamide 10 mg/ml ophthalmic solution (2 sources) Anticholinergic Start: 03-16-2025 End: 03-17-2025 tropicamide 1 % 1 drop (MYDRIACYL) Start: 03-16-2025 End: 03-17-2025 1 drop, BOTH EYES, DIRECT ED, Starting on Fri03/16/25 at 1530, Until Fri03/17/25 at 0329, Administer for dilation Completed/Discontinued Medications Medication Drug Class(es) Dates Sig (Normalized) Sig (Original) biotin 1 mg chewable tablet (20 sources) Start: 06-02-2021 End: 06-22-2024 take 1 tablet by mouth once daily Biotin 1,000 mcg Tablet,Chewable Discontinued 1000 ug PO DAILY June 02, 2021 1:00am June 22, 2024 12:19pm supplement biotin 1000 MCG tablet Take by mouth. Active cetirizine hydrochloride 10 mg oral tablet (20 sources) Histamine-1 Receptor Antagonist Start: 01-01-2016 End: 06-22-2024 take 1 tablet by mouth once daily Cetirizine Hcl (Zyrtec) 10 MG tablet Discontinued 10 mg PO DAILY January 01, 2016 12:00am June 22, 2024 12:19pm ALLERGIES cholecalciferol 0.025 mg oral tablet (20 sources) Vitamin D Start: 09-09-2018 End: 05-19-2023 take 1 tablet by mouth once daily Cholecalciferol (Vitamin D3) (Vitamin D3) 1,000 UNIT tablet Discontinued 1000 U PO DAILY September 09, 2018 1:00am May 19, 2023 10:05pm SUPPLEMENT Vitamin D (ONOFRE CALCIFEROL) 25 MCG (1000 UT) TABS tablet Take 1,000 Units by mouth daily 0 Active Cholecalciferol (VITAMIN D3) 1.25 MG (87318 UT) CAPS Take by mouth 0 Suspended DULoxetine 30 mg delayed release oral capsule (20 sources) Serotonin and Norepinephrine Reuptake Inhibitor Start: 06-02-2021 End: 05-19-2023 take 1 capsule by mouth once daily Duloxetine 30 mg capsule,delayed release(DR/EC) Discontinued 30 mg PO DAILY June 02, 2021 1:00am May 19, 2023 10:05pm mental health famotidine 20 mg oral tablet (1 source) Histamine-2 Receptor Antagonist Start: 04-06-2020 End: 04-06-2020 famotidine (PEPCID) tablet 20 mg Magnesium (16 sources) End: 12-16-2022 magnesium 500 MG tablet Take by mouth. 0 12/16/2022 Discontinued magnesium 500 MG tablet Take by mouth. 0 Active Magnesium 500 MG TABS Take by mouth 0 Suspended Magnesium 500 MG TABS Take by mouth 0 Active Turmeric Root Extract (20 sources) Start: 09-09-2018 End: 06-06-2021 take 1 capsule by mouth once daily Turmeric Root Extract 500 MG capsule Discontinued 500 mg PO DAILY September 09, 2018 1:00am June 06, 2021 12:47pm SUPPLEMENT Start: 09-09-2018 End: 06-06-2021 take 1 capsule by mouth once daily Turmeric Root Extract 500 MG capsule Discontinued 500 mg PO DAILY September 09, 2018 1:00am June 06, 2021 12:47pm Start: 09-09-2018 End: 06-06-2021 take 500 mg by mouth once daily Turmeric Root Extract Discontinued 500 MG PO DAILY September 09, 2018 1:00am June 06, 2021 12:47pm Start: 09-09-2018 End: 06-06-2021 take 500 mg by mouth once daily Turmeric Root Extract Discontinued 500 MG PO DAILY September 09, 2018 12:00am June 06, 2021 11:47am Turmeric 500 MG tablet Take by mouth. Active Turmeric 500 MG tablet Take by mouth. 0 Active Turmeric 500 MG TABS Take by mouth 0 Active Turmeric 500 MG TABS Take by mouth 0 Suspended Problems Active Problems Problem Classification Problem Date Documented Date Episodic/Chronic Biliary tract disease (20 sources) Acute cholecystitis; Translations: [Acute cholecystitis] Onset: 3 06-15-2021 Episodic Cataract (2 sources) Bilateral senile combined form cataracts of eyes; Translations: [Combined forms of age-related cataract, bilateral] Onset: 5 03-16-2025 Chronic Delirium, dementia, and amnestic and other cognitive disorders (20 sources) Dementia; Translations: [Mild dementia with mood disturbance, unspecified dementia type (HCC)] Onset: 3 Chronic Comment on above: Patient performed re latively well cognitively during this visit but family members do indicate a significant recent memory deficit. I would make no changes in her current management on this point. Disorders of lipid metabolism (20 sources) Hypercholesterolemia; Translations: [Pure hypercholesterolemia, unspecified] Onset: 3 04-01-2020 Chronic E Codes: Fall (14 sources) Fall; Translations: [Unspecified fall, initial encounter] 05-19-2023 Episodic Fracture of upper limb (20 sources) Closed fracture of lower end of humerus; Translations: [Elbow fracture] Onset: 3 04-02-2020 Episodic Genitourinary symptoms and ill-defined conditions (20 sources) Urge incontinence of urine; Translations: [Urge incontinence] Onset: 2 09-17-2021 Chronic Gout and other crystal arthropathies (19 sources) Chronic gouty arthritis; Translations: [Idiopathic chronic gout, unspecified site, without tophus (tophi)] Onset: 3 10-10-2022 Chronic Menopausal disorders (19 sources) Menopausal and postmenopausal disorders; Translations: [Unspecified menopausal and perimenopausal disorder] Onset: 3 10-10-2022 Chronic Mood disorders (4 sources) Depressive disorder; Translations: [Depression, unspecified depression type] Chronic Nutritional deficiencies (20 sources) Vitamin D deficiency; Translations: [Vitamin D deficiency, unspecified] Onset: 2 09-17-2021 Chronic Open wounds of head; neck; and trunk (14 sources) Scalp laceration; Translations: [Laceration without foreign body of scalp, initial encounter] 05-19-2023 Episodic Osteoarthritis (19 sources) Localized, primary osteoarthritis of the hand; Translations: [Primary osteoarthritis, unspecified hand] Onset: 3 10-10-2022 Chronic Other acquired deformities (19 sources) Spondylolisthesis; Translations: [Spondylolisthesis, site unspecified] 10-26-2018 Episodic Comment on above: L4 on L5(mild). Poss ible spondylolisthesis Other bone disease and musculoskeletal deformities (20 sources) Segmental and somatic dysfunction; Translations: [Segmental and somatic dysfunction of lumbar region] Onset: 3 10-26-2018 Episodic Other connective tissue disease (3 sources) Paraparesis; Translations: [Other symptoms and signs involving the musculoskeletal system] Episodic Other connective tissue disease (8 sources) Parkinsonian features; Translations: [Other symptoms and signs involving the nervous system] 06-22-2024 Episodic Comment on above: Parkinsonian feature s without necessarily being Parkinson's disease. 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 See above discussions no particular action per neurology on this point Other hereditary and degenerative nervous system conditions (1 source) Degenerative disease of nervous system, unspecified; Translations: [Degenerative disease of nervous system, unspecified] Onset: 5 Chronic Other injuries and conditions due to external causes (14 sources) Injury of head; Translations: [Unspecified injury of head, initial encounter] 05-19-2023 Episodic Other nervous system disorders (19 sources) Carpal tunnel syndrome of right wrist; Translations: [Carpal tunnel syndrome, right upper limb] Onset: 3 10-10-2022 Chronic Other nervous system disorders (3 sources) Numbness of lower limb ; Translations: [Anesthesia of skin] Episodic Other nervous system disorders (5 sources) Ataxic gait; Translations: [Ataxic gait] 02-28-2023 Episodic Other nervous system disorders (8 sources) 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 Other nutritional; endocrine; and metabolic disorders (1 source) Adult failure to thrive; Translations: [Adult failure to thrive] Onset: 5 Episodic Spondylosis; intervertebral disc disorders; other back problems (20 sources) Lumbosacral spondylosis without myelopathy; Translations: [Spondylosis without myelopathy or radiculopathy, lumbosacral region] Onset: 3 03-01-2019 Chronic Spondylosis; intervertebral disc disorders; other back problems (20 sources) Lumbosacral radiculopathy; Translations: [Radiculopathy, lumbosacral region] Onset: 3 10-26-2018 Episodic Unclassified (1 source) Personal history of COVID-19; Translations: [Personal history of COVID-19] Onset: 4 Past or Other Problems Problem Classification Problem Date Documented Da te Episodic/Chronic Administrative/social admission (2 sources) Other reduced mobility; Translations: [Other specified conditions influencing health status] Episodic Malaise and fatigue (7 sources) Asthenia; Translations: [Other malaise] Onset: 09-07-2024 Episodic Mood disorders (20 sources) Mood disorders Onset: 07-18-2022 Resolved: 10-10-2022 10-10-2022 Other acquired deformities (19 sources) Acquired spondylolisthesis; Translations: [Spondylolisthesis, site unspecified] Onset: 10-10-2022 10-10-2022 Episodic Other circulatory disease (20 sources) Orthostatic hypotension; Translations: [Orthostatic hypotension] Onset: 10-08-2021 10-08-2021 Episodic Other circulatory disease (1 source) Unspecified disorder of circulatory system; Translations: [Unspecified disorder of circulatory system] Onset: 07-16-2024 Episodic Other connective tissue disease (20 sources) Recurrent falls ; Translations: [Repeated falls] Onset: 09-17-2021 09-17-2021 Episodic Other connective tissue disease (1 source) Other symptoms and signs involving the nervous system; Translations: [Other symptoms and signs involving the nervous system] Onset: 07-16-2024 Episodic Other nervous system disorders (1 source) White matter disease, unspecified; Translations: [White matter disease, unspecified] Onset: 07-16-2024 Episodic Otitis media and related conditions (1 source) Unspecified Eustachian tube disorder, left ear; Translations: [Unspecified Eustachian tube disorder, left ear] Onset: 06-08-2024 Episodic Residual codes; unclassified (1 source) Encounter for prophylactic measures, unspecified; Translations: [Encounter for prophylactic measures, unspecified] Onset: 09-07-2024 Episodic Results Test Name Value Interpretation Reference Range Facility [facility] 05-11-2025 HENRY Telephone (MNPACC) -------- KETANKELLI I ([id number]) 1940 F Date Time Provider Department 05/11/[address] [facility] During your visit today, we recorded the following information about you: Javier Barrera APRN.[facility] 05/11/2025 1:27 PM Signed Patient scheduled for PACC appt today. Called [facility] at and asked to speak with Tenisha per chart review. Tenisha was out on a patient transfer, directed me to call another transporter- Yanique at [phone]. Spoke with Yanique. States that unable to bring patient to appt today. Requesting a PACC appt at a location closer to facility, in [place]. Patient able to be brought to appt in a wheelchair. Please give the [facility] facility a call to discuss further and reschedule PACC appt. Thanks, Javier Barrera APRN.[facility] PACC Allergies As of Date: 05/11/2025 Noted Allergy Reaction CRANBERRY 04/04/2020 16 - Unknown MEPERIDINE 04/04/2020 16 - Unknown SULFA (SULFONAMIDE ANTIBIOTICS) 04/04/2020 16 - Unknown Date Reviewed: Never Reviewed Reason for Visit: Missed Appointment [1304] Prescriptions as of 05/11/2025 - acetaminophen (TYLENOL) 500 mg tablet Take 1,000 mg by mouth. - allopurinol (ZYLOPRIM) 100 mg tablet Take 200 mg by mouth. - donepezil (ARICEPT) 10 mg tablet - fluticasone (FLONASE) 50 mcg/actuation nasal spray - sertraline (ZOLOFT) 100 mg tablet - polyethylene glycol 3350 17 gram packet Take 17 g by mouth. - Mirtazapine (REMERON) 7.5 mg tablet - multivitamin (MULTIPLE VITAMIN ORAL) Take by mouth as directed. 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 Carpal tunnel syndrome of right wrist [G56.01] 10/10/2022 Cervical radiculopathy [M54.12] 10/10/2022 Chronic gouty arthritis [M1A.9XX0] 10/10/2022 Closed fracture of distal end of humerus [S42.4*10/10/2022 Frequent falls [R29.6] 09/17/2021 Hypercholesterolemia [E78.00] 10/10/2022 Localized, primary osteoarthritis of hand [M19.*10/10/2022 Lumbar spondylosis [M47.816] 10/10/2022 Menopausal and postmenopausal disorder [N95.9] 10/10/2022 Orthostatic hypotension [I95.1] 10/08/2021 Segmental and somatic dysfunction [M99.09] 10/10/2022 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*10/10/2022 Unspecified dementia, mild, with mood disturban*07/18/2022 Urge incontinence [N39.41] 09/17/2021 Vitamin D deficiency [E55.9] 09/17/2021 Encounter Status:Closed by JAVIER BARRERA on 05/11/25 [facility] Kelsey 04-26-2025 [facility] Tele[facility] (OPHTMN) -------- KELLI ACEVES I ([id number]) 1940 F Date Time Provider Department 04/26/25 KOSTAS DIAZ OPHN During your visit today, we recorded the following information about you: Verito Zepeda 04/26/2025 11:12 AM Signed Tenisha from [facility] calling to see when patient's cataract surgery is going to be scheduled. Please review and advise. Verito Tamayostrom April 26, 2025 11:11 AM Javier Barrera APRN.[employer] 05/11/2025 1:30 PM Signed Patient scheduled for PACC appt today. Called [facility] at and asked to speak with Tenisha per chart review. Tenisha was out on a patient transfer, directed me to call another transporter- Yanique at [phone]. Spoke with Yanique. States that unable to bring patient to appt today. Sent message to PACC title examiner to reschedule PACC appointment. Preop Ophthalmology appt will need to be rescheduled. OR 05/26/25 Javier Barrera APRN.[facility] PACC Tran Henson RN 05/12/2025 9:38 AM Signed Patient needing to reschedule surgery with Dr. Diaz. Tran Henson RN May 12, 2025 9:38 AM Allergies As of Date: 04/26/2025 Noted Allergy Reaction CRANBERRY 04/04/2020 16 - Unknown MEPERIDINE 04/04/2020 16 - Unknown SULFA (SULFONAMIDE ANTIBIOTICS) 04/04/2020 16 - Unknown Date Reviewed: Never Reviewed Reason for Visit: Cataract Surgery [Other] Prescriptions as of 05/12/2025 - acetaminophen (TYLENOL) 500 mg tablet Take 1,000 mg by mouth. - allopurinol (ZYLOPRIM) 100 mg tablet Take 200 mg by mouth. - donepezil (ARICEPT) 10 mg tablet - fluticasone (FLONASE) 50 mcg/actuation nasal spray - sertraline (ZOLOFT) 100 mg tablet - polyethylene glycol 3350 17 gram packet Take 17 g by mouth. - Mirtazapine (REMERON) 7.5 mg tablet - multivitamin (MULTIPLE VITAMIN ORAL) Take by mouth as directed. 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 Carpal tunnel syndrome of right wrist [G56.01] 10/10/2022 Cervical radiculopathy [M54.12] 10/10/2022 Chronic gouty arthritis [M1A.9XX0] 10/10/2022 Closed fracture of distal end of humerus [S42.4*10/10/2022 Frequent falls [R29.6] 09/17/2021 Hypercholesterolemia [E78.00] 10/10/2022 Localized, primary osteoarthritis of hand [M19.*10/10/2022 Lumbar spondylosis [M47.816] 10/10/2022 Menopausal and postmenopausal disorder [N95.9] 10/10/2022 Orthostatic hypotension [I95.1] 10/08/2021 Segmental and somatic dysfunction [M99.09] 10/10/2022 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*10/10/2022 Unspecified dementia, mild, with mood disturban*07/18/2022 Urge incontinence [N39.41] 09/17/2021 Vitamin D deficiency [E55.9] 09/17/2021 Encounter Status:Closed by JAVIER BARRERA on 05/11/25 [facility] Absolute lymphocyte countOrd ered By: Ovidio Ibanez on 02-22-2025 Lymphocytes Auto (Unsp spec) [#/Vol] 2.43 10*3/uL 0.83-4.51 [facility] Absolute neutrophil countOrd ered By: Ovidio Ibanez on 02-22-2025 Neutrophils (Bld) [#/Vol] 3.5 10*3/uL 2.0-7.7 [facility] Anion gap in Serum or Plasma Ordered By: Ovidio Ibanez on 02-22-2025 Anion gap [Moles/Vol] 13 mmol/L 5-15 [facility] Automated lymphocyte count a s percentage of total leukocytesOrdered By: Ovidio Ibanez on 02-22-2025 Lymphocytes/100 WBC Auto (Unsp spec) 34.3 % 19-41 [facility] BUN/creatinine ratioOrdered By: Ovidio Ibanez on 02-22-2025 Urea nitrogen/Creatinine [Mass ratio] 19.8 mg/mg 10-20 [facility] Basophil percentageOrdered B y: Ovidio Ibanez on 02-22-2025 Basophils/100 WBC (Bld) 0.6 % 0-1 [facility] Bilirubin, totalOrdered By: Ovidio Ibanez on 02-22-2025 Bilirubin [Mass/Vol] 0.33 mg/dL 0.00-1.30 [facility] Carbon dioxide, total [Moles /volume] in Central venous bloodOrdered By: Ovidio Ibanez on 02-22-2025 CO2 [Moles/Vol] 23.1 mmol/L 21.0-32.0 [facility] Chloride assayOrdered By: Carmina bebekylee Ibanez on 02-22-2025 Chloride [Moles/Vol] 103 mmol/L 98-108 [facility] Eosinophil percentageOrdered By: Haydemellonilson Ibanez on 02-22-2025 Eosinophils/100 WBC (Bld) 3.5 % 0-5 [facility] Erythrocyte distribution wid th ratioOrdered By: Ovidio Ibanez on 02-22-2025 Erythrocyte distribution width (RBC) [Ratio] 13.8 % 11.6-14.6 [facility] Erythrocyte distribution wid th standard deviationOrdered By: Ovidio Ibanez on 02-22-2025 Erythrocyte distribution width (RBC) [Ratio] 46.9 fl High 35.1-43.9 [facility] Glomerular filtration rate ( GFR) estimation/1.73 sq m using serum, plasma, or whole bOrdered By: Ovidio Ibanez on 02-22-2025 GFR/1.73 sq M.predicted among non-blacks MDRD (S/P/Bld) [Vol rate/Area] 90 mL/min/{1.73_m2} >60 [facility] Comment on above: mL/min/1.73m2 CKD-EP I Creatinine Equation (2020) Hematocrit Auto (Bld) [Volum e fraction]Ordered By: Ovidio Ibanez on 02-22-2025 Hematocrit (Bld) [Volume fraction] 35.0 % Low 37-47 [facility] Hemoglobin measurementOrdere d By: Ovidio Ibanez on 02-22-2025 Hemoglobin (Bld) [Mass/Vol] 12.1 g/dL 12.0-15.0 [facility] Immature granulocytes/100 WB C Auto (Bld)Ordered By: Ovidio Ibanez on 02-22-2025 Immature granulocytes/100 WBC (Bld) 0.300 % 0.0-0.9 [facility] Comment on above: IG% - Immature Granu locytes (promyelocytes, myelocytes and metamyelocytes) > 1% indicates that a LEFT SHIFT is Present. Laboratory - Chemistry and C hemistry - challengeOrdered By: Ovidio Ibanez on 02-22-2025 AST [Catalytic activity/Vol] 40 U/L High <32 [facility] MCV (mean corpuscular volume ) determinationOrdered By: Ovidio Ibanez on 02-22-2025 MCV (RBC) [Entitic vol] 94.9 fL 81-99 [facility] Mean corpuscular hemoglobin (MCH) determinationOrdered By: Ovidio Ibanez on 02-22-2025 MCH (RBC) [Entitic mass] 32.8 pg High 27.0-32.0 [facility] Mean corpuscular hemoglobin concentration (MCHC) determinationOrdered By: Ovidio Ibanez on 02-22-2025 MCHC (RBC) [Mass/Vol] 34.6 g/dL 32-36 [facility] Mean platelet volume determi nationOrdered By: Ovidio Ibanez on 02-22-2025 Platelet mean volume (Bld) [Entitic vol] 10.1 fL 6.2-12.0 [facility] Monocyte percentageOrdered B y: Ovidio Ibanez on 02-22-2025 Monocytes/100 WBC (Bld) 11.6 % High 0-10 [facility] Neutrophil percentageOrdered By: Ovidio Ibanez on 02-22-2025 Neutrophils/100 WBC (Bld) 49.7 % 47-70 [facility] Nucleated red blood cell per centageOrdered By: Ovidio Ibanez on 02-22-2025 Nucleated RBC/100 WBC (Bld) [Ratio] 0 % 0-5 [facility] Platelet countOrdered By: Carmina Ibanez on 02-22-2025 Platelets (Bld) [#/Vol] 236 10*3/uL 150-450 [facility] Potassium measurement (mass/ volume)Ordered By: Ovidio Ibanez on 02-22-2025 Potassium (Unsp spec) [Mass/Vol] 3.7 mmol/L 3.3-5.1 [facility] Comment on above: Hemolysis present, R esults could be affected. RBC Auto (Bld) [#/Vol]Ordere d By: Ovidio Ibanez on 02-22-2025 RBC (Bld) [#/Vol] 3.69 10*6/uL Low 4.2-5.4 [facility] Serum creatinine measurement (mass/volume)Ordered By: Ovidio Ibanez on 02-22-2025 Creatinine [Mass/Vol] 0.60 mg/dL Low 0.70-1.20 [facility] Serum globulin measurementOr dered By: Ovidio Ibanez on 02-22-2025 Globulin (S) [Mass/Vol] 2.6 g/dL 2.2-4.2 [facility] Serum glucose measurement (m ass/volume)Ordered By: Ovidio Ibanez on 02-22-2025 Glucose [Mass/Vol] 71 mg/dL 70-99 [facility] Serum or plasma alanine san otransferase (ALT) measurementOrdered By: Ovidio Ibanez on 02-22-2025 ALT [Catalytic activity/Vol] 21 U/L <35 [facility] Serum or plasma albumin davin urement (mass/volume)Ordered By: Ovidio Ibanez on 02-22-2025 Albumin [Mass/Vol] 3.8 g/dL 3.4-4.8 [facility] Serum or plasma albumin/glob ulin mass ratioOrdered By: Ovidio Ibanez on 02-22-2025 Albumin/Globulin [Mass ratio] 1.4 {ratio} 0.9-2.4 [facility] Serum or plasma alkaline irvin sphatase measurementOrdered By: Carminamariaa Ibanez on 02-22-2025 ALP [Catalytic activity/Vol] 60 U/L 35-104 [facility] Serum or plasma calcium davin urement (mass/volume)Ordered By: Carminamariaa Dunhameboniyann on 02-22-2025 Calcium [Mass/Vol] 9.5 mg/dL 7.6-11.0 [facility] Serum or plasma urea nitroge n measurement (mass/volume)Ordered By: Ovidio Ibanez on 02-22-2025 Urea nitrogen [Mass/Vol] 12 mg/dL 4-19 [facility] Sodium levelOrdered By: Hayde pichardo Shamar on 02-22-2025 Sodium [Moles/Vol] 139 mmol/L 133-145 [facility] Total proteinOrdered By: Juan Carlos crabtreenilson Dunhameboniyann on 02-22-2025 Protein [Mass/Vol] 6.4 g/dL 5.9-8.4 [facility] White blood cell (WBC) count Ordered By: Ovidio Ibanez on 02-22-2025 WBC (Bld) [#/Vol] 7.1 10*3/uL 4.4-11.0 [facility] Absolute lymphocyte countOrd ered By: Haydemellonilson Ibanez on 11-23-2024 Lymphocytes Auto (Unsp spec) [#/Vol] 2.16 10*3/uL 0.83-4.51 [facility] Absolute neutrophil countOrd ered By: Ovidio Dunhameboniyann on 11-23-2024 Neutrophils (Bld) [#/Vol] 2.7 10*3/uL 2.0-7.7 [facility] Anion gap in Serum or Plasma Ordered By: Lancenilson Dunhameboniyann on 11-23-2024 Anion gap [Moles/Vol] 11 mmol/L 5-15 [facility] Automated lymphocyte count a s percentage of total leukocytesOrdered By: Carminabebemellonilson Dunhameboniyann on 11-23-2024 Lymphocytes/100 WBC Auto (Unsp spec) 36.5 % 19-41 [facility] BUN/creatinine ratioOrdered By: Haydemellonilson Dunhameboniyann on 11-23-2024 Urea nitrogen/Creatinine [Mass ratio] 19.2 mg/mg 10-20 [facility] Basophil percentageOrdered B y: Ovidio Ibanez on 11-23-2024 Basophils/100 WBC (Bld) 0.5 % 0-1 [facility] Bilirubin directOrdered By: Ovidio Ibanez on 11-23-2024 Bilirubin.direct [Mass/Vol] 0.09 mg/dL 0.00-0.30 [facility] Bilirubin, totalOrdered By: Ovidio Ibanez on 11-23-2024 Bilirubin [Mass/Vol] 0.21 mg/dL 0.00-1.30 [facility] Carbon dioxide, total [Moles /volume] in Central venous bloodOrdered By: Ovidio Ibanez on 11-23-2024 CO2 [Moles/Vol] 23.1 mmol/L 21.0-32.0 [facility] Chloride assayOrdered By: Carmina Ibanez on 11-23-2024 Chloride [Moles/Vol] 107 mmol/L 98-108 [facility] Eosinophil percentageOrdered By: Ovidio Ibanez on 11-23-2024 Eosinophils/100 WBC (Bld) 3.6 % 0-5 [facility] Erythrocyte distribution wid th ratioOrdered By: Ovidio Ibanez on 11-23-2024 Erythrocyte distribution width (RBC) [Ratio] 13.7 % 11.6-14.6 [facility] Erythrocyte distribution wid th standard deviationOrdered By: Ovidio Ibanez on 11-23-2024 Erythrocyte distribution width (RBC) [Ratio] 46.7 fl High 35.1-43.9 [facility] Glomerular filtration rate ( GFR) estimation/1.73 sq m using serum, plasma, or whole bOrdered By: Ovidio Ibanez on 11-23-2024 GFR/1.73 sq M.predicted among non-blacks MDRD (S/P/Bld) [Vol rate/Area] 87 mL/min/{1.73_m2} >60 [facility] Comment on above: mL/min/1.73m2 CKD-EP I Creatinine Equation (2020) Hematocrit Auto (Bld) [Volum e fraction]Ordered By: Ovidio Ibanez on 11-23-2024 Hematocrit (Bld) [Volume fraction] 33.9 % Low 37-47 [facility] Hemoglobin measurementOrdere d By: Ovidio Ibanez on 11-23-2024 Hemoglobin (Bld) [Mass/Vol] 12.0 g/dL 12.0-15.0 [facility] Immature granulocytes/100 WB C Auto (Bld)Ordered By: Ovidio Ibanez on 11-23-2024 Immature granulocytes/100 WBC (Bld) 0.200 % 0.0-0.9 [facility] Comment on above: IG% - Immature Granu locytes (promyelocytes, myelocytes and metamyelocytes) > 1% indicates that a LEFT SHIFT is Present. Laboratory - Chemistry and C hemistry - challengeOrdered By: Ovidio Ibanez on 11-23-2024 AST [Catalytic activity/Vol] 31 U/L <32 [facility] MCV (mean corpuscular volume ) determinationOrdered By: Ovidio Ibanez on 11-23-2024 MCV (RBC) [Entitic vol] 95.8 fL 81-99 [facility] Mean corpuscular hemoglobin (MCH) determinationOrdered By: Ovidio Ibanez on 11-23-2024 MCH (RBC) [Entitic mass] 33.9 pg High 27.0-32.0 [facility] Mean corpuscular hemoglobin concentration (MCHC) determinationOrdered By: Ovidio Ibanez on 11-23-2024 MCHC (RBC) [Mass/Vol] 35.4 g/dL 32-36 [facility] Mean platelet volume determi nationOrdered By: Ovidio Ibanez on 11-23-2024 Platelet mean volume (Bld) [Entitic vol] 9.9 fL 6.2-12.0 [facility] Monocyte percentageOrdered B y: Ovidio Ibanez on 11-23-2024 Monocytes/100 WBC (Bld) 13.4 % High 0-10 [facility] Neutrophil percentageOrdered By: Ovidio Ibanez on 11-23-2024 Neutrophils/100 WBC (Bld) 45.8 % Low 47-70 [facility] Nucleated red blood cell per centageOrdered By: Ovidio Ibanez on 11-23-2024 Nucleated RBC/100 WBC (Bld) [Ratio] 0 % 0-5 [facility] Platelet countOrdered By: Carmina Ibanez on 11-23-2024 Platelets (Bld) [#/Vol] 226 10*3/uL 150-450 [facility] Potassium measurement (mass/ volume)Ordered By: Ovidio Ibanez on 11-23-2024 Potassium (Unsp spec) [Mass/Vol] 3.5 mmol/L 3.3-5.1 [facility] RBC Auto (Bld) [#/Vol]Ordere d By: Ovidio Ibanez on 11-23-2024 RBC (Bld) [#/Vol] 3.54 10*6/uL Low 4.2-5.4 [facility] Serum creatinine measurement (mass/volume)Ordered By: Ovidio Ibanez on 11-23-2024 Creatinine [Mass/Vol] 0.67 mg/dL Low 0.70-1.20 [facility] Serum globulin measurementOr dered By: Ovidio Ibanez 11-23-2024 Globulin (S) [Mass/Vol] 2.5 g/dL 2.2-4.2 [facility] Serum glucose measurement (m ass/volume)Ordered By: Ovidio Ibanez 11-23-2024 Glucose [Mass/Vol] 97 mg/dL 70-99 [facility] Serum or plasma alanine san otransferase (ALT) measurementOrdered By: Ovidio Ibanez on 11-23-2024 ALT [Catalytic activity/Vol] 20 U/L <35 [facility] Serum or plasma albumin davin urement (mass/volume)Ordered By: Ovidio Ibanez 11-23-2024 Albumin [Mass/Vol] 3.7 g/dL 3.4-4.8 [facility] Serum or plasma alkaline irvin sphatase measurementOrdered By: Ovidio Ibanez 11-23-2024 ALP [Catalytic activity/Vol] 58 U/L 35-104 [facility] Serum or plasma calcium davin urement (mass/volume)Ordered By: Ovidio Ibanez on 11-23-2024 Calcium [Mass/Vol] 9.1 mg/dL 7.6-11.0 [facility] Serum or plasma urea nitroge n measurement (mass/volume)Ordered By: Ovidio Ibanez on 11-23-2024 Urea nitrogen [Mass/Vol] 13 mg/dL 4-19 [facility] Sodium levelOrdered By: Hayde Ibanez on 11-23-2024 Sodium [Moles/Vol] 141 mmol/L 133-145 [facility] TSH DL <= 0.005 mIU/L QnOrde red By: Ovidio Ibanez on 11-23-2024 TSH Qn 2.820 uIU/mL 0.300-4.200 [facility] Total proteinOrdered By: Juan Carlos Ibanez on 11-23-2024 Protein [Mass/Vol] 6.1 g/dL 5.9-8.4 [facility] White blood cell (WBC) count Ordered By: Ovidio Ibanez on 11-23-2024 WBC (Bld) [#/Vol] 5.9 10*3/uL 4.4-11.0 [facility] Absolute lymphocyte countOrd ered By: Ovidio Ibanez on 08-24-2024 Lymphocytes Auto (Unsp spec) [#/Vol] 2.39 10*3/uL 0.83-4.51 [facility] Absolute neutrophil countOrd ered By: Ovidio Ibanez on 08-24-2024 Neutrophils (Bld) [#/Vol] 3.2 10*3/uL 2.0-7.7 [facility] Automated lymphocyte count a s percentage of total leukocytesOrdered By: Ovidio Rolyeboniyann on 08-24-2024 Lymphocytes/100 WBC Auto (Unsp spec) 35.5 % 19-41 [facility] Basophil percentageOrdered B y: Lancenilson Dunhameboniyann on 08-24-2024 Basophils/100 WBC (Bld) 0.6 % 0-1 [facility] Bilirubin directOrdered By: Carminabebemellonilson Dunhameboniyann on 08-24-2024 Bilirubin.direct [Mass/Vol] 0.09 mg/dL 0.00-0.30 [facility] Bilirubin, totalOrdered By: Ovidio Ibanez on 08-24-2024 Bilirubin [Mass/Vol] 0.40 mg/dL 0.20-1.00 [facility] Comment on above: For patients on eltr ombopag therapy, use of Dimension [place] TBIL is not recommended. Blood urea nitrogen (BUN)/cr eatinine ratioOrdered By: Ovidio Ibanez on 08-24-2024 Urea nitrogen/Creatinine [Mass ratio] 19.2 mg/mg 10-20 [facility] Carbon dioxide measurementOr dered By: Ovidio Ibanez on 08-24-2024 CO2 [Moles/Vol] 27.0 mmol/L 21.0-32.0 [facility] Chloride measurementOrdered By: Ovidio Ibanez on 08-24-2024 Chloride [Moles/Vol] 108 mmol/L High 98-107 [facility] Eosinophil percentageOrdered By: Ovidio Ibanez on 08-24-2024 Eosinophils/100 WBC (Bld) 3.3 % 0-5 [facility] Erythrocyte distribution wid th ratioOrdered By: Ovidio Ibanez on 08-24-2024 Erythrocyte distribution width (RBC) [Ratio] 13.8 % 11.6-14.6 [facility] Erythrocyte distribution wid th standard deviationOrdered By: Ovidio Ibanez on 08-24-2024 Erythrocyte distribution width (RBC) [Ratio] 46.6 fl High 35.1-43.9 [facility] Glomerular filtration rate ( GFR) estimationOrdered By: Ovidio Ibanez on 08-24-2024 GFR/1.73 sq M.predicted among non-blacks MDRD (S/P/Bld) [Vol rate/Area] 97 mL/min/{1.73_m2} >60 [facility] Comment on above: Non- GFR Calc Glucose measurementOrdered B y: Ovidio Ibanez on 08-24-2024 Glucose [Mass/Vol] 88 mg/dL 74-106 [facility] Hematocrit Auto (Bld) [Volum e fraction]Ordered By: Ovidio Ibanez on 08-24-2024 Hematocrit (Bld) [Volume fraction] 36.7 % Low 37-47 [facility] Hemoglobin measurementOrdere d By: Ovidio Ibanez on 08-24-2024 Hemoglobin (Bld) [Mass/Vol] 12.0 g/dL 12.0-15.0 [facility] Immature granulocytes/100 WB C Auto (Bld)Ordered By: Ovidio Ibanez on 08-24-2024 Immature granulocytes/100 WBC (Bld) 0.300 % 0.0-0.9 [facility] Comment on above: IG% - Immature Granu locytes (promyelocytes, myelocytes and metamyelocytes) > 1% indicates that a LEFT SHIFT is Present. Laboratory - Chemistry and C hemistry - challengeOrdered By: Ovidio Ibanez on 08-24-2024 AST [Catalytic activity/Vol] 35 U/L 15-37 [facility] MCV (mean corpuscular volume ) determinationOrdered By: Ovidio Ibanez on 08-24-2024 MCV (RBC) [Entitic vol] 94.8 fL 81-99 [facility] Mean corpuscular hemoglobin (MCH) determinationOrdered By: Ovidio Ibanez on 08-24-2024 MCH (RBC) [Entitic mass] 31.0 pg 27.0-32.0 [facility] Mean corpuscular hemoglobin concentration (MCHC) determinationOrdered By: Ovidio Ibanez on 08-24-2024 MCHC (RBC) [Mass/Vol] 32.7 g/dL 32-36 [facility] Mean platelet volume determi nationOrdered By: Ovidio Ibanez on 08-24-2024 Platelet mean volume (Bld) [Entitic vol] 9.9 fL 6.2-12.0 [facility] Monocyte percentageOrdered B y: Ovidio Ibanez on 08-24-2024 Monocytes/100 WBC (Bld) 12.9 % High 0-10 [facility] Neutrophil percentageOrdered By: Ovidio Ibanez on 08-24-2024 Neutrophils/100 WBC (Bld) 47.4 % 47-70 [facility] Nucleated red blood cell per centageOrdered By: Ovidio Ibanez on 08-24-2024 Nucleated RBC/100 WBC (Bld) [Ratio] 0 % 0-5 [facility] Platelet countOrdered By: Carmina Ibanez on 08-24-2024 Platelets (Bld) [#/Vol] 242 10*3/uL 150-450 [facility] Potassium measurementOrdered By: Ovidio Ibanez on 08-24-2024 Potassium [Moles/Vol] 3.5 mmol/L 3.5-5.1 [facility] RBC Auto (Bld) [#/Vol]Ordere d By: Ovidio Ibanez on 08-24-2024 RBC (Bld) [#/Vol] 3.87 10*6/uL Low 4.2-5.4 [facility] Serum anion gap measurementO rdered By: Ovidio Ibanez on 08-24-2024 Anion gap [Moles/Vol] 6 mmol/L 5-15 [facility] Serum globulin measurementOr dered By: Ovidio Ibanez on 08-24-2024 Globulin (S) [Mass/Vol] 3.6 g/dL 2.2-4.2 [facility] Serum or plasma alanine san otransferase (ALT) measurementOrdered By: Ovidio Ibanez on 08-24-2024 ALT [Catalytic activity/Vol] 35 U/L 13-56 [facility] Serum or plasma albumin davin urement (mass/volume)Ordered By: Ovidio Ibanez on 08-24-2024 Albumin [Mass/Vol] 3.2 g/dL 3.2-5.0 [facility] Serum or plasma alkaline irvin sphatase measurementOrdered By: Ovidio Ibanez on 08-24-2024 ALP [Catalytic activity/Vol] 64 U/L 45-117 [facility] Serum or plasma calcium davin urement (mass/volume)Ordered By: Ovidio Ibanez on 08-24-2024 Calcium [Mass/Vol] 9.1 mg/dL 8.5-10.1 [facility] Serum or plasma creatinine m easurement (mass/volume)Ordered By: Ovidio Ibanez on 08-24-2024 Creatinine [Mass/Vol] 0.62 mg/dL 0.55-1.02 [facility] Comment on above: The validity of the calculated GFR & GFRAA in patients over 70 years has not been determined. Clinical correlation is essential. Serum or plasma urea nitroge n measurement (mass/volume)Ordered By: Ovidio Ibanez on 08-24-2024 Urea nitrogen [Mass/Vol] 12 mg/dL 7-18 [facility] Sodium levelOrdered By: Hayde Ibanez on 08-24-2024 Sodium [Moles/Vol] 141 mmol/L 136-145 [facility] Total proteinOrdered By: Juan Carlos Ibanez on 08-24-2024 Protein [Mass/Vol] 6.8 g/dL 6.4-8.2 [facility] White blood cell (WBC) count Ordered By: Ovidio Ibanez on 08-24-2024 WBC (Bld) [#/Vol] 6.7 10*3/uL 4.4-11.0 [facility] Neurology Visit Reporton Neurology Visit Report [facility] [address], [address] [place] [address] OFFICE VISIT Date of Service: 06/22/24 MR#: [id number] Acct: [id number] Name: KELLI ACEVES I Rep #: [id number] : 1940 Provider: Dr. Barrie donaldson MD Age/Sex: 83/F Location: [facility] Status: Signed HPI HPI Chief Complaint: [facility] Details: The patient is a 83-year-old right handed female who presents to [facility]. She was previously seen by Dr. Robert Roman with [facility] in [place] for dementia, ataxic gait, and frequent falls. This patient is accompanied by her and by her sister. I was able to review patient's history with the patient, her and her sister. There are also records available from outside evaluators including CT report, EMG nerve conduction report and MRI reports. I have reviewed those reports with the patient and discussed them in detail with the patient. The issue at this time is the patient has a dementia and parkinsonian features. She had gone into a care facility about a year and a half ago due to decreasing ability to ambulate and care for self. She is not capable of caring out independent activities of daily living at this time. She is wheelchair-bound and has been for about a year and a half according to the patient, her and her sister. Patient indicates that she has had some physical therapy perhaps twice a week to help her stand and take some steps. At this time she would like to continue with physical therapy but has not been a candidate, as I understand it, for continued physical therapy at this time. In reviewing reports and in reviewing CT images of the head I see that the patient does have cerebral atrophy particularly in the frontal lobes and temporal lobes. Parietal and occipital lobes appear relatively preserved. 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 Patient also has significant decreased attenuation of white matter consistent with small vessel white matter disease. MRI images confirm the presence of small vessel white matter disease as well. 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 Patient has not had hallucinations or particularly paranoid thinking. Patient denies having a recent memory defect however her confirms that she has had a longstanding recent memory defect. Patient is able to swallow. She is not losing weight. She has preserved eyesight. She is hearing impaired with best hearing from right ear but not left. Communication can be somewhat difficult because of limited hearing. Stated reason for coming to neurology clinic today is to review the testing and to discuss her immobility. She has been seen by outside neurologist who evaluated her initially for Parkinson's disease. It appears that they have concluded that she did not have Parkinson's disease and was not a candidate for antiparkinson medication such as Sinemet. Patient's medications are available on the chart for review. ROS: Head without trauma Eyes intact vision. Cataract right eye. Impaired hearing. Able to swallow. Has had a change in vocal quality when phonating. Respiratory intact without hemoptysis Cardiac intact without prior MT or chest pain Abdomen intact without vomiting blood or passing blood in stool urinary incontinence wears depends. No hematuria Extremities tendency to have shoulder pain, DJD right greater than left Skin intact Endocrine nondiabetic Exam Const Other: Blood pressure 122/74 pulse 87 respiration 16 temperature 98.2 O2 sat 97%. General appearance is that of a debilitated lady sitting in a wheelchair. Conjunctiva clear normocephalic Respiration clear to auscultation Cardiac clear to auscultation regular rhythm Abdomen nondistended nontender Extremities without evidence of trauma Skin exposed areas appear intact. Neurologic examination: Mental status: Patient is awake and alert. She is very interested in having a discussion about her mobility and overall health. She does understand that she been evaluated for Parkinson's disease in the past and that she was thought to not have Parkinson's disease. She does have parkinsonian features which may be due to other causes such as small vessel white matter disease and cerebral atrophy. She has had some behavioral change in terms of depression. She is not paranoid and is not hallucinating. She would like to regain her mobility which has been severely limited for about a year and a half. Memory testing shows she was able to recall 3 out of 3 objects for me but and sister do indicate that she does have a significant recent memory deficit. (Patient is on Aricept). Language ca (more content not included)... Normal [facility] 36on 05-18-2024 36 Name of caller: Saji shell Contact phone number: [phone] Relationship to Patient: [facility] Provider: Dr. Roman Practice: [facility] Chief Complaint/Reason for Call: Tenisha states that Kelli intends to see a new neurologist at [facility], and is requesting Kelli's medical history sent to [facility]'s fax number at [phone]. Please advise. Best time of day caller can be reached: Any Patient advised that office/PCP has 24-48 business hours to return their call: Yes Normal [facility] Basophil percentageOrdered B y: Ovidio Ibanez on 09-23-2023 Bilirubin [Mass/Vol] 0.30 mg/dL 0.20-1.00 [facility] Comment on above: For patients on eltr ombopag therapy, use of Dimension [place] TBIL is not recommended. Protein [Mass/Vol] 6.4 g/dL 6.4-8.2 [facility] Direct bilirubinOrdered By: Ovidio Ibanez on 09-23-2023 Bilirubin.direct [Mass/Vol] 0.09 mg/dL 0.00-0.30 [facility] Laboratory - Chemistry and C hemistry - challengeOrdered By: Ovidio Ibanez on 09-23-2023 ALP [Catalytic activity/Vol] 77 U/L 45-117 [facility] ALT [Catalytic activity/Vol] 32 U/L 13-56 [facility] Globulin (S) [Mass/Vol] 3.3 g/dL 2.2-4.2 [facility] Thin prep Papanicolaou smear with manual screeningOrdered By: Ovidio Ibanez on 09-23-2023 Thin prep Papanicolaou smear with manual screening 3.1 g/dL 3.2-5.0 [facility] Thin prep Papanicolaou smear with manual screening 31 U/L 15-37 [facility] Bilirubin Test strip Ql (U)O rdered By: Ovidio Ibanez on 09-11-2023 Bilirubin Ql (U) 1 mg/dL Negative [facility] Comment on above: COLOR OF URINE MAY A FFECT DIPSTICK RESULTS. Culture, urineOrdered By: Carmina Ibanez on 09-11-2023 Bacteria identified Cx Nom (U) Positive [facility] Ketones Test strip Ql (U)Ord ered By: Ovidio Ibanez on 09-11-2023 Ketones Ql (U) 5 mg/dl Negative [facility] Nitrite Test strip Ql (U)Ord ered By: Ovidio Ibanez on 09-11-2023 Nitrite Ql (U) Negative Negative [facility] Protein Test strip Ql (U)Ord ered By: Ovidio Ibanez on 09-11-2023 Protein Ql (U) 15 mg/dl Negative [facility] Urine blood detectionOrdered By: Ovidio Ibanez on 09-11-2023 RBC Ql (U) 10 /ul Negative [facility] Urine clarityOrdered By: Juan Carlos Ibanez on 09-11-2023 Clarity (U) Clear Clear [facility] Urine color determinationOrd ered By: Ovidio Ibanez on 09-11-2023 Color (U) Yellow Yellow [facility] Urine glucose detectionOrder ed By: Haydemellonilson Dunhameboniyann on 09-11-2023 Glucose Ql (U) Normal mg/dl Normal [facility] Urine leukocyte esterase det ection by dipstickOrdered By: Haydekylee Rolyeboniyann on 09-11-2023 Leukocyte esterase Test strip Ql (U) 100 /ul Negative [facility] Urine pHOrdered By: Alice Ibanez on 09-11-2023 pH (U) 7.0 [pH] 5.0 - 8.0 [facility] Urine specific gravity measu rementOrdered By: mariaa Ibanez on 09-11-2023 Specific gravity (U) [Rel density] 1.015 1.002-1.030 [facility] Urine urobilinogen measureme ntOrdered By: Ovidio Ibanez on 09-11-2023 Urobilinogen Ql (U) 1 mg/dl Normal [facility] Absolute lymphocyte countOrd ered By: Ovidio Ibanez on 08-26-2023 Lymphocytes Auto (Unsp spec) [#/Vol] 1.64 10*3/uL 0.83-4.51 [facility] Automated lymphocyte count a s percentage of total leukocytesOrdered By: Ovidio Ibanez on 08-26-2023 Lymphocytes/100 WBC Auto (Unsp spec) 30.4 % 19-41 [facility] Basophil percentageOrdered B y: Haydemellonilson Ibanez on 08-26-2023 Basophils/100 WBC (Bld) 0.9 % 0-1 [facility] Chloride [Moles/Vol] 110 mmol/L 98-107 [facility] Eosinophils/100 WBC (Bld) 5.0 % 0-5 [facility] Glucose [Mass/Vol] 94 mg/dL 74-106 [facility] Hemoglobin (Bld) [Mass/Vol] 11.6 g/dL 12.0-15.0 [facility] Monocytes/100 WBC (Bld) 18.0 % 0-10 [facility] Neutrophils (Bld) [#/Vol] 2.5 10*3/uL 2.0-7.7 [facility] Neutrophils/100 WBC (Bld) 45.5 % 47-70 [facility] Potassium [Moles/Vol] 3.9 mmol/L 3.5-5.1 [facility] Sodium [Moles/Vol] 141 mmol/L 136-145 [facility] WBC (Bld) [#/Vol] 5.4 10*3/uL 4.4-11.0 [facility] Determination of erythrocyte mean corpuscular volume (MCV)Ordered By: Ovidio Ibanez on 08-26-2023 MCV (RBC) [Entitic vol] 93.8 fL 81-99 [facility] Erythrocyte distribution wid th ratioOrdered By: [facility] Hospitalnilson Ibanez on 08-26-2023 Erythrocyte distribution width (RBC) [Ratio] 14.4 % 11.6-14.6 [facility] Erythrocyte distribution wid th standard deviationOrdered By: beberoaring rivernilson Dunhamyann on 08-26-2023 Erythrocyte distribution width (RBC) [Entitic vol] 48.4 fL 35.1-43.9 [facility] Hematocrit Auto (Bld) [Volum e fraction]Ordered By: Ovidio Ibanez on 08-26-2023 Hematocrit (Bld) [Volume fraction] 34.5 % 37-47 [facility] Immature granulocytes/100 WB C Auto (Bld)Ordered By: beberoaring rivernilson Ibanez on 08-26-2023 Immature granulocytes/100 WBC (Bld) 0.200 % 0.0-0.9 [facility] Comment on above: IG% - Immature Granu locytes (promyelocytes, myelocytes and metamyelocytes) > 1% indicates that a LEFT SHIFT is Present. Laboratory - Chemistry and C hemistry - challengeOrdered By: Ovidio Ibanez on 08-26-2023 CO2 [Moles/Vol] 25.0 mmol/L 21.0-32.0 [facility] Urea nitrogen/Creatinine [Mass ratio] 22.6 mg/mg 10-20 [facility] - Hematology and Cell countsOrdered By: Ovidio Ibanez on 08-26-2023 MCH (RBC) [Entitic mass] 31.5 pg 27.0-32.0 [facility] MCHC (RBC) [Mass/Vol] 33.6 g/dL 32-36 [facility] Nucleated RBC/100 WBC (Bld) [Ratio] 0 % 0-5 [facility] Platelet mean volume (Bld) [Entitic vol] 9.9 fL 6.2-12.0 [facility] Platelets (Bld) [#/Vol] 273 10*3/uL 150-450 [facility] No Panel InformationOrdered By: Ovidio Ibanez on 08-26-2023 Estimated GFR (MDRD) Amer 119 mL/min >60 [facility] Comment on above: GFR Calc Estimated GFR (MDRD) Non-Af Amer 98 mL/min >60 [facility] Comment on above: Non- GFR Calc RBC Auto (Bld) [#/Vol]Ordere d By: Ovidio Ibanez on 08-26-2023 RBC (Bld) [#/Vol] 3.68 10*6/uL 4.2-5.4 [facility] Serum or plasma calcium davin urement (mass/volume)Ordered By: Ovidio Ibanez on 08-26-2023 Calcium [Mass/Vol] 8.9 mg/dL 8.5-10.1 [facility] Serum or plasma creatinine m easurement (mass/volume)Ordered By: Ovidio Ibanez on 08-26-2023 Creatinine [Mass/Vol] 0.62 mg/dL 0.55-1.02 [facility] Comment on above: The validity of the calculated GFR & GFRAA in patients over 70 years has not been determined. Clinical correlation is essential. Serum or plasma urea nitroge n measurement (mass/volume)Ordered By: Ovidio Ibanez on 08-26-2023 Urea nitrogen [Mass/Vol] 14 mg/dL 7-18 [facility] Thin prep Papanicolaou smear with manual screeningOrdered By: Ovidio Ibanez on 08-26-2023 Thin prep Papanicolaou smear with manual screening 6 5-15 [facility] Basophil percentageOrdered B y: Ovidio Ibanez on 06-24-2023 Bilirubin [Mass/Vol] 0.30 mg/dL 0.20-1.00 [facility] Comment on above: For patients on eltr ombopag therapy, use of Dim[place] TBIL is not recommended. Protein [Mass/Vol] 6.4 g/dL 6.4-8.2 [facility] Direct bilirubinOrdered By: Ovidio Ibanez on 06-24-2023 Bilirubin.direct [Mass/Vol] 0.07 mg/dL 0.00-0.30 [facility] - Chemistry and C hemistry - challengeOrdered By: Ovidio Ibanez on 06-24-2023 ALP [Catalytic activity/Vol] 72 U/L 45-117 [facility] ALT [Catalytic activity/Vol] 33 U/L 13-56 [facility] Globulin (S) [Mass/Vol] 3.3 g/dL 2.2-4.2 [facility] Serum or plasma albumin davin urement (mass/volume)Ordered By: [facility] Hospitalnilson Ibanez on 06-24-2023 Albumin [Mass/Vol] 3.1 g/dL 3.2-5.0 [facility] Thin prep Papanicolaou smear with manual screeningOrdered By: Hayderoaring rivernilson Ibanez on 06-24-2023 Thin prep Papanicolaou smear with manual screening 34 U/L 15-37 [facility] 36on 06-02-2023 36 Message released to patient as written. Patient's further questions if applicable: Were all questions from office addressed or relayed to the patient from encounter: Yes Normal [facility] 36 Lm for Loren to call t he office back, please relay providers message. Normal [facility] 36 Look at my Assessmen t and Plan from her 05/12 visit----- Continue Donepezil 5mg daily Will order physical therapy She was given printed report of EMG and MRI brain We did discuss results of testing Normal [facility] 36 Name of caller: Loren Contact phone number: [phone] Relationship to Patient: [facility] Provider: Kamala WILKERSON Practice: Neuro Chief Complaint/Reason for Call: [phone] fax results, Loren states has sent requests for the MRI results since 04/15/23. Please advise Best time of day caller can be reached: Any Patient advised that office/PCP has 24-48 business hours to return their call: Yes Normal [facility] Absolute lymphocyte countOrd ered By: Ovidio Ibanez on 05-27-2023 Lymphocytes Auto (Unsp spec) [#/Vol] 1.60 10*3/uL 0.83-4.51 [facility] Basophil percentageOrdered B y: Ovidio Ibanez on 05-27-2023 Basophils/100 WBC (Bld) 1.2 % 0-1 [facility] Chloride [Moles/Vol] 105 mmol/L 98-107 [facility] Eosinophils/100 WBC (Bld) 7.2 % 0-5 [facility] Glucose [Mass/Vol] 91 mg/dL 74-106 [facility] Neutrophils (Bld) [#/Vol] 2.8 10*3/uL 2.0-7.7 [facility] Neutrophils/100 WBC (Bld) 47.6 % 47-70 [facility] Potassium [Moles/Vol] 3.8 mmol/L 3.5-5.1 [facility] Sodium [Moles/Vol] 139 mmol/L 136-145 [facility] WBC (Bld) [#/Vol] 5.9 10*3/uL 4.4-11.0 [facility] Blood erythrocytes count (nu mber/volume)Ordered By: Ovidio Ibanez on 05-27-2023 RBC (Bld) [#/Vol] 3.84 10*6/uL 4.2-5.4 [facility] Blood hemoglobin measurement (mass/volume)Ordered By: Ovidio Ibanez on 05-27-2023 Hemoglobin (Bld) [Mass/Vol] 11.9 g/dL 12.0-15.0 [facility] Blood lymphocytes/100 leukoc ytesOrdered By: Ovidio Ibanez on 05-27-2023 Lymphocytes/100 WBC (Bld) 27.4 % 19-41 [facility] Blood monocytes/100 leukocyt esOrdered By: Ovidio Ibanez on 05-27-2023 Monocytes/100 WBC (Bld) 16.4 % 0-10 [facility] Blood platelet mean volumeOr dered By: Ovidio Ibanez on 05-27-2023 Platelet mean volume (Bld) [Entitic vol] 9.8 fL 6.2-12.0 [facility] Determination of erythrocyte mean corpuscular volume (MCV)Ordered By: Ovidio Ibanez on 05-27-2023 MCV (RBC) [Entitic vol] 93.8 fL 81-99 [facility] Hematocrit Auto (Bld) [Volum e fraction]Ordered By: Ovidio Ibanez on 05-27-2023 Hematocrit (Bld) [Volume fraction] 36.0 % 37-47 [facility] - Chemistry and C hemistry - challengeOrdered By: beberoaring rivernilson Ibanez on 05-27-2023 CO2 [Moles/Vol] 28.0 mmol/L 21.0-32.0 [facility] Urea nitrogen/Creatinine [Mass ratio] 14.4 mg/mg 10-20 [facility] - Hematology and Cell countsOrdered By: Hayderoaring rivernilson Ibanez on 05-27-2023 Erythrocyte distribution width (RBC) [Entitic vol] 46.5 fL 35.1-43.9 [facility] Erythrocyte distribution width (RBC) [Ratio] 13.8 % 11.6-14.6 [facility] Immature granulocytes/100 WBC (Bld) 0.200 % 0.0-0.9 [facility] Comment on above: IG% - Immature Granu locytes (promyelocytes, myelocytes and metamyelocytes) > 1% indicates that a LEFT SHIFT is Present. MCH (RBC) [Entitic mass] 31.0 pg 27.0-32.0 [facility] Nucleated RBC/100 WBC (Bld) [Ratio] 0 % 0-5 [facility] MCHC Auto (RBC) [Mass/Vol]Or dered By: Ovidio Ibanez on 05-27-2023 MCHC (RBC) [Mass/Vol] 33.1 g/dL 32-36 [facility] No Panel InformationOrdered By: Ovidio Ibanez on 05-27-2023 Estimated GFR (MDRD) Amer 118 mL/min >60 [facility] Comment on above: GFR Calc Estimated GFR (MDRD) Non-Af Amer 98 mL/min >60 [facility] Comment on above: Non- GFR Calc Platelets bldOrdered By: Juan Carlos Ibanez on 05-27-2023 Platelets (Bld) [#/Vol] 295 10*3/uL 150-450 [facility] Serum or plasma calcium davin urement (mass/volume)Ordered By: Ovidio Ibanez on 05-27-2023 Calcium [Mass/Vol] 8.9 mg/dL 8.5-10.1 [facility] Serum or plasma creatinine m easurement (mass/volume)Ordered By: Ovidio Ibanez on 05-27-2023 Creatinine [Mass/Vol] 0.62 mg/dL 0.55-1.02 [facility] Comment on above: The validity of the calculated GFR & GFRAA in patients over 70 years has not been determined. Clinical correlation is essential. Serum or plasma urea nitroge n measurement (mass/volume)Ordered By: Ovidio Ibnaez on 05-27-2023 Urea nitrogen [Mass/Vol] 9 mg/dL 7-18 [facility] Thin prep Papanicolaou smear with manual screeningOrdered By: Ovidio Ibanez on 05-27-2023 Thin prep Papanicolaou smear with manual screening 6 5-15 [facility] 36on 05-23-2023 36 LM at facility where pt is residing-[facility] I had received 2 order forms with NO explanation and I need clarification Normal [facility] No Panel InformationOrdered By: Ovidio Ibanez on 05-06-2023 Vitamin D 25-Hydroxy 38.5 ng/mL [facility] Comment on above: Vitamin D 25(OH) Sta tus Range Deficiency <20 ng/mL (50nmol/L) Insufficiency 20 - 30 ng/mL (50 - 75 nmol/L) Sufficiency 30 - 100 ng/mL (75 - 250 nmol/L) Toxicity >100 ng/mL (>250 nmol/L) MR Brain WO contraston 04-02 Atrophy and chronic ischemic change. No acute process. Report Dictated on Electronically Signed By: Florentin Bautista DO Electronically Signed Date/Time: 04/02/2023 8:34 [facility] Patient Name: KELLI ORELLANA : 1940 Exam Date/Time: 04/02/2023 07:11 Procedure: MR BRAIN WO CONTRAST Ordering Provider: ROMAN JAMES Reason For Exam: Dizziness, persistent/recurrent, cardiac [...] is seen within the vessels of the [place]. The globes and orbital contents are grossly normal. There is mild mucosal thickening of the ethmoid air cells. [facility] Florentin Bautista DO - 04/02/2023 Patient Name: KELLI ACEVES : 1940 Exam Date/Time: 04/02/2023 07:11 Procedure: MR BRAIN WO CONTRAST Ordering Provider: ROMAN JAMES Reason For Exam: Dizziness, persistent/recurrent, cardiac [...] is seen within the vessels of the [place]. The globes and orbital contents are grossly normal. There is mild mucosal thickening of the ethmoid air cells. IMPRESSION: Atrophy and chronic ischemic change. No acute process. Report Dictated on Electronically Signed By: Florentin Bautista DO Electronically Signed Date/Time: 04/02/2023 8:34 AM EDT [facility] Radiology Study observation (narrative) [facility] alth MR Brain WO contrastOrdered By: Florentin Bautista on 04-02-2023 [employer] Work Phone: Basophil percentageOrdered B y: Ovidio Ibanez on 03-25-2023 Bilirubin [Mass/Vol] 0.20 mg/dL 0.20-1.00 [facility] Comment on above: For patients on eltr ombopag therapy, use of Dim[place] TBIL is not recommended. Protein [Mass/Vol] 6.3 g/dL 6.4-8.2 [facility] Direct bilirubinOrdered By: Ovidio Ibanez on 03-25-2023 Bilirubin.direct [Mass/Vol] mg/dL 0.00-0.30 [facility] - Chemistry and C hemistry - challengeOrdered By: Ovidio Ibanez on 03-25-2023 ALP [Catalytic activity/Vol] 76 U/L 45-117 [facility] ALT [Catalytic activity/Vol] 31 U/L 13-56 [facility] Globulin (S) [Mass/Vol] 3.2 g/dL 2.2-4.2 [facility] Serum or plasma albumin davin urement (mass/volume)Ordered By: Ovidio Ibanez on 03-25-2023 Albumin [Mass/Vol] 3.1 g/dL 3.2-5.0 [facility] Thin prep Papanicolaou smear with manual screeningOrdered By: Ovidio Ibanez on 03-25-2023 Thin prep Papanicolaou smear with manual screening 26 U/L 15-37 [facility] Absolute lymphocyte countOrd ered By: Ovidio Ibanez on 02-18-2023 Lymphocytes Auto (Unsp spec) [#/Vol] 1.56 10*3/uL 0.83-4.51 [facility] Basophil percentageOrdered B y: Ovidio Ibanez on 02-18-2023 Basophils/100 WBC (Bld) 0.7 % 0-1 [facility] Chloride [Moles/Vol] 107 mmol[facility]L 98-107 [facility] Eosin[facility] WBC (Bld) 5.2 % 0-5 [facility] Glucose [Mass/Vol] 85 mg/dL 74-106 [facility] Neutrophils (Bld) [#/Vol] 3.0 10*3/uL 2.0-7.7 [facility] Neutrophils/100 WBC (Bld) 51.0 % 47-70 [facility] Potassium [Moles/Vol] 3.5 mmol/L 3.5-5.1 [facility] Sodium [Moles/Vol] 139 mmol/L 136-145 [facility] WBC (Bld) [#/Vol] 5.8 10*3/uL 4.4-11.0 [facility] Blood erythrocytes count (nu mber/volume)Ordered By: Ovidio Ibanez on 02-18-2023 RBC (Bld) [#/Vol] 3.48 10*6/uL 4.2-5.4 [facility] Blood hemoglobin measurement (mass/volume)Ordered By: Ovidio Ibanez on 02-18-2023 Hemoglobin (Bld) [Mass/Vol] 11.5 g/dL 12.0-15.0 [facility] Blood lymphocytes/100 leukoc ytesOrdered By: Ovidio Ibanez on 02-18-2023 Lymphocytes/100 WBC (Bld) 26.8 % 19-41 [facility] Blood monocytes/100 leukocyt esOrdered By: Ovidio Ibanez on 02-18-2023 Monocytes/100 WBC (Bld) 16.0 % 0-10 [facility] Blood platelet mean volumeOr dered By: Ovidio Ibanez on 02-18-2023 Platelet mean volume (Bld) [Entitic vol] 9.8 fL 6.2-12.0 [facility] Determination of erythrocyte mean corpuscular volume (MCV)Ordered By: Ovidio Ibanez on 02-18-2023 MCV (RBC) [Entitic vol] 98.0 fL 81-99 [facility] Hematocrit Auto (Bld) [Volum e fraction]Ordered By: Hayderoaring rivernilson Ibanez on 02-18-2023 Hematocrit (Bld) [Volume fraction] 34.1 % 37-47 [facility] - Chemistry and C hemistry - challengeOrdered By: [facility] I[facility] on 02-18-2023 CO2 [Moles/Vol] 26.0 mmol/L 21.0-32.0 [facility] Urea nitrogen/Creatinine [Mass ratio] 24.2 mg/mg 10-20 [facility] - Hematology and Cell countsOrdered By: [facility] Hospital[facility] I[facility] on 02-18-2023 Erythrocyte distribution width (RBC) [Entitic vol] 46.1 fL 35.1-43.9 [facility] Erythrocyte distribution width (RBC) [Ratio] 13.2 % 11.6-14.6 [facility] Immature granulocytes/100 WBC (Bld) 0.300 % 0.0-0.9 [facility] Comment on above: IG% - Immature Granu locytes (promyelocytes, myelocytes and metamyelocytes) > 1% indicates that a LEFT SHIFT is Present. MCH (RBC) [Entitic mass] 33.0 pg 27.0-32.0 [facility] Nucleated RBC/100 WBC (Bld) [Ratio] 0 % 0-5 [facility] MCHC Auto (RBC) [Mass/Vol]Or dered By: beberoaring rivernilson Ibanez on 02-18-2023 MCHC (RBC) [Mass/Vol] 33.7 g/dL 32-36 [facility] No Panel InformationOrdered By: Ovidio Ibanez on 02-18-2023 Estimated GFR (MDRD) Amer 119 mL/min >60 [facility] Comment on above: GFR Calc Estimated GFR (MDRD) Non-Af Amer 99 mL/min >60 [facility] Comment on above: Non- GFR Calc Platelets bldOrdered By: Juan Carlos leydanilson Iabnez on 02-18-2023 Platelets (Bld) [#/Vol] 285 10*3/uL 150-450 [facility] Serum or plasma calcium davin urement (mass/volume)Ordered By: Ovidio Ibanez on 02-18-2023 Calcium [Mass/Vol] 8.8 mg/dL 8.5-10.1 [facility] Serum or plasma creatinine m easurement (mass/volume)Ordered By: Ovidio Ibanez on 02-18-2023 Creatinine [Mass/Vol] 0.62 mg/dL 0.55-1.02 [facility] Comment on above: The validity of the calculated GFR & GFRAA in patients over 70 years has not been determined. Clinical correlation is essential. Serum or plasma urea nitroge n measurement (mass/volume)Ordered By: Ovidio Ibanez on 02-18-2023 Urea nitrogen [Mass/Vol] 15 mg/dL 7-18 [facility] Thin prep Papanicolaou smear with manual screeningOrdered By: Ovidio Ibanez on 02-18-2023 Thin prep Papanicolaou smear with manual screening 6 5-15 [facility] Absolute lymphocyte countOrd ered By: Ovidio Ibanez on 01-21-2023 Lymphocytes Auto (Unsp spec) [#/Vol] 1.60 10*3/uL 0.83-4.51 [facility] Basophil percentageOrdered B y: Ovidio Ibanez on 01-21-2023 Basophils/100 WBC (Bld) 1.0 % 0-1 [facility] Chloride [Moles/Vol] 106 mmol/L 98-107 [facility] Eosinophils/100 WBC (Bld) 4.0 % 0-5 [facility] Glucose [Mass/Vol] 89 mg/dL 74-106 [facility] Neutrophils (Bld) [#/Vol] 3.1 10*3/uL 2.0-7.7 [facility] Neutrophils/100 WBC (Bld) 51.6 % 47-70 [facility] Potassium [Moles/Vol] 3.5 mmol/L 3.5-5.1 [facility] Sodium [Moles/Vol] 139 mmol/L 136-145 [facility] WBC (Bld) [#/Vol] 6.0 10*3/uL 4.4-11.0 [facility] Blood erythrocytes count (nu mber/volume)Ordered By: Ovidio Ibanez on 01-21-2023 RBC (Bld) [#/Vol] 3.53 10*6/uL 4.2-5.4 [facility] Blood hemoglobin measurement (mass/volume)Ordered By: Ovidio Ibanez on 01-21-2023 Hemoglobin (Bld) [Mass/Vol] 11.4 g/dL 12.0-15.0 [facility] Blood lymphocytes/100 leukoc ytesOrdered By: Ovidio Ibanez on 01-21-2023 Lymphocytes/100 WBC (Bld) 26.6 % 19-41 [facility] Blood monocytes/100 leukocyt esOrdered By: Ovidio Ibanez on 01-21-2023 Monocytes/100 WBC (Bld) 16.5 % 0-10 [facility] Blood platelet mean volumeOr dered By: Ovidio Ibanez on 01-21-2023 Platelet mean volume (Bld) [Entitic vol] 9.7 fL 6.2-12.0 [facility] Determination of erythrocyte mean corpuscular volume (MCV)Ordered By: Ovidio Ibanez on 01-21-2023 MCV (RBC) [Entitic vol] 95.5 fL 81-99 [facility] Hematocrit Auto (Bld) [Volum e fraction]Ordered By: Ovidio Ibanez on 01-21-2023 Hematocrit (Bld) [Volume fraction] 33.7 % 37-47 [facility] - Chemistry and C hemistry - challengeOrdered By: Ovidio Ibanez on 01-21-2023 CO2 [Moles/Vol] 28.0 mmol/L 21.0-32.0 [facility] Urea nitrogen/Creatinine [Mass ratio] 18.4 mg/mg 10-20 [facility] - Hematology and Cell countsOrdered By: Ovidio Ibanez on 01-21-2023 Erythrocyte distribution width (RBC) [Entitic vol] 43.8 fL 35.1-43.9 [facility] Erythrocyte distribution width (RBC) [Ratio] 12.8 % 11.6-14.6 [facility] Immature granulocytes/100 WBC (Bld) 0.300 % 0.0-0.9 [facility] Comment on above: IG% - Immature Granu locytes (promyelocytes, myelocytes and metamyelocytes) > 1% indicates that a LEFT SHIFT is Present. MCH (RBC) [Entitic mass] 32.3 pg 27.0-32.0 [facility] Nucleated RBC/100 WBC (Bld) [Ratio] 0 % 0-5 [facility] MCHC Auto (RBC) [Mass/Vol]Or dered By: Ovidio Ibanez on 01-21-2023 MCHC (RBC) [Mass/Vol] 33.8 g/dL 32-36 [facility] No Panel InformationOrdered By: Ovidio Ibanez on 01-21-2023 Estimated GFR (MDRD) Amer 112 mL/min >60 [facility] Comment on above: GFR Calc Estimated GFR (MDRD) Non-Af Amer 93 mL/min >60 [facility] Comment on above: Non- GFR Calc Platelets bldOrdered By: Juan Carlos Ibanez on 01-21-2023 Platelets (Bld) [#/Vol] 311 10*3/uL 150-450 [facility] Serum or plasma calcium davin urement (mass/volume)Ordered By: Ovidio Ibanez on 01-21-2023 Calcium [Mass/Vol] 8.8 mg/dL 8.5-10.1 [facility] Serum or plasma creatinine m easurement (mass/volume)Ordered By: Ovidio Ibanez on 01-21-2023 Creatinine [Mass/Vol] 0.65 mg/dL 0.55-1.02 [facility] Comment on above: The validity of the calculated GFR & GFRAA in patients over 70 years has not been determined. Clinical correlation is essential. Serum or plasma urea nitroge n measurement (mass/volume)Ordered By: Ovidio Ibanez on 01-21-2023 Urea nitrogen [Mass/Vol] 12 mg/dL 7-18 [facility] Thin prep Papanicolaou smear with manual screeningOrdered By: mariaa Ibanez on 01-21-2023 Thin prep Papanicolaou smear with manual screening 5 5-15 [facility] Absolute lymphocyte countOrd ered By: beberoaring rivernilson Ibanez on 01-07-2023 Lymphocytes Auto (Unsp spec) [#/Vol] 1.69 10*3/uL 0.83-4.51 [facility] Basophil percentageOrdered B y: Ovidio Ibanez on 01-07-2023 Basophils/100 WBC (Bld) 0.6 % 0-1 [facility] Chloride [Moles/Vol] 109 mmol/L 98-107 [facility] Eosinophils/100 WBC (Bld) 3.6 % 0-5 [facility] Glucose [Mass/Vol] 87 mg/dL 74-106 [facility] Neutrophils (Bld) [#/Vol] 3.7 10*3/uL 2.0-7.7 [facility] Neutrophils/100 WBC (Bld) 55.8 % 47-70 [facility] Potassium [Moles/Vol] 3.7 mmol/L 3.5-5.1 [facility] Sodium [Moles/Vol] 141 mmol/L 136-145 [facility] WBC (Bld) [#/Vol] 6.7 10*3/uL 4.4-11.0 [facility] Blood erythrocytes count (nu mber/volume)Ordered By: Ovidio Ibanez on 01-07-2023 RBC (Bld) [#/Vol] 3.33 10*6/uL 4.2-5.4 [facility] Blood hemoglobin measurement (mass/volume)Ordered By: Ovidio Ibanez on 01-07-2023 Hemoglobin (Bld) [Mass/Vol] 11.4 g/dL 12.0-15.0 [facility] Blood lymphocytes/100 leukoc ytesOrdered By: Ovidio Ibanez on 01-07-2023 Lymphocytes/100 WBC (Bld) 25.2 % 19-41 [facility] Blood monocytes/100 leukocyt esOrdered By: mariaa Ibanez on 01-07-2023 Monocytes/100 WBC (Bld) 14.5 % 0-10 [facility] Blood platelet mean volumeOr dered By: Ovidio Ibanez on 01-07-2023 Platelet mean volume (Bld) [Entitic vol] 10.0 fL 6.2-12.0 [facility] Determination of erythrocyte mean corpuscular volume (MCV)Ordered By: Ovidio Ibanez on 01-07-2023 MCV (RBC) [Entitic vol] 99.1 fL 81-99 [facility] Hematocrit Auto (Bld) [Volum e fraction]Ordered By: Ovidio Ibanez on 01-07-2023 Hematocrit (Bld) [Volume fraction] 33.0 % 37-47 [facility] - Chemistry and C hemistry - challengeOrdered By: beberoaring rivernilson Ibanez on 01-07-2023 CO2 [Moles/Vol] 27.0 mmol/L 21.0-32.0 [facility] Urea nitrogen/Creatinine [Mass ratio] 22.9 mg/mg 10-20 [facility] - Hematology and Cell countsOrdered By: Hayderoaring rivernilson Ibanez on 01-07-2023 Erythrocyte distribution width (RBC) [Entitic vol] 45.5 fL 35.1-43.9 [facility] Erythrocyte distribution width (RBC) [Ratio] 13.0 % 11.6-14.6 [facility] Immature granulocytes/100 WBC (Bld) 0.300 % 0.0-0.9 [facility] Comment on above: IG% - Immature Granu locytes (promyelocytes, myelocytes and metamyelocytes) > 1% indicates that a LEFT SHIFT is Present. MCH (RBC) [Entitic mass] 34.2 pg 27.0-32.0 [facility] Nucleated RBC/100 WBC (Bld) [Ratio] 0 % 0-5 [facility] MCHC Auto (RBC) [Mass/Vol]Or dered By: Ovidio Ibanez on 01-07-2023 MCHC (RBC) [Mass/Vol] 34.5 g/dL 32-36 [facility] No Panel InformationOrdered By: Ovidio Ibanez on 01-07-2023 Estimated GFR (MDRD) Amer 112 mL/min >60 [facility] Comment on above: GFR Calc Estimated GFR (MDRD) Non-Af Amer 92 mL/min >60 [facility] Comment on above: Non- GFR Calc Platelets bldOrdered By: Juan Carlos Ibanez on 01-07-2023 Platelets (Bld) [#/Vol] 261 10*3/uL 150-450 [facility] Serum or plasma calcium davin urement (mass/volume)Ordered By: Ovidio Ibanez on 01-07-2023 Calcium [Mass/Vol] 8.9 mg/dL 8.5-10.1 [facility] Serum or plasma creatinine m easurement (mass/volume)Ordered By: Ovidio Ibanez on 01-07-2023 Creatinine [Mass/Vol] 0.66 mg/dL 0.55-1.02 [facility] Comment on above: The validity of the calculated GFR & GFRAA in patients over 70 years has not been determined. Clinical correlation is essential. Serum or plasma urea nitroge n measurement (mass/volume)Ordered By: Ovidio Ibanez on 01-07-2023 Urea nitrogen [Mass/Vol] 15 mg/dL 7-18 [facility] Thin prep Papanicolaou smear with manual screeningOrdered By: Ovidio Ibanez on 01-07-2023 Thin prep Papanicolaou smear with manual screening 5 5-15 [facility] Absolute lymphocyte countOrd ered By: Ovidio Ibanez on 12-24-2022 Lymphocytes Auto (Unsp spec) [#/Vol] 2.15 10*3/uL 0.83-4.51 [facility] Basophil percentageOrdered B y: Ovidio Ibanez on 12-24-2022 Basophils/100 WBC (Bld) 0.8 % 0-1 [facility] Bilirubin [Mass/Vol] 0.30 mg/dL 0.20-1.00 [facility] Comment on above: For patients on eltr ombopag therapy, use of Dimension [place] TBIL is not recommended. Chloride [Moles/Vol] 109 mmol/L 98-107 [facility] Eosinophils/100 WBC (Bld) 2.6 % 0-5 [facility] Glucose [Mass/Vol] 87 mg/dL 74-106 [facility] Neutrophils (Bld) [#/Vol] 4.2 10*3/uL 2.0-7.7 [facility] Neutrophils/100 WBC (Bld) 55.5 % 47-70 [facility] Potassium [Moles/Vol] 4.0 mmol/L 3.5-5.1 [facility] Protein [Mass/Vol] 7.0 g/dL 6.4-8.2 [facility] Sodium [Moles/Vol] 140 mmol/L 136-145 [facility] WBC (Bld) [#/Vol] 7.6 10*3/uL 4.4-11.0 [facility] Blood erythrocytes count (nu mber/volume)Ordered By: Ovidio Ibanez on 12-24-2022 RBC (Bld) [#/Vol] 3.87 10*6/uL 4.2-5.4 [facility] Blood hemoglobin measurement (mass/volume)Ordered By: Ovidio Ibanez on 12-24-2022 Hemoglobin (Bld) [Mass/Vol] 12.8 g/dL 12.0-15.0 [facility] Blood lymphocytes/100 leukoc ytesOrdered By: Ovidio Ibanez on 12-24-2022 Lymphocytes/100 WBC (Bld) 28.4 % 19-41 [facility] Blood monocytes/100 leukocyt esOrdered By: Ovidio Ibanez on 12-24-2022 Monocytes/100 WBC (Bld) 12.4 % 0-10 [facility] Blood platelet mean volumeOr dered By: Ovidio Ibanez on 12-24-2022 Platelet mean volume (Bld) [Entitic vol] 10.0 fL 6.2-12.0 [facility] Determination of erythrocyte mean corpuscular volume (MCV)Ordered By: Ovidio Ibanez on 12-24-2022 MCV (RBC) [Entitic vol] 95.1 fL 81-99 [facility] Hematocrit Auto (Bld) [Volum e fraction]Ordered By: beberoaring rivernilson Ibanez on 12-24-2022 Hematocrit (Bld) [Volume fraction] 36.8 % 37-47 [facility] - Chemistry and C hemistry - challengeOrdered By: beberoaring rivernilson Ibanez on 12-24-2022 ALP [Catalytic activity/Vol] 73 U/L 45-117 [facility] ALT [Catalytic activity/Vol] 20 U/L 13-56 [facility] CO2 [Moles/Vol] 25.0 mmol/L 21.0-32.0 [facility] Globulin (S) [Mass/Vol] 3.4 g/dL 2.2-4.2 [facility] Urea nitrogen/Creatinine [Mass ratio] 16.5 mg/mg 10-20 [facility] - Hematology and Cell countsOrdered By: beberoaring rivernilson Dunhamyann on 12-24-2022 Erythrocyte distribution width (RBC) [Entitic vol] 43.8 fL 35.1-43.9 [facility] Erythrocyte distribution width (RBC) [Ratio] 12.7 % 11.6-14.6 [facility] Immature granulocytes/100 WBC (Bld) 0.300 % 0.0-0.9 [facility] Comment on above: IG% - Immature Granu locytes (promyelocytes, myelocytes and metamyelocytes) > 1% indicates that a LEFT SHIFT is Present. MCH (RBC) [Entitic mass] 33.1 pg 27.0-32.0 [facility] Nucleated RBC/100 WBC (Bld) [Ratio] 0 % 0-5 [facility] MCHC Auto (RBC) [Mass/Vol]Or dered By: Ovidio Ibanez on 12-24-2022 MCHC (RBC) [Mass/Vol] 34.8 g/dL 32-36 [facility] No Panel InformationOrdered By: Ovidio Ibanez on 12-24-2022 Estimated GFR (MDRD) Amer 110 mL/min >60 [facility] Comment on above: GFR Calc Estimated GFR (MDRD) Non-Af Amer 91 mL/min >60 [facility] Comment on above: Non- GFR Calc Thyroid Stimulating Hormone (TSH) 2.13 uIU/mL 0.358-3.74 [facility] Vitamin D 25-Hydroxy 80.2 ng/mL [facility] Comment on above: Vitamin D 25(OH) Sta tus Range Deficiency <20 ng/mL (50nmol/L) Insufficiency 20 - 30 ng/mL (50 - 75 nmol/L) Sufficiency 30 - 100 ng/mL (75 - 250 nmol/L) Toxicity >100 ng/mL (>250 nmol/L) Platelets bldOrdered By: Juan Carlos Ibanez on 12-24-2022 Platelets (Bld) [#/Vol] 330 10*3/uL 150-450 [facility] Serum or plasma albumin davin urement (mass/volume)Ordered By: Ovidio Ibanez on 12-24-2022 Albumin [Mass/Vol] 3.6 g/dL 3.2-5.0 [facility] Serum or plasma albumin/glob ulin mass ratioOrdered By: Ovidio Ibanez on 12-24-2022 Albumin/Globulin [Mass ratio] 1.1 {ratio} 0.9-2.4 [facility] Serum or plasma calcium davin urement (mass/volume)Ordered By: Ovidio Ibanez on 12-24-2022 Calcium [Mass/Vol] 9.2 mg/dL 8.5-10.1 [facility] Serum or plasma creatinine m easurement (mass/volume)Ordered By: Ovidio Ibanez on 12-24-2022 Creatinine [Mass/Vol] 0.66 mg/dL 0.55-1.02 [facility] Comment on above: The validity of the calculated GFR & GFRAA in patients over 70 years has not been determined. Clinical correlation is essential. Serum or plasma urea nitroge n measurement (mass/volume)Ordered By: Ovidio Ibanez on 12-24-2022 Urea nitrogen [Mass/Vol] 11 mg/dL 7-18 [facility] Thin prep Papanicolaou smear with manual screeningOrdered By: Ovidio Ibanez on 12-24-2022 Thin prep Papanicolaou smear with manual screening 19 U/L 15-37 [facility] Thin prep Papanicolaou smear with manual screening 6 5-15 [facility] Basophil percentageon 2022 Bilirubin [Mass/Vol] 0.30 mg/dL 0.20-1.00 [facility] Comment on above: For patients on eltr ombopag therapy, use of Dimension [place] TBIL is not recommended. Chloride [Moles/Vol] 105 mmol/L 98-107 [facility] Glucose [Mass/Vol] 102 mg/dL 74-106 [facility] Comment on above: Fasting Glucose resu lt from 100 to 125 mg/dL suggests IMPAIRED HOMEOSTASIS per A.D.A. criteria. Potassium [Moles/Vol] 3.8 mmol/L 3.5-5.1 [facility] Protein [Mass/Vol] 7.1 g/dL 6.4-8.2 [facility] Sodium [Moles/Vol] 137 mmol/L 136-145 [facility] WBC (Bld) [#/Vol] 7.4 10*3/uL 4.4-11.0 [facility] Blood erythrocytes count (nu mber/volume)on 07-18-2022 RBC (Bld) [#/Vol] 3.96 10*6/uL 4.2-5.4 [facility] Blood hemoglobin measurement (mass/volume)on 07-18-2022 Hemoglobin (Bld) [Mass/Vol] 13.2 g/dL 12.0-15.0 [facility] Blood platelet mean volumeon 07-18-2022 Platelet mean volume (Bld) [Entitic vol] 9.5 fL 6.2-12.0 [facility] Determination of erythrocyte mean corpuscular volume (MCV)on 07-18-2022 MCV (RBC) [Entitic vol] 96.5 fL 81-99 [facility] Hematocrit Auto (Bld) [Volum e fraction]on 07-18-2022 Hematocrit (Bld) [Volume fraction] 38.2 % 37-47 [facility] - Chemistry and C hemistry - challengeon 07-18-2022 ALP [Catalytic activity/Vol] 55 U/L 45-117 [facility] ALT [Catalytic activity/Vol] 23 U/L 13-56 [facility] CO2 [Moles/Vol] 28.0 mmol/L 21.0-32.0 [facility] Cobalamin (Vitamin B12) [Mass/Vol] 1110 pg/mL 211-911 [facility] Globulin (S) [Mass/Vol] 3.4 g/dL 2.2-4.2 [facility] Urea nitrogen/Creatinine [Mass ratio] 20.6 mg/mg 10-20 [facility] - Hematology and Cell countson 07-18-2022 Erythrocyte distribution width (RBC) [Entitic vol] 46.5 fL 35.1-43.9 [facility] Erythrocyte distribution width (RBC) [Ratio] 13.2 % 11.6-14.6 [facility] MCH (RBC) [Entitic mass] 33.3 pg 27.0-32.0 [facility] MCHC Auto (RBC) [Mass/Vol]on 07-18-2022 MCHC (RBC) [Mass/Vol] 34.6 g/dL 32-36 [facility] No Panel Informationon 07-18 Estimated GFR (MDRD) Amer 108 mL/min >60 [facility] Comment on above: GFR Calc Estimated GFR (MDRD) Non-Af Amer 89 mL/min >60 [facility] Comment on above: Non- GFR Calc Thyroid Stimulating Hormone (TSH) 2.26 uIU/mL 0.358-3.74 [facility] Platelets bldon 07-18-2022 Platelets (Bld) [#/Vol] 331 10*3/uL 150-450 [facility] Serum or plasma albumin davin urement (mass/volume)on 07-18-2022 Albumin [Mass/Vol] 3.7 g/dL 3.2-5.0 [facility] Serum or plasma albumin/glob ulin mass ratioon 07-18-2022 Albumin/Globulin [Mass ratio] 1.1 {ratio} 0.9-2.4 [facility] Serum or plasma calcium davin urement (mass/volume)on 07-18-2022 Calcium [Mass/Vol] 9.2 mg/dL 8.5-10.1 [facility] Serum or plasma creatinine m easurement (mass/volume)on 07-18-2022 Creatinine [Mass/Vol] 0.68 mg/dL 0.55-1.02 [facility] Comment on above: The validity of the calculated GFR & GFRAA in patients over 70 years has not been determined. Clinical correlation is essential. Serum or plasma urea nitroge n measurement (mass/volume)on 07-18-2022 Urea nitrogen [Mass/Vol] 14 mg/dL 7-18 [facility] Thin prep Papanicolaou smear with manual screeningon 07-18-2022 Thin prep Papanicolaou smear with manual screening 18 U/L 15-37 [facility] Thin prep Papanicolaou smear with manual screening 4 5-15 [facility] Hemoglobin AND Hematocriton 04-06-2020 Hematocrit (Bld) [Volume fraction] 36.3 % Normal 35.0-47.0 [facility] Comment on above: Performed By: #### H GHCT #### [address] [address] Hemoglobin (Bld) [Mass/Vol] 12.4 g/dL Normal 11.7-16.0 [facility] Comment on above: Performed By: #### H GHCT #### [address] [address] Hemoglobin and Hematocrit, B loodon 04-06-2020 Hematocrit (Bld) [Volume fraction] 36.3 % 35 - 47 % [place], [place] Hemoglobin (Bld) [Mass/Vol] 12.4 g/dL 11.7 - 16 g/dL [place], [place] Test Performed by [facility], [address] [place] [id number] [place], [place] Op Noteon 04-06-2020 Op Note [facility] GENERAL SURGERY [address] [place], [place] [id number] Dept: [phone] Loc: [phone] Operative Report Patient Name: Kelli Aceves Date of : 1940 Date of Surgery: 04/06/20 Pre-operative diagnosis: Left extra-articular distal humerus fracture Post-operative diagnosis: Same Procedure(s): Open reduction internal fixation of left extra-articular distal humerus fracture (CPT 09208) Surgeon: Aidan Ballard M.D. Nitric Acid Concentrator Operator(s): Lance Mo M.D. and Suleman Tate M.D. Anesthesia: General and Nerve Block EBL: Minimal IVF: Crystalloid Medications: Two grams of Cefazolin were given. Implants: Synthes distal humerus locking plates Clinical History/Indication for Surgery The patient is a 79 y.o. year old female who was presents for operative fixation of a displaced left extra-articular distal humerus fracture. Typical indications for surgery were reviewed and operative fixation was recommended. Risks of fracture surgery in general were reviewed including, but not limited to, infection, non-union, need for additional procedures, painful or prominent hardware which could require removal, failure of fixation which would require revision, damage to normal structures as well as medical complications such as MT, stroke, PE, DVT, and even . Pt was given opportunity to ask questions and consider her options. She ultimately elected to proceed with surgery. No guarantees were given or implied. Operative Narration The patient was identified in the pre-operative holding area. The surgical site was identified and marked. Informed consent was obtained. The patient was then brought to the operating room and placed supine on the operating table. Anesthesia was administered and care of the head, neck, and airway was maintained by the anesthesia staff throughout the entire procedure. The patient was turned lateral with an axillary roll placed. All bony prominences were identified and padded and the mchugh bag inflated. The arm was prepped and draped in the usual sterile fashion. A surgical timeout was performed. Antibiotics were confirmed to have been given. A sterile tourniquet was applied and after exsanguination the tourniquet was inflated. A longitudinal incision was made and taken down to the fascia over the triceps and proximal forearm. Both medial and lateral para-tricepital windows were used after identifying and protecting the ulnar nerve medially. The fracture site was exposed, cleaned, and irrigated. This was reduced and held with k-wires and reduction confirmed with fluoro. Both lateral and medial plate were applied with a single cortical screw and distal locking screws were placed. Two offset clamps were used to maximally compress the fracture and additional screws were placed into the shaft of each plate. Fluroscopic imaging showed appropriate reduction and hardware position. Range of motion of the elbow showed no crepitus or evidence of intra-articular hardware. Repeat fluoroscopic imaging confirmed an excellent overall reduction and appropriate placement of all hardware. Wounds were copiously irrigated with sterile saline and closed in a layered fashion . A sterile compressive dressing was applied followed by a well-padded long arm splint. Once the patient was awakened from anesthesia, they were transported to the PACU in stable condition, having tolerated surgery well with no obvious complications. Postoperative Plan NWB through arm Finger ROM This operative report was prepared and signed by Aidan Ballard MD at 04/06/20, 9:39 AM [facility] CT Up Ext w/o Contrast Lefto n 04-05-2020 CT Up Ext w/o Contrast Left Patient Name: KELLI ACEVES I CT Exam Date/Time 04/05/2020 10:53:[address] Up Ext w/o Contrast Left Ordering Physician MD NELLIE, AIDAN Accession Number [id number] CPT4 Codes 66567 () Reason For Exam Other displaced fracture of lower end of left humerus, initial encounter for closed fracture Report Examination: CT left elbow Indication: Other displaced fracture of lower end of left humerus, initial encounter for closed fracture Technique: Axial CT images of the left elbow were obtained at 1 mm intervals. Sagittal and coronal reconstructions were reviewed as well. Images were reformatted concurrently on a separate 3-D workstation by myself and reviewed in all three planes with volume rendering. Findings: There is a comminuted supracondylar femur fracture with impaction, anterior displacement and mild angulation. Suspect small fracture or protuberant osteophyte at the ulnar collateral ligament insertion on the sublime tubercle on coronal images 23-25. The proximal radius and ulna are otherwise unremarkable. Soft tissue swelling is present about the elbow, greatest posteriorly with fairly extensive subcutaneous soft tissue edema. CT appearance of the musculature is unremarkable. Impression: Comminuted supracondylar humerus fracture with anterior displacement. Small avulsion or protuberant osteophyte at the sublime tubercle. The latter is more likely. Large amount of soft tissue swelling. Report Dictated on Final Dictated: 04/05/2020 11:15 am Dictating Physician: MD MARIO KRIKOR Signed Date and Time: 04/05/2020 11:31 am Signed by: MD MARIO KRIKOR Transcribed Date and Time: 04/05/2020 11:15 Normal [facility] CT Upper Extremity Left MARSHA carrera 04-05-2020 Patient Name: KELLI ORELLANA I ---CT--- Exam Date/Time 04/05/2020 10:53:[address] Up Ext w/o Contrast Left Ordering Physician MD BALALRD ERIC Accession Number [id number] CPT4 Codes 52622 () Reason For Exam Other displaced fracture of lower end of left humerus, initial encounter for closed fracture Report Examination: CT left elbow Indication: Other displaced fracture of lower end of left humerus, initial encounter for closed fracture Technique: Axial CT images of the left elbow were obtained at 1 mm intervals. Sagittal and coronal reconstructions were reviewed as well. Images were reformatted concurrently on a separate 3-D workstation by myself and reviewed in all three planes with volume rendering. Findings: There is a comminuted supracondylar femur fracture with impaction, anterior displacement and mild angulation. Suspect small fracture or protuberant osteophyte at the ulnar collateral ligament insertion on the sublime tubercle on coronal images 23-25. The proximal radius and ulna are otherwise unremarkable. Soft tissue swelling is present about the elbow, greatest posteriorly with fairly extensive subcutaneous soft tissue edema. CT appearance of the musculature is unremarkable. Impression: Comminuted supracondylar humerus fracture with anterior displacement. Small avulsion or protuberant osteophyte at the sublime tubercle. The latter is more likely. Large amount of soft tissue swelling. Report Dictated on --- Final --- Dictated: 04/05/2020 11:15 am Dictating Physician: MD MARIO KRIKOR Signed Date and Time: 04/05/2020 11:31 am Signed by: MD MARIO KRIKOR Transcribed Date and Time: 04/05/2020 11:15 [facility], [place], [place] Incoming Radiology Results From [facility] - 04/05/2020 11:33 AM EDT Patient Name: KELLI ACEVES I ---CT--- Exam Date/Time 04/05/2020 10:53:[address] Up Ext w/o Contrast Left Ordering Physician MD BALLARD ERIC Accession Number [id number] CPT4 Codes 53218 () Reason For Exam Other displaced fracture of lower end of left humerus, initial encounter for closed fracture Report Examination: CT left elbow Indication: Other displaced fracture of lower end of left humerus, initial encounter for closed fracture Technique: Axial CT images of the left elbow were obtained at 1 mm intervals. Sagittal and coronal reconstructions were reviewed as well. Images were reformatted concurrently on a separate 3-D workstation by myself and reviewed in all three planes with volume rendering. Findings: There is a comminuted supracondylar femur fracture with impaction, anterior displacement and mild angulation. Suspect small fracture or protuberant osteophyte at the ulnar collateral ligament insertion on the sublime tubercle on coronal images 23-25. The proximal radius and ulna are otherwise unremarkable. Soft tissue swelling is present about the elbow, greatest posteriorly with fairly extensive subcutaneous soft tissue edema. CT appearance of the musculature is unremarkable. Impression: Comminuted supracondylar humerus fracture with anterior displacement. Small avulsion or protuberant osteophyte at the sublime tubercle. The latter is more likely. Large amount of soft tissue swelling. Report Dictated on --- Final --- Dictated: 04/05/2020 11:15 am Dictating Physician: MD MARIO KRIKOR Signed Date and Time: 04/05/2020 11:31 am Signed by: MD MARIO KRIKOR Transcribed Date and Time: 04/05/2020 11:15 [facility]- [place], [place] Procedure Noteon [place] Procedure Note Normal A [facility] ([place]) Final Surgical Pathology Rep robert 11-26-2017 Final Surgical Pathology Report . Pathology ReportsAccession: Collected Date/Time: Received Date/Time: Pathologist:[id number] 11/24/2017 10:13 EDT 11/25/2017 07:22 MD GRAHAM LEWIS Final Surgical Pathology ReportDIAGNOSIS:RIGHT COLON, POLYPECTOMY -- TUBULAR ADENOMA.COMMENT:[facility]# [id number] INFORMATION:Procedure: COLONOSCOPY WITH POLYP BIOPSYPreoperative diagnosis: HISTORY OF COLON POLYPSPostoperative diagnosis: SAMESPECIMEN:A POLYP, RIGHT COLON - R/O ADENOMAGROSS DESCRIPTION:Submitted in formalin consists of several irregular pink-flanagan tissue fragments together measuring 0.2 x 0.2 x 0.2 cm. -1 dictated by Drew Serrano M.D.Dictated by GRAHAM SERRANO MDMICROSCOPIC DESCRIPTION:Slides reviewed.Electronically Signed byPathology Report verified by [facility] signed by GRAHAM SERRANO MDSign out Date: 11/26/2017 13:57Performing Lab: [facility], [address] [place] [address] Normal [facility] ([place]) Comment on above: Performed By: #### S PFR ####[address] ENDO Procedure Recordon 11-24-2017 [facility] ENDO Procedure Record Normal [facility] ([place]) Depart Summaryon 11-24-2017 Depart Summary Normal [facility]) History and Physicalon 11-24 History and Physical Normal [facility]) [place] Outpatient Patient Summaryon 11-24-2017 [place] Outpatient Patient Summary Normal [facility]) Vital Signs Date Time Vital Sign Value Performing Clinician Facility 04-29-2025 14:01-0400 Body height 152.[address] Ovidio Ibanez MD Work Phone: [facility] 05-19-2023 21:08-0500 Body mass index (BMI) [Ratio] 24 kg/m2 Dr. Loren Dee Work Phone: [facility] 05-19-2023 21:08-0500 Body weight [address] Loren Dee Work Phone: [facility] 05-19-2023 19:54-0500 Body height 152.[address] Loren Dee Work Phone: [facility] 05-19-2023 19:54-0500 Body temperature 96.7 [degF] Dr. Loren Dee Work Phone: [facility] 05-19-2023 19:54-0500 Diastolic blood pressure 67 mm[Hg] Dr. Loren Dee Work Phone: [facility] 05-19-2023 19:54-0500 Heart rate 85 /min Dr. Loren Dee Work Phone: [facility] 05-19-2023 19:54-0500 Respiratory rate 18 /min Dr. Loren Dee Work Phone: [facility] 05-19-2023 19:54-0500 SaO2% (BldA) [Mass fraction] 100 % Dr. Loren Dee Work Phone: [facility] 05-19-2023 19:54-0500 Systolic blood pressure 130 mm[Hg] Dr. 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 WORKER - [employer]ING CLE[employer]ER Work Phone: [facility] 05-13-2023 11:29-0400 Body mass index (BMI) [Ratio] 24.57 kg/m2 Kamala Ariza WAFER POLISHING WORKER - [employer]ASTING CLE[employer]ER Work Phone: [facility] 05-13-2023 11:29-0400 Body weight 57.06 kg Kamala Ariza WAFER POLISHING WORKER - [employer]ING [employer]ER Work Phone: [facility] 05-13-2023 11:29-0400 Diastolic blood pressure 78 mm[Hg] Kamala Ariza WAFER POLISHING WORKER - [employer]ING [employer]ER Work Phone: [facility] 05-13-2023 11:29-0400 Heart rate 81 /min Kamala Ariza WAFER POLISHING WORKER - [employer]ING [employer]ER Work Phone: [facility] 05-13-2023 11:29-0400 Systolic blood pressure 126 mm[Hg] Kamala Miguelan WAFER POLISHING WORKER - [employer]ING [employer]ER Work Phone: [facility] 02-28-2023 13:14-0400 Diastolic blood pressure 61 mm[Hg] Robert Roman MD Work Phone: [facility] 02-28-2023 13:14-0400 Heart rate 83 /min Robert Roman MD Work Phone: [facility] 02-28-2023 13:14-0400 Systolic blood pressure 107 mm[Hg] Robert Roman MD Work Phone: [facility] 12-16-2022 13:51-0400 Body height 152.4 cm Robert Roman MD Work Phone: [facility] 12-16-2022 13:51-0400 Body mass index (BMI) [Ratio] 23.44 kg/m2 Robert Roman MD Work Phone: [facility] 12-16-2022 13:51-0400 Body weight 54.43 kg Robert Roman MD Work Phone: [facility] 12-16-2022 13:51-0400 Diastolic blood pressure 76 mm[Hg] Robert Roman MD Work Phone: [facility] 12-16-2022 13:51-0400 Heart rate 67 /min Robert Roman MD Work Phone: [facility] 12-16-2022 13:51-0400 Systolic blood pressure 130 mm[Hg] Robert Roman MD Work Phone: [facility] 10-10-2022 09:10-0400 Body mass index (BMI) [Ratio] 24.3 kg/m2 Ricarda Workman MD Work Phone: [facility] 10-10-2022 09:10-0400 Body temperature 96.49 [degF] Ricarda Workman MD Work Phone: [facility] 10-10-2022 09:10-0400 Body weight 56.43 kg Ricarda Workman MD Work Phone: [employer] 10-10-2022 09:10-0400 Diastolic blood pressure 83 mm[Hg] Ricarda Workman MD Work Phone: [employer] 10-10-2022 09:10-0400 Systolic blood pressure 129 mm[Hg] Ricarda Workman MD Work Phone: [employer] 07-18-2022 10:08-0500 Body mass index (BMI) [Ratio] 24.22 kg/m2 Ricarda Workman MD Work Phone: [employer] 07-18-2022 10:08-0500 Body temperature 96.6 [degF] Ricarda Workman MD Work Phone: [employer] 07-18-2022 10:08-0500 Body weight 56.25 kg Ricarda Workman MD Work Phone: [employer] 07-18-2022 10:08-0500 Diastolic blood pressure 83 mm[Hg] Ricarda Workman MD Work Phone: [employer] 07-18-2022 10:08-0500 Heart rate 69 /min Ricarda Workman MD Work Phone: [employer] 07-18-2022 10:08-0500 Systolic blood pressure 155 mm[Hg] Ricarda Workman MD Work Phone: [employer] 04-06-2020 11:15-0400 BP Diastolic 71 mm[Hg] [facility] [place] 04-06-2020 11:15-0400 BP Systolic 124 mm[Hg] [facility] [place] 04-06-2020 11:15-0400 Pulse (Heart Rate) 80 /min [facility] [place] 04-06-2020 11:15-0400 Pulse Oximetry 99 % [facility] [place] 04-06-2020 11:15-0400 Respiratory Rate 18 /min [facility] [place] 04-06-2020 11:00-0400 Body Temperature 97.59 [degF] [facility] [place] 04-06-2020 06:59-0400 BMI (Body Mass Index) 23.44 kg/m2 Aidan Burris [facility] [place] 04-06-2020 06:59-0400 Body weight 54.43 kg Aidan Ballard [facility] , [place] 04-06-2020 06:59-0400 Height 152.4 cm Aidan Ballard [facility] , [place] Encounters Encounter Date Encounter Type Care Provider Facility Start: 04-05-2025 End: 04-05-2025 ambulatory Ovidio Ibanez Facility:[facility] Start: 04-05-2025 End: 04-05-2025 [facility] Start: 03-24-2025 End: 03-24-2025 ambulatory Ovidio Ibanez Facility:[facility] Start: 03-24-2025 End: 03-24-2025 Patient encounter procedure Mary Jane Thakkar [facility] Work Phone: Start: 03-22-2025 End: 03-22-2025 ambulatory Ovidio Ibanez Facility:[facility] Start: 03-22-2025 End: 03-22-[address] 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 Ovidio Ibanez MD Work Phone: [facility] Start: 02-11-2025 End: 02-11-2025 Patient encounter procedure Mary Jane Thakkar FIELD MARKETING COORDINATOR-[facility] Work Phone: Start: 01-18-2025 End: 01-18-[address] Ovidio Ibanez MD -[facility] Work Phone: Start: 01-18-2025 End: 01-18-[address] Ovidio Ibanez MD Work Phone: [facility] Start: 01-18-2025 Registered Referred Ovidio Ibanez MD -[facility] Start: 01-11-2025 Non-patient / Non-visit Dr. Noemí luna MD -[facility] Work Phone: Start: 01-03-2025 End: 01-03-[address] Ovidio Ibanez MD Work Phone: [facility] Start: 01-03-2025 End: 01-03-2025 Patient encounter procedure Mary Jane Thakkar [facility] Work Phone: Start: 12-15-2024 End: 12-15-[address] Ovidio Ibanez MD Work Phone: [facility] Start: 12-15-2024 End: 12-15-2024 Patient encounter procedure Mary Jane Thakkar NP-[facility] Work Phone: Start: 11-23-2024 End: 11-23-[address] Ovidio Ibanez MD Work Phone: [facility] Work Phone: Start: 11-23-2024 End: 11-23-2024 Departed Referred Ovidio Ibanez MD -[facility] [place] Start: 11-23-2024 End: 11-23-2024 ambulatory Ovidio Dunhameboniyann Facility:[facility] Start: 09-28-2024 End: 09-28-2024 ambulatory Ovidio Ibanez Facility:[facility] Start: 09-28-2024 End: 09-28-[address] Ovidio Ibanez MD -[facility] Work Phone: Start: 08-24-2024 ambulatory Ovidio Ibanez Facili ty:[facility] Start: 08-24-2024 Registered Referred Ovidio Ibanez MD -[facility] Start: 06-25-2024 ambulatory Haydekylee Lisayann Toñitoi ty:[facility] Start: 06-22-2024 End: 06-22-2024 ambulatory Barrie Velazco Facility:[facility] Start: 05-25-2024 ambulatory Hayderoaring rivernilson Sibleyi ty:[facility] Start: 09-23-2023 End: 09-23-2023 ambulatory [facility] Work Phone: Start: 09-23-2023 End: 09-23-2023 Departed Referred [facility] Start: 09-11-2023 End: 09-11-[address] Ovidio Ibanez Work Phone: [facility] Work Phone: Start: 09-11-2023 End: 09-11-[address] Ovidio Ibanez Work Phone: [facility] Start: 08-26-2023 End: 08-26-[address] Ovidio Ibanez Work Phone: [facility] Work Phone: Start: 08-26-2023 End: 08-26-[address] Ovidio Ibanez Work Phone: [facility] Start: 06-24-2023 End: 06-24-[address] Loren Dee Work Phone: [facility] Work Phone: Start: 06-24-2023 End: 06-24-[address] Loren Dee Work Phone: [facility] Start: 06-02-2023 End: 06-02-2023 Telephone encounter Kamala Ariza APRN - BASTING CLEANER Work Phone: [facility] Comment on above: MRI results MRI results ; Forms/ questionnaires (Request for patient records to [facility] ) Start: 05-27-2023 End: 05-27-[address] Loren Dee Work Phone: [facility] Work Phone: Start: 05-27-2023 End: 05-27-[address] Loren Dee Work Phone: [facility] Start: 05-20-2023 End: 05-20-[address] Loren Dee Work Phone: [facility] Work Phone: Start: 05-19-2023 End: 05-20-2023 Emergency department patient visit Dr. 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 Loren Dee Work Phone: [facility] Work Phone: Start: 05-06-2023 End: 05-06-[address] Loren Dee Work Phone: [facility] Start: 04-28-2023 End: 04-28-[address] 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 Loren Dee Work Phone: [facility] Start: 03-14-2023 End: 03-14-[address] 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 Loren Dee Work Phone: [facility] Start: 02-18-[address] Loren taveras Work Phone: [facility] Start: 01-21-2023 End: 01-21-[address] Loren Dee Work Phone: [facility] Work Phone: Start: 01-21-2023 End: 01-21-[address] Loren Dee Work Phone: [facility] Start: 01-21-[address] Loren taveras Work Phone: [facility] Start: 01-20-2023 Telephone encounter Robert paige MD Work Phone: [facility] Comment on above: Results Start: 01-07-2023 End: 01-07-[address] Loren Dee Work Phone: [facility] Work Phone: Start: 01-07-2023 End: 01-07-[address] Loren Dee Work Phone: [facility] Start: 01-07-[address] Loren taveras Work Phone: [facility] Start: 01-03-2023 End: 01-03-[address] Loren Dee Work Phone: [facility] Work Phone: Start: 12-31-2022 End: 12-31-[address] Loren Dee Work Phone: [facility] Work Phone: Start: 12-30-2022 End: 12-30-2022 Subsequent hospital visit by physician Robert Roman MD Work Phone: [facility] Neuro Comment on above: Numbness in both leg s; Weakness of both legs Start: 12-24-2022 End: 12-24-[address] Loren Dee Work Phone: [facility] Work Phone: Start: 12-24-2022 End: 12-24-[address] Loren Dee Work Phone: [facility] Start: 12-21-2022 End: 12-21-[address] Loren Dee Work Phone: [facility] Work Phone: Start: 12-16-2022 End: 12-16-2022 Office outpatient new 45 minutes Robert Roman MD Work Phone: [facility] Comment on above: Weakness of both leg s (Primary Dx); Numbness in both legs; 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, unspecified whether behavioral, psychotic, or mood disturbance or anxiety (HCC); Other fatigue Start: 10-10-2022 End: 10-10-2022 Office outpatient visit 40 minutes Ricarda Workman MD Work Phone: [facility] Geriatrics Comment on above: Mild dementia with m ood disturbance, unspecified dementia type (HCC) (Primary Dx); Debility; Depression, unspecified depression type Start: 09-20-2022 ambulatory Carina Kohler Cl inical Communication Start: 09-20-2022 Patient encounter procedure Carina Kohler Clinical Communication Start: 07-18-2022 End: 07-18-2022 ambulatory [facility] Work Phone: Start: 07-18-2022 End: 07-18-2022 Patient encounter procedure [facility] Start: 07-18-2022 End: 07-18-2022 Office outpatient visit 40 minutes Ricarda Workman MD Work Phone: [facility] Ger[facility] Comment on above: Impaired functional mobility, balance, gait, and endurance (Primary Dx); Mild dementia with mood disturbance, unspecified dementia type; Other fatigue; Depression, unspecified depression type; Bilateral hearing loss, unspecified hearing loss type Start: 03-21-2022 End: 03-21-2022 Subsequent hospital visit by physician [facility] MD [facility] Start: 10-08-2021 End: 10-08-2021 Subsequent hospital visit by physician [facility] MD [facility] Start: 09-17-2021 End: 09-17-2021 Subsequent hospital visit by physician [facility] Workman MD [facility] Start: 04-06-2020 End: 04-06-2020 Subsequent hospital visit by physician Aidan Ballard Work Phone: [facility] General Surgery Comment on above: Other closed displac ed fracture of distal end of left humerus, initial encounter (Primary Dx) Start: 04-05-2020 End: 04-05-2020 Subsequent hospital visit by physician Aidan Ballard Work Phone: [facility] WO[facility] CT Comment on above: Other closed displac ed fracture of distal end of left humerus, initial encounter Start: 11-24-2017 End: 11-24-2017 [facility] Facility:[facility] Procedures Date Procedure Procedure Detail Performing Clinician Start: 03-21-2025 Vitamin D, 25-hydrox y measurement Dr. Ovidio Ibanez MD Work Phone: Comment on above: Vitamin D StatusDefi ciency: <20 ng/mL (50nmol/L)Insufficiency: 20-30 ng/mL (50-75 nmol/L)Sufficiency: 30-100 ng/mL (75-250 nmol/L)Toxicity: >100 ng/mL (>250 nmol/L) Start: 01-18-2025 Vitamin D, 25-hydrox y measurement Dr. Ovidio Ibanez MD Work Phone: Comment on above: Vitamin D StatusDefi ciency: <20 ng/mL (50nmol/L)Insufficiency: 20-30 ng/mL (50-75 nmol/L)Sufficiency: 30-100 ng/mL (75-250 nmol/L)Toxicity: >100 ng/mL (>250 nmol/L) Start: 11-23-2024 Vitamin D, 25-hydrox y measurement Dr. Ovidio Ibanez MD Work Phone: Comment on above: Vitamin D StatusDefi ciency: <20 ng/mL (50nmol/L)Insufficiency: 20-30 ng/mL (50-75 nmol/L)Sufficiency: 30-100 ng/mL (75-250 nmol/L)Toxicity: >100 ng/mL (>250 nmol/L) Start: 08-24-2024 Measurement of renal function Dr. Ovidio Ibanez MD Work Phone: Comment on above: GFR Calc Start: 09-11-[address] Diana Ibanez Work Phone: Start: 05-19-2023 CT of head without contrast Dr. Loren Dee Work Phone: Start: 04-02-2023 Mri brain brain stem w/o contrast material Robert Roman MD Work Phone: Start: 04-06-2020 Blood count hemoglobin Jose De Jesus R Pollard Work Phone: Start: 04-05-2020 Ct upper extremity w /o contrast material Aidan Ballard Work Phone: History of cholecystectomy Status post laparoscopic cholecystectomy Comment on above: This is a 80-year-ol d female who is 2 weeks status post laparoscopic cholecystectomy with intraoperative cholangiogram. She has no postoperative complaints. Pathology was reviewed. Given the limitations of this visit medium no exam was undertaken. However patient specifically denies any complaints of redness or drainage with her wounds. She states that her Steri-Strips are still in place. Have informed her that she can now remove these and begin some local, basic wound care with regular showering and applications (using mild detergents soaps) of triple antibiotic ointment. Patient describes persistent neurologic complaints and asked if there would be any utility in seeing a neurologist for these issues. I have informed her that this is not my specialty but should her neurologic symptoms persist this may be worthwhile. Plan of Treatment Date Care Activity Detail Author Start: 05-19-2033 DTaP/Tdap/Td Vaccines (2 - Td or Tdap) DTaP/Tdap/Td Vaccines (2 - Td or Tdap) [facility] Start: 05-19-2033 Urine microalbumin profile DTaP,Tdap,Td Vaccine (2 - Td or Tdap) [facility] Start: 12-16-2025 Diabetes Screening Diabetes Screening [facility] Start: 03-14-2025 Influenza vaccination Influenza Vaccine (#1) [facility] Start: 07-22-2024 End: 07-22-2024 Patient encounter procedure 07/22/2024 2:20 PM EST Office Visit [facility] [address] [place] [id number] Robert Roman MD [address] [place] [address] [facility] Start: 07-14-2024 Advance Directive Discussion Advance Directive Discussion [facility] Start: 07-14-2024 Medicare Advantage Annual Wellness Visit Medicare [facility] Annual Wellness Visit [facility] Start: 03-14-2024 COVID-19 Vaccine ( season) COVID-19 Vaccine ( season) [facility] Start: 03-14-2024 Influenza vaccination Influenza Vaccine (#1) [facility] Start: 09-11-2023 End: 09-11-2023 Patient encounter procedure 09/11/2023 11:00 AM EST Office Visit [facility] [address] [place] [id number] Kamala Ariza APRN - CNP [address] [place], [place] [id number] [facility] Start: 07-14-2023 Medicare Advantage Annual Wellness Visit Medicare Advantage Annual Wellness Visit [facility] Start: 05-20-2023 [facility] Start: 05-19-2023 Simple repair scalp/neck/ax/genit/kary nk 2.5cm/< RPR S/N/AX/GEN/TRNK 2.5CM/< [facility] [place] Start: 04-21-2023 End: 04-21-2023 Patient encounter procedure 04/21/2023 11:30 AM EDT Office Visit [facility] [address] [place] [id number] Kamala Ariza APRN - [employer]ING [employer] [address] [place] [address] [facility] Start: 04-12-2023 Depression Monitoring Depression Monitoring [facility] Start: 04-12-2023 Depresssion Monitoring Depresssion Monitoring [facility] Start: 04-02-2023 End: 04-02-2023 Patient encounter procedure 04/02/2023 6:30 AM EDT Appointment [facility] MRI [address] [place] [id number] Robert Roman MD [address] [place] [address] [facility] Start: 03-14-2023 COVID-19 Vaccine ( season) COVID-19 Vaccine ( season) [facility] Start: 03-14-2023 Influenza vaccination [facility] Start: 02-28-2023 End: 02-29-2024 MR Brain WO contrast MR brain wo contrast Imaging Routine 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, unspecified whether behavioral, psychotic, or mood disturbance or anxiety (HCC) Ataxic gait Expected: 02/28/2023, Expires: 02/29/2024 [facility] Work Phone: Comment on above: Expected: 02/28/2023, Expires: Start: 02-28-2023 End: 02-28-2023 Patient encounter procedure [facility] Start: 01-09-2023 End: 01-09-2023 Patient encounter procedure 01/09/2023 Office Visit Geriatric Medicine Ricarda Workman MD [address] [address] [place] [address] [facility] Start: 12-30-2022 End: 12-30-2022 Patient encounter procedure 12/30/2022 Appointment Neurology Robert Roman MD [address] [place] [address] [facility] Start: 12-16-2022 End: 12-17-2023 Cobalamin (Vitamin B12) [Mass/volume] in Serum or Plasma Vitamin B12 Lab Routine Numbness in both legs Weakness of both legs 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, Unspecified Whether Behavioral, Psychotic, Or Mood Disturbance Or Anxiety (Hcc) Other fatigue Expected: 12/16/2022 (Approximate), Expires: 12/17/2023 [facility] Comment on above: Expected: 12/16/2022 (Approximate), Expi res: 12/17/2023 Start: 12-16-2022 End: 12-17-2023 Hemoglobin A1c/Hemoglobin.total in Blood Hemoglobin A1c Lab Routine Numbness in both legs Weakness of both legs 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, Unspecified Whether Behavioral, Psychotic, Or Mood Disturbance Or Anxiety (Hcc) Other fatigue Expected: 12/16/2022 (Approximate), Expires: 12/17/2023 [facility] Comment on above: Expected: 12/16/2022 (Approximate), Expi res: 12/17/2023 Start: 12-16-2022 End: 12-17-2023 Nerve conduction test with EMG Nerve conduction test with EMG Neurology Routine Numbness in both legs Weakness of both legs Expected: 12/16/2022 (Approximate), Expires: 12/17/2023 [facility] Work Phone: Comment on above: Expected: 12/16/2022 (Approximate), Expi res: 12/17/2023 Start: 12-16-2022 End: 12-17-2023 Thyrotropin [Units/volume] in Serum or Plasma TSH Lab Routine Numbness in both legs Weakness of both legs 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, Unspecified Whether Behavioral, Psychotic, Or Mood Disturbance Or Anxiety (Hcc) Other fatigue Expected: 12/16/2022 (Approximate), Expires: 12/17/2023 [facility] Comment on above: Expected: 12/16/2022 (Approximate), Expi res: 12/17/2023 Start: 12-16-2022 End: 12-17-2023 Vitamin B1 Vitamin B1 Lab Routine Numbness in both legs Weakness of both legs 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, Unspecified Whether Behavioral, Psychotic, Or Mood Disturbance Or Anxiety (Hcc) Other fatigue Expected: 12/16/2022 (Approximate), Expires: 12/17/2023 [facility] Comment on above: Expected: 12/16/2022 (Approximate), Expi res: 12/17/2023 Start: 12-16-2022 End: 12-17-2023 Vitamin B6 Vitamin B6 Lab Routine Numbness in both legs Weakness of both legs 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, Unspecified Whether Behavioral, Psychotic, Or Mood Disturbance Or Anxiety (Hcc) Other fatigue Expected: 12/16/2022 (Approximate), Expires: 12/17/2023 [facility] Comment on above: Expected: 12/16/2022 (Approximate), Expi res: 12/17/2023 Start: 12-16-2022 End: 12-16-2022 Patient encounter procedure 12/16/2022 Office Visit Neurology Robert Roman MD [address] [place] [address] [facility] Start: 10-10-2022 End: 10-10-2022 Patient encounter procedure 10/10/2022 Office Visit Geriatric Medicine Ricarda Workman MD [address] [address] [facility] Start: 09-17-2022 Depression Screen Depression Screen [facility] Start: 07-18-2022 End: 07-18-2023 CBC panel - Blood by Automated count CBC Lab Routine Mild Dementia With Mood Disturbance, Unspecified Dementia Type Other fatigue Expected: 07/18/2022 (Approximate), Expires: 07/18/2023 [facility] Comment on above: Expected: 07/18/2022 (Approximate), Expi res: 07/18/2023 Start: 07-18-2022 End: 07-18-2023 Cobalamin (Vitamin B12) [Mass/volume] in Serum or Plasma Vitamin B12 Lab Routine Mild Dementia With Mood Disturbance, Unspecified Dementia Type Other fatigue Expected: 07/18/2022 (Approximate), Expires: 07/18/2023 [facility] Comment on above: Expected: 07/18/2022 (Approximate), Expi res: 07/18/2023 Start: 07-18-2022 End: 07-18-2023 Comprehensive metabolic 1998 panel - Serum or Plasma Comprehensive metabolic panel Lab Routine Mild Dementia With Mood Disturbance, Unspecified Dementia Type Other fatigue Expected: 07/18/2022 (Approximate), Expires: 07/18/2023 [facility] Comment on above: Expected: 07/18/2022 (Approximate), Expi res: 07/18/2023 Start: 07-18-2022 End: 07-18-2023 Thyrotropin [Units/volume] in Serum or Plasma TSH Lab Routine Mild Dementia With Mood Disturbance, Unspecified Dementia Type Other fatigue Expected: 07/18/2022 (Approximate), Expires: 07/18/2023 [facility] Work Phone: Comment on above: Expected: 07/18/2022 (Approximate), Expi res: 07/18/2023 Start: 03-14-2022 Influenza vaccination [facility] Start: 10-20-2021 COVID-19 Vaccine (4 - Booster for Moderna series) COVID-19 Vaccine (4 - Booster for Moderna series) [facility] Start: 10-08-2021 End: 10-08-2021 Patient encounter procedure 10/08/2021 Office Visit Geriatric Medicine Ricarda Workman MD [address] [id number] [facility] Start: 08-16-2021 COVID-19 Vaccine (4 - Booster for Moderna series) COVID-19 Vaccine (4 - Booster for Moderna series) [facility] Start: 08-16-2021 COVID-19 Vaccine (4 - Moderna series) COVID-19 Vaccine (4 - Moderna series) [facility] Start: 03-14-2021 Influenza vaccination Flu vaccine (#1) [facility] Start: 04-25-2020 End: 04-25-2020 Nurse Only [facility] [place] Start: 04-06-2020 Hospital Encounter 04/06/2020 Hospital Encounter General Surgery Aidan Ballard MD [address] [place] [address] [phone] [facility] Start: 04-04-2020 Annual Wellness Visit (AWV) Annual Wellness Visit (AWV) [facility] Start: 03-14-2020 Influenza vaccination Flu vaccine (#1) [place], [place] Start: 2017 RSV Immunization for Adults (1 - 1-dose 75+ series) RSV Immunization for Adults (1 - 1-dose 75+ series) [facility] Start: 2017 RSV Vaccine (1 - 1-dose 75+ series) RSV Vaccine (1 - 1-dose 75+ series) [facility] Start: 2007 Pneumococcal 65+ years Vaccine (1 of 1 - PPSV23) Pneumococcal 65+ years Vaccine (1 of 1 - PPSV23) [place] Start: 2007 Screening for osteoporosis Bone Density Screening [facility] Start: 10-29-2006 Shingles Vaccine (2 of 3) Shingles Vaccine (2 of 3) [facility] Start: 10-29-2006 Shingrix Vaccine (2 of 3) Shingrix Vaccine (2 of 3) [facility] Start: 10-29-2006 Zoster Vaccines (2 of 3) Zoster Vaccines (2 of 3) [facility] Start: 2002 RSV Immunization aged 60 or older (1 - 1-dose 60+ series) RSV Immunization aged 60 or older (1 - 1-dose 60+ series) [facility] Start: 1997 Screening for osteoporosis DEXA (modify frequency per FRAX score) [facility] Start: 1992 Shingles Vaccine (1 of 2) Shingles Vaccine (1 of 2) [place] Start: 1961 DTaP/Tdap/Td vaccine (1 - Tdap) DTaP/Tdap/Td vaccine (1 - Tdap) [facility] Start: 1961 DTaP/Tdap/Td Vaccines (1 - Tdap) DTaP/Tdap/Td Vaccines (1 - Tdap) [facility] Start: 1960 Hepatitis C screening [facility] Start: 1954 Depression Screen Depression Screen [facility] Start: 1947 COVID-19 Vaccine (1) COVID-19 Vaccine (1) [facility] Start: 1942 Annual Wellness Visit (AWV) Annual Wellness Visit (AWV) [facility] Start: 1942 Hepatitis B Vaccines (1 of 3 - 3-dose series) Hepatitis B Vaccines (1 of 3 - 3-dose series) [facility] Start: 1942 Hepatitis C screening Hepatitis C screen [facility] Start: 1942 Medicare Advantage Annual Wellness Visit (AWV) Medicare Advantage Annual Wellness Visit (AWV) [facility] Start: 1940 Screening for osteoporosis Bone Density Scan [facility] End: 04-06-2020 Blood glucose - POCT Blood glucose - POCT Point of Care Testing STAT One Time for 1 Occurrences starting 04/06/2020 until 04/06/2020 [facility] [place] Comment on above: One Time for 1 Occurrences starting 03/15 until 04/06/2020 End: 04-06-2020 Creatinine [Mass/Vol] Creatinine, serum Lab STAT One Time for 1 Occurrences starting 04/06/2020 until 04/06/2020 [place] Comment on above: One Time for 1 Occurrences starting 03/15 until 04/06/2020 End: 04-06-2020 FL Greater Than 1 Hour FL Greater Than 1 Hour Imaging Routine Once for 1 Occurrences starting 04/06/2020 until 04/06/2020 [facility] [place] Comment on above: Once for 1 Occurrences starting 04/06/20 20 until 04/06/2020 FL Greater Than 1 Hour FL Greate r Than 1 Hour Imaging Routine 04/06/2020 7:56 AM EDT [facility] IgG, IgA, IgM IgG, IgA, IgM La b Routine Numbness in both legs Weakness of both legs 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, Unspecified Whether Behavioral, Psychotic, Or Mood Disturbance Or Anxiety (Hcc) Other fatigue Ordered: 12/16/2022 [facility] Comment on above: Ordered: 12/16/2022 Immunofixation Electrophoresis Immunofixation Electrophoresis Lab Routine Numbness in both legs Weakness of both legs 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, Unspecified Whether Behavioral, Psychotic, Or Mood Disturbance Or Anxiety (Hcc) Other fatigue Ordered: 12/16/2022 [employer] Comment on above: Ordered: 12/16/2022 Immunofixation Electrophoresis Immunofixation Electrophoresis Lab Routine Numbness in both legs Weakness of both legs 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, Unspecified Whether Behavioral, Psychotic, Or Mood Disturbance Or Anxiety (Hcc) Other fatigue Ordered: 12/16/2022 [employer] Comment on above: Ordered: 12/16/2022 End: 04-06-2020 Intermittent pulse oximetry Pulse Oximetry Spot Check Respiratory Care Routine One Time for 1 Occurrences starting 04/06/2020 until 04/06/2020 [facility] Comment on above: One Time for 1 Occurrences starting 03/15 until 04/06/2020 End: 12-30-2022 Nerve conduction test with EMG [employer] Work Phone: Comment on above: Once for 1 Occurrences starting 12/31/19 until 12/30/2022 Oph bmtry prtl coher intrfrmtry io lens pwr mio OPHTHALMIC BIOMETRY BY PARTIAL COHERENCE INTERFEROMETRY W/INTRAOCULAR LENS POWER CALCULATION Combined form of age-related cataract, both eyes [facility] Oxygen therapy [[facility] Data Set] Initiate Oxygen Therapy Protocol Respiratory Care Routine Daily until discontinued starting 04/06/2020 [facility] on above: Daily until discontinued starting 2019 Patient Education ED Head Injury (Adult) ED Laceration Scalp Stitches or Robbi [facility] Work Phone: Patient referral [facility] Work Phone: Phase I & II - meter ed glucose Phase I & II - metered glucose Point of Care Testing Routine As Needed until discontinued starting 04/06/2020 [facility] Comment on above: As Needed until discontinued starting End: 04-06-2020 Potassium w/ Reflex to Magnesium Potassium w/ Reflex to Magnesium Lab Routine One Time for 1 Occurrences starting 04/06/2020 until 04/06/2020 [facility] Comment on above: One Time for 1 Occurrences starting 03/15 until 04/06/2020 End: 04-06-2020 , urine , urine Lab STAT One Time for 1 Occurrences starting 04/06/2020 until 04/06/2020 [facility] [place] Comment on above: One Time for 1 Occurrences starting 03/15 until 04/06/2020 Protein [Mass/volume ] in Serum or Plasma Protein, total Lab Routine Numbness in both legs Weakness of both legs 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, Unspecified Whether Behavioral, Psychotic, Or Mood Disturbance Or Anxiety (Hcc) Other fatigue Ordered: 12/16/2022 [facility] Comment on above: Ordered: 12/16/2022 Protein Electrophoresis, Serum Protein Electrophoresis, Serum Lab Routine Numbness in both legs Weakness of both legs 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, Unspecified Whether Behavioral, Psychotic, Or Mood Disturbance Or Anxiety (Hcc) Other fatigue Ordered: 12/16/2022 [facility] Comment on above: Ordered: 12/16/2022 End: 04-06-2020 Protime-INR Protime-INR Lab STAT One Time for 1 Occurrences starting 04/06/2020 until 04/06/2020 [facility] [place] Comment on above: One Time for 1 Occurrences starting 03/15 until 04/06/2020 Serum Electrophoresis Serum Elec trophoresis Lab Routine Numbness in both legs Weakness of both legs 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, Unspecified Whether Behavioral, Psychotic, Or Mood Disturbance Or Anxiety (Hcc) Other fatigue Ordered: 12/16/2022 [facility] Comment on above: Ordered: 12/16/2022 Spirometry panel Incentive mario metry Respiratory Care Routine Q1H PRN until discontinued starting 04/06/2020 [facility] [place] Comment on above: Q1H PRN until discontinued starting 03/15 Xcapsl ctrc rmvl ins j io lens prosth w/o ecp PHACOEMULSIFICATION CATARACT IMPLANT INTRAOCULAR LENS W/O ENDOSCOPIC CYCLOPHOTOCOAGULATION Combined form of age-related cataract, both eyes [facility] Immunizations Immunization Date Immunization Notes Care Provider Abiel drummond 05-19-2023 tetanus toxoid, redu kay diphtheria toxoid, and acellular pertussis vaccine, adsorbed Dr. Loren Dee Work Phone: [facility] 06-13-2021 influenza, seasonal, injectable Ricarda Workman MD Work Phone: [facility] 06-13-2021 influenza virus vacc ine, unspecified formulation Ricarda Workman MD Work Phone: [facility] 10-09-2020 Covid (Moderna) [facility] 09-11-2020 Covid (Modern) [facility] 04-17-2020 influenza, injectabl e, quadrivalent, contains preservative Ricrada Workman MD Work Phone: [facility] 05-14-2019 influenza, injectabl e, quadrivalent, contains preservative Ricarda Workman MD Work Phone: [facility] 05-07-2018 influenza, injectabl e, quadrivalent, contains preservative Ricarda Workman MD Work Phone: [facility] 05-01-2017 influenza, seasonal, injectable Ricarda Workman MD Work Phone: [facility] 05-10-2016 influenza, injectabl e, quadrivalent, contains preservative Ricarda Workman MD Work Phone: [facility] 05-31-2015 influenza, seasonal, injectable Ricarda Workman MD Work Phone: [facility] 09-02-2014 pneumococcal conjuga te vaccine, 13 valent Ricarda Workman MD Work Phone: [facility] 05-17-2014 influenza, seasonal, injectable Ricarda Workman MD Work Phone: [facility] 05-06-2013 influenza, seasonal, injectable Ricarda Workman MD Work Phone: [facility] 04-24-2012 influenza, seasonal, injectable Ricarda Workman MD Work Phone: [facility] 08-21-2009 novel influenza-H1N1 -09, preservative-free, injectable Ricarda Workman MD Work Phone: [facility] 09-02-2007 pneumococcal polysaccharide vaccine, 23 valent Ricarda Workman MD Work Phone: [employer] 09-03-2006 zoster vaccine, live Ricarda Workman MD Work Phone: [employer] Payers Date Payer Category Payer Self-pay [id number] 2015 Medicare [id number] 2015 Medicare (Managed Care) [facility] [employer] [facility] PPO [id number] 2015 Medicare HMO [employer] [id number] 2015 Unknown [facility] [facility] HE[facility]AN [id number] 2015-Present [address] [place] [id number] [place] [address] [id number] 2015 Unknown [id number] Medicare [id number] Unknown [id number] Unknown [id number] Unknown [id number] .[id number] Unknown [id number] .[id number] Unknown [id number] .[id number] Unknown [id number] .[id number] Unknown [id number] .[id number] Unknown [id number] .[id number] Unknown [id number] .[id number] Unknown [id number] .[id number] Unknown [id number] .2.462 Unknown [id number] .2.462 Unknown [id number] [id number] .2.462 Unknown [id number] [id number] .[id number] Unknown [id number] .[id number] Unknown [id number] Social History Date Type Detail Facility Start: 04-04-2020 End: 04-29-2025 Tobacco smoking status NMIS Former smoker [place] Start: 04-04-2020 End: 09-03-2025 Tobacco use and exposure Never used [employer] [facility] Start: 1940 [facility] Start: 08-18-2021 End: 04-02-2023 Exposure to SARS-CoV-2 (event) Not sure [email or web address] [place] History of tobacco use Current smoker MARIE GARRIDO Work Phone: Start: 06-18-2021 End: 05-19-2023 Tobacco smoking status NHIS Unknown if ever smoked [facility] Start: 09-09-2018 Cigarettes [facility] Start: 1940 Sex Assigned At Female [facility] Start: 12-16-2022 End: 03-16-2025 Alcohol intake Lifetime non-drinker (finding) [facility] Start: 12-16-2022 End: 03-16-2025 History of Social function [facility] Start: 12-16-2022 End: 03-16-2025 Tobacco use panel [facility] Start: 06-14-2012 Adolescent depressio n screening assessment 10 [facility] Start: 02-11-2022 Sex Female (finding) [facility] History of tobacco use Cigarette Smoker C [facility] How often to you hav e a drink containing alcohol? 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,CLIP 5MM LIGAMAX FDA Start: 06-06-2021 Total cholecystectomy with exploration of common bile duct PERINATAL BREASTFEEDING ASSISTANT,CLIP 5MM LIGAMAX FDA Start: 06-06-2021 Total cholecystectomy with exploration of common bile duct PERINATAL BREASTFEEDING ASSISTANT,CLIP 5MM LIGAMAX FDA Start: 06-06-2021 Total cholecystectomy with exploration of common bile duct PERINATAL BREASTFEEDING ASSISTANT,CLIP 5MM LIGAMAX FDA Start: 06-06-2021 Total cholecystectomy with exploration of common bile duct PERINATAL BREASTFEEDING ASSISTANT,CLIP 5MM LIGAMAX FDA Start: 06-06-2021 Total cholecystectomy with exploration of common bile duct PERINATAL BREASTFEEDING ASSISTANT,CLIP 5MM LIGAMAX FDA Start: 06-06-2021 Total cholecystectomy with exploration of common bile duct PERINATAL BREASTFEEDING ASSISTANT,CLIP 5MM LIGAMAX FDA Start: 06-06-2021 Total cholecystectomy with exploration of common bile duct PERINATAL BREASTFEEDING ASSISTANT,CLIP 5MM LIGAMAX FDA Start: 06-06-2021 Total cholecystectomy with exploration of common bile duct PERINATAL BREASTFEEDING ASSISTANT,CLIP 5MM LIGAMAX FDA Start: 06-06-2021 Total cholecystectomy with exploration of common bile duct PERINATAL BREASTFEEDING ASSISTANT,CLIP 5MM LIGAMAX FDA Start: 06-06-2021 Total cholecystectomy with exploration of common bile duct PERINATAL BREASTFEEDING ASSISTANT,CLIP 5MM LIGAMAX FDA Start: 06-06-2021 Total cholecystectomy with exploration of common bile duct PERINATAL BREASTFEEDING ASSISTANT,CLIP 5MM LIGAMAX FDA Start: 06-06-2021 Total cholecystectomy with exploration of common bile duct PERINATAL BREASTFEEDING ASSISTANT,CLIP 5MM LIGAMAX FDA Start: 06-06-2021 Total cholecystectomy with exploration of common bile duct PERINATAL BREASTFEEDING ASSISTANT,CLIP 5MM LIGAMAX FDA Start: 06-06-2021 Total cholecystectomy with exploration of common bile duct PERINATAL BREASTFEEDING ASSISTANT,CLIP 5MM LIGAMAX FDA Start: 06-06-2021 Total cholecystectomy with exploration of common bile duct PERINATAL BREASTFEEDING ASSISTANT,CLIP 5MM LIGAMAX FDA Start: 06-06-2021 Total cholecystectomy with exploration of common bile duct PERINATAL BREASTFEEDING ASSISTANT,CLIP 5MM LIGAMAX FDA Start: 06-06-2021 Total cholecystectomy with exploration of common bile duct PERINATAL BREASTFEEDING ASSISTANT,CLIP 5MM LIGAMAX FDA Start: 06-06-2021 Total cholecystectomy with exploration of common bile duct PERINATAL BREASTFEEDING ASSISTANT,CLIP 5MM LIGAMAX FDA Start: 06-06-2021 Goals Date Patient Goal Desired Activity /State Functional Status Date Assessment Result Facility 03-16-2025 Total score [AUDIT-C] 0 03/16/20 25 2:45 PM EDT Robert Garcia COT [facility] Clinical Notes 07-18-2022 to 03-16-2025 Patient InstructionsKostas Diaz MD - 03/16/2025 4:12 PM EDTTelephone Encounter - Miriam Shirley - 05/18/2024 11:36 AM ESTTelephone Encounter - Miriam Shirley - 05/18/2024 11:36 AM EST Note Date & Type Note Facility 03-16-2025 Instructions Kostas Diaz MD - 03/16/2025 4:19 PM EDT Images from the original note were not included. Pre-Op Instructions for patients of Dr. Kostas Diaz 2 days prior to surgery start: Prednisolone acetate-use one drop four times a day in operative eye Moxifloxacin/Polytrim- use one drop four times each day in operative eye Ketorolac - use one drop four times each day in operative eye You may use the drops in any order, but close your eye for 5 minutes after each drop. Continue to use any previous eye drops unless instructed otherwise. Day of Surgery: Do not eat or drink anything 8 hours prior to procedure time. Take all of your morning medication with only enough water to swallow them unless instructed otherwise by Dr. Diaz or Primary Care physician. Get one drop of Moxifloxacin and Ketorolac in the operative eye prior to arriving at the surgery center. After your surgery: Do not remove your eye shield at home, except to instill your medication eye drops. Your eye shield will be removed in the office the following day. No heavy lifting or bending from the waist. Limit your activity. Avoid bumping or rubbing the operative eye. You will be given instructions in the surgery center about starting the three eyedrops after surgery. Call the office if you have any questions or concerns at , option 1. If the call is after business hours you will automatically connect with the answering service and they will contact your doctor as needed For Surgery Patients who are taking Medications for Diabetes and/or Weight Loss The two types of medications, GLP-1 agonists and SGLT2 inhibitors, can cause problems with surgery and anesthesia. If you take these medications, you will need to stop them before surgery. Please discuss this with your surgeon or with Lolis Bacon in the Pre-anesthesia Consultation Clinic ([phone]) to get instructions on their use before stopping them. GLP-1 agonists can cause your stomach to empty more slowly. If you stomach is not empty at the time of surgery, it increases the risk of vomiting during anesthesia and surgery can be dangerous. Usually, injectable GLP-1 agonists that are used weekly should be stopped at least 7 days prior to surgery. GLP-1 agonists that are taken orally should be stopped the day before surgery. If you do not stop taking these medications as directed, your surgery may be cancelled or delayed. Example of these medications include (but not limited to) the following: GLP-1 agonists Injectable Oral Dulaglutide (Trulicity ) Semaglutide (Rybelsus ) Exenatide (Byeta , Bydureon ) Liraglutide (Victoza , Saxenda ) Semaglutide (Ozempic , Wegovy ) Tirzepatide (Mounjaro , Zepbound ) SGLT-2 inhibitors can cause blood chemistry problems in patients who stop eating. Because surgery patients are asked to stop eating before surgery, you will need to stop taking these medications 3-4 days before surgery. SGLT2 Inhibitors include: Oral Bexagliflozin (Benzavvy ) Canagliflozin (Invokana ) Dapagliflozin (Farziga ) Empagliflozin (Jardiance ) Ertugliflozin (Steglatro ) If you have any questions regarding these presurgical instructions on how to take these medications, please call your surgeon's office or call Lolis Bacon or a Pre-Anesthesia Testing steam turbine operator at [phone]. documented in this encounter [facility] 03-16-2025 Note HNO ID: [id number] Author: KOSTAS DIAZ MD Service: ? Author Type: Physician Type: Progress Notes Filed: 03/16/2025 16:21 Note Text: Assessment and Plan 1. Combined form of age-related cataract, both eyes (Primary) Cataract Presurgical Documentation Cataract: Right eye (OD) Current Visual Acuity: Right Eye CC: 20/60 Left Eye CC: 20/60 Best Corrected Right Eye: 20/60-1 Best Corrected Left Eye: 20/60+2 Glare Testing: N/A Visual Function: Kelli I Ketan states that the decline in vision from the cataract impedes her abilities as listed in the HPI, as well as other activities of daily living. Kelli Aceves has confirmed that she is no longer able to function adequately on a day-to-day basis because of her current visual condition. Further, it is my medical opinion that the cataract is the primary cause, or at least a significantly contributory cause of her visual dysfunction. With uncomplicated cataract surgery and lens implantation, it is my expectation that her visual function and quality of life will improve, significantly. The risks, benefits, alternatives, personnel and complications of cataract surgery with lens implantation were discussed with Kelli Aceves in detail. she appeared to understand and asked that I proceed with plans for surgery. 2. 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 Pentacam Refractive surgery No Fuchs No Trypan blue No Malyugin ring No Other will need lift team (non-weight baring). Parkinsons but limited neck tremors (no need for general anesth) I have confirmed and edited as necessary the relevant ophthalmic history, ROS, and the neuro exam findings as obtained by others. I have seen and examined Kelli Aceves. I have discussed the case and the management of this patient's care with the Resident/Fellow, if applicable. I also have reviewed and agree with the assessment and plan as stated above and agree with all of its relevant components. Kostas Diaz MD March 16, 2025 4:12 PM [facility] 03-16-2025 History of Present illness Narrative Assessment and Plan 1. Combined form of age-related cataract, both eyes (Primary) Cataract Presurgical Documentation Cataract: Right eye (OD) Current Visual Acuity: Right Eye CC: 20/60 Left Eye CC: 20/60 Best Corrected Right Eye: 20/60-1 Best Corrected Left Eye: 20/60+2 Glare Testing: N/A Visual Function: Kelli Aceves states that the decline in vision from the cataract impedes her abilities as listed in the HPI, as well as other activities of daily living. Kelli Aceves has confirmed that she is no longer able to function adequately on a day-to-day basis because of her current visual condition. Further, it is my medical opinion that the cataract is the primary cause, or at least a significantly contributory cause of her visual dysfunction. With uncomplicated cataract surgery and lens implantation, it is my expectation that her visual function and quality of life will improve, significantly. The risks, benefits, alternatives, personnel and complications of cataract surgery with lens implantation were discussed with Kelli Aceves in detail. she appeared to understand and asked that I proceed with plans for surgery. 2. 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 Pentacam Refractive surgery No Fuchs No Trypan blue No Malyugin ring No Other will need lift team (non-weight baring). Parkinsons but limited neck tremors (no need for general anesth) I have confirmed and edited as necessary the relevant ophthalmic history, ROS, and the neuro exam findings as obtained by others. I have seen and examined Kelli Aceves. I have discussed the case and the management of this patient's care with the Resident/Fellow, if applicable. I also have reviewed and agree with the assessment and plan as stated above and agree with all of its relevant components. Kostas Diaz MD March 16, 2025 4:12 PM documented in this encounter [facility] 05-18-2024 Telephone encounter Note Name of caller: Tenisha Contact phone number: [phone] Relationship to Patient: [facility] Provider: Dr. Roman Practice: [facility] Chief Complaint/Reason for Call: Tenisha states that Kelli intends to see a new neurologist at [facility], and is requesting Kelli's medical history sent to [facility]'s fax number at [phone]. Please advise. Best time of day caller can be reached: Any Patient advised that office/PCP has 24-48 business hours to return their call: Yes [facility] 05-18-2024 Miscellaneous Notes Name of caller: Tenisha Contact phone number: [phone] Relationship to Patient: [facility] Provider: Dr. Roman Practice: [facility] Chief Complaint/Reason for Call: Tenisha states that Kelli intends to see a new neurologist at [facility], and is requesting Kelli's medical history sent to [facility]'s fax number at [phone]. Please advise. Best time of day caller can be reached: Any Patient advised that office/PCP has 24-48 business hours to return their call: Yes Message released to patient as written. Patient's [...] Name of caller: Loren Contact phone number: [phone] Relationship to Patient: [facility] Provider: Kamala WILKERSON Practice: Neuro Chief Complaint/Reason for Call: [phone] fax results, Loren states has sent requests for the MRI results since 04/15/23. Please advise Best time of day caller can be reached: Any Patient advised that office/PCP has 24-48 business hours to return their call: Yes documented in this encounter [facility] 06-02-2023 Telephone encounter Note Message released to patient as written. Patient's further questions if applicable: Were all questions from office addressed or relayed to the patient from encounter: Yes [facility] 06-02-2023 Miscellaneous Notes Message released to patient [...] Name of caller: Loren Contact phone number: [phone] Relationship to Patient: [facility] Provider: Kamala WILKERSON Practice: Neuro Chief Complaint/Reason for Call: [phone] fax results, Loren states has sent requests for the MRI results since 04/15/23. Please advise Best time of day caller can be reached: Any Patient advised that office/PCP has 24-48 business hours to return their call: Yes documented in this encounter [facility] 06-02-2023 Telephone encounter Note Lm for Loren to call the office back, please relay providers message. [facility] 06-02-2023 Telephone encounter Note Look at my Assessment and Plan from her 05/12 visit----- Continue Donepezil 5mg daily Will order physical therapy She was given printed report of EMG and MRI brain We did discuss results of testing [facility] 06-02-2023 Telephone encounter Note Name of caller: Loren Contact phone number: [phone] Relationship to Patient: [facility] Provider: Kamala WILKERSON Practice: Neuro Chief Complaint/Reason for Call: [phone] fax results, Loren shah has sent requests for the MRI results since 04/15/23. Please advise Best time of day caller can be reached: Any Patient advised that office/PCP has 24-48 business hours to return their call: Yes [facility] 05-13-2023 History of Present illness Narrative Visit [...] an explanation for her testing Per pt-memory "is the same as always" Not too many issues Does not forget [...] Right 04/2005 big TONSILLECTOMY AND ADENOIDECTOMY (HISTORICAL) 194 TOTAL HIP ARTHROPLASTY Left 01/01/2016 TOTAL KNEE [...] 7.2 12/16/2022 BMP: No results found for: "NA", "K", "CL", "CO2", "BUN", "CREATININE", "CALCIUM", "LABGLOM", "GLUCOSE", "GLU" PT/INR: No results found for: "PROTIME", "INR" PTT: No results found for: "APTT", "PTT"[APTT} FLP: No results found for: "CHLPL", "TRIG", "HDL", "LDLCALC", LDLDIRECT TSH: Lab Results Component Value Date TSH 2.11 12/16/2022 VITAMIN B12: VITAMIN B12 Date Value Ref Range Status 12/16/2022 577 200 - 1,100 pg/mL Final No results found for: "PHENYTOIN", "PHENOBARB", "VALPROATE", "CBMZ" No components found for: "TOPIRA" @RESULTINGLABINFO@ No results found for: "LEVETIRACETA", "FERRITIN", "CRP", "NICOLE", "ANCA" IMMUNOGLOBULIN A Date Value Ref Range Status 12/16/2022 163 70 - 320 mg/dL Final IMMUNOGLOBULIN G Date Value Ref Range Status 12/16/2022 558 (L) 600 - 1,540 mg/dL Final IMMUNOGLOBULIN M Date Value Ref Range Status 12/16/2022 438 (H) 50 - 300 mg/dL Final No results found for: "[id number]", HEPCAB No results found for: "CRP", "ANATITER", "ANCA" FERRITIN: No results found for: FERRITIN ---- MR brain wo contrast Narrative: Patient Name: KELLI [facility]VES [facility] 1940 [id number] Exam Date/Time: 04/02/2023 07:11 Procedure: MR BRAIN WO CONTRAST Ordering Provider: ROMAN JAMES Reason For Exam: Dizziness, persistent/recurrent, cardiac [...] is seen within the vessels of the [place]. The globes and orbital contents [...] and arranging for studies. Electronically signed by @JOSE GUADALUPER@ on @TDNR@ at @NOWNR@ documented in this encounter [facility] 05-12-2023 Telephone encounter Note Patient is scheduled for a sooner appointment, his son is needing to check with [facility] to make sure they can bring her and call us back. [facility] 05-12-2023 Miscellaneous Notes Patient is scheduled [...] Medication Name: NA documented in this encounter [facility] 05-12-2023 Telephone encounter Note Can we see if something sooner is available? [facility] Work Phone: 05-12-2023 Telephone encounter Note Name of Caller: josey Contact Reason for Appointment: pt's appt was moved further out to go over MRI results and the pt's son is asking for the results sooner or for their appt to be moved back sooner Office Name: Neuro Medication Refills need, if any: NA Medication Name: NA [facility] 04-11-2023 Telephone encounter Note Please advise. [facility] 04-11-2023 Miscellaneous Notes Please advise. Name of caller: Kelli Contact phone number: [phone] Relationship to Patient: patient Provider: Dr Roman [place] [facility] [place] Chief Complaint/Reason for Call: Pt states she would like to speak to the office regarding the results of her recent MR brain wo contrast. Please advise. Best time of day caller can be reached: any Patient advised that office/PCP has 24-48 business hours to return their call: No documented in this encounter [facility] 04-11-2023 Telephone encounter Note Name of caller: Kelli Contact phone number: [phone] Relationship to Patient: patient Provider: Dr Roman Practice: [facility] [place] Chief Complaint/Reason for Call: Pt states she would like to speak to the office regarding the results of her recent MR brain wo contrast. Please advise. Best time of day caller can be reached: any Patient advised that office/PCP has 24-48 business hours to return their call: No [facility] 03-05-2023 Telephone encounter Note OK [facility] 03-05-2023 Miscellaneous Notes OK Forwarding to provider for review and advice. Name of caller: Loren Contact phone number: [phone] Relationship to Patient: alf Provider: Dr. Roman Practice: [facility] [place] Chief Complaint/Reason for Call: Loren states that they received an order for a bed assist rail from the office, but they do not allow those at [facility]. Please advise. Best time of day caller can be reached: any Patient advised that office/PCP has 24-48 business hours to return their call: N/A documented in this encounter [facility] 03-05-2023 Telephone encounter Note Forwarding to provider for review and advice. [facility] 03-05-2023 Telephone encounter Note Name of caller: Loren Contact phone number: [phone] Relationship to Patient: alf Provider: Dr. Roman Practice: [facility] [place] Chief Complaint/Reason for Call: Loren states that they received an order for a bed assist rail from the office, but they do not allow those at [facility]. Please advise. Best time of day caller can be reached: any Patient advised that office/PCP has 24-48 business hours to return their call: N/A [facility] 02-28-2023 History of Present illness Narrative Images from the original note were not included. [facility] [address] [facility] [address] Dept: [phone] Dept Loc: [phone] Robert Roman MD Thank you for your kind request [...] 1,100 pg/mL Final No results found for: [id number], HEPCAB Name: Kelli Aceves Date of : 1940 Attending physician: Robert Roman MD A report of nerve conduction studies [...] nerve innervation, and each was the sole housing management representative of right motor nerve roots L4, [...] arranging for studies. documented in this encounter [facility] 02-28-2023 Miscellaneous Notes Addended by: ROBERT ROMAN on: 02/28/2023 04:01 PM Modules accepted: Orders documented in this encounter [facility] 02-28-2023 Note Addended by: ROBERT ROMAN on: 02/28/2023 04:01 PM Modules accepted: Orders [facility] 02-28-2023 Note Addended by: ROBERT ROMAN on: 02/28/2023 04:01 PM Modules accepted: Orders [facility] 01-24-2023 Telephone encounter Note Lm for patient to call the office back, please relay providers message. [facility] 01-24-2023 Miscellaneous Notes Lm for patient to [...] Name of caller: Kelli Contact phone number: [phone] Relationship to Patient: patient Provider: Dr. Roman Practice: [facility] [place] Chief Complaint/Reason for Call: Pt states that she would like to receive a cb as soon as possible to go over her Nerve Conduction and EMG test that was completed on 12/30. Please advise. Best time of day caller can be reached: Any Patient advised that office/PCP has 24-48 business hours to return their call: No documented in this encounter [facility] 01-22-2023 Telephone encounter Note Lm for patient to call the office back, please relay providers message. [facility] 01-22-2023 Miscellaneous Notes Lm for patient to call the office back, please relay providers message. Lm for patient to call the office back, please relay providers message. Dr. Pereira reported that the test was limited but that it appeared to be normal. Remind her that she is following up in Feb Name of caller: Kelli Contact phone number: [phone] Relationship to Patient: patient Provider: Dr. Roman Practice: [facility] [place] Chief Complaint/Reason for Call: Pt states that she would like to receive a cb as soon as possible to go over her Nerve Conduction and EMG test that was completed on 12/30. Please advise. Best time of day caller can be reached: Any Patient advised that office/PCP has 24-48 business hours to return their call: No documented in this encounter [facility] 01-21-2023 Telephone encounter Note Lm for patient to call the office back, please relay providers message. [facility] 01-21-[address] Pereira reported that the test was limited but that it appeared to be normal. Remind her that she is following up in Feb [facility] 01-20-2023 Telephone encounter Note Name of caller: Kelli Contact phone number: [phone] Relationship to Patient: patient Provider: Dr. Roman Practice: [facility] [place] Chief Complaint/Reason for Call: Pt states that she would like to receive a cb as soon as possible to go over her Nerve Conduction and EMG test that was completed on 12/30. Please advise. Best time of day caller can be reached: Any Patient advised that office/PCP has 24-48 business hours to return their call: No [facility] 12-30-2022 Procedure note Name: Kelli Aceves Date of : 1940 Attending physician: Robert Roman MD A report of nerve conduction studies [...] nerve innervation, and each was the sole housing management representative of right motor nerve roots L4, [...] 23 [id number] Location: Testing was conducted at [facility] as an outpatient. [employer] Work Phone: 12-30-2022 Procedure note Name: Kelli Aceves Date of : 1940 Attending physician: Robert Roman MD A report of nerve conduction studies [...] nerve innervation, and each was the sole housing management representative of right motor nerve roots L4, [...] 23 [id number] Location: Testing was conducted at [facility] as an outpatient. documented in this encounter [facility] 12-16-2022 History of Present illness Narrative Images from the original note were not included. [facility] [address] [facility] [address] [facility] [address] Dept: [phone] Dept Loc: [phone] Robert Roman MD Thank you for your kind request [...] for: STONE, SEDRATE, CRP, NICOLE, ANCA, HOMOCYSTEINE, [id number], GLUCCSF No results found for: [id number], HEPCAB ASSESSMENT AND PLAN Problem List Items [...] arranging for studies. documented in this encounter [facility] 10-10-2022 History of Present illness Narrative Senior Services/Geriatrics Social History Present at visit: patient, spouse- Anusha, son Harman Marital status: Children: 2 sons [...] none Finances: not reviewed Healthcare Power of Corset Fitter: Yes, Vanesa Padron and Milo Financial Power of Corset Fitter: Yes, Vanesa Padron and Milo Living Will: Yes Guardian:No Code Status: Full Code Primary Caregiver: spouse, Anusha Current care plan/supervision: spouse with patient most of the time but spouse can leave her alone >>03/21/22 same >>10/10/22 same Community resources: Yes: Home Health Aide 3x/week to help with shower, cleaning service every other week >>03/21/22 home comfort advisor comes to help with shower 2 days/week, [...] bills, refusing to take mood medicine >>07-18-22 SW met with patient to complete a PHQ9. She is reporting high levels of depression which is negatively affecting her life and relationships. Patient gave a list of items to discuss with doctor that she and family have discussed as priorities, including addressing hearing loss and moving into assisted living. SW met with spouse as well and offered to make a [employer] referral for a service that will help patient and spouse with the Assisted Living process. Spouse was agreeable to referral. SW also encouraged them to have patient go back to her shot fireman to see if her hearing aides are working properly and get check up on hearing. SW made [employer] referral. Resources given today: [employer] information, Assisted Living checklist >>10/10/22 Family reporting decreasing reasoning skills and more short-term memory issues. Has "ruined" her last friend - cancelled plans too [...] caregiver burnout and lack of community supports. Hosiery Repairer educated that based on patient's current function, family is providing assisted living level of care in the home. Hosiery Repairer normalized stress involved in managing complex care needs and encouraged family seek out respite options. Hosiery Repairer normalized that patient could still do well [...] Yes, MOA to get [facility] IRAIDA Devlin 10/10/22 10:02 AM Review of [...] the original note were not included. [facility] [address] [facility] [address] Dept: [phone] Dept Loc: [phone] Visit type: [facility] Follow Up Visit Reason for Visit: Dementia [...] of her doctor's visits in order to "catch" all the information the doctors are providing. Debility -did complete home Physical Therapy -has neurology appointment scheduled for December to rule out parkinsonism or other neurologic conditions as a cause of her frequent falls -do feel that her visual impairment is increasing her fall risk. Recommended seeing her eye doctor -recommended following audiology's recommendations concerning the hearing aides. -Ms Aceves is currently requiring an assisted living level of care. This is currently being provided by her and a paid aide for showers. If the isn't able to provide the care, then an assisted living level of care would need replication. Follow up in about 3 months (around 01/10/2023). Subjective HPI: Kelli Aceves is a 82 y.o. female with past medical history of mild dementia, arthritis, OAB, hyperlipidemia, depression, gout who presents to the [facility] for a follow-up visit. The patient is [...] four times. Doesn't remember seeing it before -snf memory is good -No safety issues -Does [...] the depression. Sleep: sleeps a lot. Sleeps "18 hours a day". Appetite: She says it is bad but she has lost some weight. She is actually eating though. She won't prepare foods anymore. cooks. She eats what is put in front of her. She also snacks. History obtained from patient: -Memory: about the same. "It is not really great". Having boredom. -She likes to do word searches. -She lost three friends and a brother in law in the last year. This has impacted her mood. Mood: -"not really great". Some apathy. -no side effects to the [...] 10 AQUILES: 7 I independently reviewed the [facility] Cognitive Assessment from 10/10/2022. Test scanned in to the chart. She had a CT head in 06/03 at [facility] which showed small vessel ischemic/degenerative changes [...] exam and/or evaluation documented in this encounter [facility] 10-10-2022 Instructions Ricarda Workman MD - 10/10/2022 8:45 AM EDT -Recommend getting hearing aides (as recommended by your shot fireman) and wearing them -Recommend seeing an eye [...] the full improvement in your mood. -Ms Aceves is currently requiring an assisted living level of care. This is currently being provided by her and a paid aide for showers. If the isn't able to provide the care, then an assisted living level of care would need replication. documented in this encounter [facility] 09-23-2022 Telephone encounter Note Noted Thank you [facility] 09-23-2022 Miscellaneous Notes Noted Thank you Notified patient. States she has not seen PCP since last visit here, advised her to make an appointment for them as well. Noted. We will discuss mood (including a potential zoloft increase) and memory at appointment on 10/10. At last appointment, we also encouraged her to see her PCP to rule out medical causes for her mood/fatigue. I continue to encourage this if she hasn't done so already. They should also evaluate her for her falls. Please communicate this to patient. Spoke to patient and scheduled for 10/10. Also stated she feels she needs her Zoloft increased, has been having a lot of mood problems and ability to do anything. Drug [place] Clarence. I left a message on voicemail to call the office to schedule. S: Patient spoke with [facility] nurse regarding an appointment. B: Concern for falling. A: Had PT and did not help, fell last night and hurt her knees from crawling, knees have a rug burn on them, skin intact, no head injury, no loc, no pain currently. R: Please call the patient to schedule an appointment in [place], she is requesting to be seen. Please leave a message if unable to get to the phone. Patient understands care advice. No further needs at this time. Patient instructed to call back with new or worsening symptoms. Reason for Disposition MILD weakness (i.e., does not interfere with ability to work, go to school, normal activities) (Exception: mild weakness is a chronic symptom) Protocols used: Falls and Fxhneoc-OSNOU-RX documented in this encounter [facility] 09-23-2022 Telephone encounter Note Notified patient. States she has not seen PCP since last visit here, advised her to make an appointment for them as well. [facility] 09-23-2022 Telephone encounter Note Noted. We will discuss mood (including a potential zoloft increase) and memory at appointment on 10/10. At last appointment, we also encouraged her to see her PCP to rule out medical causes for her mood/fatigue. I continue to encourage this if she hasn't done so already. They should also evaluate her for her falls. Please communicate this to patient. T [facility] 09-23-2022 Telephone encounter Note Spoke to patient and scheduled for 10/10. Also stated she feels she needs her Zoloft increased, has been having a lot of mood problems and ability to do anything. Drug Konstantin Lima. [facility] 09-23-2022 Telephone encounter Note I left a message on voicemail to call the office to schedule. [facility] 09-20-2022 Telephone encounter Note S: Patient spoke with [facility] nurse regarding an appointment. B: Concern for falling. A: Had PT and did not help, fell last night and hurt her knees from crawling, knees have a rug burn on them, skin intact, no head injury, no loc, no pain currently. R: Please call the patient to schedule an appointment in [place], she is requesting to be seen. Please leave a message if unable to get to the phone. Patient understands care advice. No further needs at this time. Patient instructed to call back with new or worsening symptoms. Reason for Disposition MILD weakness (i.e., does not interfere with ability to work, go to school, normal activities) (Exception: mild weakness is a chronic symptom) Protocols used: Falls and Krwnxdz-IQQCK-PZ [facility] 09-20-2022 Miscellaneous Notes S: Patient spoke with [facility] nurse regarding an appointment. B: Concern for falling. A: Had PT and did not help, fell last night and hurt her knees from crawling, knees have a rug burn on them, skin intact, no head injury, no loc, no pain currently. R: Please call the patient to schedule an appointment in [place], she is requesting to be seen. Please leave a message if unable to get to the phone. Patient understands care advice. No further needs at this time. Patient instructed to call back with new or worsening symptoms. Reason for Disposition MILD weakness (i.e., does not interfere with ability to work, go to school, normal activities) (Exception: mild weakness is a chronic symptom) Protocols used: Falls and Hvjfdlk-UPWPM-EH documented in this encounter [facility] 07-18-2022 History of Present illness Narrative SW met with patient to complete a PHQ9. She is reporting high levels of depression which is negatively affecting her life and relationships. Patient gave a list of items to discuss with doctor that she and family have discussed as priorities, including addressing hearing loss and moving into assisted living. SW met with spouse as well and offered to make a [employer] referral for a service that will help patient and spouse with the Assisted Living process. Spouse was agreeable to referral. SW also encouraged them to have patient go back to her shot fireman to see if her hearing aides are working properly and get check up on hearing. SW made [employer] referral. Resources given today: [facility] [employer] info Assisted Living checklist Images from the original note were not included. [facility] [address] [address] Dept: [phone] Dept Loc: [phone] Visit type: [facility] Follow Up Visit Reason for Visit: Dementia and Depression Visit Date: 07/18/2022 Assessment and Plan 1. Impaired functional mobility, balance, gait, and endurance - [facility] - [facility] 2. Mild dementia with mood disturbance, unspecified dementia type - TSH - Vitamin B12 - Comprehensive metabolic panel - CBC 3. Other fatigue - TSH - Vitamin B12 - Comprehensive metabolic panel - CBC 4. Depression, unspecified depression type 5. Bilateral hearing loss, unspecified hearing loss type Impaired functional mobility/gait/endurance -having frequent falls and issues with balance. -referral to home health for home Physical Therapy and Occupational Therapy -referral to neurology to evaluate for parkinsonism Dementia -will bring back in three months for a typical memory follow up appointment -she continues to experience short term memory issues Fatigue -may be related to depression and social isolation. -do advise evaluation with PCP to rule out other medical causes. I did order labwork to initiate further workup. Counseled patient that if there are abnormalities on the labwork they will likely need to be managed by PCP. -she did say that she hasn't scheduled an appointment with PCP. Things it's been a year since she has seen PCP. Advised to schedule an appointment. Advised that he may need to help scheduling her appointment. Depression -largely stable. She is comfortable taking the zoloft (as opposed to the cymbalta which made her feel dizzy). She is hoping that moving into an assisted living will improve her depression (more socialization, less care burden on herself and ). Doesn't want to increase zoloft at this time Hearing Loss -patient plans to follow up with ENT and their shot fireman Follow up in about 3 months (around 10/16/2022). Subjective HPI: Kelli Aceves is a 81 y.o. female with past medical history of mild dementia, arthritis, OAB, hyperlipidemia, depression, gout who presents to the [facility] for a follow-up visit. The patient is known to me. Chart Review -last seen in 04/04: having more consistent IADL impairment with finances and shopping. Dianosed with early mild dementia. Did not start aricept due to history of orthostatic hypotension. -depression was not controlled. Admitted to excessive worrying and can get irritated easily. Was not consistently taking her cymbalta due to concern for dizziness. Officially stopped the cymbalta. Started her on zoloft. -she called in June concerned about multiple physical issues such as severe fatigue, nausea/low appetite, and unbalanced. Recommended scheduling an appointment with PCP to discuss these issues and evaluate for underlying medical issues. History obtained from caregiver(s): - -Feliz Mood: -not too much different than the last time. He has noticed that she doesn't seem to "blame" him as much for things. That behavior started about two years ago. She is consistently taking the zoloft. -Some good days and bad days with her mood. He says it is "like a yo-yo". -Sleeping a lot during the day - 16-18 hours a day for the past two years -Appetite: always says "I don't have any appetite". However, she does seem to be eating OK. -hasn't been to see PCP yet. -She is interested in moving into an assisted living Memory: -memory not good: for example, she really likes to watch football. However, now she forgets who is playing football. Short term memory is impaired. -No hallucinations that he can tell. Gait Impairment: -she is having frequent falls. They usually happen if she tries to stand up too quick or without her walk. The fall frequency is starting to decrease because she is paying more attention when standing up with the walker. She falls about every two weeks. unable to get her up anymore and needs to call the EMS. She does not complain of dizziness. Consistently using her walker. She "couldn't get three feet without it". History obtained from patient: -she worries about her . Says there is a lot of care burden on him and that isn't fair. They are both interested in moving into an assisted living. -she admits to hearing difficulty. Doesn't always wear her hearing aides because she doesn't feel they work too well. She has an ENT/shot fireman who she goes to for evaluation. She says she is willing to go to them again. -She admits to gait difficulty and feeling off balance. She does have history of many falls but only fallen once in the past month. can no longer get her up. Loss of balance. Used to get dizzy but no longer an issue. No trouble feeling bottom of feet. -Does drink alcohol. Glass of wine every 1-2 days. Doesn't seem that it makes her more unsteady -She would like home Physical Therapy -A family member who is a Physical Therapy watched her walk and is concerned about Parkinsons. She says she has trouble initiating steps sometimes, especially on the left. She says she was evaluated by neurology three years ago and was told she didn't have parkinsons at that time -Father had parkinson's disease. -Depression: Takes zoloft every day. No side effects. Hard to say if it is working to help her mood though. Mood is "sort of down". A lot it seems due to isolation. Not getting much socialization. She thinks it will improve when she moves into assisted living Reviewed progress notes completed by RADHIKA DUQUE) and social work. Allergies Allergen Reactions Cranberry Extract Meperidine Sulfa Antibiotics Current Outpatient Medications Medication Sig Dispense Refill allopurinol (Zyloprim) 100 MG tablet Take 200 mg by mouth daily. biotin 1000 MCG tablet Take by mouth. cholecalciferol (Vitamin D-3) 25 MCG (1000 UT) tablet Take 1,000 Units by mouth daily. ibuprofen 200 MG tablet Take 200 mg by mouth every 6 hours as needed. magnesium 500 MG tablet Take by mouth. multivitamin with minerals (Cerovite) 18-400 mg-mcg tablet tablet Take by mouth. polyethylene glycol, PEG, 3350 (Glycolax) 17 GM/SCOOP powder Take 17 g by mouth Daily as needed (constipation). sertraline (Zoloft) 50 MG tablet Take 1 tablet (50 mg) by mouth daily. 90 tablet 1 Turmeric 500 MG tablet Take by mouth. cetirizine (ZyrTEC) 10 MG tablet Take 10 mg by mouth daily. fluticasone (Flonase) 50 MCG/ACT nasal spray Administer into affected nostril(s). No current facility-administered medications for this visit. History reviewed. No pertinent past medical history. Social History Tobacco Use Smoking status: Former Smokeless tobacco: Never Substance Use Topics Alcohol use: Not on file History reviewed. No pertinent surgical history. No family history on file. No family status information on file. Objective Vitals: 07/18/22 1008 BP: (!) 155/83 BP Location: Right arm Patient Position: Sitting BP Cuff Size: Adult Pulse: 69 Temp: 35.9 C (96.6 F) TempSrc: Temporal Weight: 124 lb (56.2 kg) Wt Readings from Last 3 Encounters: 07/18/22 124 lb (56.2 kg) 03/21/22 127 lb 6.4 oz (57.8 kg) 10/08/21 128 lb (58.1 kg) Physical Exam Constitutional: General: She is not in acute distress. Appearance: She is not ill-appearing. Comments: She is in transport wheelchair. Does not have walker with her - it is in the car. HENT: Head: Normocephalic and atraumatic. Right Ear: Decreased hearing noted. Left Ear: Decreased hearing noted. Cardiovascular: Rate and Rhythm: Normal rate and regular rhythm. Heart sounds: No murmur heard. No friction rub. No gallop. Pulmonary: Effort: Pulmonary effort is normal. Breath sounds: Normal breath sounds. No decreased breath sounds, wheezing, rhonchi or rales. Abdominal: General: There is no distension. Palpations: Abdomen is soft. Tenderness: There is no abdominal tenderness. There is no guarding or rebound. Musculoskeletal: Right lower leg: No edema. Left lower leg: No edema. Neurological: Mental Status: She is alert. Coordination: Shyzlw-Qvhc-Xcjgko Test normal. Comments: There is mild rigidity of the right upper extremity. Moving extremities equally. Unable to stand up safely with her walker so this was not attempted today Psychiatric: Attention and Perception: Attention normal. Mood and Affect: Affect normal. Mood is depressed. Speech: Speech normal. Behavior: Behavior normal. Behavior is cooperative. Thought Content: Thought content normal. Cognition and Memory: Memory is impaired (mild). Comments: Fair insight Data Reviewed and Summarized I spent total time of 62 minutes face to face with the patient and/or family discussing the diagnosis and importance of compliance with the treatment plan as well as documenting on the day of the visit. In addition, that total time includes the following: -Reviewing previous notes, -Reviewing previous cognitive tests, -Obtaining and/or reviewing separately obtained history, -Ordering prescription medications, tests and procedures, -Counseling/educating the patient/family/caregiver, -Documenting clinical information in the patients electronic record, -Coordination of care for the patient, and -Performing a medically appropriate exam and/or evaluation Review of Systems Constitutional: Positive for fatigue. Negative for appetite change, fever and unexpected weight change. HENT: Positive for hearing loss. Negative for dental problem and trouble swallowing. Eyes: Negative for visual disturbance. Respiratory: Negative for cough and shortness of breath. Cardiovascular: Negative for leg swelling. Gastrointestinal: Negative for constipation and diarrhea. Genitourinary: Negative for difficulty urinating and dysuria. Musculoskeletal: Positive for arthralgias and gait problem. Negative for back pain. Neurological: Positive for weakness. Negative for tremors and speech difficulty. Psychiatric/Behavioral: Positive for agitation, confusion, dysphoric mood and sleep disturbance. Negative for hallucinations. The patient is not nervous/anxious. documented in this encounter [facility] Evaluation note No assessment inform ation available [facility] Work Phone: Evaluation note Diagnosis Mild dementia with mood disturbance, unspecified dementia type (HCC)- Primary Debility Unspecified debility Depression, unspecified depression type documented in this encounter [facility]* Diagnosis Weakness of both legs- Primary Muscle weakness (generalized) Numbness in both legs Disturbance of skin sensation 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, unspecified whether behavioral, psychotic, or mood disturbance or anxiety (HCC) Other fatigue documented in this encounter [facility]* Diagnosis Numbness in both legs Disturbance of skin sensation Weakness of both legs Muscle weakness (generalized) [facility]* Diagnosis 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, unspecified whether behavioral, psychotic, or mood disturbance or anxiety (HCC)- Primary Ataxic gait Abnormality of gait [facility]* Diagnosis 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, unspecified whether behavioral, psychotic, or mood disturbance or anxiety (HCC) Ataxic gait Abnormality of gait [facility]* Diagnosis 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, unspecified whether behavioral, psychotic, or mood disturbance or anxiety (HCC)- Primary Ataxic gait Abnormality of gait Frequent falls [facility]* Diagnosis Impaired functional mobility, balance, gait, and endurance- Primary Mild dementia with mood disturbance, unspecified dementia type Other fatigue Depression, unspecified depression type Bilateral hearing loss, unspecified hearing loss type documented in this encounter [facility]* Diagnosis Impaired functional mobility, balance, gait, and endurance- Primary Mild dementia with mood disturbance, unspecified dementia type Other fatigue Depression, unspecified depression type Bilateral hearing loss, unspecified hearing loss type [facility] Diagnosis Combined form of age-related cataract, 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 documented in this encounter [facility] for referral (narrative)* Consultation (Routine) - Pending Review Specialty Diagnoses / Procedures Referred By Contac t Referred To Contact Neurology Diagnoses Impaired functional mobility, balance, gait, and endurance Procedures SD OFFICE/OUTPATIENT NEW HIGH MDM 60-74 MINUTES Ricarda Workman MD [address] [place] [address] [address] [facility] Neuro [address] [place] [address] Referral ID Status Reason Start Date Expiration Date Visits Requested Visits Authorized [id number] Pending Review Specialty Services Required 07/18/2022 01/14/2023 1 1 * Home Health (Routine) - Pending Review Specialty Diagnoses / Procedures Referred By Contac t Referred To Contact Home Health Services Diagnoses Impaired functional mobility, balance, gait, and endurance Procedures SD OFFICE/OUTPATIENT NEW HIGH MDM 60-74 MINUTES Ricarda Workman MD [address] [place] [address] [address] Referral ID Status Reason Start Date Expiration Date Visits Requested Visits Authorized [id number] Pending Review Specialty Services Required 07/18/2022 01/14/2023 999 999 [facility] for referral (narrative)* Consultation (Routine) - Pending Review Specialty Diagnoses / Procedures Referred By Contac t Referred To Contact Neurology Diagnoses Impaired functional mobility, balance, gait, and endurance Procedures SD OFFICE/OUTPATIENT NEW HIGH MDM 60-74 MINUTES Ricarda Workman MD [address] [place] [address] [address] [facility] [address] [place] [address] Referral ID Status Reason Start Date Expiration Date Visits Requested Visits Authorized [id number] Pending Review Specialty Services Required 07/18/2022 01/14/2023 1 1 * Home Health (Routine) - Closed Specialty Diagnoses / Procedures Referred By Contac t Referred To Contact Home Health Services / Blast Setter Diagnoses Impaired functional mobility, balance, gait, and endurance Procedures SD OFFICE/OUTPATIENT NEW HIGH MDM 60-74 MINUTES Ricarda Workman MD [address] [address] [address] [place] [address] Referral ID Status Reason Start Date Expiration Date V isits Requested Visits Authorized [id number] Closed Specialty Services Required 07/18/2022 01/14/[phone] [facility]No reason for referral information availableWMercy [facility] Work Phone: Summary Purpose Family History No Family History Records Found Relationship Condition Age at Onset Recorded Date/T milo Not Specified Hemorrhagic disorder Unknown father Diabetes mellitus Unknown Parkinson's disease Unknown mother Cerebrovascular accident (CVA) Unknown sister Malignant neoplasm Unknown Advance Directives No Advanced Directives Records FoundDocuments on File Type Date Recorded Patient Gold Marker Expl anation ACP-Advance Directive 09/17/2021 Latest Code Status on File Code Status Date Activated Date Inactivated Comments Full Code 04/06/2020 6:59 AM 04/06/2020 2:14 PM Latest Code Status on File Code Status Date Activated Date Inactivated Comments Full Code 04/06/2020 6:59 AM Documents on File Type Date Recorded Patient Gold Marker Expl anation ACP-Advance Directive 09/17/2021 12:00 AM Advance Directive Response Recorded Date/ Time Advance Directives Yes October 26, 2 019 5:44am Living Will Yes June 02, 2 021 5:22am Power of Corset Fitter Yes June 02, 2021 5:22am Advance Directive Response Recorded Date/ Time Advance Directives Yes October 26, 2 019 6:44am Living Will Yes June 02, 021 6:22am Power of Corset Fitter Yes June 02, 2021 6:22am Advance Directive Response Recorded Date/ Time Name of Medical Power of Corset Fitter anusha leigh May 19, 2023 9:09pm Advance Directives Yes October 26, 2 019 5:44am Living Will Yes May 19 9:09pm Power of Corset Fitter Yes May 19, 2023 9:09pm Advance Directive Response Recorded Date/ Time Advance Directives Yes October 26, 2 019 6:44am Living Will Yes May 19 10:09pm Power of Corset Fitter Yes May 19, 2023 10:09pm Advance Directive Response Recorded Date/ Time Advance Directives Yes October 26, 019 6:44am Advance Directive Response Recorded Date/ Time Advance Directives Yes April 29, 2025 2:01pm Reason for Referral Status Reason Specialty Diagnoses / Procedures Referre d By Contact Referred To Contact Closed Radiology Diagnoses Other closed displaced fracture of distal end of left humerus, initial encounter Procedures CT Upper Extremity Left WO Contrast Aidan Ballard MD 1 [facility] [address] [place] [id number] Specialty Diagnoses / Procedures Referred By Lm solitario Referred To Contact Diagnoses Numbness in both legs Weakness of both legs Procedures Nerve conduction test with EMG Robert Roman MD [address] [facility] [address] [place] [id number] Referral ID Status Reason Start Date Expiration Date V isits Requested Visits Authorized [id number] Incomplete 12/16/2022 06/14/2023 1 1 Specialty Diagnoses / Procedures Referred By Lm solitario Referred To Contact Radiology Diagnoses Numbness in both legs Weakness of both legs Procedures Nerve conduction test with EMG Robert Roman MD [address] [facility] [address] [place] [id number] Referral ID Status Reason Start Date Expiration Date Visits Re quested Visits Authorized [id number] Closed 12/16/2022 06/14/2023 1 1 Specialty Diagnoses / Procedures Referred By Contac t Referred To Contact Radiology Diagnoses 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, unspecified whether behavioral, psychotic, or mood disturbance or anxiety (HCC) Ataxic gait Procedures MR brain wo contrast Robert Roman MD [address] [facility] [address] [place] [address] Referral ID Status Reason Start Date Expiration Date V isits Requested Visits Authorized [id number] Authorized 02/28/2023 08/27/2023 1 1 Referral ID Status Reason Start Date Expiration Date Visits Re quested Visits Authorized [id number] Closed 02/28/2023 08/27/2023 1 1 Specialty Diagnoses / Procedures Referred By Contac t Referred To Contact Physical Therapy Diagnoses Ataxic gait Frequent falls Procedures SD OFFICE/OUTPATIENT NEW HIGH MDM 60-74 MINUTES Kamala Ariza APRN - CNP [address] [facility] [address] [place] [address] Referral ID Status Reason Start Date Expiration Date Visits Requested Visits Authorized [id number] Pending Review Eval and Treat 3 11/09/2023 99 99 Assessments Diagnosis Other closed displaced fracture of distal end of left humerus, initial encounter Diagnosis Other closed displaced fracture of distal end of left humerus, initial encounter Discharge Instructions * Instructions* Sanjuanita Martins, RN - 04/06/2020 General Orthopedic Recovery Instructions [...] with block results documented in this encounter Chief Complaint and Reason for Visit Chief Complaint ADMISSION EXAM HALFWAY LABWORK ADMISSION EXAM NEW CONCERN HALFWAY LAB WORK HALFWAY LABWORK HALFWAY LAB WORK Chief Complaint HALFWAY LABWORK HALFWAY LAB WORK NEW CONCERN HALFWAY LABWORK HALFWAY LABWORK Chief Complaint HALFWAY LABWORK HALFWAY LAB WORK NEW CONCERN HALFWAY LABWORK NEW CONCERN HALFWAY LABWORK fall, head lac Chief Complaint HALFWAY LAB WOR K NEW CONCERN HALFWAY LABWORK NEW CONCERN HALFWAY LABWORK fall, head lac HALFWAY LABWORK Chief Complaint NEW CONCERN HALFWAY LABWORK NEW CONCERN HALFWAY LABWORK fall, head lac NEW CONCERN HALFWAY LABWORK HALFWAY LAB WORK Chief Complaint HALFWAY LABWORK fall, head lac NEW CONCERN HALFWAY LABWORK HALFWAY LAB WORK LABWORK Chief Complaint fall, head lac NEW CONCERN HALFWAY LABWORK HALFWAY LAB WORK LABWORK LABWORK Chief Complaint HALFWAY LAB WOR K LABWORK LABWORK LABWORK Chief Complaint Admit Date HALFWAY LAB WORK August 24 5:00am ANNUAL EXAM September 28, 2024 1:0 8pm LABWORK November 23, 2024 5:00a m Chief Complaint Admit Date LABWORK November 23, 2024 5:00a m ADMISSION EXAM December 15, 2024 4:32p m HALFWAY LAB WORK January 18, 2025 4:0 0am Chief Complaint Admit Date LABWORK November 23, 2024 5:00a m ADMISSION EXAM December 15, 2024 4:32p m NEW CONCERN January 03, 2025 2:51 pm HALFWAY LAB WORK January 18, 2025 4:0 0am Chief Complaint Admit Date LABWORK November 23, 2024 5:00a m ADMISSION EXAM December 15, 2024 4:32p m NEW CONCERN January 03, 2025 2:51 pm HALFWAY LAB WORK January 18, 2025 4:0 0am Monthly exam January 18, 2025 5:01p m Chief Complaint Admit Date LABWORK November 23, 2024 5:00a m ADMISSION EXAM December 15, 2024 4:32p m NEW CONCERN January 03, 2025 2:51 pm HALFWAY LAB WORK January 18, 2025 4:0 0am Monthly exam January 18, 2025 5:01p m MONTHLY EXAM February 11, 2025 3:5 3pm HALFWAY LAB WORK February 22, 2025 5:00am Chief Complaint Admit Date HALFWAY LAB WORK January 18, 2025 4:0 0am Monthly exam January 18, 2025 5:01p m MONTHLY EXAM February 11, 2025 3:5 3pm HALFWAY LAB WORK February 22, 2025 5:00am HALFWAY LAB WORK March 21 5:00am MONTHLY EXAM March 22, 2025 7:45pm NEW CONCERN March 24, 2025 4:11pm NEW CONCERN April 05, 2025 3:13pm Additional Source Comments INFORMATION SOURCE (unrecogn ized section and content) DATE CREATED AUTHOR 12/31/2017 [facility] ([place]) DATE CREATED AUTHOR AUTHOR'S ORGANIZ ATION 04/10/2020 [facility] DATE CREATED AUTHOR AUTHOR'S ORGANIZ ATION 05/20/2024 [facility] DATE CREATED AUTHOR AUTHOR'S ORGANIZ ATION 05/08/2025 [facility] DATE CREATED AUTHOR AUTHOR'S ORGANIZ ATION 05/13/2025 [facility] Reason for Visit (unrecogniz ed section and content) Status Reason Specialty Diagnoses / Procedures Referre d By Contact Referred To Contact Closed Radiology Diagnoses Other closed displaced fracture of distal end of left humerus, initial encounter Procedures CT Upper Extremity Left WO Contrast Aidan Ballard MD [address] [facility] [address] [place] [address] Reason Comments Dementia Depression Reason Comments New Patient Extremity Weakness Fall Specialty Diagnoses / Procedures Referred By Lm solitario Referred To Contact Neurology Diagnoses Impaired functional mobility, balance, gait, and endurance Procedures SD OFFICE/OUTPATIENT NEW HIGH MDM 60-74 MINUTES Ricarda Workman MD [address] [facility] [address] [place] [address] [facility] [address] [place] [address] Referral ID Status Reason Start Date Expiration Date Visits Requested Visits Authorized [id number] Pending Review Specialty Services Required 07/18/2022 01/14/2023 1 1 Specialty Diagnoses / Procedures Referred By Lm t Referred To Contact Radiology Diagnoses Numbness in both legs Weakness of both legs Procedures Nerve conduction test with EMG Robert Roman MD [address] [facility] [address] [place] [id number] Referral ID Status Reason Start Date Expiration Date Visits Re quested Visits Authorized [id number] Closed 12/16/2022 06/14/2023 1 1 Reason Onset Date Comments Results 01/20/2023 Reason Comments Follow-up Extremity Weakness Reason Onset Date Comments Advice Only 03/05/2023 Specialty Diagnoses / Procedures Referred By Lm t Referred To Contact Radiology Diagnoses 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, unspecified whether behavioral, psychotic, or mood disturbance or anxiety (HCC) Ataxic gait Procedures MR brain wo contrast Robert Roman MD [address] [place] [address] Referral ID Status Reason Start Date Expiration Date Visits Re quested Visits Authorized [id number] Closed 02/28/2023 08/27/2023 1 1 Reason Comments Follow-up Reason Onset Date Comments call back 05/12/2023 Reason Onset Date Comments MRI results 06/02/2023 Reason Onset Date Comments Results 04/11/2023 Reason Onset Date Comments MRI results 06/02/2023 Forms/questionnaires 06/02/2023 Request for patient records to [facility] Reason Comments Dementia Depression Reason Onset Date Comments Fall 09/20/2022 Reason Comments Cataract Evaluation Specialty Diagnoses / Procedures Referred By Lm t Referred To Contact Ophthalmology / OPHTHALMOLOGY Diagnoses Cataract Cataract eval- pt is using wheelchair unable to transfer Procedures OFFICE/OUTPATIENT NEW HIGH MDM 60 MINUTES [facility] MEDICAL XM&EVAL COMPRE NEW PT 1/> VST Kostas Diaz MD [address] [place] [address] Phone: tel: fax: Kostas Diaz MD [address] [place] [address] Phone: tel: fax: Referral ID Status Reason Start Date Expiration Date Visits Re quested Visits Authorized [id number] Closed 03/02/2025 07/13/2025 1 1 Care Teams (unrecognized sec tion and content) Utility Bill Collector Relationship Specialty Start Date End Date Loren Dee Camila PCP - General Family Medicine 06/22/19 Team Status: Active Member Role Status Dates Dr. Loren Dee MD Family Provider Active Dr. Loren Dee MD Primary Care Provider Active Team Status: Inactive Member Role Status Dates Dr. Loren Dee MD Primary Care Provider Active MICHELLE CABRAL Attending Provider, Referring Provider Active Utility Bill Collector Relationship Specialty Start Date End Date Loren Dee [address] [facility] [address] [place] [phone] PCP - General 06/22/19 Utility Bill Collector Relationship Specialty Start Date End Date Loren Dee [address] [facility] [address] [place] [phone] PCP - General 06/22/19 Utility Bill Collector Relationship Specialty Start Date End Date Loren Dee [address] [facility] [address] [place] [phone] PCP - General 06/22/19 Utility Bill Collector Relationship Specialty Start Date End Date Loren Dee [address] [facility] [address] [place] [phone] PCP - General 06/22/19 Utility Bill Collector Relationship Specialty Start Date End Date Loren Dee [address] [facility] [address] [place] [phone] PCP - General 06/22/19 Utility Bill Collector Relationship Specialty Start Date End Date Loren Dee [address] [place] [phone] PCP - General 06/22/19 Utility Bill Collector Relationship Specialty Start Date End Date Loren Dee [address] [place] [phone] PCP - General 06/22/19 Team Status: Inactive Member Role Status Dates Dr. Loren Dee MD Primary Care Provider Active Mary Jane Thakkar FIELD MARKETING COORDINATOR, FIELD MARKETING COORDINATOR-C Attending Provider Active Team Status: Inactive Member Role Status Dates Dr. Loren Dee MD Primary Care Provider Active Dr. Ovidio Ibanez MD Attending Provider Active Team Status: Inactive Member Role Status Dates Dr. Loren Dee MD Primary Care Provider Active Ovidio CAI MD Attending Provider Active Team Status: Active Member Role Status Dates Dr. Loren Dee MD Primary Care Provider Active Ovidio CAI MD Attending Provider Active Utility Bill Collector Relationship Specialty Start Date End Date Loren Dee [address] [place] [address] PCP - General 06/22/19 Team Status: Active Member Role Status Dates Dr. Loren Dee MD Family Provider Active Dr. Ovidio Ibanez MD Primary Care Provider Active Team Status: Inactive Member Role Status Dates Dr. Aidan Martinez DO Emergency Provider Active Dr. Ovidio Ibanez MD Primary Care Provider Active Team Status: Inactive Member Role Status Dates Dr. Aidan Martinez DO Attending Provider, Emergency P alysha Active Dr. Ovidio Ibanez MD Primary Care Provider Active Team Status: Inactive Member Role Status Dates Dr. Ovidoi Ibanez MD Primary Care Provider Active Ovidio CAI MD Attending Provider Active Utility Bill Collector Relationship Specialty Start Date End Date Loren Dee [address] [place] [address] PCP - General 06/22/19 Utility Bill Collector Relationship Specialty Start Date End Date Loren Dee [address] [place] [address] PCP - General 06/22/19 Team Status: Inactive Member Role Status Dates Dr. Ovidio Ibanez MD Primary Care Provider Active Mary Jane Thakkar FIELD MARKETING COORDINATOR, FIELD MARKETING COORDINATOR-C Attending Provider Active Utility Bill Collector Relationship Specialty Start Date End Date Loren Dee [address] [place] [address] PCP - General 06/22/19 Utility Bill Collector Relationship Specialty Start Date End Date Loren Dee [address] [place] [address] PCP - General 06/22/19 Utility Bill Collector Relationship Specialty Start Date End Date Loren Dee [address] [place] [address] PCP - General 06/22/19 Utility Bill Collector Relationship Specialty Start Date End Date Loren Dee S [address] [place] [address] PCP - General 06/22/19 Utility Bill Collector Relationship Specialty Start Date End Date ManasamalkaLoern S [address] [place] [address] PCP - General 06/22/19 Team Status: Active Member Role Status Dates Dr. Ovidio Ibanez MD Primary Care Provider Active Start: August 24, 2024 Ovidio CAI MD Attending Provider Active Start: August 24, 2024 Team Status: Inactive Member Role Status Dates Dr. Ovidio Ibanez MD Primary Care Provider Active Start: September 28, 2024 End: September 28, 2024 Dr. Ovidio Ibanez MD Attending Provider Active Start: September 28, 2024 End: September 28, 2024 Team Status: Inactive Member Role Status Dates Dr. Ovidio Ibanez MD Primary Care Provider Active Start: November 23, 2024 End: November 23, 2024 Ovidio CAI MD Attending Provider Active Start: November 23, 2024 End: November 23, 2024 Team Status: Active Member Role/Relationship Status Dates Dr. Loren Dee MD Family Provider Active Dr. Ovidio Ibanez MD Primary Care Provider Active Team Status: Inactive Member Role/Relationship Status Dates Dr. Ovidio Ibanez MD Primary Care Provider Active Start: November 23, 2024 End: November 23, 2024 Ovidio CAI MD Attending Provider Active Start: November 23, 2024 End: November 23, 2024 Team Status: Inactive Member Role/Relationship Status Dates Dr. Ovidio Ibanez MD Primary Care Provider Active Start: December 15, 2024 End: December 15, 2024 Mary Jane Thakkar NP, FIELD MARKETING COORDINATOR-C Attending Provider Active Start: December 15, 2024 End: December 15, 2024 Team Status: Inactive Member Role/Relationship Status Dates Dr. Ovidio Ibanez MD Primary Care Provider Active Start: January 11, 2025 Dr. Nomeí Bush MD Attending Provider Active Start: January 11, 2025 Team Status: Active Member Role/Relationship Status Dates Dr. Ovidio Ibanez MD Primary Care Provider Active Start: January 18, 2025 Ovidio CAI MD Attending Provider Active Start: January 18, 2025 Ovidio CAI MD Referring Provider Active Start: January 18, 2025 Team Status: Inactive Member Role/Relationship Status Dates Dr. Ovidio Ibanez MD Primary Care Provider Active Start: January 03, 2025 End: January 03, 2025 Mary Jane Thakkar NP, FIELD MARKETING COORDINATOR-C Attending Provider Active Start: January 03, 2025 End: January 03, 2025 Team Status: Inactive Member Role/Relationship Status Dates Dr. Ovidio Ibanez MD Primary Care Provider Active Start: January 11, 2025 Dr. Noemí Bush MD Attending Provider Active Start: January 11, 2025 Team Status: Active Member Role/Relationship Status Dates Dr. Ovidio Ibanez MD Primary Care Provider Active Start: January 18, 2025 Ovidio CAI MD Attending Provider Active Start: January 18, 2025 Ovidio CAI MD Referring Provider Active Start: January 18, 2025 Team Status: Inactive Member Role/Relationship Status Dates Dr. Ovidio Ibanez MD Primary Care Provider Active Start: January 18, 2025 End: January 18, 2025 Dr. Ovidio Ibanez MD Attending Provider Active Start: January 18, 2025 End: January 18, 2025 Team Status: Active Member Role/Relationship Status Dates Dr. Ovidio Ibanez MD Primary Care Provider Active Start: February 22, 2025 Ovidio CAI MD Attending Provider Active Start: February 22, 2025 Team Status: Inactive Member Role/Relationship Status Dates Dr. Ovidio Ibanez MD Primary Care Provider Active Start: February 11, 2025 End: February 11, 2025 Mary Jane Thakkar FIELD MARKETING COORDINATOR, FIELD MARKETING COORDINATOR-C Attending Provider Active Start: February 11, 2025 End: February 11, 2025 Team Status: Active Member Role/Relationship Status Dates Dr. Ovidio Ibanez MD Primary Care Provider Active Start: February 22, 2025 Ovidio CAI MD Attending Provider Active Start: February 22, 2025 Utility Bill Collector Relationship Specialty Start Date End Date Mauricio Grace MD [address] [place] [address] Referring Ophthalmology 01/04/25 Team Status: Active Member Role/Relationship Status Dates Dr. Loren Dee MD Primary care physician Active Dr. Ovidio Ibanez MD Primary care physician Activ e Team Status: Inactive Member Role/Relationship Status Dates Dr. Ovidio Ibanez MD Primary care physician Activ e Start: January 11, 2025 Dr. Noemí Bush MD Attending physician Active Start: January 11, 2025 Team Status: Active Member Role/Relationship Status Dates Dr. Ovidio Ibanez MD Primary care physician Activ e Start: January 18, 2025 Ovidio CAI MD Attending physician Active Start: January 18, 2025 Ovidio CAI MD Referring Provider Active Start: January 18, 2025 Team Status: Inactive Member Role/Relationship Status Dates Dr. Ovidio Ibanez MD Primary care physician Activ e Start: January 18, 2025 End: January 18, 2025 Dr. Ovidio Ibanez MD Attending physician Active Start: January 18, 2025 End: January 18, 2025 Team Status: Inactive Member Role/Relationship Status Dates Dr. Ovidio Ibanez MD Primary care physician Activ e Start: February 11, 2025 End: February 11, 2025 Mary Jane Thakkar NP FIELD MARKETING COORDINATORSarahiC Attending physician Active Start: February 11, 2025 End: February 11, 2025 Team Status: Active Member Role/Relationship Status Dates Dr. Ovidio Ibanez MD Primary care physician Activ e Start: February 22, 2025 Ovidio CAI MD Attending physician Active Start: February 22, 2025 Team Status: Active Member Role/Relationship Status Dates Dr. Ovidio Ibanez MD Primary care physician Activ e Start: March 21, 2025 Ovidio CAI MD Attending physician Active Start: March 21, 2025 Team Status: Inactive Member Role/Relationship Status Dates Dr. Ovidio Ibanez MD Primary care physician Activ e Start: March 22, 2025 End: March 22, 2025 Dr. Ovidio Ibanez MD Attending physician Active Start: March 22, 2025 End: March 22, 2025 Team Status: Inactive Member Role/Relationship Status Dates Dr. Ovidio Ibanez MD Primary care physician Activ e Start: March 24, 2025 End: March 24, 2025 Mary Jane Thakkar NP FIELD MARKETING COORDINATOR-C Attending physician Active Start: March 24, 2025 End: March 24, 2025 Team Status: Inactive Member Role/Relationship Status Dates Dr. Ovidio Ibanez MD Primary care physician Activ e Start: April 05, 2025 End: April 05, 2025 Mary Jane Thakkar NP, FIELD MARKETING COORDINATOR-C Attending physician Active Start: April 05, 2025 End: April 05, 2025 Source Comments (unrecognize d section and content) In the event this informatio n is protected by the Federal Confidentiality of Alcohol and Drug Abuse Patient Records regulations: The Federal rules restrict any use of the information to criminally investigate or prosecute any alcohol or drug abuse patient.[facility] FOR RECORDS PERTAINING TO PATIENTS WHO ARE [...] BE BASED ON THE PRIMARY CLINICAL RECORDS. [employer] provides no warranty or guarantee of the accuracy or completeness of information in this document.
[2025-05-16 08:22] LABS: Vitamin D,25 Hydroxy 59.2 ng/mL (30-100)
== END ==
LOC: OLS.WHLEAS 05:00
PROVIDERS: PCP Internal Medicine; Visit Provider Internal Medicine
DX: E55.9 Vitamin D deficiency, unspecified (principal)
CPT/HCPCS: 36415; 82306

== ENCOUNTER → 2025-05-24 05:00 | Outpatient (REF) | payer MEDICARE, SELFPAY ==
--- OUTSIDE RECORDS SUMMARY | 2025-05-24 04:00 | XMS RPT_ITS | CCD ---
Author Organization [facility] Care Team Providers Care Copier Technician Name Role Phone ANUSHA ABDALLA Unavailable Unavailable LOREN DEE Unavailable Loren Dee Primary Care Provider Loren Dee Primary Care Provider Loren Dee Primary Care Provider Loren Dee Primary Care Provider Loren Dee Primary Care Provider Dr. Loren Dee Primary Care Provider [place] APPRENTICE ARCHITECT, APPRENTICE ARCHITECT-C Mary Jane Attending Provider UnaDr. Ovidio Marion Attending Provider Dr. Loren Dee Primary Care Provider [place] APPRENTICE ARCHITECT, APPRENTICE ARCHITECT-C Mary Jane Attending Provider Unav Dr. Loren Carter Primary Care Provider [place] APPRENTICE ARCHITECT, APPRENTICE ARCHITECT-C Mary Jane Attending Provider Unav Dr. Ovidio Avery Primary Care Provider Ariane APPRENTICE ARCHITECT, APPRENTICE ARCHITECT-C Mary Jane Attending Provider Dr. Ovidio Ibanez MD Primary Care Provider Ovidio Ibanez MD Attending Provider Dr. Ovidio Siegel MD Attending Provider Dr. Ovidio Ibanez MD Primary Care Provider Ovidio Ibanez MD Attending Provider Dav Thakkar NP-CMary Jane Attending Provider Eleazar VILLARREAL, Dr. Dowd Attending Provider Shamar VILLARREAL, Ovidio Referring Provider Unavaila jimmy Bush MD, Dr. oDwd Attending Provider Shamar VILLARREAL, Dr. Nolan Attending Provider Gala VILLARREAL, Mauricio Toure Unavailable Shamar VILLARREAL, Dr. Nolan Primary Care Physician Eleazar VILLARREAL, Dr. Dowd Attending Physician Shamar VILLARREAL, Ovidio Attending Physician Unavail able Shamar VILLARREAL, Dr. Nolan Attending Physician Ariane APPRENTICE ARCHITECT-C, Mary Jane Attending Physician KOSTAS DIAZ Attending Unavailable MAURICIO GRACE Referring Unavaila ble Oleghyann OLS, Efewongbe Attending Unavailabl e Oleghe, Efewongbe Primary Care Unavailable Oleghe, Efewongbe Primary Care Unavailable Oleghe OLS, Efewongbe Attending Unavailabl e Oleghe OLS, Efewongbe Attending Unavailabl e Oleghe, Efewongbe Primary Care Unavailable Oleghe OLS, Efewongbe Referring Unavailabl e Oleghe OLS, Efewongbe Attending Unavailabl e Oleghe, Efewongbe Primary Care Unavailable Mary Jane Thakkar Attending Unavailable Oleghe, Efewongbe Primary Care Unavailable aBrrie Velazco Attending Unavailable Oleghe, Efewongbe Referring Unavailable Oleghe, Efewongbe Primary Care Unavailable Mary Jane Thakkar Attending Unavailable Oleghe, Efewongbe Primary Care Unavailable Oleghe, Efewongbe Attending Unavailable Oleghe, Efewongbe Primary Care Unavailable Mary Jane Thakkar Attending Unavailable Oleghe, Efewongbe Primary Care Unavailable Mary Jane Thakkar Attending Unavailable Oleghe, Efewongbe Primary Care Unavailable Oleghe, Efewongbe Attending Unavailable Oleghe, Efewongbe Primary Care Unavailable Oleghe, Efewongbe Attending Unavailable Oleghe, Efewongbe Primary Care Unavailable Mary Jane Thakkar Attending Unavailable Oleghe, Efewongbe Primary Care Unavailable Oleghe, Efewongbe Primary Care Unavailable Oleghe OLS, Efewongbe Attending Unavailabl e Oleghe OLS, Efewongbe Attending Unavailabl e Oleghe, Efewongbe Primary Care Unavailable Oleghe OLS, Efewongbe Attending Unavailabl e Oleghe, Efewongbe Primary Care Unavailable Oleghe OLS, Efewongbe Attending Unavailabl e Oleghe, Efewongbe Primary Care Unavailable Allergies Allergy Classification Reported Allergen(s) Allergy Type Date of Onset Reaction(s) Facility (7 sources) Cranberry preparation; Translations: [CRANBERRY] Drug Allergy 04-04-20 Unknown [place], [place] (20 sources) Meperidine; Translations: [MEPERIDINE] Drug Allergy 04-04-20 [place] (5 sources) Sulfonamides (Antibiotic) Propensity to adverse reactions to drug 04-04-20 [place] (20 sources) Adhesive Tape; Translations: [adhesive tape] Propensity to adverse reactions 06-18-20 Rash [facility] (20 sources) HYDROcodone; Translations: [hydrocodone bitartrate] Drug Allergy 06-18-20 21 Vomiting [facility] (20 sources) Meperidine; Translations: [meperidine HCl] Drug Allergy 06-18-20 21 HALLUCINATIONS [facility] (20 sources) Propoxyphene; Translations: [propoxyphene HCl] Drug Allergy 06-18-20 21 [facility] (20 sources) Sulfonamides (Antibiotic); Translations: [SULFA (SULFONAMIDE ANTIBIOTICS)] Allergy to substance 04-04-20 Hives [facility] (20 sources) Cranberry Propensity to adverse reactions 04-04-20 20 [facility] (20 sources) Sulfonamides (Antibiotic) Drug Intolerance 04-04-20 20 Unknown [facility] (11 sources) HYDROcodone Drug Allergy 06-18-20 21 [facility] (11 sources) meloxicam Drug Allergy 02-29-20 23 [facility] (11 sources) Propoxyphene Drug Allergy 06-18-20 21 [facility] (1 source) Sulfonamides (Antibiotic) Drug allergy (disorder) 06-22-20 [facility] Repository Medications Current Medications Medication Drug Class(es) [...] 20 mg/ml oral solution (8 sources) Uncompetitive F-obsqbp-I-aspartate Receptor Antagonist, Sigma-1 Agonist Start: 06-22-2024 take [...] Start: 06-22-2024 take 1 tablet by danay at bedtime Start: 12-16-2022 End: 06-22-2024 take [...] 50 MG TB24 mirabegron MYRBETRIQ 50 MG [id number] ONCE DAILY MIRABEGRON [id number] Christian Brown MD 09-09-2018 [facility] ([id number]) 0 09/09/2018 Suspended mirtazapine 7.5 mg oral tabl et (1 source) Start: 03-01-2025 Mirtazapine (R EMERON) 7.5 mg tablet 03/01/2025 Active Multiple Vitamin (MULTI-ALIZA MIN DAILY PO) (5 sources) Multiple Vitamin (MULTI-VITAMIN DAILY PO) Take by mouth 0 Suspended Multiple Vitamin (MULTI-VITAMIN DAILY PO) Take by mouth 0 Active Pohokfuj-Hff-Uhwa-Fa-Lutein (Multivitamin Women 50 Plus) 8 mg iron-400 mcg-300 mcg Tablet (1 source) Start: 06-02-2021 take 1 tablet by mouth once daily Hdfnlkpq-Vay-Qpqc-Fa-Lutein (Multivitamin Women 50 Plus) 8 mg iron-400 mcg-300 mcg Tablet Active 1 TABLET PO DAILY June 02, 2021 12:00am Qngqnlpn-Ypq-Cdpm-Fa-Vit K-L ut (Multivitamin Women 50 Plus) 8 mg iron-400 mcg-300 mcg Tablet (18 sources) Start: 06-02-2021 Start: 06-02-2021 Eopjipcu-Sty-G karel-Fa-Vit K-Lut (Multivitamin Women 50 Plus) 8 mg iron-400 mcg-300 mcg Tablet Active 1 {tbl} PO DAILY June 02, 2021 1:00am supplement Start: 06-02-2021 Yvfxbfnv-Aeu-I karel-Fa-Vit K-Lut (Multivitamin Women 50 Plus) 8 mg iron-400 mcg-300 mcg Tablet Active 1 {tbl} PO DAILY June 02, 2021 1:00am Start: 06-02-2021 take 1 tablet by danay th once daily Wnlhfeqf-Zbw-Yzwv-Fa-Vit K-Lut (Multivitamin Women 50 Plus) 8 mg iron-400 mcg-300 mcg Tablet Active 1 TABLET PO DAILY June 02, 2021 12:00am Start: 06-02-2021 take 1 tablet by danay th once daily Bdvkzxoj-Rrr-Fwtf-Fa-Vit K-Lut (Multivitamin Women 50 Plus) 8 mg [...] ED, Starting on Fri03/16/25 at 1530, Until Alisa 03/17/25 at 0329, Administer for dilation PROTECT FROM [...] pneumo tonometry, tonopen tonometry, or pachymetry sennosides, care home 8.6 mg oral tablet (4 sources) [...] 0 Active Cholecalciferol (VITAMIN D3) 1.25 MG (95143 UT) CAPS Take by mouth 0 Suspended [...] Test Name Value Interpretation Reference Range Facility [facility]11[facility]20[facility] KELLI ACEVES I ([id number]) 1940 F Date Time Provider Department 05/11/25 JAVIER BARRERA [facility] During your visit today, we recorded the following information about you: Javier Barrera APRN.[facility] 05/11/2025 1:27 PM Signed Patient scheduled for PACC appt today. Called [facility] at and asked to speak with Tenisha per chart review. Tenisha was out on a patient transfer, directed me to call another transporter- Yanique at [phone]. Spoke with Yanique. States that unable to bring patient to appt today. Requesting a PACC appt at a location closer to facility, in [place]. Patient able to be brought to appt in a wheelchair. Please give the [facility] facility a call to discuss further and reschedule PACC appt. Thanks, Javier Barrera APRN.[facility] Allergies As of Date: 05/11/2025 Noted Allergy [...] Status:Closed by JAVIER BARRERA on 05/11/25 Normal [facility] Kelsey 04-26-2025 C[facility]N [facility] -------- KELLI ACEVES I ([id number]) 1940 F Date Time Provider Department 04/26/25 KOSTAS DIAZ During your visit today, we recorded the following information about you: Katelyn, Verito Alberts 04/26/2025 11:12 AM Signed Tenisha from [facility] calling to see when patient's cataract surgery is going to be scheduled. Please review and advise. Verito Zepeda April 26, 2025 11:11 AM Javier Barrera APRN.[employer] 05/11/2025 1:30 PM Signed Patient scheduled for PACC appt today. Called [facility] at and asked to speak with Tenisha per chart review. Tenisha was out on a patient transfer, directed me to call another transporter- Yanique at [phone]. Spoke with Yanique. States that unable to bring patient to appt today. Sent message to PACC group director experience to reschedule PACC appointment. Preop Ophthalmology appt will need to be rescheduled. OR 05/26/25 Javier Barrera APRN.[facility] Tran Henson RN 05/12/2025 9:38 AM [...] Status:Closed by JAVIER BARRERA on 05/11/25 Normal [facility] Absolute lymphocyte countOrd ered By: Ovidio Ibanez on 02-22-2025 Lymphocytes Auto (Unsp spec) [#/Vol] 2.43 10*3/uL 0.83-4.51 [facility] Absolute neutrophil countOrd ered By: Ovidio Ibanez on 02-22-2025 Neutrophils (Bld) [#/Vol] 3.5 10*3/uL 2.0-7.7 [facility] Anion gap in Serum or Plasma Ordered By: Ovidio Ibanez on 02-22-2025 Anion gap [Moles/Vol] 13 mmol/L 5-15 [facility] Automated lymphocyte count a s percentage of total leukocytesOrdered By: Ovidio Ibanez on 02-22-2025 Lymphocytes/100 WBC Auto (Unsp spec) 34.3 % 19-41 [facility] BUN/creatinine ratioOrdered By: Carminabebemellonilson Dunhameboniyann on 02-22-2025 Urea nitrogen/Creatinine [Mass ratio] 19.8 mg/mg 10-20 [facility] Basophil percentageOrdered B y: Lancenilson Shamar on 02-22-2025 Basophils/100 WBC (Bld) 0.6 % 0-1 [facility] Bilirubin, totalOrdered By: Carminabebemellonilson Dunhameboniyann on 02-22-2025 Bilirubin [Mass/Vol] 0.33 mg/dL 0.00-1.30 [facility] Carbon dioxide, total [Moles /volume] in Central venous bloodOrdered By: Carminamariaa Dunhameboniyann on 02-22-2025 CO2 [Moles/Vol] 23.1 mmol/L 21.0-32.0 [facility] Chloride assayOrdered By: Carmina osvaldonilson Dunhameboniyann on 02-22-2025 Chloride [Moles/Vol] 103 mmol/L 98-108 [facility] Eosinophil percentageOrdered By: Ovidio Ibanez on 02-22-2025 Eosinophils/100 WBC (Bld) 3.5 % 0-5 [facility] Erythrocyte distribution wid th ratioOrdered By: Carminabebemellonilson Dunhameboniyann on 02-22-2025 Erythrocyte distribution width (RBC) [Ratio] 13.8 % 11.6-14.6 [facility] Erythrocyte distribution wid th standard deviationOrdered By: Ovidio Dunhameboniyann on 02-22-2025 Erythrocyte distribution width (RBC) [Ratio] 46.9 fl High 35.1-43.9 [facility] Glomerular filtration rate ( GFR) estimation/1.73 sq m using serum, plasma, or whole bOrdered By: Carminamariaa Dunhameboniyann on 02-22-2025 GFR/1.73 sq M.predicted among non-blacks MDRD (S/P/Bld) [Vol rate/Area] 90 mL/min/{1.73_m2} >60 [facility] Comment on above: mL/min/1.73m2 CKD-EP I Creatinine Equation (2020) Hematocrit Auto (Bld) [Volum e fraction]Ordered By: Ovidio Ibanez on 02-22-2025 Hematocrit (Bld) [Volume fraction] 35.0 % Low 37-47 [facility] Hemoglobin measurementOrdere d By: Haydemellonilson Dunhameboniyann on 02-22-2025 Hemoglobin (Bld) [Mass/Vol] 12.1 g/dL 12.0-15.0 [facility] Immature granulocytes/100 WB C Auto (Bld)Ordered By: Ovidio Ibanez on 02-22-2025 Immature granulocytes/100 WBC (Bld) 0.300 % 0.0-0.9 [facility] Comment on above: IG% - Immature Granu locytes (promyelocytes, myelocytes and metamyelocytes) > 1% indicates that a LEFT SHIFT is Present. Laboratory - Chemistry and C hemistry - challengeOrdered By: Ovidio Ibanez on 02-22-2025 AST [Catalytic activity/Vol] 40 U/L High <32 [facility] MCV (mean corpuscular volume ) determinationOrdered By: Ovidio Ibanez on 02-22-2025 MCV (RBC) [Entitic vol] 94.9 fL 81-99 [facility] Mean corpuscular hemoglobin (MCH) determinationOrdered By: Ovidio Ibanez on 02-22-2025 MCH (RBC) [Entitic mass] 32.8 pg High 27.0-32.0 [facility] Mean corpuscular hemoglobin concentration (MCHC) determinationOrdered By: Ovidio Ibanez on 02-22-2025 MCHC (RBC) [Mass/Vol] 34.6 g/dL 32-36 [facility] Mean platelet volume determi nationOrdered By: Ovidio Ibanez on 02-22-2025 Platelet mean volume (Bld) [Entitic vol] 10.1 fL 6.2-12.0 [facility] Monocyte percentageOrdered B y: Ovidio Ibanez on 02-22-2025 Monocytes/100 WBC (Bld) 11.6 % High 0-10 [facility] Neutrophil percentageOrdered By: Ovidio Ibanez on 02-22-2025 Neutrophils/100 WBC (Bld) 49.7 % 47-70 [facility] Nucleated red blood cell per centageOrdered By: Ovidio Ibanez on 02-22-2025 Nucleated RBC/100 WBC (Bld) [Ratio] 0 % 0-5 [facility] Platelet countOrdered By: Carmina Ibanez on 02-22-2025 Platelets (Bld) [#/Vol] 236 10*3/uL 150-450 [facility] Potassium measurement (mass/ volume)Ordered By: Ovidio Ibanez on 02-22-2025 Potassium (Unsp spec) [Mass/Vol] 3.7 mmol/L 3.3-5.1 [facility] Comment on above: Hemolysis present, R esults could be affected. RBC Auto (Bld) [#/Vol]Ordere d By: Ovidio Ibanez on 02-22-2025 RBC (Bld) [#/Vol] 3.69 10*6/uL Low 4.2-5.4 [facility] Serum creatinine measurement (mass/volume)Ordered By: Ovidio Ibanez on 02-22-2025 Creatinine [Mass/Vol] 0.60 mg/dL Low 0.70-1.20 [facility] Serum globulin measurementOr dered By: Ovidio Ibanez on 02-22-2025 Globulin (S) [Mass/Vol] 2.6 g/dL 2.2-4.2 [facility] Serum glucose measurement (m ass/volume)Ordered By: Ovidio Ibanez on 02-22-2025 Glucose [Mass/Vol] 71 mg/dL 70-99 [facility] Serum or plasma alanine san otransferase (ALT) measurementOrdered By: Ovidio Ibanez on 02-22-2025 ALT [Catalytic activity/Vol] 21 U/L <35 [facility] Serum or plasma albumin davin urement (mass/volume)Ordered By: Ovidio Ibanez on 02-22-2025 Albumin [Mass/Vol] 3.8 g/dL 3.4-4.8 [facility] Serum or plasma albumin/glob ulin mass ratioOrdered By: Ovidio Ibanez on 02-22-2025 Albumin/Globulin [Mass ratio] 1.4 {ratio} 0.9-2.4 [facility] Serum or plasma alkaline irvin sphatase measurementOrdered By: Ovidio Rolyeboniyann on 02-22-2025 ALP [Catalytic activity/Vol] 60 U/L 35-104 [facility] Serum or plasma calcium davin urement (mass/volume)Ordered By: Ovidio Rolykatie on 02-22-2025 Calcium [Mass/Vol] 9.5 mg/dL 7.6-11.0 [facility] Serum or plasma urea nitroge n measurement (mass/volume)Ordered By: Ovidio Rolykatie on 02-22-2025 Urea nitrogen [Mass/Vol] 12 mg/dL 4-19 [facility] Sodium levelOrdered By: [facility] kylee Ibanez on 02-22-2025 Sodium [Moles/Vol] 139 mmol/L 133-145 [facility] Total proteinOrdered By: Juan Carlos Ibanez on 02-22-2025 Protein [Mass/Vol] 6.4 g/dL 5.9-8.4 [facility] White blood cell (WBC) count Ordered By: Ovidio Rolykatie on 02-22-2025 WBC (Bld) [#/Vol] 7.1 10*3/uL 4.4-11.0 [facility] Absolute lymphocyte countOrd ered By: mariaa Rolykatie on 11-23-2024 Lymphocytes Auto (Unsp spec) [#/Vol] 2.16 10*3/uL 0.83-4.51 [facility] Absolute neutrophil countOrd ered By: Ovidio Ibanez on 11-23-2024 Neutrophils (Bld) [#/Vol] 2.7 10*3/uL 2.0-7.7 [facility] Anion gap in Serum or Plasma Ordered By: Ovidio Ibanez on 11-23-2024 Anion gap [Moles/Vol] 11 mmol/L 5-15 [facility] Automated lymphocyte count a s percentage of total leukocytesOrdered By: Ovidio Rolyeboniyann on 11-23-2024 Lymphocytes/100 WBC Auto (Unsp spec) 36.5 % 19-41 [facility] BUN/creatinine ratioOrdered By: Ovidio Ibanez on 11-23-2024 Urea nitrogen/Creatinine [Mass ratio] 19.2 mg/mg 10-20 [facility] Basophil percentageOrdered B y: Ovidio Ibanez on 11-23-2024 Basophils/100 WBC (Bld) 0.5 % 0-1 [facility] Bilirubin directOrdered By: Ovidio Ibanez on 11-23-2024 Bilirubin.direct [Mass/Vol] 0.09 mg/dL 0.00-0.30 [facility] Bilirubin, totalOrdered By: Ovidio Ibanez on 11-23-2024 Bilirubin [Mass/Vol] 0.21 mg/dL 0.00-1.30 [facility] Carbon dioxide, total [Moles /volume] in Central venous bloodOrdered By: Ovidio Ibanez on 11-23-2024 CO2 [Moles/Vol] 23.1 mmol/L 21.0-32.0 [facility] Chloride assayOrdered By: Carmina Ibanez on 11-23-2024 Chloride [Moles/Vol] 107 mmol/L 98-108 [facility] Eosinophil percentageOrdered By: Ovidio Ibanez on 11-23-2024 Eosinophils/100 WBC (Bld) 3.6 % 0-5 [facility] Erythrocyte distribution wid th ratioOrdered By: Ovidio Ibanez on 11-23-2024 Erythrocyte distribution width (RBC) [Ratio] 13.7 % 11.6-14.6 [facility] Erythrocyte distribution wid th standard deviationOrdered By: Ovidio Ibanez on 11-23-2024 Erythrocyte distribution width (RBC) [Ratio] 46.7 fl High 35.1-43.9 [facility] Glomerular filtration rate ( GFR) estimation/1.73 sq m using serum, plasma, or whole bOrdered By: Ovidio Ibanez on 11-23-2024 GFR/1.73 sq M.predicted among non-blacks MDRD (S/P/Bld) [Vol rate/Area] 87 mL/min/{1.73_m2} >60 [facility] Comment on above: mL/min/1.73m2 CKD-EP I Creatinine Equation (2020) Hematocrit Auto (Bld) [Volum e fraction]Ordered By: Ovidio Ibanez on 11-23-2024 Hematocrit (Bld) [Volume fraction] 33.9 % Low 37-47 [facility] Hemoglobin measurementOrdere d By: Ovidio Ibanez on 11-23-2024 Hemoglobin (Bld) [Mass/Vol] 12.0 g/dL 12.0-15.0 [facility] Immature granulocytes/100 WB C Auto (Bld)Ordered By: Ovidio Ibanez on 11-23-2024 Immature granulocytes/100 WBC (Bld) 0.200 % 0.0-0.9 [facility] Comment on above: IG% - Immature Granu locytes (promyelocytes, myelocytes and metamyelocytes) > 1% indicates that a LEFT SHIFT is Present. Laboratory - Chemistry and C hemistry - challengeOrdered By: Ovidio Ibanez on 11-23-2024 AST [Catalytic activity/Vol] 31 U/L <32 [facility] MCV (mean corpuscular volume ) determinationOrdered By: Ovidio Ibanez on 11-23-2024 MCV (RBC) [Entitic vol] 95.8 fL 81-99 [facility] Mean corpuscular hemoglobin (MCH) determinationOrdered By: Ovidio Ibanez on 11-23-2024 MCH (RBC) [Entitic mass] 33.9 pg High 27.0-32.0 [facility] Mean corpuscular hemoglobin concentration (MCHC) determinationOrdered By: Ovidio Ibanez on 11-23-2024 MCHC (RBC) [Mass/Vol] 35.4 g/dL 32-36 [facility] Mean platelet volume determi nationOrdered By: Ovidio Ibanez on 11-23-2024 Platelet mean volume (Bld) [Entitic vol] 9.9 fL 6.2-12.0 [facility] Monocyte percentageOrdered B y: Ovidio Ibanez on 11-23-2024 Monocytes/100 WBC (Bld) 13.4 % High 0-10 [facility] Neutrophil percentageOrdered By: Ovidio Ibanez on 11-23-2024 Neutrophils/100 WBC (Bld) 45.8 % Low 47-70 [facility] Nucleated red blood cell per centageOrdered By: Ovidio Ibanez on 11-23-2024 Nucleated RBC/100 WBC (Bld) [Ratio] 0 % 0-5 [facility] Platelet countOrdered By: Carmina Ibanez on 11-23-2024 Platelets (Bld) [#/Vol] 226 10*3/uL 150-450 [facility] Potassium measurement (mass/ volume)Ordered By: Ovidio Ibanez on 11-23-2024 Potassium (Unsp spec) [Mass/Vol] 3.5 mmol/L 3.3-5.1 [facility] RBC Auto (Bld) [#/Vol]Ordere d By: Ovidio Ibanez on 11-23-2024 RBC (Bld) [#/Vol] 3.54 10*6/uL Low 4.2-5.4 [facility] Serum creatinine measurement (mass/volume)Ordered By: Ovidio Ibanez on 11-23-2024 Creatinine [Mass/Vol] 0.67 mg/dL Low 0.70-1.20 [facility] Serum globulin measurementOr dered By: Ovidio Ibanez on 11-23-2024 Globulin (S) [Mass/Vol] 2.5 g/dL 2.2-4.2 [facility] Serum glucose measurement (m ass/volume)Ordered By: Ovidio Ibanez on 11-23-2024 Glucose [Mass/Vol] 97 mg/dL 70-99 [facility] Serum or plasma alanine san otransferase (ALT) measurementOrdered By: Ovidio Ibanez on 11-23-2024 ALT [Catalytic activity/Vol] 20 U/L <35 [facility] Serum or plasma albumin davin urement (mass/volume)Ordered By: Ovidio Ibanez on 11-23-2024 Albumin [Mass/Vol] 3.7 g/dL 3.4-4.8 [facility] Serum or plasma alkaline irvin sphatase measurementOrdered By: Ovidio Ibanez 11-23-2024 ALP [Catalytic activity/Vol] 58 U/L 35-104 [facility] Serum or plasma calcium davin urement (mass/volume)Ordered By: Ovidio Ibanez on 11-23-2024 Calcium [Mass/Vol] 9.1 mg/dL 7.6-11.0 [facility] Serum or plasma urea nitroge n measurement (mass/volume)Ordered By: Ovidio Ibanez on 11-23-2024 Urea nitrogen [Mass/Vol] 13 mg/dL 4-19 [facility] Sodium levelOrdered By: Hayde Ibanez on 11-23-2024 Sodium [Moles/Vol] 141 mmol/L 133-145 [facility] TSH DL <= 0.005 mIU/L QnOrde red By: Ovidio Ibanez on 11-23-2024 TSH Qn 2.820 uIU/mL 0.300-4.200 [facility] Total proteinOrdered By: Juan Carlos Ibanez on 11-23-2024 Protein [Mass/Vol] 6.1 g/dL 5.9-8.4 [facility] White blood cell (WBC) count Ordered By: Ovidio Ibanez on 11-23-2024 WBC (Bld) [#/Vol] 5.9 10*3/uL 4.4-11.0 [facility] Absolute lymphocyte countOrd ered By: Ovidio Ibanez on 08-24-2024 Lymphocytes Auto (Unsp spec) [#/Vol] 2.39 10*3/uL 0.83-4.51 [facility] Absolute neutrophil countOrd ered By: Ovidio Ibanez on 08-24-2024 Neutrophils (Bld) [#/Vol] 3.2 10*3/uL 2.0-7.7 [facility] Automated lymphocyte count a s percentage of total leukocytesOrdered By: Ovidio Ibanez on 08-24-2024 Lymphocytes/100 WBC Auto (Unsp spec) 35.5 % 19-41 [facility] Basophil percentageOrdered B y: Ovidio Ibanez on 08-24-2024 Basophils/100 WBC (Bld) 0.6 % 0-1 [facility] Bilirubin directOrdered By: Ovidio Ibanez on 08-24-2024 Bilirubin.direct [Mass/Vol] 0.09 mg/dL 0.00-0.30 [facility] Bilirubin, totalOrdered By: Ovidio Ibanez on 08-24-2024 Bilirubin [Mass/Vol] 0.40 mg/dL 0.20-1.00 [facility] Comment on above: For patients on eltr ombopag therapy, use of Dimension [place] TBIL is not recommended. Blood urea nitrogen (BUN)/cr eatinine ratioOrdered By: Ovidio Ibanez on 08-24-2024 Urea nitrogen/Creatinine [Mass ratio] 19.2 mg/mg 10-20 [facility] Carbon dioxide measurementOr dered By: Ovidio Ibanez on 08-24-2024 CO2 [Moles/Vol] 27.0 mmol/L 21.0-32.0 [facility] Chloride measurementOrdered By: Ovidio Ibanez on 08-24-2024 Chloride [Moles/Vol] 108 mmol/L High 98-107 [facility] Eosinophil percentageOrdered By: Ovidio Ibanez on 08-24-2024 Eosinophils/100 WBC (Bld) 3.3 % 0-5 [facility] Erythrocyte distribution wid th ratioOrdered By: Ovidio Ibanez on 08-24-2024 Erythrocyte distribution width (RBC) [Ratio] 13.8 % 11.6-14.6 [facility] Erythrocyte distribution wid th standard deviationOrdered By: Ovidio Ibanez on 08-24-2024 Erythrocyte distribution width (RBC) [Ratio] 46.6 fl High 35.1-43.9 [facility] Glomerular filtration rate ( GFR) estimationOrdered By: Ovidio Ibanez on 08-24-2024 GFR/1.73 sq M.predicted among non-blacks MDRD (S/P/Bld) [Vol rate/Area] 97 mL/min/{1.73_m2} >60 [facility] Comment on above: Non- GFR Calc Glucose measurementOrdered B y: Ovidio Ibanez on 08-24-2024 Glucose [Mass/Vol] 88 mg/dL 74-106 [facility] Hematocrit Auto (Bld) [Volum e fraction]Ordered By: Ovidio Ibanez on 08-24-2024 Hematocrit (Bld) [Volume fraction] 36.7 % Low 37-47 [facility] Hemoglobin measurementOrdere d By: Ovidio Ibanez on 08-24-2024 Hemoglobin (Bld) [Mass/Vol] 12.0 g/dL 12.0-15.0 [facility] Immature granulocytes/100 WB C Auto (Bld)Ordered By: Ovidio Ibanez on 08-24-2024 Immature granulocytes/100 WBC (Bld) 0.300 % 0.0-0.9 [facility] Comment on above: IG% - Immature Granu locytes (promyelocytes, myelocytes and metamyelocytes) > 1% indicates that a LEFT SHIFT is Present. Laboratory - Chemistry and C hemistry - challengeOrdered By: Ovidio Ibanez on 08-24-2024 AST [Catalytic activity/Vol] 35 U/L 15-37 [facility] MCV (mean corpuscular volume ) determinationOrdered By: Ovidio Ibanez on 08-24-2024 MCV (RBC) [Entitic vol] 94.8 fL 81-99 [facility] Mean corpuscular hemoglobin (MCH) determinationOrdered By: Ovidio Ibanez on 08-24-2024 MCH (RBC) [Entitic mass] 31.0 pg 27.0-32.0 [facility] Mean corpuscular hemoglobin concentration (MCHC) determinationOrdered By: Ovidio Ibanez on 08-24-2024 MCHC (RBC) [Mass/Vol] 32.7 g/dL 32-36 [facility] Mean platelet volume determi nationOrdered By: Ovidio Ibanez on 08-24-2024 Platelet mean volume (Bld) [Entitic vol] 9.9 fL 6.2-12.0 [facility] Monocyte percentageOrdered B y: Ovidio Ibanez on 08-24-2024 Monocytes/100 WBC (Bld) 12.9 % High 0-10 [facility] Neutrophil percentageOrdered By: Ovidio Ibanez on 08-24-2024 Neutrophils/100 WBC (Bld) 47.4 % 47-70 [facility] Nucleated red blood cell per centageOrdered By: Ovidio Ibanez on 08-24-2024 Nucleated RBC/100 WBC (Bld) [Ratio] 0 % 0-5 [facility] Platelet countOrdered By: Carmina Ibanez on 08-24-2024 Platelets (Bld) [#/Vol] 242 10*3/uL 150-450 [facility] Potassium measurementOrdered By: Ovidio Ibanez on 08-24-2024 Potassium [Moles/Vol] 3.5 mmol/L 3.5-5.1 [facility] RBC Auto (Bld) [#/Vol]Ordere d By: Ovidio Ibanez on 08-24-2024 RBC (Bld) [#/Vol] 3.87 10*6/uL Low 4.2-5.4 [facility] Serum anion gap measurementO rdered By: Ovidio Ibanez on 08-24-2024 Anion gap [Moles/Vol] 6 mmol/L 5-15 [facility] Serum globulin measurementOr dered By: Ovidio Ibanez on 08-24-2024 Globulin (S) [Mass/Vol] 3.6 g/dL 2.2-4.2 [facility] Serum or plasma alanine san otransferase (ALT) measurementOrdered By: Ovidio Ibanez on 08-24-2024 ALT [Catalytic activity/Vol] 35 U/L 13-56 [facility] Serum or plasma albumin davin urement (mass/volume)Ordered By: Ovidio Ibanez on 08-24-2024 Albumin [Mass/Vol] 3.2 g/dL 3.2-5.0 [facility] Serum or plasma alkaline irvin sphatase measurementOrdered By: Ovidio Ibanez on 08-24-2024 ALP [Catalytic activity/Vol] 64 U/L 45-117 [facility] Serum or plasma calcium davin urement (mass/volume)Ordered By: Ovidio Ibanez on 08-24-2024 Calcium [Mass/Vol] 9.1 mg/dL 8.5-10.1 [facility] Serum or plasma creatinine m easurement (mass/volume)Ordered By: Ovidio Ibanez on 08-24-2024 Creatinine [Mass/Vol] 0.62 mg/dL 0.55-1.02 [facility] Comment on above: The validity of the calculated GFR & GFRAA in patients over 70 years has not been determined. Clinical correlation is essential. Serum or plasma urea nitroge n measurement (mass/volume)Ordered By: Haydekylee Ibanez on 08-24-2024 Urea nitrogen [Mass/Vol] 12 mg/dL 7-18 [facility] Sodium levelOrdered By: Hayde pichardo Rolykatie on 08-24-2024 Sodium [Moles/Vol] 141 mmol/L 136-145 [facility] Total proteinOrdered By: Juan Carlos Gonzalezyann on 08-24-2024 Protein [Mass/Vol] 6.8 g/dL 6.4-8.2 [facility] White blood cell (WBC) count Ordered By: Ovidio Rolyeboniyann on 08-24-2024 WBC (Bld) [#/Vol] 6.7 10*3/uL 4.4-11.0 [facility] Neurology Visit Reporton Neurology Visit Report [facility] [address], [address] [place] [address] OFFICE VISIT Date of Service: 06/22/24 MR#: [id number] Acct: [id number] Name: KELLI ACEVES I Rep #: [id number] : 1940 Provider: Dr. Barrie donaldson MD Age/Sex: 83/F [place] [facility] [place] Status: Signed HPI HPI Chief Complaint: Establish Care Details: The patient is a 83-year-old right handed female who presents to [facility]. She was previously seen by Dr. Robert Roman with [facility] in [place] for dementia, ataxic gait, and frequent falls. [...] intact without hemoptysis Cardiac intact without prior AL or chest pain Abdomen intact without vomiting [...] Language ca (more content not included)... Normal [facility] 36on 05-18-2024 36 Name of caller: Saji shell Contact phone number: [phone] Relationship to Patient: [facility] Provider: Dr. Roman Practice: [facility] Chief Complaint/Reason for Call: Tenisha states that Kelli intends to see a new neurologist at [facility], and is requesting Kelli's medical history sent to [facility]'s fax number at [phone]. Please advise. Best time of day caller can be reached: Any Patient advised that office/PCP has 24-48 business hours to return their call: Yes Normal [facility] Basophil percentageOrdered B y: Ovidio Ibanez on 09-23-2023 Bilirubin [Mass/Vol] 0.30 mg/dL 0.20-1.00 [facility] Comment on above: For patients on eltr ombopag therapy, use of Dimension [place] TBIL is not recommended. Protein [Mass/Vol] 6.4 g/dL 6.4-8.2 [facility] Direct bilirubinOrdered By: Ovidio Ibanez on 09-23-2023 Bilirubin.direct [Mass/Vol] 0.09 mg/dL 0.00-0.30 [facility] Laboratory - Chemistry and C hemistry - challengeOrdered By: Ovidio Ibanez on 09-23-2023 ALP [Catalytic activity/Vol] 77 U/L 45-117 [facility] ALT [Catalytic activity/Vol] 32 U/L 13-56 [facility] Globulin (S) [Mass/Vol] 3.3 g/dL 2.2-4.2 [facility] Thin prep Papanicolaou smear with manual screeningOrdered By: Ovidio Ibanez on 09-23-2023 Thin prep Papanicolaou smear with manual screening 3.1 g/dL 3.2-5.0 [facility] Thin prep Papanicolaou smear with manual screening 31 U/L 15-37 [facility] Bilirubin Test strip Ql (U)O rdered By: Ovidio Ibanez on 09-11-2023 Bilirubin Ql (U) 1 mg/dL Negative [facility] Comment on above: COLOR OF URINE MAY A FFECT DIPSTICK RESULTS. Culture, urineOrdered By: Carmina Ibanez on 09-11-2023 Bacteria identified Cx Nom (U) Positive [facility] Ketones Test strip Ql (U)Ord ered By: Ovidio Ibanez on 09-11-2023 Ketones Ql (U) 5 mg/dl Negative [facility] Nitrite Test strip Ql (U)Ord ered By: Ovidio Ibanez on 09-11-2023 Nitrite Ql (U) Negative Negative [facility] Protein Test strip Ql (U)Ord ered By: Ovidio Ibanez on 09-11-2023 Protein Ql (U) 15 mg/dl Negative [facility] Urine blood detectionOrdered By: Ovidio Ibanez on 09-11-2023 RBC Ql (U) 10 /ul Negative [facility] Urine clarityOrdered By: Juan Carlos Ibanez on 09-11-2023 Clarity (U) Clear Clear [facility] Urine color determinationOrd ered By: Ovidio Ibanez on 09-11-2023 Color (U) Yellow Yellow [facility] Urine glucose detectionOrder ed By: Ovidio Ibanez on 09-11-2023 Glucose Ql (U) Normal mg/dl Normal [facility] Urine leukocyte esterase det ection by dipstickOrdered By: Ovidio Ibanez on 09-11-2023 Leukocyte esterase Test strip Ql (U) 100 /ul Negative [facility] Urine pHOrdered By: Alice Ibanez on 09-11-2023 pH (U) 7.0 [pH] 5.0 - 8.0 [facility] Urine specific gravity measu rementOrdered By: Ovidio Ibanez on 09-11-2023 Specific gravity (U) [Rel density] 1.015 1.002-1.030 [facility] Urine urobilinogen measureme ntOrdered By: Ovidio Ibanez on 09-11-2023 Urobilinogen Ql (U) 1 mg/dl Normal [facility] Absolute lymphocyte countOrd ered By: Ovidio Ibanez on 08-26-2023 Lymphocytes Auto (Unsp spec) [#/Vol] 1.64 10*3/uL 0.83-4.51 [facility] Automated lymphocyte count a s percentage of total leukocytesOrdered By: Ovidio Ibanez on 08-26-2023 Lymphocytes/100 WBC Auto (Unsp spec) 30.4 % 19-41 [facility] Basophil percentageOrdered B y: Ovidio Ibanez on 08-26-2023 Basophils/100 WBC (Bld) 0.9 % 0-1 [facility] Chloride [Moles/Vol] 110 mmol/L 98-107 [facility] Eosinophils/100 WBC (Bld) 5.0 % 0-5 [facility] Glucose [Mass/Vol] 94 mg/dL 74-106 [facility] Hemoglobin (Bld) [Mass/Vol] 11.6 g/dL 12.0-15.0 [facility] Monocytes/100 WBC (Bld) 18.0 % 0-10 [facility] Neutrophils (Bld) [#/Vol] 2.5 10*3/uL 2.0-7.7 [facility] Neutrophils/100 WBC (Bld) 45.5 % 47-70 [facility] Potassium [Moles/Vol] 3.9 mmol/L 3.5-5.1 [facility] Sodium [Moles/Vol] 141 mmol/L 136-145 [facility] WBC (Bld) [#/Vol] 5.4 10*3/uL 4.4-11.0 [facility] Determination of erythrocyte mean corpuscular volume (MCV)Ordered By: Ovidio Ibanez on 08-26-2023 MCV (RBC) [Entitic vol] 93.8 fL 81-99 [facility] Erythrocyte distribution wid th ratioOrdered By: Haydejacksonvillenilson Ibanez on 08-26-2023 Erythrocyte distribution width (RBC) [Ratio] 14.4 % 11.6-14.6 [facility] Erythrocyte distribution wid th standard deviationOrdered By: bebejacksonvillenilson Ibanez on 08-26-2023 Erythrocyte distribution width (RBC) [Entitic vol] 48.4 fL 35.1-43.9 [facility] Hematocrit Auto (Bld) [Volum e fraction]Ordered By: Haydejacksonvillenilson Ibanez on 08-26-2023 Hematocrit (Bld) [Volume fraction] 34.5 % 37-47 [facility] Immature granulocytes/100 WB C Auto (Bld)Ordered By: [facility] Ibanez on 08-26-2023 Immature granulocytes/100 WBC (Bld) 0.200 % 0.0-0.9 [facility] Comment on above: IG% - Immature Granu locytes (promyelocytes, myelocytes and metamyelocytes) > 1% indicates that a LEFT SHIFT is Present. Laboratory - Chemistry and C hemistry - challengeOrdered By: Ovidio Ibanez on 08-26-2023 CO2 [Moles/Vol] 25.0 mmol/L 21.0-32.0 [facility] Urea nitrogen/Creatinine [Mass ratio] 22.6 mg/mg 10-20 [facility] Laboratory - Hematology and Cell countsOrdered By: Ovidio Ibanez on 08-26-2023 MCH (RBC) [Entitic mass] 31.5 pg 27.0-32.0 [facility] MCHC (RBC) [Mass/Vol] 33.6 g/dL 32-36 [facility] Nucleated RBC/100 WBC (Bld) [Ratio] 0 % 0-5 [facility] Platelet mean volume (Bld) [Entitic vol] 9.9 fL 6.2-12.0 [facility] Platelets (Bld) [#/Vol] 273 10*3/uL 150-450 [facility] No Panel InformationOrdered By: Ovidio Ibanez on 08-26-2023 Estimated GFR (MDRD) Amer 119 mL/min >60 [facility] Comment on above: GFR Calc Estimated GFR (MDRD) Non-Af Amer 98 mL/min >60 [facility] Comment on above: Non- GFR Calc RBC Auto (Bld) [#/Vol]Ordere d By: Ovidio Ibanez on 08-26-2023 RBC (Bld) [#/Vol] 3.68 10*6/uL 4.2-5.4 [facility] Serum or plasma calcium davin urement (mass/volume)Ordered By: Ovidio Ibanez on 08-26-2023 Calcium [Mass/Vol] 8.9 mg/dL 8.5-10.1 [facility] Serum or plasma creatinine m easurement (mass/volume)Ordered By: Ovidio Ibanez on 08-26-2023 Creatinine [Mass/Vol] 0.62 mg/dL 0.55-1.02 [facility] Comment on above: The validity of the calculated GFR & GFRAA in patients over 70 years has not been determined. Clinical correlation is essential. Serum or plasma urea nitroge n measurement (mass/volume)Ordered By: Ovidio Ibanez on 08-26-2023 Urea nitrogen [Mass/Vol] 14 mg/dL 7-18 [facility] Thin prep Papanicolaou smear with manual screeningOrdered By: Ovidio Ibanez on 08-26-2023 Thin prep Papanicolaou smear with manual screening 6 5-15 [facility] Basophil percentageOrdered B y: Ovidio Ibanez on 06-24-2023 Bilirubin [Mass/Vol] 0.30 mg/dL 0.20-1.00 [facility] Comment on above: For patients on eltr ombopag therapy, use of Dimension [place] TBIL is not recommended. Protein [Mass/Vol] 6.4 g/dL 6.4-8.2 [facility] Direct bilirubinOrdered By: bebejacksonvillenilson Ibanez on 06-24-2023 Bilirubin.direct [Mass/Vol] 0.07 mg/dL 0.00-0.30 [facility] Laboratory - Chemistry and C hemistry - challengeOrdered By: Haydejacksonvillenilson Ibanez on 06-24-2023 ALP [Catalytic activity/Vol] 72 U/L 45-117 [facility] ALT [Catalytic activity/Vol] 33 U/L 13-56 [facility] Globulin (S) [Mass/Vol] 3.3 g/dL 2.2-4.2 [facility] Serum or plasma albumin davin urement (mass/volume)Ordered By: [facility] Ibanez on 06-24-2023 Albumin [Mass/Vol] 3.1 g/dL 3.2-5.0 [facility] Thin prep Papanicolaou smear with manual screeningOrdered By: [facility] Healthnilson Ibanez on 06-24-2023 Thin prep Papanicolaou smear with manual screening 34 U/L 15-37 [facility] 36on 06-02-2023 36 Message released to patient as written. Patient's further questions if applicable: Were all questions from office addressed or relayed to the patient from encounter: Yes Normal [place] [address] Lm for Loren to call t he office back, please relay providers message. Normal [place] [address] Look at my Assessmen t and Plan from her 05/12 visit----- Continue Donepezil 5mg daily Will order physical therapy She was given printed report of EMG and MRI brain We did discuss results of testing Normal [place] [address] Name of caller: Loren Contact phone number: [phone] Relationship to Patient: [facility] Provider: Kamala WILKERSON Practice: Neuro Chief Complaint/Reason for Call: [phone] fax results, Loren states has sent requests for the MRI results since 04/15/23. Please advise Best time of day caller can be reached: Any Patient advised that office/PCP has 24-48 business hours to return their call: Yes Normal [facility] Absolute lymphocyte countOrd ered By: Ovidio Ibanez on 05-27-2023 Lymphocytes Auto (Unsp spec) [#/Vol] 1.60 10*3/uL 0.83-4.51 [facility] Basophil percentageOrdered B y: Ovidio Ibanez on 05-27-2023 Basophils/100 WBC (Bld) 1.2 % 0-1 [facility] Chloride [Moles/Vol] 105 mmol/L 98-107 [facility] Eosinophils/100 WBC (Bld) 7.2 % 0-5 [facility] Glucose [Mass/Vol] 91 mg/dL 74-106 [facility] Neutrophils (Bld) [#/Vol] 2.8 10*3/uL 2.0-7.7 [facility] Neutrophils/100 WBC (Bld) 47.6 % 47-70 [facility] Potassium [Moles/Vol] 3.8 mmol/L 3.5-5.1 [facility] Sodium [Moles/Vol] 139 mmol/L 136-145 [facility] WBC (Bld) [#/Vol] 5.9 10*3/uL 4.4-11.0 [facility] Blood erythrocytes count (nu mber/volume)Ordered By: Ovidio Ibanez on 05-27-2023 RBC (Bld) [#/Vol] 3.84 10*6/uL 4.2-5.4 [facility] Blood hemoglobin measurement (mass/volume)Ordered By: Ovidio Ibanez on 05-27-2023 Hemoglobin (Bld) [Mass/Vol] 11.9 g/dL 12.0-15.0 [facility] Blood lymphocytes/100 leukoc ytesOrdered By: Ovidio Ibanez on 05-27-2023 Lymphocytes/100 WBC (Bld) 27.4 % 19-41 [facility] Blood monocytes/100 leukocyt esOrdered By: Ovidio Ibanez on 05-27-2023 Monocytes/100 WBC (Bld) 16.4 % 0-10 [facility] Blood platelet mean volumeOr dered By: Ovidio Ibanez on 05-27-2023 Platelet mean volume (Bld) [Entitic vol] 9.8 fL 6.2-12.0 [facility] Determination of erythrocyte mean corpuscular volume (MCV)Ordered By: Ovidio Ibanez on 05-27-2023 MCV (RBC) [Entitic vol] 93.8 fL 81-99 [facility] Hematocrit Auto (Bld) [Volum e fraction]Ordered By: Haydejacksonvillenilson Ibanez on 05-27-2023 Hematocrit (Bld) [Volume fraction] 36.0 % 37-47 [facility] Laboratory - Chemistry and C hemistry - challengeOrdered By: bebejacksonvillenilson Ibanez on 05-27-2023 CO2 [Moles/Vol] 28.0 mmol/L 21.0-32.0 [facility] Urea nitrogen/Creatinine [Mass ratio] 14.4 mg/mg 10-20 [facility] Laboratory - Hematology and Cell countsOrdered By: bebejacksonvillenilson Ibanez on 05-27-2023 Erythrocyte distribution width (RBC) [Entitic vol] 46.5 fL 35.1-43.9 [facility] Erythrocyte distribution width (RBC) [Ratio] 13.8 % 11.6-14.6 [facility] Immature granulocytes/100 WBC (Bld) 0.200 % 0.0-0.9 [facility] Comment on above: IG% - Immature Granu locytes (promyelocytes, myelocytes and metamyelocytes) > 1% indicates that a LEFT SHIFT is Present. MCH (RBC) [Entitic mass] 31.0 pg 27.0-32.0 [facility] Nucleated RBC/100 WBC (Bld) [Ratio] 0 % 0-5 [facility] MCHC Auto (RBC) [Mass/Vol]Or dered By: Ovidio Ibanez on 05-27-2023 MCHC (RBC) [Mass/Vol] 33.1 g/dL 32-36 [facility] No Panel InformationOrdered By: Hayedjacksonvillenilson Ibanez on 05-27-2023 Estimated GFR (MDRD) Amer 118 mL/min >60 [facility] Comment on above: GFR Calc Estimated GFR (MDRD) Non-Af Amer 98 mL/min >60 [facility] Comment on above: Non- GFR Calc Platelets bldOrdered By: Juan Carlos Ibanez on 05-27-2023 Platelets (Bld) [#/Vol] 295 10*3/uL 150-450 [facility] Serum or plasma calcium davin urement (mass/volume)Ordered By: Ovidio Ibanez on 05-27-2023 Calcium [Mass/Vol] 8.9 mg/dL 8.5-10.1 [facility] Serum or plasma creatinine m easurement (mass/volume)Ordered By: Ovidio Ibanez on 05-27-2023 Creatinine [Mass/Vol] 0.62 mg/dL 0.55-1.02 [facility] Comment on above: The validity of the calculated GFR & GFRAA in patients over 70 years has not been determined. Clinical correlation is essential. Serum or plasma urea nitroge n measurement (mass/volume)Ordered By: Ovidio Ibanez on 05-27-2023 Urea nitrogen [Mass/Vol] 9 mg/dL 7-18 [facility] Thin prep Papanicolaou smear with manual screeningOrdered By: Ovidio Ibanez on 05-27-2023 Thin prep Papanicolaou smear with manual screening 6 5-15 [facility] 36on 05-23-2023 36 LM at facility where pt is residing[facility] I had received 2 order forms with NO explanation and I need clarification Normal [facility] No Panel InformationOrdered By: Ovidio Ibanez on 05-06-2023 Vitamin D 25-Hydroxy 38.5 ng/mL [facility] Comment on above: Vitamin D 25(OH) Sta [...] Electronically Signed Date/Time: 04/02/2023 8:34 AM EDT [facility] Patient Name: KELLI ORELLANA : 1940 [...] is seen within the vessels of the alutiiq of [place]. The globes and orbital contents are grossly normal. There is mild mucosal thickening of the ethmoid air cells. [facility] Florentin Bautista DO - 04/02/2023 Patient [...] is seen within the vessels of the alutiiq of [place]. The globes and orbital contents are grossly normal. There is mild mucosal thickening of the ethmoid air cells. IMPRESSION: Atrophy and chronic ischemic change. No acute process. Report Dictated on Electronically Signed By: Florentin Bautista DO Electronically Signed Date/Time: 04/02/2023 8:34 AM EDT [facility] Radiology Study observation (narrative) [facility] alth MR Brain WO contrastOrdered By: Florentin Bautista on 04-02-2023 [facility] [place] Work Phone: Basophil percentageOrdered B y: Ovidio Ibanez on 03-25-2023 Bilirubin [Mass/Vol] 0.20 mg/dL 0.20-1.00 [facility] Comment on above: For patients on eltr ombopag therapy, use of Dimension [place] TBIL is not recommended. Protein [Mass/Vol] 6.3 g/dL 6.4-8.2 [facility] Direct bilirubinOrdered By: Ovidio Ibanez on 03-25-2023 Bilirubin.direct [Mass/Vol] mg/dL 0.00-0.30 [facility] Laboratory - Chemistry and C hemistry - challengeOrdered By: Ovidio Ibanez on 03-25-2023 ALP [Catalytic activity/Vol] 76 U/L 45-117 [facility] ALT [Catalytic activity/Vol] 31 U/L 13-56 [facility] Globulin (S) [Mass/Vol] 3.2 g/dL 2.2-4.2 [facility] Serum or plasma albumin davin urement (mass/volume)Ordered By: Ovidio Ibanez on 03-25-2023 Albumin [Mass/Vol] 3.1 g/dL 3.2-5.0 [facility] Thin prep Papanicolaou smear with manual screeningOrdered By: Ovidio Ibanez on 03-25-2023 Thin prep Papanicolaou smear with manual screening 26 U/L 15-37 [facility] Absolute lymphocyte countOrd ered By: Ovidio Ibanez on 02-18-2023 Lymphocytes Auto (Unsp spec) [#/Vol] 1.56 10*3/uL 0.83-4.51 [facility] Basophil percentageOrdered B y: Ovidio Ibanez on 02-18-2023 Basophils/100 WBC (Bld) 0.7 % 0-1 [facility] Chloride [Moles/Vol] 107 mmol/L 98-107 [facility] Eosinophils/100 WBC (Bld) 5.2 % 0-5 [facility] Glucose [Mass/Vol] 85 mg/dL 74-106 [facility] Neutrophils (Bld) [#/Vol] 3.0 10*3/uL 2.0-7.7 [facility] Neutrophils/100 WBC (Bld) 51.0 % 47-70 [facility] Potassium [Moles/Vol] 3.5 mmol/L 3.5-5.1 [facility] Sodium [Moles/Vol] 139 mmol/L 136-145 [facility] WBC (Bld) [#/Vol] 5.8 10*3/uL 4.4-11.0 [facility] Blood erythrocytes count (nu mber/volume)Ordered By: Ovidio Ibanez on 02-18-2023 RBC (Bld) [#/Vol] 3.48 10*6/uL 4.2-5.4 [facility] Blood hemoglobin measurement (mass/volume)Ordered By: Ovidio Ibanez on 02-18-2023 Hemoglobin (Bld) [Mass/Vol] 11.5 g/dL 12.0-15.0 [facility] Blood lymphocytes/100 leukoc ytesOrdered By: Ovidio Ibanez on 02-18-2023 Lymphocytes/100 WBC (Bld) 26.8 % 19-41 [facility] Blood monocytes/100 leukocyt esOrdered By: Ovidio Ibanez on 02-18-2023 Monocytes/100 WBC (Bld) 16.0 % 0-10 [facility] Blood platelet mean volumeOr dered By: Ovidio Ibanez on 02-18-2023 Platelet mean volume (Bld) [Entitic vol] 9.8 fL 6.2-12.0 [facility] Determination of erythrocyte mean corpuscular volume (MCV)Ordered By: Ovidio Ibanez on 02-18-2023 MCV (RBC) [Entitic vol] 98.0 fL 81-99 [facility] Hematocrit Auto (Bld) [Volum e fraction]Ordered By: Ovidio Ibanez on 02-18-2023 Hematocrit (Bld) [Volume fraction] 34.1 % 37-47 [facility] Laboratory - Chemistry and C hemistry - challengeOrdered By: mariaa Ibanez on 02-18-2023 CO2 [Moles/Vol] 26.0 mmol/L 21.0-32.0 [facility] Urea nitrogen/Creatinine [Mass ratio] 24.2 mg/mg 10-20 [facility] Laboratory - Hematology and Cell countsOrdered By: Ovidio Ibanez on 02-18-2023 Erythrocyte distribution width (RBC) [Entitic vol] 46.1 fL 35.1-43.9 [facility] Erythrocyte distribution width (RBC) [Ratio] 13.2 % 11.6-14.6 [facility] Immature granulocytes/100 WBC (Bld) 0.300 % 0.0-0.9 [facility] Comment on above: IG% - Immature Granu locytes (promyelocytes, myelocytes and metamyelocytes) > 1% indicates that a LEFT SHIFT is Present. MCH (RBC) [Entitic mass] 33.0 pg 27.0-32.0 [facility] Nucleated RBC/100 WBC (Bld) [Ratio] 0 % 0-5 [facility] MCHC Auto (RBC) [Mass/Vol]Or dered By: Ovidio Ibanez on 02-18-2023 MCHC (RBC) [Mass/Vol] 33.7 g/dL 32-36 [facility] No Panel InformationOrdered By: Ovidio Ibanez on 02-18-2023 Estimated GFR (MDRD) Amer 119 mL/min >60 [facility] Comment on above: GFR Calc Estimated GFR (MDRD) Non-Af Amer 99 mL/min >60 [facility] Comment on above: Non- GFR Calc Platelets bldOrdered By: Juan Carlos Ibanez on 02-18-2023 Platelets (Bld) [#/Vol] 285 10*3/uL 150-450 [facility] Serum or plasma calcium davin urement (mass/volume)Ordered By: Ovidio Ibanez on 02-18-2023 Calcium [Mass/Vol] 8.8 mg/dL 8.5-10.1 [facility] Serum or plasma creatinine m easurement (mass/volume)Ordered By: Ovidio Ibanez on 02-18-2023 Creatinine [Mass/Vol] 0.62 mg/dL 0.55-1.02 [facility] Comment on above: The validity of the calculated GFR & GFRAA in patients over 70 years has not been determined. Clinical correlation is essential. Serum or plasma urea nitroge n measurement (mass/volume)Ordered By: Ovidio Ibanez on 02-18-2023 Urea nitrogen [Mass/Vol] 15 mg/dL 7-18 [facility] Thin prep Papanicolaou smear with manual screeningOrdered By: Ovidio Ibanez on 02-18-2023 Thin prep Papanicolaou smear with manual screening 6 5-15 [facility] Absolute lymphocyte countOrd ered By: Ovidio Ibanez on 01-21-2023 Lymphocytes Auto (Unsp spec) [#/Vol] 1.60 10*3/uL 0.83-4.51 [facility] Basophil percentageOrdered B y: Ovidio Ibanez on 01-21-2023 Basophils/100 WBC (Bld) 1.0 % 0-1 [facility] Chloride [Moles/Vol] 106 mmol/L 98-107 [facility] Eosinophils/100 WBC (Bld) 4.0 % 0-5 [facility] Glucose [Mass/Vol] 89 mg/dL 74-106 [facility] Neutrophils (Bld) [#/Vol] 3.1 10*3/uL 2.0-7.7 [facility] Neutrophils/100 WBC (Bld) 51.6 % 47-70 [facility] Potassium [Moles/Vol] 3.5 mmol/L 3.5-5.1 [facility] Sodium [Moles/Vol] 139 mmol/L 136-145 [facility] WBC (Bld) [#/Vol] 6.0 10*3/uL 4.4-11.0 [facility] Blood erythrocytes count (nu mber/volume)Ordered By: Ovidio Ibanez on 01-21-2023 RBC (Bld) [#/Vol] 3.53 10*6/uL 4.2-5.4 [facility] Blood hemoglobin measurement (mass/volume)Ordered By: Ovidio Ibanez on 01-21-2023 Hemoglobin (Bld) [Mass/Vol] 11.4 g/dL 12.0-15.0 [facility] Blood lymphocytes/100 leukoc ytesOrdered By: Ovidio Ibanez on 01-21-2023 Lymphocytes/100 WBC (Bld) 26.6 % 19-41 [facility] Blood monocytes/100 leukocyt esOrdered By: Ovidio Ibanez on 01-21-2023 Monocytes/100 WBC (Bld) 16.5 % 0-10 [facility] Blood platelet mean volumeOr dered By: Ovidio Ibanez on 01-21-2023 Platelet mean volume (Bld) [Entitic vol] 9.7 fL 6.2-12.0 [facility] Determination of erythrocyte mean corpuscular volume (MCV)Ordered By: Ovidio Ibanez on 01-21-2023 MCV (RBC) [Entitic vol] 95.5 fL 81-99 [facility] Hematocrit Auto (Bld) [Volum e fraction]Ordered By: Ovidio Ibanez on 01-21-2023 Hematocrit (Bld) [Volume fraction] 33.7 % 37-47 [facility] Laboratory - Chemistry and C hemistry - challengeOrdered By: Ovidio Ibanez on 01-21-2023 CO2 [Moles/Vol] 28.0 mmol/L 21.0-32.0 [facility] Urea nitrogen/Creatinine [Mass ratio] 18.4 mg/mg 10-20 [facility] Laboratory - Hematology and Cell countsOrdered By: Ovidio Ibanez on 01-21-2023 Erythrocyte distribution width (RBC) [Entitic vol] 43.8 fL 35.1-43.9 [facility] Erythrocyte distribution width (RBC) [Ratio] 12.8 % 11.6-14.6 [facility] Immature granulocytes/100 WBC (Bld) 0.300 % 0.0-0.9 [facility] Comment on above: IG% - Immature Granu locytes (promyelocytes, myelocytes and metamyelocytes) > 1% indicates that a LEFT SHIFT is Present. MCH (RBC) [Entitic mass] 32.3 pg 27.0-32.0 [facility] Nucleated RBC/100 WBC (Bld) [Ratio] 0 % 0-5 [facility] MCHC Auto (RBC) [Mass/Vol]Or dered By: Ovidio Ibanez on 01-21-2023 MCHC (RBC) [Mass/Vol] 33.8 g/dL 32-36 [facility] No Panel InformationOrdered By: Ovidio Ibanez on 01-21-2023 Estimated GFR (MDRD) Amer 112 mL/min >60 [facility] Comment on above: GFR Calc Estimated GFR (MDRD) Non-Af Amer 93 mL/min >60 [facility] Comment on above: Non- GFR Calc Platelets bldOrdered By: Juan Carlos Ibanez on 01-21-2023 Platelets (Bld) [#/Vol] 311 10*3/uL 150-450 [facility] Serum or plasma calcium davin urement (mass/volume)Ordered By: Ovidio Ibanez on 01-21-2023 Calcium [Mass/Vol] 8.8 mg/dL 8.5-10.1 [facility] Serum or plasma creatinine m easurement (mass/volume)Ordered By: Ovidio Ibanez on 01-21-2023 Creatinine [Mass/Vol] 0.65 mg/dL 0.55-1.02 [facility] Comment on above: The validity of the calculated GFR & GFRAA in patients over 70 years has not been determined. Clinical correlation is essential. Serum or plasma urea nitroge n measurement (mass/volume)Ordered By: Ovidio Ibanez on 01-21-2023 Urea nitrogen [Mass/Vol] 12 mg/dL 7-18 [facility] Thin prep Papanicolaou smear with manual screeningOrdered By: [facility] I[facility] on 01-21-2023 Thin prep Papanicolaou smear with manual screening 5 5-15 [facility] Absolute lymphocyte countOrd ered By: Ovidio Ibanez on 01-07-2023 Lymphocytes Auto (Unsp spec) [#/Vol] 1.69 10*3/uL 0.83-4.51 [facility] Basophil percentageOrdered B y: Ovidio Ibanez on 01-07-2023 Basophils/100 WBC (Bld) 0.6 % 0-1 [facility] Chloride [Moles/Vol] 109 mmol/L 98-107 [facility] Eosinophils/100 WBC (Bld) 3.6 % 0-5 [facility] Glucose [Mass/Vol] 87 mg/dL 74-106 [facility] Neutrophils (Bld) [#/Vol] 3.7 10*3/uL 2.0-7.7 [facility] Neutrophils/100 WBC (Bld) 55.8 % 47-70 [facility] Potassium [Moles/Vol] 3.7 mmol/L 3.5-5.1 [facility] Sodium [Moles/Vol] 141 mmol/L 136-145 [facility] WBC (Bld) [#/Vol] 6.7 10*3/uL 4.4-11.0 [facility] Blood erythrocytes count (nu mber/volume)Ordered By: Ovidio Ibanez on 01-07-2023 RBC (Bld) [#/Vol] 3.33 10*6/uL 4.2-5.4 [facility] Blood hemoglobin measurement (mass/volume)Ordered By: Ovidio Ibanez on 01-07-2023 Hemoglobin (Bld) [Mass/Vol] 11.4 g/dL 12.0-15.0 [facility] Blood lymphocytes/100 leukoc ytesOrdered By: bebejacksonvillenilson Dunhameboniyann on 01-07-2023 Lymphocytes/100 WBC (Bld) 25.2 % 19-41 [facility] Blood monocytes/100 leukocyt esOrdered By: [facility] Dunhameboniyann on 01-07-2023 Monocytes/100 WBC (Bld) 14.5 % 0-10 [facility] Blood platelet mean volumeOr dered By: [facility] Dunhameboniyann on 01-07-2023 Platelet mean volume (Bld) [Entitic vol] 10.0 fL 6.2-12.0 [facility] Determination of erythrocyte mean corpuscular volume (MCV)Ordered By: bebejacksonvillenilson Dunhamyann on 01-07-2023 MCV (RBC) [Entitic vol] 99.1 fL 81-99 [facility] Hematocrit Auto (Bld) [Volum e fraction]Ordered By: bebejacksonvillenilson Ibanez on 01-07-2023 Hematocrit (Bld) [Volume fraction] 33.0 % 37-47 [facility] Laboratory - Chemistry and C hemistry - challengeOrdered By: [facility] I[facility] on 01-07-2023 CO2 [Moles/Vol] 27.0 mmol/L 21.0-32.0 [facility] Urea nitrogen/Creatinine [Mass ratio] 22.9 mg/mg 10-20 [facility] Laboratory - Hematology and Cell countsOrdered By: bebejacksonvillenilson Dunhamyann on 01-07-2023 Erythrocyte distribution width (RBC) [Entitic vol] 45.5 fL 35.1-43.9 [facility] Erythrocyte distribution width (RBC) [Ratio] 13.0 % 11.6-14.6 [facility] Immature granulocytes/100 WBC (Bld) 0.300 % 0.0-0.9 [facility] Comment on above: IG% - Immature Granu locytes (promyelocytes, myelocytes and metamyelocytes) > 1% indicates that a LEFT SHIFT is Present. MCH (RBC) [Entitic mass] 34.2 pg 27.0-32.0 [facility] Nucleated RBC/100 WBC (Bld) [Ratio] 0 % 0-5 [facility] MCHC Auto (RBC) [Mass/Vol]Or dered By: Ovidio Ibanez on 01-07-2023 MCHC (RBC) [Mass/Vol] 34.5 g/dL 32-36 [facility] No Panel InformationOrdered By: Ovidio Ibanez on 01-07-2023 Estimated GFR (MDRD) Amer 112 mL/min >60 [facility] Comment on above: GFR Calc Estimated GFR (MDRD) Non-Af Amer 92 mL/min >60 [facility] Comment on above: Non- GFR Calc Platelets bldOrdered By: Juan Carlos Ibanez on 01-07-2023 Platelets (Bld) [#/Vol] 261 10*3/uL 150-450 [facility] Serum or plasma calcium davin urement (mass/volume)Ordered By: Ovidio Ibanez on 01-07-2023 Calcium [Mass/Vol] 8.9 mg/dL 8.5-10.1 [facility] Serum or plasma creatinine m easurement (mass/volume)Ordered By: Ovidio Ibanez on 01-07-2023 Creatinine [Mass/Vol] 0.66 mg/dL 0.55-1.02 [facility] Comment on above: The validity of the calculated GFR & GFRAA in patients over 70 years has not been determined. Clinical correlation is essential. Serum or plasma urea nitroge n measurement (mass/volume)Ordered By: Ovidio Ibanez on 01-07-2023 Urea nitrogen [Mass/Vol] 15 mg/dL 7-18 [facility] Thin prep Papanicolaou smear with manual screeningOrdered By: Ovidio Ibanez on 01-07-2023 Thin prep Papanicolaou smear with manual screening 5 5-15 [facility] Absolute lymphocyte countOrd ered By: Ovidio Ibanez on 12-24-2022 Lymphocytes Auto (Unsp spec) [#/Vol] 2.15 10*3/uL 0.83-4.51 [facility] Basophil percentageOrdered B y: Ovidio Ibanez on 12-24-2022 Basophils/100 WBC (Bld) 0.8 % 0-1 [facility] Bilirubin [Mass/Vol] 0.30 mg/dL 0.20-1.00 [facility] Comment on above: For patients on eltr ombopag therapy, use of Dimension [place] TBIL is not recommended. Chloride [Moles/Vol] 109 mmol/L 98-107 [facility] Eosinophils/100 WBC (Bld) 2.6 % 0-5 [facility] Glucose [Mass/Vol] 87 mg/dL 74-106 [facility] Neutrophils (Bld) [#/Vol] 4.2 10*3/uL 2.0-7.7 [facility] Neutrophils/100 WBC (Bld) 55.5 % 47-70 [facility] Potassium [Moles/Vol] 4.0 mmol/L 3.5-5.1 [facility] Protein [Mass/Vol] 7.0 g/dL 6.4-8.2 [facility] Sodium [Moles/Vol] 140 mmol/L 136-145 [facility] WBC (Bld) [#/Vol] 7.6 10*3/uL 4.4-11.0 [facility] Blood erythrocytes count (nu mber/volume)Ordered By: Ovidio Ibanez on 12-24-2022 RBC (Bld) [#/Vol] 3.87 10*6/uL 4.2-5.4 [facility] Blood hemoglobin measurement (mass/volume)Ordered By: Ovidio Ibanez on 12-24-2022 Hemoglobin (Bld) [Mass/Vol] 12.8 g/dL 12.0-15.0 [facility] Blood lymphocytes/100 leukoc ytesOrdered By: Ovidio Ibanez on 12-24-2022 Lymphocytes/100 WBC (Bld) 28.4 % 19-41 [facility] Blood monocytes/100 leukocyt esOrdered By: Ovidio Ibanez on 12-24-2022 Monocytes/100 WBC (Bld) 12.4 % 0-10 [facility] Blood platelet mean volumeOr dered By: Ovidio Ibanez on 06-13-2023 Platelet mean volume (Bld) [Entitic vol] 10.0 fL 6.2-12.0 [facility] Determination of erythrocyte mean corpuscular volume (MCV)Ordered By: Ovidio Ibanez on 12-24-2022 MCV (RBC) [Entitic vol] 95.1 fL 81-99 [facility] Hematocrit Auto (Bld) [Volum e fraction]Ordered By: Ovidio Ibanez on 12-24-2022 Hematocrit (Bld) [Volume fraction] 36.8 % 37-47 [facility] Laboratory - Chemistry and C hemistry - challengeOrdered By: bebejacksonvillenilson Ibanez on 12-24-2022 ALP [Catalytic activity/Vol] 73 U/L 45-117 [facility] ALT [Catalytic activity/Vol] 20 U/L 13-56 [facility] CO2 [Moles/Vol] 25.0 mmol/L 21.0-32.0 [facility] Globulin (S) [Mass/Vol] 3.4 g/dL 2.2-4.2 [facility] Urea nitrogen/Creatinine [Mass ratio] 16.5 mg/mg 10-20 [facility] Laboratory - Hematology and Cell countsOrdered By: Haydejacksonvillenilson Ibanez on 12-24-2022 Erythrocyte distribution width (RBC) [Entitic vol] 43.8 fL 35.1-43.9 [facility] Erythrocyte distribution width (RBC) [Ratio] 12.7 % 11.6-14.6 [facility] Immature granulocytes/100 WBC (Bld) 0.300 % 0.0-0.9 [facility] Comment on above: IG% - Immature Granu locytes (promyelocytes, myelocytes and metamyelocytes) > 1% indicates that a LEFT SHIFT is Present. MCH (RBC) [Entitic mass] 33.1 pg 27.0-32.0 [facility] Nucleated RBC/100 WBC (Bld) [Ratio] 0 % 0-5 [facility] MCHC Auto (RBC) [Mass/Vol]Or dered By: Ovidio Ibanez on 12-24-2022 MCHC (RBC) [Mass/Vol] 34.8 g/dL 32-36 [facility] No Panel InformationOrdered By: Ovidio Ibanez on 12-24-2022 Estimated GFR (MDRD) Amer 110 mL/min >60 [facility] Comment on above: GFR Calc Estimated GFR (MDRD) Non-Af Amer 91 mL/min >60 [facility] Comment on above: Non- GFR Calc Thyroid Stimulating Hormone (TSH) 2.13 uIU/mL 0.358-3.74 [facility] Vitamin D 25-Hydroxy 80.2 ng/mL [facility] Comment on above: Vitamin D 25(OH) Sta tus Range Deficiency <20 ng/mL (50nmol/L) Insufficiency 20 - 30 ng/mL (50 - 75 nmol/L) Sufficiency 30 - 100 ng/mL (75 - 250 nmol/L) Toxicity >100 ng/mL (>250 nmol/L) Platelets bldOrdered By: Juan Carlos Ibanez on 12-24-2022 Platelets (Bld) [#/Vol] 330 10*3/uL 150-450 [facility] Serum or plasma albumin davin urement (mass/volume)Ordered By: Ovidio Ibanez on 12-24-2022 Albumin [Mass/Vol] 3.6 g/dL 3.2-5.0 [facility] Serum or plasma albumin/glob ulin mass ratioOrdered By: Ovidio Ibanez on 12-24-2022 Albumin/Globulin [Mass ratio] 1.1 {ratio} 0.9-2.4 [facility] Serum or plasma calcium davin urement (mass/volume)Ordered By: Ovidio Ibanez on 12-24-2022 Calcium [Mass/Vol] 9.2 mg/dL 8.5-10.1 [facility] Serum or plasma creatinine m easurement (mass/volume)Ordered By: Ovidio Ibanez on 12-24-2022 Creatinine [Mass/Vol] 0.66 mg/dL 0.55-1.02 [facility] Comment on above: The validity of the calculated GFR & GFRAA in patients over 70 years has not been determined. Clinical correlation is essential. Serum or plasma urea nitroge n measurement (mass/volume)Ordered By: Ovidio Ibanez on 12-24-2022 Urea nitrogen [Mass/Vol] 11 mg/dL 7-18 [facility] Thin prep Papanicolaou smear with manual screeningOrdered By: Ovidio Ibanez on 12-24-2022 Thin prep Papanicolaou smear with manual screening 19 U/L 15-37 [facility] Thin prep Papanicolaou smear with manual screening 6 5-15 [facility] Basophil percentageon 2022 Bilirubin [Mass/Vol] 0.30 mg/dL 0.20-1.00 [facility] Comment on above: For patients on eltr ombopag therapy, use of Dimension [place] TBIL is not recommended. Chloride [Moles/Vol] 105 mmol/L 98-107 [facility] Glucose [Mass/Vol] 102 mg/dL 74-106 [facility] Comment on above: Fasting Glucose resu lt from 100 to 125 mg/dL suggests IMPAIRED HOMEOSTASIS per A.D.A. criteria. Potassium [Moles/Vol] 3.8 mmol/L 3.5-5.1 [facility] Protein [Mass/Vol] 7.1 g/dL 6.4-8.2 [facility] Sodium [Moles/Vol] 137 mmol/L 136-145 [facility] WBC (Bld) [#/Vol] 7.4 10*3/uL 4.4-11.0 [facility] Blood erythrocytes count (nu mber/volume)on 07-18-2022 RBC (Bld) [#/Vol] 3.96 10*6/uL 4.2-5.4 [facility] Blood hemoglobin measurement (mass/volume)on 07-18-2022 Hemoglobin (Bld) [Mass/Vol] 13.2 g/dL 12.0-15.0 [facility] Blood platelet mean volumeon 07-18-2022 Platelet mean volume (Bld) [Entitic vol] 9.5 fL 6.2-12.0 [facility] Determination of erythrocyte mean corpuscular volume (MCV)on 07-18-2022 MCV (RBC) [Entitic vol] 96.5 fL 81-99 [facility] Hematocrit Auto (Bld) [Volum e fraction]on 07-18-2022 Hematocrit (Bld) [Volume fraction] 38.2 % 37-47 [facility] Laboratory - Chemistry and C hemistry - challengeon 07-18-2022 ALP [Catalytic activity/Vol] 55 U/L 45-117 [facility] ALT [Catalytic activity/Vol] 23 U/L 13-56 [facility] CO2 [Moles/Vol] 28.0 mmol/L 21.0-32.0 [facility] Cobalamin (Vitamin B12) [Mass/Vol] 1110 pg/mL 211-911 [facility] Globulin (S) [Mass/Vol] 3.4 g/dL 2.2-4.2 [facility] Urea nitrogen/Creatinine [Mass ratio] 20.6 mg/mg 10-20 [facility] Laboratory - Hematology and Cell countson 07-18-2022 Erythrocyte distribution width (RBC) [Entitic vol] 46.5 fL 35.1-43.9 [facility] Erythrocyte distribution width (RBC) [Ratio] 13.2 % 11.6-14.6 [facility] MCH (RBC) [Entitic mass] 33.3 pg 27.0-32.0 [facility] MCHC Auto (RBC) [Mass/Vol]on 07-18-2022 MCHC (RBC) [Mass/Vol] 34.6 g/dL 32-36 [facility] No Panel Informationon 07-18 Estimated GFR (MDRD) Amer 108 mL/min >60 [facility] Comment on above: GFR Calc Estimated GFR (MDRD) Non-Af Amer 89 mL/min >60 [facility] Comment on above: Non- GFR Calc Thyroid Stimulating Hormone (TSH) 2.26 uIU/mL 0.358-3.74 [facility] Platelets bldon 07-18-2022 Platelets (Bld) [#/Vol] 331 10*3/uL 150-450 [facility] Serum or plasma albumin davin urement (mass/volume)on 07-18-2022 Albumin [Mass/Vol] 3.7 g/dL 3.2-5.0 [facility] Serum or plasma albumin/glob ulin mass ratioon 07-18-2022 Albumin/Globulin [Mass ratio] 1.1 {ratio} 0.9-2.4 [facility] Serum or plasma calcium davin urement (mass/volume)on 07-18-2022 Calcium [Mass/Vol] 9.2 mg/dL 8.5-10.1 [facility] Serum or plasma creatinine m easurement (mass/volume)on 07-18-2022 Creatinine [Mass/Vol] 0.68 mg/dL 0.55-1.02 [facility] Comment on above: The validity of the calculated GFR & GFRAA in patients over 70 years has not been determined. Clinical correlation is essential. Serum or plasma urea nitroge n measurement (mass/volume)on 07-18-2022 Urea nitrogen [Mass/Vol] 14 mg/dL 7-18 [facility] Thin prep Papanicolaou smear with manual screeningon 07-18-2022 Thin prep Papanicolaou smear with manual screening 18 U/L 15-37 [facility] Thin prep Papanicolaou smear with manual screening 4 5-15 [facility] Hemoglobin AND Hematocriton 04-06-2020 Hematocrit (Bld) [Volume fraction] 36.3 % Normal 35.0-47.0 [facility] Comment on above: Performed By: #### H GHCT #### [address] [id number] Hemoglobin (Bld) [Mass/Vol] 12.4 g/dL Normal 11.7-16.0 [facility] Comment on above: Performed By: #### H GHCT #### [address] [address] Hemoglobin and Hematocrit, B loodon 04-06-2020 Hematocrit (Bld) [Volume fraction] 36.3 % 35 - 47 % [place], [place] Hemoglobin (Bld) [Mass/Vol] 12.4 g/dL 11.7 - 16 g/dL [place], [place] Test Performed by [facility], [address] [place] [id number] [place], [place] Op Noteon 04-06-2020 Op Note [facility] [address] [facility] [address] Dept: [phone] Loc: [phone] Operative Report Patient Name: Kelli Aceves Date of : 1940 Date of Surgery: 04/06/20 Pre-operative diagnosis: Left extra-articular distal humerus fracture Post-operative diagnosis: Same Procedure(s): Open reduction internal fixation of left extra-articular distal humerus fracture (CPT 56997) Surgeon: Aidan Ballard M.D. Steel Pickler(s): Lance Mo M.D. and Suleman Tate M.D. [...] as well as medical complications such as AL, stroke, PE, DVT, and even . Pt [...] Aidan Ballard MD at 04/06/20, 9:39 AM [facility] CT Up Ext w/o Contrast Lefto n 04-05-2020 CT Up Ext w/o Contrast Left Patient Name: KELLI ACEVES I CT Exam Date/Time 04/05/2020 10:53:[address] Up Ext w/o Contrast Left Ordering Physician MD NELLIE, AIDAN Accession Number [id number] CPT4 Codes 15817 () Reason For Exam Other displaced fracture [...] KRIKOR Transcribed Date and Time: 04/05/2020 11:[address] [facility] [address] Upper Extremity Left MARSHA carrera 04-05-2020 Patient Name: KELLI ORELLANA I ---CT--- Exam Date/Time 04/05/2020 10:53:[address] Up Ext w/o Contrast Left Ordering Physician MD NELLIE, AIDAN Accession Number [id number] CPT4 Codes 37388 () Reason For Exam Other displaced fracture [...] KRIKOR Transcribed Date and Time: 04/05/2020 11:15 [facility], [place] Jean, [facility] Incoming Radiology Results From [facility] - 04/05/2020 11:33 AM EDT Patient Name: KELLI ACEVES I ---CT--- Exam Date/Time 04/05/2020 10:53:[address] Up Ext w/o Contrast Left Ordering Physician MD BALLARD ERIC Accession Number [id number] CPT4 Codes 91378 () Reason For Exam Other displaced fracture [...] KRIKOR Transcribed Date and Time: 04/05/2020 11:15 [facility], [place] Procedure Noteon [place] Procedure Note Normal A [facility] ([place]) Final Surgical Pathology Rep [facility] 11-26-2017 Final Surgical Pathology Report . Pathology ReportsAccession: Collected Date/Time: Received Date/Time: Pathologist:[id number] 11/24/2017 10:13 EDT 11/25/2017 07:22 EDT MD GRAHAM SERRANO Final Surgical Pathology ReportDIAGNOSIS:RIGHT COLON, POLYPECTOMY -- TUBULAR ADENOMA.COMMENT:[facility]# [id number] INFORMATION:Procedure: COLONOSCOPY WITH POLYP BIOPSYPreoperative diagnosis: HISTORY OF COLON POLYPSPostoperative diagnosis: SAMESPECIMEN:A POLYP, RIGHT COLON - R/O ADENOMAGROSS DESCRIPTION:Submitted in formalin consists of several irregular pink-flanagan tissue fragments together measuring 0.2 x 0.2 x 0.2 cm. -1 dictated by Drew Serrano M.D.Dictated by GRAHAM SERRANO MDMICROSCOPIC DESCRIPTION:Slides reviewed.Electronically Signed byPathology Report verified by [facility] RehabilitationElectronically signed by GRAHAM SERRANO MDSign out Date: 11/26/2017 13:57Performing Lab: [facility], [address] [place] [address] Normal [facility]) Comment on above: Performed By: #### S PFR ####[address] ENDO Procedure Recordon 11-24-2017 [facility] ENDO Procedure Record Normal [facility] ([place]) Depart Summaryon 11-24-2017 Depart Summary Normal [facility]) History and Physicalon 11-24 History and Physical Normal [facility]) [place] Out[facility] Patient Summaryon 11-24-2017 [place] [facility] Patient Summary Normal [facility]) Vital Signs Date Time Vital Sign Value Performing Clinician Facility 04-29-2025 14:01-0400 Body height 152.[address] Ovidio Ibanez MD Work Phone: [facility] 05-19-2023 21:08-0500 Body mass index (BMI) [Ratio] 24 kg/m2 Dr. Loren Dee Work Phone: [facility] 05-19-2023 21:08-0500 Body weight [address] Loren Dee Work Phone: [facility] 05-19-2023 19:54-0500 Body height 152.[address] Loren Dee Work Phone: [facility] 05-19-2023 19:54-0500 Body temperature 96.7 [degF] Dr. Loren Dee Work Phone: [facility] 05-19-2023 19:54-0500 Diastolic blood pressure 67 mm[Hg] Dr. Loren Dee Work Phone: [facility] 05-19-2023 19:54-0500 Heart rate 85 /min Dr. Loren Dee Work Phone: [facility] 05-19-2023 19:54-0500 Respiratory rate 18 /min Dr. Loren Dee Work Phone: [facility] 05-19-2023 19:54-0500 SaO2% (BldA) [Mass fraction] 100 % Dr. Loren Dee Work Phone: [facility] 05-19-2023 19:54-0500 Systolic blood pressure 130 mm[Hg] Dr. Loren eDe Work Phone: [facility] 05-13-2023 11:29-0400 Body height 152.4 cm Kamala Ariza APRN - SECURITY SOFTWARE ENGINEER Work Phone: [facility] 05-13-2023 11:29-0400 Body mass index (BMI) [Ratio] 24.57 kg/m2 Kamala Ariza OVERLOCK HEMMER - SECURITY SOFTWARE ENGINEER Work Phone: [facility] 05-13-2023 11:29-0400 Body weight 57.06 kg Kamala Ariza OVERLOCK HEMMER - SECURITY SOFTWARE ENGINEER Work Phone: [facility] 05-13-2023 11:29-0400 Diastolic blood pressure 78 mm[Hg] Kamala Ariza OVERLOCK HEMMER - SECURITY SOFTWARE ENGINEER Work Phone: [facility] 05-13-2023 11:29-0400 Heart rate 81 /min Kamala Ariza OVERLOCK HEMMER - SECURITY SOFTWARE ENGINEER Work Phone: [facility] 05-13-2023 11:29-0400 Systolic blood pressure 126 mm[Hg] Kamala Ariza OVERLOCK HEMMER - SECURITY SOFTWARE ENGINEER Work Phone: [facility] 02-28-2023 13:14-0400 Diastolic blood pressure 61 mm[Hg] Robert Roman MD Work Phone: [facility] 02-28-2023 13:14-0400 Heart rate 83 /min Robert Roman MD Work Phone: [facility] 02-28-2023 13:14-0400 Systolic blood pressure 107 mm[Hg] Robert Roman MD Work Phone: [facility] 12-16-2022 13:51-0400 Body height 152.4 cm Robert Roman MD Work Phone: [facility] 12-16-2022 13:51-0400 Body mass index (BMI) [Ratio] 23.44 kg/m2 Robert Roman MD Work Phone: [facility] 12-16-2022 13:51-0400 Body weight 54.43 kg Robert Roman MD Work Phone: [facility] 12-16-2022 13:51-0400 Diastolic blood pressure 76 mm[Hg] Robert Roman MD Work Phone: [facility] 12-16-2022 13:51-0400 Heart rate 67 /min Robert Roman MD Work Phone: [facility] 12-16-2022 13:51-0400 Systolic blood pressure 130 mm[Hg] Robert Roman MD Work Phone: [facility] 10-10-2022 09:10-0400 Body mass index (BMI) [Ratio] 24.3 kg/m2 Ricarda Workman MD Work Phone: [facility] 10-10-2022 09:10-0400 Body temperature 96.49 [degF] Ricarda Workman MD Work Phone: [facility] 10-10-2022 09:10-0400 Body weight 56.43 kg Ricarda Workman MD Work Phone: [employer] 10-10-2022 09:10-0400 Diastolic blood pressure 83 mm[Hg] Ricarda Workman MD Work Phone: [employer] 10-10-2022 09:10-0400 Systolic blood pressure 129 mm[Hg] Ricarda Workman MD Work Phone: [employer] 07-18-2022 10:08-0500 Body mass index (BMI) [Ratio] 24.22 kg/m2 Ricarda Workman MD Work Phone: [employer] 07-18-2022 10:08-0500 Body temperature 96.6 [degF] Ricarda Workman MD Work Phone: [employer] 07-18-2022 10:08-0500 Body weight 56.25 kg Ricarda Workman MD Work Phone: [employer] 07-18-2022 10:08-0500 Diastolic blood pressure 83 mm[Hg] Ricarda Workman MD Work Phone: [employer] 07-18-2022 10:08-0500 Heart rate 69 /min Ricarda Workman MD Work Phone: [employer] 07-18-2022 10:08-0500 Systolic blood pressure 155 mm[Hg] Ricarda Workman MD Work Phone: [employer] 04-06-2020 11:15-0400 BP Diastolic 71 mm[Hg] [facility] [place] 04-06-2020 11:15-0400 BP Systolic 124 mm[Hg] [facility] [place] 04-06-2020 11:15-0400 Pulse (Heart Rate) 80 /min [facility] [place] 04-06-2020 11:15-0400 Pulse Oximetry 99 % Aidan [employer] [facility] , [place] 04-06-2020 11:15-0400 Respiratory Rate 18 /min Aidan [employer] [facility], [place] 04-06-2020 11:00-0400 Body Temperature 97.59 [degF] Aidan Ballard [employer] [facility], [place] 04-06-2020 06:59-0400 BMI (Body Mass Index) 23.44 kg/m2 Aidan Burris [facility] [place], [place] 04-06-2020 06:59-0400 Body weight 54.43 kg Aidan Ballard [facility] , [place] 04-06-2020 06:59-0400 Height 152.4 cm Aidan [facility] , [place] Encounters Encounter Date Encounter Type Care Provider Facility Start: 05-16-2025 ambulatory Ovidio Beebe cility:[facility] Start: 04-05-2025 End: 04-05-[address] Ovidio Ibanez MD Work Phone: [facility] Start: 04-05-2025 End: 04-05-2025 Patient encounter procedure Mary Jane HART -[facility][Note 3] Work Phone: Start: 03-24-2025 End: 03-24-[address] Ovidio Ibanez MD Work Phone: [facility] Start: 03-24-2025 End: 03-24-2025 [facility] encounter [facility] Phone: Start: 03-22-2025 End: 03-22-[address] Ovidio Ibanez MD Work Phone: [facility] Start: 03-22-2025 End: 03-22-[address] 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 Ovidio Ibanez MD Work Phone: [facility] Start: 02-11-2025 End: 02-11-2025 Patient encounter procedure Mary Jane Thakkar [facility] Work Phone: Start: 01-18-2025 End: 01-18-[address] Ovidio Ibanez MD -[facility][Note 3] Work Phone: Start: 01-18-2025 End: 01-18-[address] Ovidio Ibanez MD Work Phone: [facility] Start: 01-18-2025 Registered Referred Ovidio Ibanez MD [facility] Start: 01-11-2025 Non-patient / Non-visit Dr. Noemí luna MD -[facility] Work Phone: Start: 01-03-2025 End: 01-03-[address] Ovidio Ibanez MD Work Phone: [facility] Start: 01-03-2025 End: 01-03-2025 Patient encounter procedure [facility] Work Phone: Start: 12-15-2024 End: 12-15-[address] Ovidio Ibanez MD Work Phone: [facility] Start: 12-15-2024 End: 12-15-2024 [facility] Start: 11-23-2024 End: 11-23-[address] Ovidio Ibanez MD Work Phone: [facility] Work Phone: Start: 11-23-2024 End: 11-23-2024 Departed Referred Ovidio Ibanez MD -[facility] Start: 11-23-2024 End: 11-23-2024 ambulatory Ovidio CAI Facility:[facility] Start: 09-28-2024 End: 09-28-2024 ambulatory Ovidio Ibanez Facility:[facility] Start: 09-28-2024 End: 09-28-[address] Ovidio Ibanez MD -[facility] Work Phone: Start: 08-24-2024 ambulatory Efmariaa Ibanez Facili ty:[facility] Start: 08-24-2024 Registered Referred Ovidio Ibanez MD [facility] Start: 06-25-2024 ambulatory Efmariaa Dunhameboniyann Facili ty:[facility] Start: 06-22-2024 End: 06-22-2024 ambulatory Barrie Velazco Facility:[facility] Start: 05-25-2024 ambulatory Carminamariaa Ibanez TRELL Fa cility:[facility] Start: 09-23-2023 End: 09-23-2023 ambulatory [facility] Work Phone: Start: 09-23-2023 End: 09-23-2023 Departed Referred [facility] Start: 09-11-2023 End: 09-11-[address] Ovidio Ibanez Work Phone: [facility] Work Phone: Start: 09-11-2023 End: 09-11-[address] Ovidio bIanez Work Phone: [facility] Start: 08-26-2023 End: 08-26-[address] Ovidio Ibanez Work Phone: [facility] Work Phone: Start: 08-26-2023 End: 08-26-[address] Ovidio Ibanez Work Phone: [facility] Start: 06-24-2023 End: 06-24-[address] Loren Dee Work Phone: [facility] Work Phone: Start: 06-24-2023 End: 06-24-[address] Loren Dee Work Phone: [facility] Start: 06-02-2023 End: 06-02-2023 Telephone encounter Kamala Ariza APRN - SECURITY SOFTWARE ENGINEER Work Phone: [facility] Comment on above: MRI results MRI results ; Forms/ questionnaires (Request for patient records to [facility] ) Start: 05-27-2023 End: 05-27-[address] Loren Dee Work Phone: [facility] Work Phone: Start: 05-27-2023 End: 05-27-[address] Loren Dee Work Phone: [facility] Start: 05-20-2023 End: 05-20-[address] Loren Dee Work Phone: [facility] Work Phone: Start: 05-19-2023 End: 05-20-2023 Emergency department patient visit Dr. 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 Loren Dee Work Phone: [facility] Work Phone: Start: 05-06-2023 End: 05-06-[address] Loren Dee Work Phone: [facility] Start: 04-28-2023 End: 04-28-[address] 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 Loren Dee Work Phone: [facility] Start: 03-14-2023 End: 03-14-[address] 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 Loren Dee Work Phone: [facility] Start: 02-18-[address] Loren taveras Work Phone: [facility] Start: 01-21-2023 End: 01-21-[address] Loren Dee Work Phone: [facility] Work Phone: Start: 01-21-2023 End: 01-21-[address] Loren Dee Work Phone: [facility] Start: 01-21-[address] Loren taveras Work Phone: [facility] Start: 01-20-2023 Telephone encounter Robert paige MD Work Phone: [facility] Comment on above: Results Start: 01-07-2023 End: 01-07-[address] Loren Dee Work Phone: [facility] Work Phone: Start: 01-07-2023 End: 01-07-[address] Loren Dee Work Phone: [facility] Start: 01-07-[address] Loren taveras Work Phone: [facility] Start: 01-03-2023 End: 01-03-[address] Loren Dee Work Phone: [facility] Work Phone: Start: 12-31-2022 End: 12-31-[address] Loren Dee Work Phone: [facility] Work Phone: Start: 12-30-2022 End: 12-30-2022 Subsequent hospital visit by physician Robert Roman MD Work Phone: [facility] Comment on above: Numbness in both leg s; Weakness of both legs Start: 12-24-2022 End: 12-24-[address] Loren Dee Work Phone: [facility] Work Phone: Start: 12-24-2022 End: 12-24-[address] Loren Dee Work Phone: [facility] Start: 12-21-2022 End: 12-21-[address] Loren Dee Work Phone: [facility] Work Phone: Start: 12-16-2022 End: 12-16-2022 Office outpatient new 45 minutes Robert Roman MD Work Phone: [facility] Medical [facility] Comment on above: Weakness of both leg s (Primary Dx); Numbness in both legs; 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, unspecified whether behavioral, psychotic, or mood disturbance or anxiety (HCC); Other fatigue Start: 10-10-2022 End: 10-10-2022 Office outpatient visit 40 minutes Ricarda Workman MD Work Phone: [facility] Comment on above: Mild dementia with m ood disturbance, unspecified dementia type (HCC) (Primary Dx); Debility; Depression, unspecified depression type Start: 09-20-2022 ambulatory Carina Kohler Cl inical Communication Start: 09-20-2022 Patient encounter procedure Carina Kohler Clinical Communication Start: 07-18-2022 End: 07-18-2022 ambulatory [facility] Work Phone: Start: 07-18-2022 End: 07-18-2022 Patient encounter procedure [facility] Start: 07-18-2022 End: 07-18-2022 Office outpatient visit 40 minutes Ricarda Workman MD Work Phone: [facility] Comment on above: Impaired functional mobility, balance, gait, and endurance (Primary Dx); Mild dementia with mood disturbance, unspecified dementia type; Other fatigue; Depression, unspecified depression type; Bilateral hearing loss, unspecified hearing loss type Start: 03-21-2022 End: 03-21-2022 Subsequent hospital visit by physician Ricarda Workman MD [facility] Phone[facility] Start: 10-08-2021 End: 10-08-2021 Subsequent hospital visit by physician Ricarda Workman MD [facility] Start: 09-17-2021 End: 09-17-2021 Subsequent hospital visit by physician Ricarda Workman MD [facility] Start: 04-06-2020 End: 04-06-2020 Subsequent hospital visit by physician Aidan Ballard Work Phone: [facility] General Surgery Comment on above: Other closed displac ed fracture of distal end of left humerus, initial encounter (Primary Dx) Start: 04-05-2020 End: 04-05-2020 Subsequent hospital visit by physician Aidan Ballard Work Phone: [facility] Comment on above: Other closed displac ed fracture of distal end of left humerus, initial encounter Start: 11-24-2017 End: 11-24-2017 Ambulatory [facility] Facility:B Procedures Date Procedure Procedure Detail Performing [...] Blood count hemoglobin Jose De Jesus R Atul Work Phone: Start: 04-05-2020 Ct upper extremity [...] DTaP/Tdap/Td Vaccines (2 - Td or Tdap) [facility] Start: 05-19-2033 Urine microalbumin profile DTaP,Tdap,Td Vaccine (2 - Td or Tdap) [facility] Start: 12-16-2025 Diabetes Screening Diabetes Screening [facility] Start: 03-14-2025 Influenza vaccination Influenza Vaccine (#1) [facility] Start: 07-22-2024 End: 07-22-2024 Patient encounter procedure 07/22/2024 2:20 PM EST Office Visit [facility] [address] [place] [id number] Robert Roman MD [address] [place] [address] [facility] Start: 07-14-2024 Advance Directive Discussion Advance Directive Discussion [facility] Start: 07-14-2024 Medicare Advantage Annual Wellness Visit Medicare Advantage Annual Wellness Visit [facility] Start: 03-14-2024 COVID-19 Vaccine ( season) COVID-19 Vaccine () [facility] Start: 03-14-2024 Influenza vaccination Influenza Vaccine (#1) [facility] Start: 09-11-2023 End: 09-11-2023 Patient encounter procedure 09/11/2023 11:00 AM EST Office Visit [facility] [address] [place] [phone] Kamala Ariza APRN - SECURITY SOFTWARE ENGINEER [address] [place] [address] [facility] Start: 07-14-2023 Medicare Advantage Annual Wellness Visit Medicare Advantage Annual Wellness Visit [facility] Start: 05-20-2023 [facility] Start: 05-19-2023 Simple repair scalp/neck/ax/genit/kary nk 2.5cm/< RPR S/N/AX/GEN/TRNK 2.5CM/< [facility] Start: 04-21-2023 End: 04-21-2023 Patient encounter procedure 04/21/2023 11:30 AM EDT Office Visit [facility] [address] [place] [id number] Kamala Ariza APRN - SECURITY SOFTWARE ENGINEER [address] [place] [address] [facility] Start: 04-12-2023 Depression Monitoring Depression Monitoring [facility] Start: 04-12-2023 Depresssion Monitoring Depresssion Monitoring [facility] Start: 04-02-2023 End: 04-02-2023 Patient encounter procedure 04/02/2023 6:30 AM EDT Appointment [facility] [address] [place] [id number] Robert Roman MD [address] [place] [address] [facility] Start: 03-14-2023 COVID-19 Vaccine ( season) COVID-19 Vaccine ( season) [facility] Start: 03-14-2023 Influenza vaccination [facility] Start: 02-28-2023 End: 02-29-2024 MR Brain WO contrast MR brain wo contrast Imaging Routine 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, unspecified whether behavioral, psychotic, or mood disturbance or anxiety (HCC) Ataxic gait Expected: 02/28/2023, Expires: 02/29/2024 [facility] Work Phone: Comment on above: Expected: 02/28/2023, Expires: Start: 02-28-2023 End: 02-28-2023 Patient encounter procedure [facility] Start: 01-09-2023 End: 01-09-2023 Patient encounter procedure 01/09/2023 Office Visit Geriatric Medicine Ricarda Workman MD [address] [address] [facility] Start: 12-30-2022 End: 12-30-2022 Patient encounter procedure 12/30/2022 Appointment Neurology Robert Roman MD [address] [place] [address] [facility] Start: 12-16-2022 End: 12-17-2023 Cobalamin (Vitamin B12) [Mass/volume] in Serum or Plasma Vitamin B12 Lab Routine Numbness in both legs Weakness of both legs 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, Unspecified Whether Behavioral, Psychotic, Or Mood Disturbance Or Anxiety (Hcc) Other fatigue Expected: 12/16/2022 (Approximate), Expires: 12/17/2023 [facility] Comment on above: Expected: 12/16/2022 (Approximate), Expi res: 12/17/2023 Start: 12-16-2022 End: 12-17-2023 Hemoglobin A1c/Hemoglobin.total in Blood Hemoglobin A1c Lab Routine Numbness in both legs Weakness of both legs 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, Unspecified Whether Behavioral, Psychotic, Or Mood Disturbance Or Anxiety (Hcc) Other fatigue Expected: 12/16/2022 (Approximate), Expires: 12/17/2023 [facility] Comment on above: Expected: 12/16/2022 (Approximate), Expi res: 12/17/2023 Start: 12-16-2022 End: 12-17-2023 Nerve conduction test with EMG Nerve conduction test with EMG Neurology Routine Numbness in both legs Weakness of both legs Expected: 12/16/2022 (Approximate), Expires: 12/17/2023 [facility] Work Phone: Comment on above: Expected: 12/16/2022 (Approximate), Expi res: 12/17/2023 Start: 12-16-2022 End: 12-17-2023 Thyrotropin [Units/volume] in Serum or Plasma TSH Lab Routine Numbness in both legs Weakness of both legs 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, Unspecified Whether Behavioral, Psychotic, Or Mood Disturbance Or Anxiety (Hcc) Other fatigue Expected: 12/16/2022 (Approximate), Expires: 12/17/2023 [facility] Comment on above: Expected: 12/16/2022 (Approximate), Expi res: 12/17/2023 Start: 12-16-2022 End: 12-17-2023 Vitamin B1 Vitamin B1 Lab Routine Numbness in both legs Weakness of both legs 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, Unspecified Whether Behavioral, Psychotic, Or Mood Disturbance Or Anxiety (Hcc) Other fatigue Expected: 12/16/2022 (Approximate), Expires: 12/17/2023 [facility] Comment on above: Expected: 12/16/2022 (Approximate), Expi res: 12/17/2023 Start: 12-16-2022 End: 12-17-2023 Vitamin B6 Vitamin B6 Lab Routine Numbness in both legs Weakness of both legs 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, Unspecified Whether Behavioral, Psychotic, Or Mood Disturbance Or Anxiety (Hcc) Other fatigue Expected: 12/16/2022 (Approximate), Expires: 12/17/2023 [facility] Comment on above: Expected: 12/16/2022 (Approximate), Expi res: 12/17/2023 Start: 12-16-2022 End: 12-16-2022 Patient encounter procedure 12/16/2022 Office Visit Neurology Robert Roman MD [address] [place] [address] [facility] Start: 10-10-2022 End: 10-10-2022 Patient encounter procedure 10/10/2022 Office Visit Geriatric Medicine Ricarda Workman MD [address] [address] [facility] Geriatric[facility] Start: 09-17-2022 Depression Screen Depression Screen [facility] Start: 07-18-2022 End: 07-18-2023 CBC panel - Blood by Automated count CBC Lab Routine Mild Dementia With Mood Disturbance, Unspecified Dementia Type Other fatigue Expected: 07/18/2022 (Approximate), Expires: 07/18/2023 [facility] Comment on above: Expected: 07/18/2022 (Approximate), Expi res: 07/18/2023 Start: 07-18-2022 End: 07-18-2023 Cobalamin (Vitamin B12) [Mass/volume] in Serum or Plasma Vitamin B12 Lab Routine Mild Dementia With Mood Disturbance, Unspecified Dementia Type Other fatigue Expected: 07/18/2022 (Approximate), Expires: 07/18/2023 [facility] Comment on above: Expected: 07/18/2022 (Approximate), Expi res: 07/18/2023 Start: 07-18-2022 End: 07-18-2023 Comprehensive metabolic 1998 panel - Serum or Plasma Comprehensive metabolic panel Lab Routine Mild Dementia With Mood Disturbance, Unspecified Dementia Type Other fatigue Expected: 07/18/2022 (Approximate), Expires: 07/18/2023 [facility] Comment on above: Expected: 07/18/2022 (Approximate), Expi res: 07/18/2023 Start: 07-18-2022 End: 07-18-2023 Thyrotropin [Units/volume] in Serum or Plasma TSH Lab Routine Mild Dementia With Mood Disturbance, Unspecified Dementia Type Other fatigue Expected: 07/18/2022 (Approximate), Expires: 07/18/2023 [facility] Work Phone: Comment on above: Expected: 07/18/2022 (Approximate), Expi res: 07/18/2023 Start: 03-14-2022 Influenza vaccination [facility] Start: 10-20-2021 COVID-19 Vaccine (4 - Booster for Moderna series) COVID-19 Vaccine (4 - Booster for Moderna series) [facility] Start: 10-08-2021 End: 10-08-2021 Patient encounter procedure 10/08/2021 Office Visit Geriatric Medicine Ricarda Workman MD [address] [place] [id number] [facility] Geriatric[facility] Start: 08-16-2021 COVID-19 Vaccine (4 - Booster for Moderna series) COVID-19 Vaccine (4 - Booster for Moderna series) [facility] Start: 08-16-2021 COVID-19 Vaccine (4 - Moderna series) COVID-19 Vaccine (4 - Moderna series) [facility] Start: 03-14-2021 Influenza vaccination Flu vaccine (#1) [facility] Start: 04-25-2020 End: 04-25-2020 Nurse Only [facility] Medical [facility] [place] Start: 04-06-2020 Hospital Encounter 04/06/2020 Hospital Encounter General Surgery Aidan Ballard MD [address] [facility] [address] [place] [address] [phone] [facility] Start: 04-04-2020 Annual Wellness Visit (AWV) Annual Wellness Visit (AWV) [facility] Start: 03-14-2020 Influenza vaccination Flu vaccine (#1) [place], [place] Start: 2017 RSV Immunization for Adults (1 - 1-dose 75+ series) RSV Immunization for Adults (1 - 1-dose 75+ series) [facility] Start: 2017 RSV Vaccine (1 - 1-dose 75+ series) RSV Vaccine (1 - 1-dose 75+ series) [facility] Start: 2007 Pneumococcal 65+ years Vaccine (1 of 1 - PPSV23) Pneumococcal 65+ years Vaccine (1 of 1 - PPSV23) [place] Start: 2007 Screening for osteoporosis Bone Density Screening [facility] Start: 10-29-2006 Shingles Vaccine (2 of 3) Shingles Vaccine (2 of 3) [facility] Start: 10-29-2006 Shingrix Vaccine (2 of 3) Shingrix Vaccine (2 of 3) [facility] Start: 10-29-2006 Zoster Vaccines (2 of 3) Zoster Vaccines (2 of 3) [facility] Start: 2002 RSV Immunization aged 60 or older (1 - 1-dose 60+ series) RSV Immunization aged 60 or older (1 - 1-dose 60+ series) [facility] Start: 1997 Screening for osteoporosis DEXA (modify frequency per FRAX score) [facility] Start: 1992 Shingles Vaccine (1 of 2) Shingles Vaccine (1 of 2) [facility] Start: 1961 DTaP/Tdap/Td vaccine (1 - Tdap) DTaP/Tdap/Td vaccine (1 - Tdap) [facility] Start: 1961 DTaP/Tdap/Td Vaccines (1 - Tdap) DTaP/Tdap/Td Vaccines (1 - Tdap) [facility] Start: 1960 Hepatitis C screening [facility] Start: 1954 Depression Screen Depression Screen [facility] Start: 1947 COVID-19 Vaccine (1) COVID-19 Vaccine (1) [facility] Start: 1942 Annual Wellness Visit (AWV) Annual Wellness Visit (AWV) [facility] Start: 1940 Hepatitis B Vaccines (1 of 3 - 3-dose series) Hepatitis B Vaccines (1 of 3 - 3-dose series) [facility] Start: 1940 Hepatitis C screening Hepatitis C screen [facility] Start: 1942 Medicare Advantage Annual Wellness Visit (AWV) Medicare Advantage Annual Wellness Visit (AWV) [facility] Start: 1940 Screening for osteoporosis Bone Density Scan [facility] End: 04-06-2020 Blood glucose - POCT Blood glucose - POCT Point of Care Testing STAT One Time for 1 Occurrences starting 04/06/2020 until 04/06/2020 [facility] Comment on above: One Time for 1 Occurrences starting 03/15 until 04/06/2020 End: 04-06-2020 Creatinine [Mass/Vol] Creatinine, serum Lab STAT One Time for 1 Occurrences starting 04/06/2020 until 04/06/2020 [facility] Comment on above: One Time for 1 Occurrences starting 03/15 until 04/06/2020 End: 04-06-2020 FL Greater Than 1 Hour FL Greater Than 1 Hour Imaging Routine Once for 1 Occurrences starting 04/06/2020 until 04/06/2020 [facility] Comment on above: Once for 1 Occurrences starting 04/06/20 20 until 04/06/2020 FL Greater Than 1 Hour FL Greate r Than 1 Hour Imaging Routine 04/06/2020 7:56 AM [facility]T [facility] IgG, IgA, IgM IgG, IgA, IgM La b Routine Numbness in both legs Weakness of both legs 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, Unspecified Whether Behavioral, Psychotic, Or Mood Disturbance Or Anxiety (Hcc) Other fatigue Ordered: 12/16/2022 [employer] Comment on above: Ordered: 12/16/2022 Immunofixation Electrophoresis Immunofixation Electrophoresis Lab Routine Numbness in both legs Weakness of both legs 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, Unspecified Whether Behavioral, Psychotic, Or Mood Disturbance Or Anxiety (Hcc) Other fatigue Ordered: 12/16/2022 [employer] Comment on above: Ordered: 12/16/2022 Immunofixation Electrophoresis Immunofixation Electrophoresis Lab Routine Numbness in both legs Weakness of both legs 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, Unspecified Whether Behavioral, Psychotic, Or Mood Disturbance Or Anxiety (Hcc) Other fatigue Ordered: 12/16/2022 [employer] Comment on above: Ordered: 12/16/2022 End: 04-06-2020 Intermittent pulse oximetry Pulse Oximetry Spot Check Respiratory Care Routine One Time for 1 Occurrences starting 04/06/2020 until 04/06/2020 [facility] Comment on above: One Time for 1 Occurrences starting 03/15 until 04/06/2020 End: 12-30-2022 Nerve conduction test with EMG [employer] Work Phone: Comment on above: Once for 1 Occurrences starting 12/31/19 until 12/30/2022 Oph bmtry prtl coher intrfrmtry io lens pwr mio OPHTHALMIC BIOMETRY BY PARTIAL COHERENCE INTERFEROMETRY W/INTRAOCULAR LENS POWER CALCULATION Combined form of age-related cataract, both eyes [facility] Oxygen therapy [place] [place] Initiate Oxygen Therapy Protocol Respiratory Care Routine Daily until discontinued starting 04/06/2020 [facility] Comment on above: Daily until discontinued starting 2019 Patient Education ED Head Injury (Adult) ED Laceration Scalp Stitches or Krypton [facility] Work Phone: Patient referral [facility] Work Phone: Phase I & II - meter ed glucose Phase I & II - metered glucose Point of Care Testing Routine As Needed until discontinued starting 04/06/2020 [facility] Comment on above: As Needed until discontinued starting End: 04-06-2020 Potassium w/ Reflex to Magnesium Potassium w/ Reflex to Magnesium Lab Routine One Time for 1 Occurrences starting 04/06/2020 until 04/06/2020 [facility] Comment on above: One Time for 1 Occurrences starting 03/15 until 04/06/2020 End: 04-06-2020 , urine , urine Lab STAT One Time for 1 Occurrences starting 04/06/2020 until 04/06/2020 [facility] Comment on above: One Time for 1 Occurrences starting 03/15 until 04/06/2020 Protein [Mass/volume ] in Serum or Plasma Protein, total Lab Routine Numbness in both legs Weakness of both legs 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, Unspecified Whether Behavioral, Psychotic, Or Mood Disturbance Or Anxiety (Hcc) Other fatigue Ordered: 12/16/2022 [employer] Comment on above: Ordered: 12/16/2022 Protein Electrophoresis, Serum Protein Electrophoresis, Serum Lab Routine Numbness in both legs Weakness of both legs 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, Unspecified Whether Behavioral, Psychotic, Or Mood Disturbance Or Anxiety (Hcc) Other fatigue Ordered: 12/16/2022 [employer] Comment on above: Ordered: 12/16/2022 End: 04-06-2020 Protime-INR Protime-INR Lab STAT One Time for 1 Occurrences starting 04/06/2020 until 04/06/2020 [facility] [place] Comment on above: One Time for 1 Occurrences starting 03/15 until 04/06/2020 Serum Electrophoresis Serum Elec trophoresis Lab Routine Numbness in both legs Weakness of both legs 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, Unspecified Whether Behavioral, Psychotic, Or Mood Disturbance Or Anxiety (Hcc) Other fatigue Ordered: 12/16/2022 [employer] Comment on above: Ordered: 12/16/2022 Spirometry panel Incentive mario metry Respiratory Care Routine Q1H PRN until discontinued starting 04/06/2020 [facility] Comment on above: Q1H PRN until discontinued starting 03/15 Xcapsl ctrc rmvl ins j io lens prosth w/o ecp PHACOEMULSIFICATION CATARACT IMPLANT INTRAOCULAR LENS W/O ENDOSCOPIC CYCLOPHOTOCOAGULATION Combined form of age-related cataract, both eyes [facility] Immunizations Immunization Date Immunization Notes Care Provider Abiel drummond 05-19-2023 tetanus toxoid, redu kay diphtheria toxoid, and acellular pertussis vaccine, adsorbed Dr. Loren Dee Work Phone: [facility] 06-13-2021 influenza, seasonal, injectable Ricarda Workman MD Work Phone: [facility] 06-13-2021 influenza virus vacc ine, unspecified formulation Ricarda Workman MD Work Phone: [facility] 10-09-2020 [facility] 09-11-2020 [facility] ([facility] 04-17-2020 influenza, injectabl e, quadrivalent, contains preservative Ricarda Workman MD Work Phone: [facility] 05-14-2019 influenza, injectabl e, quadrivalent, contains preservative Ricarda Workman MD Work Phone: [facility] 05-07-2018 influenza, injectabl e, quadrivalent, contains preservative Ricarda Workman MD Work Phone: [facility] 05-01-2017 influenza, seasonal, injectable Ricarda Workman MD Work Phone: [facility] 05-10-2016 influenza, injectabl e, quadrivalent, contains preservative Ricarda Workman MD Work Phone: [facility] 05-31-2015 influenza, seasonal, injectable Ricarda Workman MD Work Phone: [facility] 09-02-2014 pneumococcal conjuga te vaccine, 13 valent Ricarda Workman MD Work Phone: [facility] 05-17-2014 influenza, seasonal, injectable Ricarda Workman MD Work Phone: [facility] 05-06-2013 influenza, seasonal, injectable Ricarda Workman MD Work Phone: [facility] 04-24-2012 influenza, seasonal, injectable Ricarda Workman MD Work Phone: [facility] 08-21-2009 novel influenza-H1N1 -09, preservative-free, injectable Ricarda Workman MD Work Phone: [facility] 09-02-2007 pneumococcal polysaccharide vaccine, 23 valent Ricarda Workman MD Work Phone: [facility] 09-03-2006 zoster vaccine, live Ricarda Workman MD Work Phone: [facility] Payers Date Payer Category Payer Self-pay [id number] 2015 Medicare [id number] 2015 Medicare (Managed Care) [facility] [facility] PPO [id number] 2015 Medicare HMO [employer] [id number] 2015 Unknown [facility] [employer] [id number] 2015-Present [address] [place], [place] [employer] [id number] 2015 Unknown [id number] Medicare [id number] Unknown [id number] Unknown [id number] .[id number] Unknown [id number] .2.462 Unknown [id number] .2.462 Unknown [id number] .2.462 Unknown [id number] .2.462 Unknown [id number] .2.462 Unknown [id number] .2.462 Unknown [id number] .2.462 Unknown [id number] .2.462 Unknown [id number] .2.462 Unknown [id number] [id number] .2.462 Unknown [id number] .2.462 Unknown [id number] [id number] .2.462 Unknown [id number] .2.462 Unknown [id number] .2.462 Unknown [id number] .[id number] Social History Date Type Detail Facility Start: 04-04-2020 End: 04-29-2025 Tobacco smoking status NHIS Former smoker [place] Start: 04-04-2020 End: 03-16-2025 Tobacco use and exposure Never used [place], [place] Start: 1940 Sex Assigned At Not on file [place] Start: 08-18-2021 End: 04-02-2023 Exposure to SARS-CoV-2 (event) Not sure [place] History of tobacco use Current smoker [facility] Work Phone: Start: 06-18-2021 End: 05-19-2023 Tobacco smoking status NMIS Unknown if ever smoked [facility] Start: 09-09-[address] [facility] Start: 1940 Sex Assigned At Female [facility] Start: 12-16-2022 End: 03-16-2025 Alcohol intake Lifetime non-drinker (finding) [facility] Start: 12-16-2022 End: 03-16-2025 History of Social function [facility] Start: 12-16-2022 End: 03-16-2025 Tobacco use panel [facility] Start: 06-14-2012 Adolescent depressio n screening assessment 10 [facility] Start: 02-11-2022 Sex Female (finding) [facility] History of tobacco use Cigarette Smoker [facility] How often to you hav e a drink containing alcohol? Never [facility] Start: 03-16-2025 Tobacco Comment Quit 1982 [facility] Medical Equipment Procedure Code Equipment Code Equipment Original Text Equipment Identifier Dates Total cholecystectomy with exploration of common bile duct TRIMMER HELPER,CLIP 5MM LIGAMAX FDA Start: 06-06-2021 Total cholecystectomy with exploration of common bile duct TRIMMER HELPER,CLIP 5MM LIGAMAX FDA Start: 06-06-2021 Total cholecystectomy with exploration of common bile duct TRIMMER HELPER,CLIP 5MM LIGAMAX FDA Start: 06-06-2021 Total cholecystectomy with exploration of common bile duct TRIMMER HELPER,CLIP 5MM LIGAMAX FDA Start: 06-06-2021 Total cholecystectomy with exploration of common bile duct TRIMMER HELPER,CLIP 5MM LIGAMAX FDA Start: 06-06-2021 Total cholecystectomy with exploration of common bile duct TRIMMER HELPER,CLIP 5MM LIGAMAX FDA Start: 06-06-2021 Total cholecystectomy with exploration of common bile duct TRIMMER HELPER,CLIP 5MM LIGAMAX FDA Start: 06-06-2021 Total cholecystectomy with exploration of common bile duct TRIMMER HELPER,CLIP 5MM LIGAMAX FDA Start: 06-06-2021 Total cholecystectomy with exploration of common bile duct TRIMMER HELPER,CLIP 5MM LIGAMAX FDA Start: 06-06-2021 Total cholecystectomy with exploration of common bile duct TRIMMER HELPER,CLIP 5MM LIGAMAX FDA Start: 06-06-2021 Total cholecystectomy with exploration of common bile duct TRIMMER HELPER,CLIP 5MM LIGAMAX FDA Start: 06-06-2021 Total cholecystectomy with exploration of common bile duct TRIMMER HELPER,CLIP 5MM LIGAMAX FDA Start: 06-06-2021 Total cholecystectomy with exploration of common bile duct TRIMMER HELPER,CLIP 5MM LIGAMAX FDA Start: 06-06-2021 Total cholecystectomy with exploration of common bile duct TRIMMER HELPER,CLIP 5MM LIGAMAX FDA Start: 06-06-2021 Total cholecystectomy with exploration of common bile duct TRIMMER HELPER,CLIP 5MM LIGAMAX FDA Start: 06-06-2021 Total cholecystectomy with exploration of common bile duct TRIMMER HELPER,CLIP 5MM LIGAMAX FDA Start: 06-06-2021 Total cholecystectomy with exploration of common bile duct TRIMMER HELPER,CLIP 5MM LIGAMAX FDA Start: 06-06-2021 Total cholecystectomy with exploration of common bile duct TRIMMER HELPER,CLIP 5MM LIGAMAX FDA Start: 06-06-2021 Total cholecystectomy with exploration of common bile duct TRIMMER HELPER,CLIP 5MM LIGAMAX FDA Start: 06-06-2021 Goals Date Patient Goal Desired Activity /State Functional Status Date Assessment Result Facility 03-16-2025 Total score [AUDIT-C] 0 03/16/20 2:45 PM EDT Robert Garcia [facility] Clinical Notes 07-18-2022 to [...] Lolis Bacon in the Pre-anesthesia Consultation Clinic ([phone]) to get instructions on their use before [...] call Lolis Bacon or a Pre-Anesthesia Testing development team lead at [phone]. documented in this encounter [facility] 03-16-2025 Note HNO ID: [id number] Author: KOSTAS DIAZ MD Service: ? Author [...] as other activities of daily living. Kelli I Ketan has confirmed that she is no longer [...] Diaz MD March 16, 2025 4:12 PM [facility] 03-16-2025 History of Present illness Narrative [...] 2025 4:12 PM documented in this encounter [facility] 05-18-2024 Telephone encounter Note Name of caller: Tenisha Contact phone number: [phone] Relationship to Patient: [facility] Provider: Dr. Roman Practice: [facility] Chief Complaint/Reason for Call: Tenisha states that Kelli intends to see a new neurologist at [facility], and is requesting Kelli's medical history sent to [facility]'s fax number at [phone]. Please advise. Best time of day caller can be reached: Any Patient advised that office/PCP has 24-48 business hours to return their call: Yes [facility] 05-18-2024 Miscellaneous Notes Name of caller: Tenisha Contact phone number: [phone] Relationship to Patient: [facility] Provider: Dr. Roman Practice: [facility] Chief Complaint/Reason for Call: Tenisha states that Kelli intends to see a new neurologist at [facility], and is requesting Kelli's medical history sent to [facility]'s fax number at [phone]. Please advise. Best time of day caller [...] Name of caller: Loren Contact phone number: [phone] Relationship to Patient: [facility] Provider: Kamala WILKERSON Practice: Neuro Chief Complaint/Reason for Call: [phone] fax results, Loren states has sent requests for the MRI results since 04/15/23. Please advise Best time of day caller can be reached: Any Patient advised that office/PCP has 24-48 business hours to return their call: Yes documented in this encounter [facility] 06-02-2023 Telephone encounter Note Message released to patient as written. Patient's further questions if applicable: Were all questions from office addressed or relayed to the patient from encounter: Yes [facility] 06-02-2023 Miscellaneous Notes Message released to [...] Name of caller: Loren Contact phone number: [phone] Relationship to Patient: [facility] Provider: Kamala WILKERSON Practice: Neuro Chief Complaint/Reason for Call: [phone] fax results, Loren states has sent requests for the MRI results since 04/15/23. Please advise Best time of day caller can be reached: Any Patient advised that office/PCP has 24-48 business hours to return their call: Yes documented in this encounter [facility] 06-02-2023 Telephone encounter Note Lm for Loren to call the office back, please relay providers message. [facility] 06-02-2023 Telephone encounter Note Look at my Assessment and Plan from her 05/12 visit----- Continue Donepezil 5mg daily Will order physical therapy She was given printed report of EMG and MRI brain We did discuss results of testing Group 06-02-2023 Telephone encounter Note Name of caller: Loren Contact phone number: [phone] Relationship to Patient: [facility] Provider: Kamala WILKERSON Practice: Neuro Chief Complaint/Reason for Call: [phone] fax results, Loren states has sent requests for the MRI results since 04/15/23. Please advise Best time of day caller can be reached: Any Patient advised that office/PCP has 24-48 business hours to return their call: Yes Group 05-13-2023 History of Present illness Narrative Visit [...] 300 mg/dL Final No results found for: "[id number]", HEPCAB No results found for: "CRP", "ANATITER", "ANCA" FERRITIN: No results found for: FERRITIN ---- MR brain wo contrast Narrative: Patient Name: KELLI ACEVES [facility] 1940 [id number] Exam Date/Time: 04/02/2023 07:11 Procedure: MR BRAIN [...] is seen within the vessels of the alutiiq of [place]. The globes and orbital contents [...] and arranging for studies. Electronically signed by @MEMDNR@ on @TDNR@ at @NOWNR@ documented in this encounter [facility] 05-12-2023 Telephone encounter Note Patient is scheduled for a sooner appointment, his son is needing to check with [facility] to make sure they can bring her and call us back. [facility] 05-12-2023 Miscellaneous Notes Patient is scheduled [...] Medication Name: NA documented in this encounter [facility] 05-12-2023 Telephone encounter Note Can we see if something sooner is available? [facility] Work Phone: 05-12-2023 Telephone encounter Note Name of Caller: josey Contact Reason for Appointment: pt's appt was moved further out to go over MRI results and the pt's son is asking for the results sooner or for their appt to be moved back sooner Office Name: Neuro Medication Refills need, if any: NA Medication Name: NA [facility] 04-11-2023 Telephone encounter Note Please advise. [facility] 04-11-2023 Miscellaneous Notes Please advise. Name of caller: Kelli Contact phone number: [phone] Relationship to Patient: patient Provider: Dr Roman Practice: [facility] [place] Chief Complaint/Reason for Call: Pt states she would like to speak to the office regarding the results of her recent MR brain wo contrast. Please advise. Best time of day caller can be reached: any Patient advised that office/PCP has 24-48 business hours to return their call: No documented in this encounter [facility] 04-11-2023 Telephone encounter Note Name of caller: Kelli Contact phone number: [phone] Relationship to Patient: patient Provider: Dr Roman Practice: [facility] [place] Chief Complaint/Reason for Call: Pt states she would like to speak to the office regarding the results of her recent MR brain wo contrast. Please advise. Best time of day caller can be reached: any Patient advised that office/PCP has 24-48 business hours to return their call: No [facility] 03-05-2023 Telephone encounter Note OK [facility] 03-05-2023 Miscellaneous Notes OK Forwarding to provider for review and advice. Name of caller: Loren Contact phone number: [phone] Relationship to Patient: [facility] Provider: Dr. Roman Practice: [facility] [place] Chief Complaint/Reason for Call: Loren states that they received an order for a bed assist rail from the office, but they do not allow those at [facility]. Please advise. Best time of day caller can be reached: any Patient advised that office/PCP has 24-48 business hours to return their call: N/A documented in this encounter [facility] 03-05-2023 Telephone encounter Note Forwarding to provider for review and advice. [facility] 03-05-2023 Telephone encounter Note Name of caller: Loren Contact phone number: [phone] Relationship to Patient: [facility] Provider: Dr. Roman Practice: [facility] [place] Chief Complaint/Reason for Call: Loren states that they received an order for a bed assist rail from the office, but they do not allow those at [facility]. Please advise. Best time of day caller can be reached: any Patient advised that office/PCP has 24-48 business hours to return their call: N/A [facility] 02-28-2023 History of Present illness Narrative Images from the original note were not included. [facility] [address] [facility] [address] Dept: [phone] Dept Loc: [phone] Robert Roman MD Thank you for your [...] 1,100 pg/mL Final No results found for: [id number], HEPCAB Name: Kelli Aceves Date of : [...] nerve innervation, and each was the sole food products sales representative of right motor nerve roots L4, [...] arranging for studies. documented in this encounter [facility] 02-28-2023 Miscellaneous Notes Addended by: ROBERT ROMAN on: 02/28/2023 04:01 PM Modules accepted: Orders documented in this encounter [facility] 02-28-2023 Note Addended by: ROBERT ROMAN on: 02/28/2023 04:01 PM Modules accepted: Orders [facility] 02-28-2023 Note Addended by: ROBERT ROMAN on: 02/28/2023 04:01 PM Modules accepted: Orders [facility] 01-24-2023 Telephone encounter Note Lm for patient to call the office back, please relay providers message. [facility] 01-24-2023 Miscellaneous Notes Lm for patient [...] Name of caller: Kelli Contact phone number: [phone] Relationship to Patient: patient Provider: Dr. Roman Practice: [facility] [place] Chief Complaint/Reason for Call: Pt states that she would like to receive a cb as soon as possible to go over her Nerve Conduction and EMG test that was completed on 12/30. Please advise. Best time of day caller can be reached: Any Patient advised that office/PCP has 24-48 business hours to return their call: No documented in this encounter [facility] 01-22-2023 Telephone encounter Note Lm for patient to call the office back, please relay providers message. [facility] 01-22-2023 Miscellaneous Notes Lm for patient to call the office back, please relay providers message. Lm for patient to call the office back, please relay providers message. Dr. Pereira reported that the test was limited but that it appeared to be normal. Remind her that she is following up in Feb Name of caller: Kelli Contact phone number: [phone] Relationship to Patient: patient Provider: Dr. Roman Practice: [facility] [place] Chief Complaint/Reason for Call: Pt states that she would like to receive a cb as soon as possible to go over her Nerve Conduction and EMG test that was completed on 12/30. Please advise. Best time of day caller can be reached: Any Patient advised that office/PCP has 24-48 business hours to return their call: No documented in this encounter [facility] 01-21-2023 Telephone encounter Note Lm for patient to call the office back, please relay providers message. [facility] 01-21-[address] Pereira reported that the test was limited but that it appeared to be normal. Remind her that she is following up in Feb [facility] 01-20-2023 Telephone encounter Note Name of caller: Kelli Contact phone number: [phone] Relationship to Patient: patient Provider: Dr. Roman Practice: [facility] [place] Chief Complaint/Reason for Call: Pt states that she would like to receive a cb as soon as possible to go over her Nerve Conduction and EMG test that was completed on 12/30. Please advise. Best time of day caller can be reached: Any Patient advised that office/PCP has 24-48 business hours to return their call: No T [facility] 12-30-2022 Procedure note Name: Kelli Aceves [...] nerve innervation, and each was the sole food products sales representative of right motor nerve roots L4, [...] 23 [id number] Location: Testing was conducted at [facility] as an outpatient. [employer] Work Phone: 12-30-2022 Procedure note Name: Kelli [...] nerve innervation, and each was the sole food products sales representative of right motor nerve roots L4, [...] 23 [id number] Location: Testing was conducted at [facility] as an outpatient. documented in this encounter [facility] 12-16-2022 History of Present illness Narrative Images from the original note were not included. [facility] [address] [facility] [address] [facility] [address] Dept: [phone] Dept Loc: [phone] Robert Roman MD Thank you for your [...] for: STONE, SEDRATE, CRP, NICOLE, ANCA, HOMOCYSTEINE, [id number], GLUCCSF No results found for: [id number], HEPCAB ASSESSMENT AND PLAN Problem List Items Addressed This Visit None Visit Diagnoses Weakness of both legs - Primary Numbness in both legs 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, unspecified whether behavioral, psychotic, or mood disturbance or anxiety ([facility]) EMG/NCS for neuropathy causing her imbalance and falls. Donepezil 5 mg po QPM. I spent 45 minutes caring for this patient today, reviewing labs and records, seeing the patient, documenting in the record and arranging for studies. documented in this encounter [facility] 10-10-2022 History of Present illness Narrative [...] nursing, bachelors in education Occupation: retired from [employer] Activities: very little social activity, sleeps most of the day, only awake about 7 hours per day >>03/21/22 same, refuses to go places >>10/10/22 sleeps more, watches TV, doesn't like leaving home Exercise: none Finances: not reviewed Healthcare Power of Seam Closer: Yes, Vanesa Padron and [employer] Power of Seam Closer: Yes, Vanesa Padron and Milo Living Will: Yes Guardian:No Code Status: Full Code Primary Caregiver: spouse, Anusha Current care plan/supervision: spouse with patient most of the time but spouse can leave her alone >>03/21/22 same >>10/10/22 same Community resources: Yes: Home Health Aide 3x/week to help with shower, cleaning service every other week >>03/21/22 homebound teacher comes to help with shower 2 days/week, [...] to have patient go back to her group chief operator to see if her hearing aides are [...] caregiver burnout and lack of community supports. Vice Admiral educated that based on patient's current function, family is providing assisted living level of care in the home. Vice Admiral normalized stress involved in managing complex care needs and encouraged family seek out respite options. Vice Admiral normalized that patient could still do well [...] Yes, MOA to get lab results from [facility] IRAIDA Devlin 10/10/22 10:02 AM Review of [...] from the original note were not included. [facility] [address] [facility] [address] Dept: [phone] Dept Loc: [phone] Visit type: [facility] Follow Up Visit Reason for [...] hyperlipidemia, depression, gout who presents to the [facility] for a follow-up visit. The [...] four times. Doesn't remember seeing it before -nursing home memory is good -No safety issues -Does [...] June. Reviewed progress notes completed by RADHIKA DUQUE) [...] had a CT head in 06/03 at [facility] which showed small vessel ischemic/degenerative changes [...] exam and/or evaluation documented in this encounter [facility] 10-10-2022 Instructions Ricarda Workman MD - 10/10/2022 8:45 AM EDT -Recommend getting hearing aides (as recommended by your group chief operator) and wearing them -Recommend seeing an eye [...] would need replication. documented in this encounter [facility] 09-23-2022 Telephone encounter Note Noted Thank you [facility] 09-23-2022 Miscellaneous Notes Noted Thank you [...] ability to do anything. Drug Konstantin Lima. I left a message on voicemail to call the office to schedule. S: Patient spoke with [facility] nurse regarding an appointment. B: Concern for falling. A: Had PT and did not help, fell last night and hurt her knees from crawling, knees have a rug burn on them, skin intact, no head injury, no loc, no pain currently. R: Please call the patient to schedule an appointment in [place], she is requesting to be seen. Please [...] a chronic symptom) Protocols used: Falls and Lohhvlp-IABBY-HS documented in this encounter [facility] 09-23-2022 Telephone encounter Note Notified patient. States she has not seen PCP since last visit here, advised her to make an appointment for them as well. [facility] 09-23-2022 Telephone encounter Note Noted. We [...] her falls. Please communicate this to patient. [facility] 09-23-2022 Telephone encounter Note Spoke to patient and scheduled for 10/10. Also stated she feels she needs her Zoloft increased, has been having a lot of mood problems and ability to do anything. Drug Konstantin Lima. [facility] 09-23-2022 Telephone encounter Note I left a message on voicemail to call the office to schedule. [facility] 09-20-2022 Telephone encounter Note S: Patient spoke with [facility] nurse regarding an appointment. B: Concern for falling. A: Had PT and did not help, fell last night and hurt her knees from crawling, knees have a rug burn on them, skin intact, no head injury, no loc, no pain currently. R: Please call the patient to schedule an appointment in [place], she is requesting to be seen. Please [...] a chronic symptom) Protocols used: Falls and Zhalspx-ISZZS-DH [facility] 09-20-2022 Miscellaneous Notes S: Patient spoke with [facility] nurse regarding an appointment. B: Concern for falling. A: Had PT and did not help, fell last night and hurt her knees from crawling, knees have a rug burn on them, skin intact, no head injury, no loc, no pain currently. R: Please call the patient to schedule an appointment in [place], she is requesting to be seen. Please [...] a chronic symptom) Protocols used: Falls and Asmtcho-VCNUC-OD documented in this encounter [facility] 07-18-2022 History of Present illness Narrative [...] to have patient go back to her group chief operator to see if her hearing aides are working properly and get check up on hearing. SW made [employer] referral. Resources given today: [employer] info Assisted Living checklist Images from the original note were not included. [facility] [address] [place] [address] Dept: [phone] Dept Loc: [phone] Visit type: [facility] Follow Up Visit Reason for Visit: Dementia and Depression Visit Date: 07/18/2022 Assessment and Plan 1. Impaired functional mobility, balance, gait, and endurance - [facility] Neu[facility] 2. Mild dementia with mood disturbance, [...] to follow up with ENT and their group chief operator Follow up in about 3 months (around 10/16/2022). Subjective HPI: Kelli Aceves is a 81 y.o. female with past medical history of mild dementia, arthritis, OAB, hyperlipidemia, depression, gout who presents to the [facility] for a follow-up visit. The [...] they work too well. She has an ENT/group chief operator who she goes to for evaluation. She [...] Neurological: Mental Status: She is alert. Coordination: Lipfqr-Nrxx-Fmxgxc Test normal. Comments: There is mild rigidity [...] is not nervous/anxious. documented in this encounter [facility] Evaluation note No assessment inform ation available [facility] Work Phone: Evaluation note Diagnosis Mild dementia with mood disturbance, unspecified dementia type (HCC)- Primary Debility Unspecified debility Depression, unspecified depression type [facility] Diagnosis Weakness of both legs- Primary Muscle weakness (generalized) Numbness in both legs Disturbance of skin sensation 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, unspecified whether behavioral, psychotic, or mood disturbance or anxiety (HCC) Other fatigue [facility] Diagnosis Numbness in both legs Disturbance of skin sensation Weakness of both legs Muscle weakness (generalized) [facility]* Diagnosis 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, unspecified whether behavioral, psychotic, or mood disturbance or anxiety (HCC)- Primary Ataxic gait Abnormality of gait [facility] Diagnosis 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, unspecified whether behavioral, psychotic, or mood disturbance or anxiety (HCC) Ataxic gait Abnormality of gait documented in this [facility] Diagnosis 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, unspecified whether behavioral, psychotic, or mood disturbance or anxiety (HCC)- Primary Ataxic gait Abnormality of gait Frequent falls documented in this [facility] Diagnosis Impaired functional mobility, balance, gait, and endurance- Primary Mild dementia with mood disturbance, unspecified dementia type Other fatigue Depression, unspecified depression type Bilateral hearing loss, unspecified hearing loss type [facility] Diagnosis Impaired functional mobility, balance, gait, and endurance- Primary Mild dementia with mood disturbance, unspecified dementia type Other fatigue Depression, unspecified depression type Bilateral hearing loss, unspecified hearing loss type documented in this encounter [facility]* Diagnosis Combined form of age-related cataract, 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 documented in this encounter [facility] for referral (narrative)* Consultation (Routine) - Pending Review Specialty Diagnoses / Procedures Referred By Lm solitario Referred To Contact Neurology Diagnoses Impaired functional mobility, balance, gait, and endurance Procedures AR OFFICE/OUTPATIENT NEW HIGH MDM 60-74 MINUTES Ricarda Workman MD [address] [address] [facility] [address] [place] [address] Referral ID Status Reason Start Date Expiration Date Visits Requested Visits Authorized [id number] Pending Review Specialty Services Required 07/18/2022 01/14/2023 1 1 * Home Health (Routine) - Pending Review Specialty Diagnoses / Procedures Referred By Lm solitario Referred To Contact Home Health Services Diagnoses Impaired functional mobility, balance, gait, and endurance Procedures AR OFFICE/OUTPATIENT NEW HIGH MDM 60-74 MINUTES Ricarda Workman MD [address] [address] Referral ID Status Reason Start Date Expiration Date Visits Requested Visits Authorized [id number] Pending Review Specialty Services Required 07/18/2022 01/14/2023 999 999 [facility] Consultation (Routine) - Pending Review Specialty Diagnoses / Procedures Referred By Contac t Referred To Contact Neurology Diagnoses Impaired functional mobility, balance, gait, and endurance Procedures AR OFFICE/OUTPATIENT [facility] MDM 60-74 MINUTES Ricarda Workman MD [address] [address] [facility] [address] [place] [address] Referral ID Status Reason Start Date Expiration Date Visits Requested Visits Authorized [id number] Pending Review Specialty Services Required 07/18/2022 01/14/2023 1 1 * Home Health (Routine) - Closed Specialty Diagnoses / Procedures Referred By Contac t Referred To Contact Home Health Services / Insulation Board Coater Operator Diagnoses Impaired functional mobility, balance, gait, and endurance Procedures AR OFFICE/OUTPATIENT [facility] 60-74 MINUTES Ricarda Workman MD [address] [address] [facility] [address] [place] [address] Referral ID Status Reason Start Date Expiration Date V isits Requested Visits Authorized [id number] Closed Specialty Services Required 07/18/2022 01/14/2023 999 999 [facility] (narrative)No reason for referral information [facility]WHolzer [facility] Work Phone: Summary Purpose Family History No Family History Records Found Relationship Condition Age at Onset Recorded Date/T milo Not Specified Hemorrhagic disorder Unknown father Diabetes mellitus Unknown Parkinson's disease Unknown mother Cerebrovascular accident (CVA) Unknown sister Malignant neoplasm Unknown Advance Directives No Advanced Directives Records FoundDocuments on File Type Date Recorded Patient Rehab Department Manager Expl anation ACP-Advance Directive 09/17/2021 Latest Code Status on File Code Status Date Activated Date Inactivated Comments Full Code 04/06/2020 6:59 AM 04/06/2020 2:14 PM Latest Code Status on File Code Status Date Activated Date Inactivated Comments Full Code 04/06/2020 6:59 AM Documents on File Type Date Recorded Patient Rehab Department Manager Expl anation ACP-Advance Directive 09/17/2021 12:00 AM Advance Directive Response Recorded Date/ Time Advance Directives Yes October 26, 2 019 5:44am Living Will Yes June 02, 021 5:22am Power of Seam Closer Yes June 02, 2021 5:22am Advance Directive Response Recorded Date/ Time Advance Directives Yes October 26, 2 019 6:44am Living Will Yes June 02, 021 6:22am Power of Seam Closer Yes June 02, 2021 6:22am Advance Directive Response Recorded Date/ Time Name of Medical Power of Seam Closer anusha leigh May 19, 2023 9:09pm Advance Directives Yes October 26, 2 019 5:44am Living Will Yes May 19 9:09pm Power of Seam Closer Yes May 19, 2023 9:09pm Advance Directive Response Recorded Date/ Time Advance Directives Yes October 26, 2 019 6:44am Living Will Yes May 19 10:09pm Power of Seam Closer Yes May 19, 2023 10:09pm Advance Directive [...] Left WO Contrast Aidan Ballard MD [address] [facility] [address] [place] [address] Specialty Diagnoses / Procedures Referred By Lm solitario Referred To Contact Diagnoses Numbness in both legs Weakness of both legs Procedures Nerve conduction test with EMG Robert Roman MD [address] [place] [address] Referral ID Status Reason Start Date Expiration Date V isits Requested Visits Authorized [id number] Incomplete 12/16/2022 06/14/2023 1 1 Specialty Diagnoses / Procedures Referred By Contac t Referred To Contact Radiology Diagnoses Numbness in both legs Weakness of both legs Procedures Nerve conduction test with EMG Robert Roman MD [address] [facility] [address] [place] [address] Referral ID Status Reason Start Date Expiration Date Visits Re quested Visits Authorized [id number] Closed 12/16/2022 06/14/2023 1 1 Specialty Diagnoses / Procedures Referred By Contac t Referred To Contact Radiology Diagnoses 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, unspecified whether behavioral, psychotic, or mood disturbance or anxiety (HCC) Ataxic gait Procedures MR brain wo contrast Robert Roman MD [address] [facility] [address] [place] [address] Referral ID Status Reason Start Date Expiration Date V isits Requested Visits Authorized [id number] Authorized 02/28/2023 08/27/2023 1 1 Referral ID Status Reason Start Date Expiration Date Visits Re quested Visits Authorized [id number] Closed 02/28/2023 08/27/2023 1 1 Specialty Diagnoses / Procedures Referred By Contac t Referred To Contact Physical Therapy Diagnoses Ataxic gait Frequent falls Procedures AR OFFICE/OUTPATIENT NEW HIGH MDM 60-74 MINUTES Kamala Ariza APRN - CNP [address] [facility] [address] [place] [address] Referral ID Status Reason Start Date Expiration Date Visits Requested Visits Authorized [id number] Pending Review Eval and Treat 3 11/09/2023 [...] Reason for Visit Chief Complaint ADMISSION EXAM LONG TERM LABWORK ADMISSION EXAM NEW CONCERN LONG TERM LAB WORK LONG TERM LABWORK LONG TERM LAB WORK Chief Complaint LONG TERM LABWORK LONG TERM LAB WORK NEW CONCERN LONG TERM LABWORK LONG TERM LABWORK Chief Complaint LONG TERM LABWORK LONG TERM LAB WORK NEW CONCERN LONG TERM LABWORK NEW CONCERN LONG TERM LABWORK fall, head lac Chief Complaint LONG TERM LAB WOR K NEW CONCERN LONG TERM LABWORK NEW CONCERN LONG TERM LABWORK fall, head lac LONG TERM LABWORK Chief Complaint NEW CONCERN LONG TERM LABWORK NEW CONCERN LONG TERM LABWORK fall, head lac NEW CONCERN LONG TERM LABWORK LONG TERM LAB WORK Chief Complaint LONG TERM LABWORK fall, head lac NEW CONCERN LONG TERM LABWORK LONG TERM LAB WORK LABWORK Chief Complaint fall, head lac NEW CONCERN LONG TERM LABWORK LONG TERM LAB WORK LABWORK LABWORK Chief Complaint LONG TERM LAB WOR K LABWORK LABWORK LABWORK Chief Complaint Admit Date LONG TERM LAB WORK August 24 5:00am ANNUAL EXAM September 28, 2024 1:0 8pm LABWORK November 23, 2024 5:00a m Chief Complaint Admit Date LABWORK November 23, 2024 5:00a m ADMISSION EXAM December 15, 2024 4:32p m LONG TERM LAB WORK January 18, 2025 4:0 0am Chief Complaint Admit Date LABWORK November 23, 2024 5:00a m ADMISSION EXAM December 15, 2024 4:32p m NEW CONCERN January 03, 2025 2:51 pm LONG TERM LAB WORK January 18, 2025 4:0 0am Chief Complaint Admit Date LABWORK November 23, 2024 5:00a m ADMISSION EXAM December 15, 2024 4:32p m NEW CONCERN January 03, 2025 2:51 pm LONG TERM LAB WORK January 18, 2025 4:0 0am Monthly exam January 18, 2025 5:01p m Chief Complaint Admit Date LABWORK November 23, 2024 5:00a m ADMISSION EXAM December 15, 2024 4:32p m NEW CONCERN January 03, 2025 2:51 pm LONG TERM LAB WORK January 18, 2025 4:0 0am Monthly exam January 18, 2025 5:01p m MONTHLY EXAM February 11, 2025 3:5 3pm LONG TERM LAB WORK February 22, 2025 5:00am Chief Complaint Admit Date LONG TERM LAB WORK January 18, 2025 4:0 0am Monthly exam January 18, 2025 5:01p m MONTHLY EXAM February 11, 2025 3:5 3pm LONG TERM LAB WORK February 22, 2025 5:00am LONG TERM LAB WORK March 21 5:00am MONTHLY EXAM March 22, 2025 7:45pm NEW CONCERN March 24, 2025 4:11pm NEW CONCERN April 05, 2025 3:13pm Additional Source Comments INFORMATION SOURCE (unrecogn ized section and content) DATE CREATED AUTHOR 12/31/2017 [facility] ([place]) DATE CREATED AUTHOR AUTHOR'S ORGANIZ ATION 04/10/2020 [facility] DATE CREATED AUTHOR AUTHOR'S ORGANIZ ATION 05/20/2024 [facility] DATE CREATED AUTHOR AUTHOR'S ORGANIZ ATION 05/13/2025 [facility] DATE CREATED AUTHOR AUTHOR'S ORGANIZ ATION 05/16/2025 [facility] Reason for Visit (unrecogniz ed section and content) Status Reason Specialty Diagnoses / Procedures Referre d By Contact Referred To Contact Closed Radiology Diagnoses Other closed displaced fracture of distal end of left humerus, initial encounter Procedures CT Upper Extremity Left WO Contrast Adian Ballard MD [address] [facility] [address] [place] [id number] Reason Comments Dementia Depression Reason Comments New Patient Extremity Weakness Fall Specialty Diagnoses / Procedures Referred By Contac t Referred To Contact Neurology Diagnoses Impaired functional mobility, balance, gait, and endurance Procedures AR OFFICE/OUTPATIENT NEW HIGH MDM 60-74 MINUTES Ricarda Workman MD [address] [address] [facility] [address] [facility] [address] [place] [address] Referral ID Status Reason Start Date Expiration Date Visits Requested Visits Authorized [id number] Pending Review Specialty Services Required 07/18/2022 01/14/2023 1 1 Specialty Diagnoses / Procedures Referred By Contac t Referred To Contact Radiology Diagnoses Numbness in both legs Weakness of both legs Procedures Nerve conduction test with EMG Robert Roman MD [address] [facility] [address] [place] [address] Referral ID Status Reason Start Date Expiration Date Visits Re quested Visits Authorized [id number] Closed 12/16/2022 06/14/2023 1 1 Reason Onset [...] brain wo contrast Robert Roman MD [address] [facility] [address] [place] [address] Referral ID Status Reason Start Date Expiration Date Visits Re quested Visits Authorized [id number] Closed 02/28/2023 08/27/2023 1 1 Reason Comments Follow-up Reason Onset Date Comments call back 05/12/2023 Reason Onset Date Comments MRI results 06/02/2023 Reason Onset Date Comments Results 04/11/2023 Reason Onset Date Comments MRI results 06/02/2023 Forms/questionnaires 06/02/2023 Request for patient records to [facility] Reason Comments Dementia Depression Reason Onset Date Comments Fall 09/20/2022 Reason Comments Cataract Evaluation Specialty Diagnoses / Procedures Referred By Contac t Referred To Contact Ophthalmology / OPHTHALMOLOGY Diagnoses Cataract Cataract eval- pt is using wheelchair unable to transfer Procedures OFFICE/OUTPATIENT NEW HIGH MDM 60 MINUTES OPH MEDICAL XM&EVAL COMPRE NEW PT VST Kostas Diaz MD [address] [id number] Phone: tel: fax: Kostas Diaz MD [address] [place] [place] [address] Phone: tel: fax: Referral ID Status Reason Start Date Expiration Date Visits Re quested Visits Authorized [id number] Closed 03/02/2025 07/13/2025 1 1 Care Teams (unrecognized sec tion and content) Copier Technician Relationship Specialty Start Date End Date Loren Dee PCP - General Family Medicine 06/22/19 Team Status: Active Member Role Status Dates Dr. Loren Dee MD Family Provider Active Dr. Loren Dee MD Primary Care Provider Active Team Status: Inactive Member Role Status Dates Dr. Loren Dee MD Primary Care Provider Active MICHELLE CABRAL Attending Provider, Referring Provider Active Copier Technician Relationship Specialty Start Date End Date Loren Dee [address] [facility] [address] [place] [phone] PCP - General 06/22/19 Copier Technician Relationship Specialty Start Date End Date Loren Dee [address] [facility] [address] [place] [phone] PCP - General 06/22/19 Copier Technician Relationship Specialty Start Date End Date Loren Dee [address] [facility] [address] [place] [phone] PCP - General 06/22/19 Copier Technician Relationship Specialty Start Date End Date Loren Dee [address] [place] [address] PCP - General 06/22/19 Copier Technician Relationship Specialty Start Date End Date Loren Dee [address] [facility] [address] [place] [address] PCP - General 06/22/19 Copier Technician Relationship Specialty Start Date End Date Loren Dee [address] [facility] [address] [place] [address] PCP - General 06/22/19 Copier Technician Relationship Specialty Start Date End Date Loren Dee [address] [facility] [address] [place] [address] PCP - General 06/22/19 Team Status: Inactive Member Role Status Dates Dr. Loren Dee MD Primary Care Provider Active Mary Jane Thakkar APPRENTICE ARCHITECT, APPRENTICE ARCHITECT-C Attending Provider Active Team Status: Inactive Member [...] Active Ovidio CAI MD Attending Provider Active Copier Technician Relationship Specialty Start Date End Date Loren Dee [address] [facility] [address] [place] [address] PCP - General 06/22/19 Team Status: Active Member Role Status Dates Dr. Loren Dee MD Family Provider Active Dr. Ovidio Ibanez MD Primary Care Provider Active Team Status: Inactive Member Role Status Dates Dr. Aidan Martinez DO Emergency Provider Active Dr. Ovidio Ibanez MD Primary Care Provider Active Team Status: Inactive Member Role Status Dates Dr. Aidan Martinez DO Attending Provider, Joey encarnacion Active Dr. Ovidio Ibanez MD Primary Care Provider Active Team Status: Inactive Member Role Status Dates Dr. Ovidio Ibanez MD Primary Care Provider Active Ovidio CAI MD Attending Provider Active Copier Technician Relationship Specialty Start Date End Date Sylviadarcy Loren Jensen [address] [place] [address] PCP - General 06/22/19 Copier Technician Relationship Specialty Start Date End Date Sylviadarcy Loren Jensen [address] [place] [address] PCP - General 06/22/19 Team Status: Inactive Member Role Status Dates Dr. Ovidio Ibanez MD Primary Care Provider Active Mary Jane Thakkar APPRENTICE ARCHITECT, APPRENTICE ARCHITECT-C Attending Provider Active Copier Technician Relationship Specialty Start Date End Date Sylviadarcy Loren Jensen [address] [place] [address] PCP - General 06/22/19 Copier Technician Relationship Specialty Start Date End Date Leila Loren S [address] [place] [address] PCP - General 06/22/19 Copier Technician Relationship Specialty Start Date End Date Leila Loren S [address] [place] [address] PCP - General 06/22/19 Copier Technician Relationship Specialty Start Date End Date Leila Loren S [address] [place] [address] PCP - General 06/22/19 Copier Technician Relationship Specialty Start Date End Date Loren Dee [facility] [address] [place] [phone] PCP - General 06/22/19 Team Status: Active [...] End: December 15, 2024 Mary Jane Thakkar APPRENTICE ARCHITECT, APPRENTICE ARCHITECT-C Attending Provider Active Start: December 15, 2024 [...] End: January 03, 2025 Mary Jane Thakkar APPRENTICE ARCHITECT, APPRENTICE ARCHITECT-C Attending Provider Active Start: January 03, 2025 End: January 03, 2025 Team Status: Inactive Member Role/Relationship Status Dates Dr. Ovidio Ibanez MD Primary Care Provider Active Start: January 11, 2025 Dr. oNemí Bush MD Attending Provider Active Start: January 11, 2025 Team Status: Active Member Role/Relationship Status Dates Dr. Ovidio Ibanez MD Primary Care Provider Active Start: January 18, 2025 Ovidio CAI MD Attending Provider Active Start: January 18, 2025 Ovidio CAI MD Referring Provider Active Start: January 18, 2025 Team Status: Inactive Member Role/Relationship Status Dates Dr. Ovidio Ibanze MD Primary Care Provider Active Start: January [...] End: February 11, 2025 Mary Jane Thakkar APPRENTICE ARCHITECT, APPRENTICE ARCHITECT-C Attending Provider Active Start: February 11, 2025 End: February 11, 2025 Team Status: Active Member Role/Relationship Status Dates Dr. Ovidio Ibanez MD Primary Care Provider Active Start: February 22, 2025 Ovidio CAI MD Attending Provider Active Start: February 22, 2025 Copier Technician Relationship Specialty Start Date End Date Mauricio Grace MD [address] [place] [address] Referring Ophthalmology 01/04/25 Team Status: Active Member [...] End: February 11, 2025 Mary Jane Thakkar APPRENTICE ARCHITECT, APPRENTICE ARCHITECT-C Attending physician Active Start: February 11, 2025 [...] March 24, 2025 End: March 24, 2025 CUATE Ortega NP Attending physician Active Start: March 24, 2025 End: March 24, 2025 Team Status: Inactive Member Role/Relationship Status Dates Dr. Ovidio Ibanez MD Primary care physician Activ e Start: April 05, 2025 End: April 05, 2025 CUATE Ortega NP Attending physician Active Start: April 05, 2025 End: April 05, 2025 Source Comments (unrecognize d section and content) In the event this informatio n is protected by the Federal Confidentiality of Alcohol and Drug Abuse Patient Records regulations: The Federal rules restrict any use of the information to criminally investigate or prosecute any alcohol or drug abuse patient.[facility] FOR RECORDS PERTAINING TO PATIENTS WHO [...] BE BASED ON THE PRIMARY CLINICAL RECORDS. [employer] provides no warranty or guarantee of the accuracy or completeness of information in this document.
[2025-05-24 07:30] LABS: Hematocrit 33.2 % (37-47); Hemoglobin 11.2 g/dL (12.0-15.0); Immature Granulocytes Count 0.020 X10^3/uL (0.0-0.0); Mean Corp Hgb Conc 33.7 g/dL (32-36); Mean Corpuscular Volume 95.1 fL (81-99); Mean Platelet Vol. 10.1 fl (6.2-12.0); NRBC Flagged by Analyzer 0 % (0-5); Platelet Count 217 K/mm3 (150-450); RBC Distribution Width CV 14.8 % (11.6-14.6); RBC Distribution Width SD 50.4 fl (35.1-43.9); Red Blood Count 3.49 M/mm3 (4.2-5.4); White Blood Count 7.1 K/mm3 (4.4-11.0)
[2025-05-24 07:47] LABS: AST(SGOT) 40 U/L (<=31); Alanine Aminotransfer ALT/SGPT 24 U/L (<=34); Albumin, Serum 3.6 g/dL (3.4-4.8); Alkaline Phosphatase 55 U/L (35-104); Anion Gap 10 (5-15); BUN 16 mg/dL (4-19); BUN/Creat Ratio 23.6 RATIO (10-20); Calcium,Total 9.2 mg/dL (7.6-11.0); Carbon Dioxide 24.5 mmol/L (21.0-32.0); Chloride 106 mmol/L (98-108); Globulin 2.6 g/dL (2.2-4.2); Glucose 86 mg/dL (70-99); Potassium 4.1 mmol/L (3.3-5.1)
== END ==
LOC: OLS.WHLEAS 05:00
PROVIDERS: PCP Internal Medicine; Visit Provider Internal Medicine
DX: E78.00 Pure hypercholesterolemia, unspecified (principal); E55.9 Vitamin D deficiency, unspecified
CPT/HCPCS: 36415; 80053; 85025

== ENCOUNTER → 2025-07-11 04:00 | Outpatient (REF) | payer MEDICARE, SELFPAY ==
[2025-07-11 08:19] LABS: Vitamin D,25 Hydroxy 48.2 ng/mL (30-100)
== END ==
LOC: OLS.WHLEAS 04:00
PROVIDERS: PCP Internal Medicine; Referring Provider Internal Medicine; Visit Provider Internal Medicine
DX: E55.9 Vitamin D deficiency, unspecified (principal)
CPT/HCPCS: 36415; 82306